=== PATIENT | female | born 1960 | race Caucasian/White ===

== ENCOUNTER → 2023-03-07 10:00 | Outpatient (CLI) | payer OTHER, MEDICAID, SELFPAY ==
[2023-03-07 11:19] LABS: Add Manual Diff / Slide Review NO; Basophils Absolute Auto 0 /uL (0-100); Basophils Percent Auto 0.7 % (0-2); Eosinophils Absolute Auto 100 /uL (0-450); Eosinophils Percent Auto 2.3 % (2-4); Hematocrit 35.1 % (36-46); Hemoglobin 11.6 g/dL (12.0-16.0); Lymphocytes Absolute Auto 1300 /uL (1100-4500); Lymphocytes Percent Auto 23.9 % (25-40); Mean Corpuscular Hemoglobin 26.8 PG (26-34); Mean Corpuscular Volume 81.4 fL (80-100); Monocytes Absolute Auto 600 /uL (0-900); Monocytes Percent Auto 10.9 % (3-14); Neutrophils Absolute Auto 3300 /uL (1500-7000); Neutrophils Percent Auto 62.2 % (50-75); Platelet Count 203 X10^3/uL (150-400); Red Blood Cell Count 4.31 X10^6/uL (4.0-5.2); Red Cell Distribution Width 16.4 % (11.6-14.8); White Blood Cell Count 5.3 X10^3/uL (4.5-11.0)
[2023-03-07 11:35] LABS: Hemoglobin A1C% w Est Avg Glu 5.9 % (4.0-6.0)
[2023-03-07 11:42] LABS: HEMOLYSIS < 15 (0-50); Iron 35 ug/dL (37-170)
[2023-03-07 11:45] LABS: Alanine Aminotransferase 14 IU/L (<35); Albumin 4.2 g/dL (3.5-5.0); Albumin Globulin Ratio 1.5 (1.0-2.8); Alkaline Phosphatase 86 U/L (38-126); Aspartate Aminotransferase 29 IU/L (14-36); BUN Creatinine Ratio 21.1 (6-22); Bilirubin Total 0.4 mg/dL (0.2-1.3); Bilirubin Unconjugated 0.3 mg/dL (0.0-1.1); Blood Urea Nitrogen 19 mg/dL (7-17); Calcium 9.3 mg/dL (8.4-10.2); Carbon Dioxide 31 mmol/L (22-32); Chloride 99 mmol/L (98-107); Cholesterol 177 mg/dL (140-199); Estimated Glomerular Filt Rate > 60 mL/min (>60); Globulin 2.8 g/dL (1.7-4.1); Glucose 94 mg/dL (80-110); HDL Cholesterol 83 mg/dL (40-60); HEMOLYSIS < 15 (0-50); LDL Cholesterol Calculated 78 mg/dL (<100); Potassium 3.6 mmol/L (3.4-5.1); Sodium 137 mmol/L (137-145); Triglycerides 78 mg/dL (35-150)
[2023-03-07 11:53] LABS: Percent Iron Saturation 9 % (15-50); Total Iron Binding Capacity 388 ug/dL (265-497); Transferrin 310 mg/dL (206-381)
[2023-03-07 11:59] LABS: Vitamin D 25 Hydroxy (D3) 37.5 ng/mL (30.0-100.0)
[2023-03-07 12:13] LABS: TSH w/ Reflex to FT4 0.09 uIU/mL (0.47-4.68)
[2023-03-07 12:18] LABS: Ferritin 9 ng/mL (11-264)
[2023-03-07 12:32] LABS: Vitamin B12 917 pg/mL (239-931)
[2023-03-07 12:46] LABS: Free T4, Direct Thyroxine 1.83 ng/dL (0.78-2.19)
[2023-03-08 16:46] LABS: Hep C Virus Ab w/Reflex Quant REACTIVE s/c (NEGATIVE)
== END ==
PROVIDERS: PCP Student in an Organized Health Care Education/Training Program; Referring Provider Student in an Organized Health Care Education/Training Program; Visit Provider Student in an Organized Health Care Education/Training Program
DX: E03.9 Hypothyroidism, unspecified (principal); D64.9 Anemia, unspecified; K74.60 Unspecified cirrhosis of liver; K76.9 Liver disease, unspecified; Z13.21 Encounter for screening for nutritional disorder; Z13.1 Encounter for screening for diabetes mellitus
CPT/HCPCS: 36415; 80053; 80061; 80076; 82306; 82607; 82728; 83036; 83540; 83550; 84439; 84443; 85025; 86803; 87522

== ENCOUNTER → 2023-03-13 15:34 | Outpatient (CLI) | payer OTHER, MEDICAID, SELFPAY | PROVIDERS: PCP Student in an Organized Health Care Education/Training Program; Referring Provider Student in an Organized Health Care Education/Training Program; Visit Provider Student in an Organized Health Care Education/Training Program | DX: J44.9 Chronic obstructive pulmonary disease, unspecified (principal); Z87.891 Personal history of nicotine dependence | CPT/HCPCS: 94060; 94726; 94729 ==

== ENCOUNTER → 2023-03-15 09:03 | Outpatient (CLI) | payer OTHER, MEDICAID, SELFPAY ==
--- NOTE | 2023-03-15 09:06 | DI.ECHO.S_ITS ---
[facility] +---------+ : : [address] : [place] : : : : [id number] : : : : Phone: [phone]---------+ Echocardiogram Report + + :Name: ANTONIO MARTINI) Johnathan Study Date: 03/15/2023 Height: 64 in : :[facility] ReadingLocation: Weight: 144 lb : : Gender: Female BSA: 1.7 m2 : :: 1960 Age: 62 yrs BP: 144/90 mmHg: :Reason For Study: Mitral Valve Prolapse : :Ordering Physician: Faith, : :Sangeeta Galicia Performed By: Karoline Duff : :Referring: Sangeeta Cuevas : + + Interpretation Summary 1) Normal left ventricular thickness, size, wall motion, and systolic function (EF 55-60%). 2) Normal right ventricular size and function. 3) Mitral valve leaflets are mildly thickened and there is mild regurgitation. 4) No prior Echo available for comparison. Procedure: A two-dimensional transthoracic echocardiogram with color flow and Doppler was performed. The study quality was technically adequate. There is no prior echocardiogram noted for this patient. The patient was in normal sinus rhythm during the exam. Left Ventricle: The left ventricle is normal in size and wall thickness. The ejection fraction is estimated to be 55-60%. Left ventricular systolic function appears normal without focal wall motion abnormalities. Diastolic parameters suggest a relaxation abnormality of the left ventricle, consistent with probable normal filling pressures. Right Ventricle: The right ventricle is normal in size and function. Atria: The left atrial size is normal. Right atrial size is normal. There is no Doppler evidence for an interatrial shunt. Mitral Valve: The mitral valve leaflets appear mildly thickened, but open well. There is no mitral valve stenosis. There is mild mitral regurgitation. Aortic Valve: The aortic valve is not well visualized. There is no aortic valve stenosis. No aortic regurgitation is present. Tricuspid Valve: The tricuspid valve is normal. There is no tricuspid stenosis. There is trace tricuspid regurgitation. The right ventricular systolic pressure is estimated to be at least 25 mmHg based on an estimated right atrial pressure of 8 mm Hg. Pulmonic Valve: The pulmonic valve is not well visualized. There is no pulmonic valvular stenosis. There is trace pulmonic regurgitation. Great Vessels: The aortic root is normal size. The ascending aorta is normal in size. The pulmonary artery is normal size. The IVC is dilated (diameter is greater than 2.1 cm) yet it collapses greater than 50% with a sniff. This suggests a right atrial pressure of 8 mm Hg. Pericardium/ Pleura There is no pericardial effusion. There is no pleural effusion. MMode/2D Measurements & Calculations LVIDd: 4.8 cm LVOT diam: 1.8 cm LVIDs: 3.0 cm Ao root diam: 2.9 cm FS: 37.5 % asc Aorta Diam: 2.9 cm IVSd: 0.60 cm LVPWd: 0.60 cm LV barone. diameter/BSA (cm/m^2): 2.8 LV sys. diameter/BSA (cm/m^2): 1.8 LA A2 area: 12.0 cm2 RA long axis: 4.2 cm LA A4 area: 13.0 cm2 RA area: 10.4 cm2 LA length (vol): 4.0 cm RA vol: 22.0 ml LA vol: 32.9 ml RA : 12.9 ml/m2 LA vol index: 19.3 ml/m2 IVC diam: 2.2 cm RVD1 (basal): 2.9 cm LVLs ap4: 5.2 cm LVLd ap2: 5.7 cm TAPSE_phl: 1.9 cm LVLs ap2: 5.1 cm Doppler Measurements & Calculations Ao V2 max: 111.5 cm/sec LVOT Max Travis: 85.9 cm/sec Ao V2 mean: 78.0 cm/sec LV V1 max P.0 mmHg Ao max P.0 mmHg LV V1 VTI: 20.4 cm Ao mean P.0 mmHg TAI(I,D): 1.8 cm2 Ao V2 VTI: 28.2 cm TAI(V,D): 2.0 cm2 sev ratio: 0.72 TAI indexed to BSA (cm^2/m^2): 1.1 MV E max travis: 87.0 cm/sec TR max travis: 200.7 cm/sec MV A max travis: 80.6 cm/sec TR max P.9 mmHg MV E/A: 1.1 PA V2 max: 79.9 cm/sec Med Peak E' Travis: 8.5 cm/sec PA V2 mean: 55.2 cm/sec E/E' med: 10.2 PA mean P.0 mmHg Lat Peak E' Travis: 8.3 cm/sec PA pr(Accel): 32.6 mmHg E/E' lat: 10.4 E/e' average: 10.3 MV dec time: 0.24 sec SV(LVOT): 51.8 ml AV VR_phl: 0.77 TAI(VTI)/BSA_phl: 1.1 Reading Physician:03:34 PM
== END ==
PROVIDERS: PCP Student in an Organized Health Care Education/Training Program; Referring Provider Student in an Organized Health Care Education/Training Program; Visit Provider Student in an Organized Health Care Education/Training Program
DX: I34.1 Nonrheumatic mitral (valve) prolapse (principal); I34.0 Nonrheumatic mitral (valve) insufficiency
CPT/HCPCS: 87522; C8929; Q9957

== ENCOUNTER → 2023-03-27 14:47 | Outpatient (CLI) | payer OTHER, MEDICAID, SELFPAY ==
--- NOTE | 2023-03-27 14:49 | DI.NM.S_ITS ---
PROCEDURE: NM WAQAR PERF SPECT SINGLE STUDY Rest only myocardial perfusion SPECT with gated imaging and ejection fraction. RADIOPHARMACEUTICAL: 25 mCi Tc-99m sestamibi IV at rest and 25.7 mCi Tc-99m sestamibi IV at peak exercise. A [id number]-[id number] was performed. INDICATIONS: RIVAS TECHNIQUE: Radiopharmaceutical was injected at peak stress test, and also at rest. SPECT images were obtained. SPECT myocardial perfusion images were displayed in short axis, horizontal long axis, and vertical long axis views. Gated images were reviewed using [facility] software. COMPARISON: None. CARDIAC STRESS: A standard Lavelle treadmill exercise tolerance test was performed by the patient under the supervision of an attending staff. The patient exercised for 15 seconds then developed shortness of breath, dizziness and chest tightness so the protocol was switched to pharmacologic. She then received regadenoson 0.4 mg IV. Hemodynamic data: There an increase in blood pressure after regadenoson infusion, maximum 160/110. Symptoms: Patient complained of 10 out of 10 chest pain after vasodilator infusion that did not resolve after administration of aminophylline 100 mg IV and decrease to an 8 out of 10 after sublingual nitroglycerin 0.4 mg x 1. EKG: No diagnostic EKG changes of ischemia; no ectopy. FINDINGS: Raw data: There is good myocardial labeling by radiotracer. No significant motion artifacts. Left ventricle function: Gated images demonstrate normal left ventricle wall thickening. No segmental wall motion abnormality. The left ventricle resting end-diastolic volume is 71 mL. Left ventricle rest ejection fraction is 68%; normal values are above 45%. Myocardial perfusion: There is a large size, moderate to severe intensity inferior and inferolateral wall defect. IMPRESSION: Abnormal, rest only myocardial perfusion imaging. There is a large size, moderate to severe intensity inferior and inferolateral wall defect occurring in the setting of normal wall motion on rest only imaging. The patient developed chest pain after vasodilator infusion that did not resolve with reversal agent and sublingual nitroglycerin so she was sent to the ED. No stress imaging obtained. Dictated by: Shelly Garcia D.O. on 03/28/2023 at 17:03 Approved by: Shelly Garcia D.O. on 03/28/2023 at 17:13
== END ==
PROVIDERS: Family Provider Student in an Organized Health Care Education/Training Program; PCP Student in an Organized Health Care Education/Training Program; Referring Provider Internal Medicine Cardiovascular Disease; Visit Provider Internal Medicine Cardiovascular Disease
DX: R06.09 Other forms of dyspnea (principal); R94.39 Abnormal result of other cardiovascular function study
CPT/HCPCS: 78451; 93017; A9502; J2785

== ENCOUNTER 2023-03-28 08:40 | Emergency (ER) | payer OTHER, MEDICAID, SELFPAY ==
[2023-03-28] VITALS (23 sets, daily range): BP systolic 126–154; BP diastolic 66–95; PULSE 53–76; RESP 10–38; TEMP 36.4; O2SAT 90–100; BMI 24.7
--- NOTE | 2023-03-28 08:42 | DI.RAD.S_ITS ---
PROCEDURE: XR CHEST 1V INDICATIONS: chest pain TECHNIQUE: One view of the chest was acquired. COMPARISON: None. FINDINGS: Surgical changes and devices: Partially visualized thoracic spinal cord stimulator. Lungs and pleura: Lungs are clear. No pleural effusions or pneumothorax. Mediastinum: Mediastinal contours appear normal. Heart size is normal. Bones and chest wall: No suspicious bony lesions. Overlying soft tissues appear unremarkable. IMPRESSION: No acute cardiopulmonary abnormality is seen. Dictated by: Jeison Quispe M.D. on 03/28/2023 at 9:01 Approved by: Jeison Quispe M.D. on 03/28/2023 at 9:03
--- NOTE | 2023-03-28 08:44 | ED.CHESTPAIN ---
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 Patient was participating in a stress test when she received the Lexiscan portion develop chest pressure substernal and epigastric radiating through to her back into her right neck. She states she feels very short of breath. She does not feel wheezy or tight. Denies any diaphoresis. No nausea no vomiting. No recent fevers or cold cough congestion symptoms. Patient states no recent diarrhea or constipation, no issues with urinary changes. Patient has noted some mild swelling in the last week or so in her lower extremities. She states this is very similar to the chest discomfort she gets that prompted her stress test but states that is usually for very short periods of time such as a couple seconds. She had 20 minutes plus of symptoms with her stress test received aminophylline with a few minutes of improvement and then recurrence and single dose of nitro without any resolution. EKG noted some nonspecific change with her stress test but no other acute changes. Patient notes she is quite deconditioned and does not perform much physical activity secondary to her COPD. Patient states she would a very similar event when she had stress testing with chemicals in [place] many years ago. She states developed similar symptoms ultimately was transferred to the ER, had lab work and then was transferred to a larger facility where she had heart catheterization. She was told her heart was stiff but they did not place any cardiac stents. She states they did adjust medications afterwards. She states no anticoagulants she, she does not use her inhalers regularly because they are too expensive, she is on metoprolol, levothyroxine, dupalimab for daily home medications. Denies any recent surgeries. Former smoker. No regular alcohol, no recreational or IV drugs. Dr. Cabrera is her PCP. Related Data Home Medications Medication Instructions Recorded Confirmed ascorbate calcium (vitamin C) 500 500 mg PO DAILY 03/06/23 03/23/23 mg capsule bisacodyl 5 mg tablet,delayed 5 mg PO .PRN 03/06/23 03/23/23 release (Dulcolax (bisacodyl)) diphenhydramine HCl 25 mg capsule 25 mg PO BEDTIME PRN 03/06/23 03/23/23 (Benadryl) levothyroxine 50 mcg capsule 50 mcg PO DAILY 03/06/23 03/23/23 Previous Rx's Medication Instructions Recorded Disabled Parking #1 ea 03/06/23 dupilumab 300 mg/2 mL subcutaneous 300 mg (2 mL) SUBCUT Q2W #4 mL 03/06/23 pen injector (Dupixent) esomeprazole magnesium 20 mg 20 mg PO DAILY #90 caps 03/06/23 capsule,delayed release (Nexium) metoprolol succinate 50 mg capsule 50 mg PO DAILY #90 ea 03/06/23 sprinkle, ext. release 24 hr nadolol 20 mg tablet 20 mg PO ONCE #90 tabs 03/06/23 estradiol cypionate 5 mg/mL 2 mg (0.4 mL) IM Q4W #10 mL 03/07/23 intramuscular oil (Depo-Estradiol) cyclobenzaprine 5 mg tablet 5 mg PO TID PRN muscle spasm #90 03/23/23 tabs fluticasone propionate 110 2 puff inhalation ONCE shortness 03/23/23 mcg/actuation HFA aerosol inhaler of breath #12 grams (Flovent HFA) ipratropium 0.5 mg-albuterol 3 mg 3 ml inhalation BID #180 mL 03/27/23 (2.5 mg base)/3 mL nebulization soln Allergies Allergy/AdvReac Type Severity Reaction Status Date / Time penicillin G Allergy Severe Anaphylaxis Verified 03/28/23 08:46 vaccine adjuvant system, Allergy Severe blisters Verified 03/28/23 08:46 AS01B liposomal [From Shingrix (PF)] varicella-zoster virus Allergy Severe blisters Verified 03/28/23 08:46 glycoprotein E, recombinant [From Shingrix (PF)] latex AdvReac Intermediate Redness of Verified 03/28/23 08:46 Skin codine Allergy Severe Anaphylaxis Uncoded 03/27/23 13:45 Review of Systems Review of Systems ROS Unobtainable: All systems reviewed & are unremarkable except as noted in HPI and below Patient History Medical History COPD (chronic obstructive pulmonary disease) (~2018) Allergies Scoliosis Chronic back pain Cervical spine disease Carpal tunnel syndrome Mumps Chicken pox Ruptured tympanic membrane Glaucoma Liver disease (~2018) Hepatitis C (~2018) Hemorrhoid GERD (gastroesophageal reflux disease) Cirrhosis (~2018) MVP (mitral valve prolapse) Surgical History Anesthesia S/P insertion of spinal cord stimulator (~2016) History of hernia repair (~2012) History of appendectomy History of elbow surgery History of carpal tunnel release History of cholecystectomy History of ear surgery History of total hysterectomy History of partial hysterectomy Social History Smoking Status: Former smoker (2017) Smoking Status: Former smoker (2017) Exam Narrative Exam Narrative: GENERAL: Alert and oriented x three, HEENT: Head normocephalic, atraumatic, EOMI, pupils reactive, face symmetric, moist mucous membranes NECK: Supple, full range of motion CARDIOVASCULAR: Regular rate and rhythm without murmurs, rubs or gallops. No JVD. No edema appreciated bilateral lower extremities. RESPIRATORY: Breath sounds slightly decreased bilaterally but equal bilaterally, no wheezes rales or rhonchi. No tachypnea. No accessory muscle use. ABDOMEN: Soft, nontender. Normoactive bowel sounds all 4 quadrants. No guarding or rebound, rigidity, no mass : No CVA tenderness EXTREMITIES: Normal range of motion, no clubbing or edema. Neurovascularly intact NEUROLOGICAL: Cranial nerves II through XII grossly intact. Moving all extremities SKIN: Warm, dry, no petechiae, no rashes or lesions. Initial Vital Signs Initial Vital Signs: Vital Signs Temperature 97.6 F 03/28/23 08:43 Pulse Rate 71 03/28/23 08:43 Respiratory Rate 20 03/28/23 08:43 Blood Pressure 154/85 H 03/28/23 08:43 Pulse Oximetry 98 03/28/23 08:43 Oxygen Delivery Method Room Air 03/28/23 08:43 Course Orders Ordered: ED Orders 03/28/23 09:00 EKG-12 Lead Stat 03/28/23 10:45 Trop I [Troponin I] Stat 03/28/23 11:20 CT angio chest PE protocol Stat 03/28/23 12:55 Trop I [Troponin I] Stat Discontinued Medications Albuterol/Ipratropium (Albuterol/Ipratropium 3 Ml Ampul) 3 ml INH NOW ONE Stop: 03/28/23 09:18 Last Admin: 03/28/23 09:19 Dose: 3 ml Documented By: CORIE Aspirin (Aspirin 81 Mg Chew Tab) 324 mg PO NOW ONE Stop: 03/28/23 08:43 Last Admin: 03/28/23 08:54 Dose: 324 mg Documented By: ROCHELLE Morphine Sulfate (Morphine 4 Mg/Ml Inj) 4 mg IV NOW ONE Stop: 03/28/23 09:03 Last Admin: 03/28/23 09:05 Dose: 4 mg Documented By: ROCHELLE Morphine Sulfate (Morphine 4 Mg/Ml Inj) 4 mg IV NOW ONE Stop: 03/28/23 09:52 Last Admin: 03/28/23 10:13 Dose: 4 mg Documented By: ROCHELLE Nitroglycerin (Nitroglycerin 0.4 Mg Sl Tab) 0.4 mg SL [id number] PRN PRN Reason: Chest Pain Last Admin: 03/28/23 08:54 Dose: 0.4 mg Documented By: ROCHELLE Ondansetron HCl (Ondansetron 4 Mg/2 Ml Inj) 4 mg IV NOW ONE Stop: 03/28/23 09:40 Last Admin: 03/28/23 09:44 Dose: 4 mg Documented By: ROCHELLE Vital Signs Vital signs: Vital Signs - 8 hr 03/28/23 10:00 03/28/23 10:00 03/28/23 10:15 Pulse Rate 61 Respiratory Rate 17 Blood Pressure 146/81 H 130/69 Pulse Oximetry 98 Oxygen Delivery Method 03/28/23 10:15 03/28/23 10:30 03/28/23 10:30 Pulse Rate 61 62 Respiratory Rate 24 19 Blood Pressure 143/66 H Pulse Oximetry 97 90 L Oxygen Delivery Method Room Air 03/28/23 11:00 03/28/23 11:00 03/28/23 11:38 Pulse Rate 59 L 64 Respiratory Rate 21 27 H Blood Pressure 127/66 Pulse Oximetry 91 Oxygen Delivery Method 03/28/23 11:39 03/28/23 11:39 03/28/23 12:00 Pulse Rate 63 Respiratory Rate 15 Blood Pressure 146/70 H 136/70 Pulse Oximetry 98 Oxygen Delivery Method 03/28/23 12:00 03/28/23 12:30 03/28/23 12:30 Pulse Rate 55 L 61 Respiratory Rate 21 17 Blood Pressure 138/72 Pulse Oximetry 96 96 Oxygen Delivery Method Room Air 03/28/23 13:00 03/28/23 13:00 03/28/23 13:30 Pulse Rate 61 53 L Respiratory Rate 20 15 Blood Pressure 130/68 Pulse Oximetry 95 96 Oxygen Delivery Method Room Air 03/28/23 13:30 Pulse Rate Respiratory Rate Blood Pressure 137/74 Pulse Oximetry Oxygen Delivery Method MDM - Chest Pain Lab Data 03/28/23 08:45 03/28/23 08:45 Labs: Lab Results 03/28/23 03/28/23 03/28/23 Range/Units 08:45 10:45 12:55 WBC 7.3 (4.5-11.0) X10^3/uL RBC 4.16 (4.0-5.2) X10^6/uL Hgb 11.1 L (12.0-16.0) g/dL Hct 33.7 L (36-46) % MCV 80.9 (80-100) fL MCH 26.8 (26-34) PG MCHC 33.1 (30-36) % RDW 15.2 H (11.6-14.8) % Plt Count 216 (150-400) X10^3/uL Neut % (Auto) 58.2 (50-75) % Lymph % (Auto) 28.1 (25-40) % O'Brien % (Auto) 10.1 (3-14) % Eos % (Auto) 2.8 (2-4) % Baso % (Auto) 0.8 (0-2) % Neut # (Auto) 4200 (9011-0963) /uL Lymph # (Auto) 2000 (5221-3859) /uL O'Brien # (Auto) 700 (0-900) /uL Eos # (Auto) 200 (0-450) /uL Baso # (Auto) 100 (0-100) /uL PT 12.2 (9.4-12.5) SECONDS INR 1.1 (0.9-1.3) APTT 29 (25.1-36.5) SECONDS D-Dimer 1644 H (<500) ng/ml Sodium 134 L (137-145) mmol/L Potassium 3.5 (3.4-5.1) mmol/L Chloride 100 (98-107) mmol/L Carbon Dioxide 28 (22-32) mmol/L BUN 12 (7-17) mg/dL Creatinine 0.71 (0.52-1.04) mg/dL Estimated GFR > 60 (>60) mL/min BUN/Creatinine Ratio 16.9 (6-22) Glucose 87 (80-110) mg/dL Calcium 9.4 (8.4-10.2) mg/dL Magnesium 1.3 L (1.6-2.3) mg/dL Total Bilirubin 0.8 (0.2-1.3) mg/dL AST 28 (14-36) IU/L ALT 11 (<35) IU/L Alkaline Phosphatase 74 (38-126) U/L Total Creatine Kinase 37 (30-135) U/L Troponin I < 0.012 < 0.012 < 0.012 (0.01-0.034) ng/mL NT-Pro-B Natriuret Pep 683 H (<125) pg/mL Total Protein 7.0 (6.3-8.2) g/dL Albumin 3.9 (3.5-5.0) g/dL Globulin 3.1 (1.7-4.1) g/dL Albumin/Globulin Ratio 1.3 (1.0-2.8) Lipase 57 (23-300) U/L Point of Care Testing Glucose POC 73 Imaging Data Chest x-ray: Radiologist's Impression: [address] [address] XRay Report Signed Patient: Xi Dejesus (Debbie) MR#: [id number] : 1960 Acct:[id number] Age/Sex: 62 / F Date of Service: 03/28/23 Loc: ED Accession Number: [id number] Procedure: XR chest 1V Ordering Provider: Marley Osorio D.O. PROCEDURE: XR CHEST 1V INDICATIONS: chest pain TECHNIQUE: One view of the chest was acquired. COMPARISON: None. FINDINGS: Surgical changes and devices: Partially visualized thoracic spinal cord stimulator. Lungs and pleura: Lungs are clear. No pleural effusions or pneumothorax. Mediastinum: Mediastinal contours appear normal. Heart size is normal. Bones and chest wall: No suspicious bony lesions. Overlying soft tissues appear unremarkable. IMPRESSION: No acute cardiopulmonary abnormality is seen. Dictated by: Jeison Quispe M.D. on 03/28/2023 at 9:01 Approved by: Jeison Quispe M.D. on 03/28/2023 at 9:03 CT scan - chest: Radiologist's Impression: combinant, latex, [codine] (More??) Close Chest CTA (Signed) Zachary Beltran - 03/28/23 Chest X-Ray (Signed) Jeison Quispe - 03/28/23 PFT Result 03/13/23 Launch?[place] [address] CT Scan Report Signed Patient: Xi Dejesus (Debbie) MR#: [id number] : 1960 Acct:[id number] Age/Sex: 62 / F Date of Service: 03/28/23 Loc: ED Accession Number: [id number] Procedure: CT angio chest PE protocol Ordering Provider: Marley Osorio D.O. PROCEDURE: CT ANGIO CHEST PE PROTOCOL INDICATIONS: chestpain/sob, s/p stress test. hypoxic intermittently TECHNIQUE: After the administration of intravenous contrast, 2 mm thick sections acquired from the pulmonary apices to the posterior costophrenic angles. 3-dimensional maximum intensity projection (MIP) coronal and sagittal reformats were then acquired through the thorax. For radiation dose reduction, the following was used: automated exposure control, adjustment of mA and/or kV according to patient size. COMPARISON: [facility], CR, XR CHEST 1V, 03/28/2023, 8:47. FINDINGS: Image quality: Diagnostic. Pulmonary arteries: Pulmonary arteries are normal in size, and demonstrate no intraluminal filling defects to suggest central pulmonary embolism. Lungs and pleura: [id number] centrilobular emphysema. The Lungs are clear. No pleural effusions or pneumothorax. Central and peripheral airways are patent. Mediastinum: Heart size is normal, without pericardial effusion. No mediastinal or hilar adenopathy. Thoracic aorta is normal in caliber and enhancement. Esophagus is normal in caliber, without hiatal hernia. Bones and chest wall: No suspicious bony lesions. Ribs and thoracic spine appear intact throughout. No axillary or supraclavicular adenopathy. No thyroid nodules which require sonographic follow up, per consensus guidelines. Dorsal column stimulator device. Abdomen: Extensive nodularity of the surface of the liver consistent with cirrhosis. No focal liver mass identified. IMPRESSION: 1. No pulmonary embolus. Unremarkable thoracic aorta. 2. No acute pulmonary process. 3 period [id number] centrilobular emphysema. 4. Cirrhosis. Dictated by: Zachary Beltran M.D. on 03/28/2023 at 11:54 Approved by: Zachary Beltran M.D. on 03/28/2023 at 11:57 ECG Data Attestation: I personally reviewed and interpreted this ECG as follows: Interpretation: Sinus rhythm, low voltage, rate of 69 FL 176 QRS of 66 QTC of 484. No acute ST elevation or depression appreciated but low voltage. EKG was repeated. Sinus rhythm rate of 76 FL 174 QRS is 76 QTC of 472. No acute ST elevation,h 1 aVL not depressed but very flattened with RSR. Repeat EKG 2 hour nirav shows sinus bradycardia, rate of 58 FL 190 QRS is 72 QTC 447. Patient has T-wave inversions in V1 through V5 with some mild depression in lead 3. MDM Narrative Medical decision making narrative: 62-year-old female COPD, possible history of coronary artery disease but no prior stents after catheterization and a years ago. Patient presents with chest pain that has been persistent for 20+ minutes after receiving the Lexiscan portion of her stress test. Patient states has a similar episode when she had stress testing in the past that required treatment transfer for heart catheterization which did not result in stents but she was told her heart was stiff. Patient does not show any acute or dynamic EKG changes on initial EKGs. Labs including CBC, CMP, troponin, BNP obtained Chest x-ray showed Patient received additional nitro with minimal to no improvement. Patient received morphine did not have some improvement. Patient was also DuoNeb she is not particularly wheezy but was COPD history was given and on recheck was also helpful. Patient given additional dose of morphine. She is appearing much more comfortable for this but still has some persistent chest pain. Case discussed with Cardiology, Dr. Maier: Discussed initial troponins negative repeat is pending, patient 1st EKG did not have any acute changes. Plan for 2 hour troponin at 10:45 a.m. along with repeat EKG. They are hopeful to still use the tracer and would like patient to return but noted that patient is now requiring oxygen she did have morphine but she is not fallen asleep she is awake alert talking to me. Discussed that I would like to do some additional workup as that somewhat atypical in concerning for other source. Repeat troponin does show inverted T-waves that are new in V1 [address] elevation. Patient continues to appear improved. Discussed with patient she is agreeable for CT angio will obtain she is had persistent long-term shortness of breath for COPD with chest pain intermittently. We discussed that her cardiac workup will likely be incomplete today for a stress testing perspective. Updated Dr. Maier, regarding hurting new ST segment changes. Repeat troponin is negative. Patient had dimer which was elevated outside age adjusted head CT angio which does not show pulmonary emboli, does show emphysematous changes and cirrhosis. Patient states symptoms have significantly improved. States patient will need a dobutamine stress test instead we will not be able to repeat here. We will have to be [facility] but can be done as an outpatient she states does not require repeat echo did have 1 on 03/15/2023 we reviewed these findings. She will contact Dr. Cuevas to have this set up. Out of abundance of caution patient had 3rd troponin which continues to be negative. She continues to be chest pain-free at this time has resolved. Patient feels comfortable with discharge home. Discussed return precautions all questions answered. Discharge Plan Departure Patient Disposition: Home Clinical Impression: Chest pain Activity Restrictions/Additional Instructions: Follow-up with Dr. Cuevas to schedule a dobutamine stress test at [facility]. Dr. Maier is message in Dr. Cuevas and the office should reach out to you this week to set up your procedure. I spoke with your cardiology team today your troponin or heart enzyme has been negative but you did have EKG change after your stress test. They will need to order a different kind of stress test that will be performed at [facility]. They state you do not need to be hospitalized today you can follow-up outpatient for this. Please return for new or worsening chest pain, shortness of breath, lightheadedness or passing out, persistent vomiting, new swelling of her extremities or other new or concerning changes. Prescriptions: No Action fluticasone propionate [Flovent HFA] 110 mcg/actuation HFA aerosol inhaler 2 puff inhalation ONCE Qty: 12 3RF cyclobenzaprine 5 mg tablet 5 mg PO TID PRN (Reason: muscle spasm) Qty: 90 3RF levothyroxine 50 mcg capsule 50 mcg PO DAILY diphenhydramine HCl [Benadryl] 25 mg capsule 25 mg PO BEDTIME PRN bisacodyl [Dulcolax (bisacodyl)] 5 mg tablet,delayed release (DR/EC) 5 mg PO .PRN ascorbate calcium (vitamin C) 500 mg capsule 500 mg PO DAILY (DME) Disabled Parking See Rx Instructions .ROUTE .MEDSUPPLY Qty: 1 0RF Rx Instructions: I find this patient to be medical disabled and qualified for Disabled Parking as indicated, and signed, on the and the Accompanying Disabled Parking Application for Individuals. nadolol 20 mg tablet 20 mg PO ONCE Qty: 90 3RF esomeprazole magnesium [Nexium] 20 mg capsule,delayed release(DR/EC) 20 mg PO DAILY Qty: 90 0RF Dupixent Pen 300 mg/2 mL pen injector 300 mg SUBCUT Q2W Qty: 4 0RF metoprolol succinate 50 mg capsule,sprinkle,ER 24hr 50 mg PO DAILY Qty: 90 3RF Depo-Estradiol 5 mg/mL oil 2 mg IM Q4W Qty: 10 3RF ipratropium-albuterol 0.5 mg-3 mg(2.5 mg base)/3 mL solution for nebulization 3 ml inhalation BID Qty: 180 5RF Referrals: Karoline Cabrera MD [Primary Care Provider] - Stand Alone Forms: Patient Portal/API
[2023-03-28] MEDS: NITROGLYCERIN 0.4 MG SL TAB SL (08:54)
[2023-03-28] MEDS: ASPIRIN 81 MG CHEW TAB 324 MG PO (08:54)
[2023-03-28 08:59] LABS: Add Manual Diff / Slide Review NO; Basophils Absolute Auto 100 /uL (0-100); Basophils Percent Auto 0.8 % (0-2); Eosinophils Absolute Auto 200 /uL (0-450); Eosinophils Percent Auto 2.8 % (2-4); Hematocrit 33.7 % (36-46); Hemoglobin 11.1 g/dL (12.0-16.0); Lymphocytes Absolute Auto 2000 /uL (1100-4500); Lymphocytes Percent Auto 28.1 % (25-40); Mean Corpuscular HGB Conc 33.1 % (30-36); Mean Corpuscular Hemoglobin 26.8 PG (26-34); Mean Corpuscular Volume 80.9 fL (80-100); Monocytes Absolute Auto 700 /uL (0-900); Monocytes Percent Auto 10.1 % (3-14); Neutrophils Absolute Auto 4200 /uL (1500-7000); Neutrophils Percent Auto 58.2 % (50-75); Platelet Count 216 X10^3/uL (150-400); Red Blood Cell Count 4.16 X10^6/uL (4.0-5.2); Red Cell Distribution Width 15.2 % (11.6-14.8); White Blood Cell Count 7.3 X10^3/uL (4.5-11.0)
[2023-03-28] MEDS: MORPHINE 4 MG/ML INJ IV ×2 (09:05→10:13)
[2023-03-28 09:07] LABS: INR 1.1 (0.9-1.3); Prothrombin Time 12.2 SECONDS (9.4-12.5)
[2023-03-28 09:10] LABS: PTT Partial Thromboplastin Tim 29 SECONDS (25.1-36.5)
[2023-03-28] MEDS: ALBUTEROL/IPRATROPIUM 3 ML AMPUL INH (09:19)
[2023-03-28 09:25] LABS: Alanine Aminotransferase 11 IU/L (<35); Albumin 3.9 g/dL (3.5-5.0); Albumin Globulin Ratio 1.3 (1.0-2.8); Alkaline Phosphatase 74 U/L (38-126); Aspartate Aminotransferase 28 IU/L (14-36); BUN Creatinine Ratio 16.9 (6-22); Bilirubin Total 0.8 mg/dL (0.2-1.3); Blood Urea Nitrogen 12 mg/dL (7-17); Calcium 9.4 mg/dL (8.4-10.2); Carbon Dioxide 28 mmol/L (22-32); Chloride 100 mmol/L (98-107); Creatine Kinase 37 U/L (30-135); Estimated Glomerular Filt Rate > 60 mL/min (>60); Globulin 3.1 g/dL (1.7-4.1); Glucose 87 mg/dL (80-110); HEMOLYSIS < 15 (0-50); Lipase 57 U/L (23-300); Magnesium 1.3 mg/dL (1.6-2.3); Potassium 3.5 mmol/L (3.4-5.1); Sodium 134 mmol/L (137-145)
--- NOTE | 2023-03-28 09:28 | PC.NURSE ---
Pt's chest pain decreased from a 9/10 to a 8/10 shortly after morphine administration. Pt then got up to commode to use restroom and pain increased back to a 9/10. Dr. Osorio aware that chest pain increasing with exertion.
[2023-03-28 09:33] LABS: NT-proBNP (BNP-Adult 18+) 683 pg/mL (<125)
[2023-03-28 09:36] LABS: Troponin I < 0.012 ng/mL (0.01-0.034)
[2023-03-28] MEDS: ONDANSETRON 4 MG/2 ML INJ IV (09:44)
[2023-03-28 11:17] LABS: Troponin I < 0.012 ng/mL (0.01-0.034)
--- NOTE | 2023-03-28 11:20 | DI.CT.S_ITS ---
PROCEDURE: CT ANGIO CHEST PE PROTOCOL INDICATIONS: chestpain/sob, s/p stress test. hypoxic intermittently TECHNIQUE: After the administration of intravenous contrast, 2 mm thick sections acquired from the pulmonary apices to the posterior costophrenic angles. 3-dimensional maximum intensity projection (MIP) coronal and sagittal reformats were then acquired through the thorax. For radiation dose reduction, the following was used: automated exposure control, adjustment of mA and/or kV according to patient size. COMPARISON: [facility], CR, XR CHEST 1V, 03/28/2023, 8:47. FINDINGS: Image quality: Diagnostic. Pulmonary arteries: Pulmonary arteries are normal in size, and demonstrate no intraluminal filling defects to suggest central pulmonary embolism. Lungs and pleura: Hznu-pa-fmssoizl centrilobular emphysema. The Lungs are clear. No pleural effusions or pneumothorax. Central and peripheral airways are patent. Mediastinum: Heart size is normal, without pericardial effusion. No mediastinal or hilar adenopathy. Thoracic aorta is normal in caliber and enhancement. Esophagus is normal in caliber, without hiatal hernia. Bones and chest wall: No suspicious bony lesions. Ribs and thoracic spine appear intact throughout. No axillary or supraclavicular adenopathy. No thyroid nodules which require sonographic follow up, per consensus guidelines. Dorsal column stimulator device. Abdomen: Extensive nodularity of the surface of the liver consistent with cirrhosis. No focal liver mass identified. IMPRESSION: 1. No pulmonary embolus. Unremarkable thoracic aorta. 2. No acute pulmonary process. 3 period duyn-rj-jjgfoegg centrilobular emphysema. 4. Cirrhosis. Dictated by: Zachary Beltran M.D. on 03/28/2023 at 11:54 Approved by: Zachary Beltran M.D. on 03/28/2023 at 11:57
[2023-03-28 11:58] LABS: D Dimer 1644 ng/ml (<500)
[2023-03-28 13:26] LABS: Troponin I < 0.012 ng/mL (0.01-0.034)
== END 2023-03-28 14:24 | disposition home or self-care (01) ==
PROVIDERS: Emergency Provider Emergency Medicine; Family Provider Student in an Organized Health Care Education/Training Program; PCP Student in an Organized Health Care Education/Training Program
DX: R07.9 Chest pain, unspecified (principal); R00.1 Bradycardia, unspecified; R94.31 Abnormal electrocardiogram [ECG] [EKG]
CPT/HCPCS: 36415; 71045; 71275; 80053; 82550; 82962; 83690; 83735; 83880; 84484; 85025; 85379; 85610; 85730; 93005; 93010; 94640; 96374; 96375; 96376; 99285; J2270; J2405

== ENCOUNTER → 2023-04-04 10:18 | Outpatient (CLI) | payer OTHER, MEDICAID, SELFPAY ==
[2023-04-04 11:44] LABS: Add Manual Diff / Slide Review NO; Basophils Absolute Auto 0 /uL (0-100); Basophils Percent Auto 0.6 % (0-2); Eosinophils Absolute Auto 200 /uL (0-450); Eosinophils Percent Auto 3.1 % (2-4); Hematocrit 35.3 % (36-46); Hemoglobin 11.7 g/dL (12.0-16.0); Lymphocytes Absolute Auto 1400 /uL (1100-4500); Mean Corpuscular HGB Conc 33.1 % (30-36); Mean Corpuscular Hemoglobin 27.3 PG (26-34); Mean Corpuscular Volume 82.5 fL (80-100); Monocytes Absolute Auto 600 /uL (0-900); Monocytes Percent Auto 11.7 % (3-14); Neutrophils Absolute Auto 2700 /uL (1500-7000); Neutrophils Percent Auto 55.6 % (50-75); Platelet Count 208 X10^3/uL (150-400); Red Blood Cell Count 4.28 X10^6/uL (4.0-5.2); White Blood Cell Count 4.9 X10^3/uL (4.5-11.0)
== END ==
PROVIDERS: Family Provider Student in an Organized Health Care Education/Training Program; PCP Student in an Organized Health Care Education/Training Program; Referring Provider Internal Medicine Critical Care Medicine; Visit Provider Internal Medicine Critical Care Medicine
DX: R06.02 Shortness of breath (principal)
CPT/HCPCS: 36415; 85025

== ENCOUNTER 2023-04-17 15:32 | Outpatient (RCR) | payer OTHER, MEDICAID, SELFPAY ==
--- NOTE | 2023-04-17 16:23 | PT-OP ANOTE ---
Pt arrived for her initial evaluation on 04/17/23, however after coming back and talking with this therapist, together came to the conclusion that it would be preferable if pt were to follow-up with spinal surgeon tomorrow (04/18/23), as she was very worried about any attempted movement or testing of her back due to problems with an implanted spinal cord stimulator. Pt plans to phone and discusses with therapist after her appointment to determine if she will return for a PT evaluation when next scheduled (04/20/23).
--- NOTE | 2023-04-20 14:52 | PT-OP ANOTE ---
Pt returns for a second attempt at an initial evaluation. Pt reports that she met with the surgeon on Sunday (04/18/23) and they were in agreement about removing the Spinal Stimulator, hopefully in early May. After discussion, pt still feels she is just not comfortable at this time moving forward with Physical Therapy, would rather wait until after surgery to determine if she feels she needs it. Believes it would be too painful to move for any increased activity with the stimulator still present. Understands she will new a new referral in order to return for skilled therapy post-op.
== END 2023-04-20 14:58 ==
LOC: PHYS 15:32
PROVIDERS: Family Provider Student in an Organized Health Care Education/Training Program; PCP Student in an Organized Health Care Education/Training Program; Referring Provider Student in an Organized Health Care Education/Training Program; Visit Provider Student in an Organized Health Care Education/Training Program
DX: M54.9 Dorsalgia, unspecified (principal); G89.29 Other chronic pain; M48.9 Spondylopathy, unspecified

== ENCOUNTER → 2023-04-19 13:47 | Outpatient (CLI) | payer OTHER, MEDICAID, SELFPAY ==
--- NOTE | 2023-04-19 | DI.US.S_ITS ---
PROCEDURE: US ABDOMEN LIMITED INDICATIONS: CIRRHOSIS TECHNIQUE: Real-time scanning was performed of the abdominal and retroperitoneal organs, with image documentation. COMPARISON: None. FINDINGS: Liver: Cirrhotic liver morphology with coarse hepatic echotexture. No solid mass on the provided images. Portal veins are patent with appropriate direction of flow. Hepatic veins are patent with hepatofugal flow. Hepatic artery is patent with brisk systolic upstroke. Splenic artery is patent with brisk systolic upstroke. Gallbladder: Cholecystectomy. Biliary ducts: Intrahepatic bile ducts are non-dilated. Extrahepatic bile duct caliber measures 6 mm. Normal is 6-7 mm or less in diameter, or 10 mm or less post-cholecystectomy. Pancreas: Visualized portions of the pancreas are sonographically normal. IVC: Intrahepatic inferior vena cava is patent. Miscellaneous: No free abdominal fluid. IMPRESSION: 1. Cirrhotic liver morphology. No solid mass on the provided images. 2. Normal Doppler exam of the upper abdomen, as described above. Dictated by: Yasmin Saldana M.D. on 04/19/2023 at 20:22 Approved by: Yasmin Saldana M.D. on 04/19/2023 at 20:24
--- NOTE | 2023-04-19 13:48 | DI.MG.S_ITS ---
BILATERAL DIGITAL SCREENING MAMMOGRAM 3D/2D WITH CAD: 04/19/2023 CLINICAL: Baseline exam. Routine screening. No prior exams were available for comparison. Both breasts are heterogeneously dense, which may obscure small masses (category c / 51-75% glandular tissue). Current study was also evaluated with a Computer Aided Detection (CAD) system. There are presumed benign post operative findings in the left breast. No significant masses, calcifications, or other findings are seen in either breast. IMPRESSION: BENIGN There is no mammographic evidence of malignancy. A 1 year screening mammogram is recommended. There are presumed benign post operative findings in the left breast. No priors are available. Based on the Tyrer Cuzick model (a risk assessment model) the patient's lifetime risk is 7.5% and her 10 year risk is 3.5%. According to the ACR, ACS, and NCCN guidelines, an annual breast MRI exam along with mammogram is recommended if the patient's lifetime risk is 20% or greater. This exam was interpreted at Station ID: [id number]. NOTE: For mammograms, a report in lay terms will be sent to the patient. Approximately 15% of breast malignancies will not be visualized mammographically. In the management of a palpable breast mass, a negative mammogram must not discourage biopsy of a clinically suspicious lesion. Electronically Signed By: Michel Ty M.D. lc/:04/19/2023 15:10:16 letter sent: Normal Exam ACR BI-RADS Category 2: Benign Finding(s) 3342F
--- NOTE | 2023-04-19 13:48 | DI.CT.S_ITS ---
PROCEDURE: CT LUNG LOW DOSE SCREENING INDICATIONS: Smoked 1 ppd 30 years. Quit 2017. TECHNIQUE: Noncontrast 2.0-2.5 mm thick sections acquired from the pulmonary apices to the posterior costophrenic angles. 7 mm thick axial MIP, and 5 mm coronal and sagittal reformats were then acquired. For radiation dose reduction, the following was used: automated exposure control, adjustment of mA and/or kV according to patient size. COMPARISON: [facility], CT, CT ANGIO CHEST PE PROTOCOL, 03/28/2023, 11:30. FINDINGS: Image quality: Diagnostic, given the low radiation dose technique. Lungs and pleura: Mild emphysema. No pulmonary nodules, infiltrate or pleural effusion. No pneumothorax. Mediastinum: Heart size is normal. No pericardial effusion. No mediastinal adenopathy by size criteria. Thoracic aorta and central pulmonary arteries are normal in size. Esophagus is normal in caliber. Small hiatal hernia. Bones and chest wall: No suspicious bony lesions. No vertebral body compression fractures. No axillary or supraclavicular adenopathy by size criteria. No thyroid nodules which require sonographic follow up, per consensus guidelines. Upper Abdomen: Nodular contour liver suggesting cirrhosis. Cholecystectomy.. IMPRESSION: 1. No suspicious pulmonary nodules. LUNG-RADS 1; continued annual screening, if eligible. 2. Mild emphysema. 3. Cirrhosis. Dictated by: Lisseth Harrington M.D. on 04/19/2023 at 15:25 Approved by: Lisseth Harrington M.D. on 04/19/2023 at 15:28
== END ==
PROVIDERS: Family Provider Student in an Organized Health Care Education/Training Program; PCP Student in an Organized Health Care Education/Training Program; Referring Provider Physician Assistant; Visit Provider Student in an Organized Health Care Education/Training Program
DX: Z12.31 Encounter for screening mammogram for malignant neoplasm of breast (principal); Z87.891 Personal history of nicotine dependence; K74.60 Unspecified cirrhosis of liver; Z12.2 Encounter for screening for malignant neoplasm of respiratory organs; J43.9 Emphysema, unspecified; Z90.49 Acquired absence of other specified parts of digestive tract
CPT/HCPCS: 71271; 76705; 77063; 77067; 93975

== ENCOUNTER 2023-06-04 12:30 | Outpatient (RCR) | payer OTHER, MEDICAID, SELFPAY | END 2023-06-04 14:30 | LOC: PUL 12:30 | PROVIDERS: Family Provider Student in an Organized Health Care Education/Training Program; PCP Student in an Organized Health Care Education/Training Program; Referring Provider Internal Medicine Critical Care Medicine; Visit Provider Internal Medicine Critical Care Medicine | DX: J44.9 Chronic obstructive pulmonary disease, unspecified (principal) | CPT/HCPCS: 94625 ==

== ENCOUNTER 2023-06-04 13:23 | Emergency (ER) | payer OTHER, MEDICAID, SELFPAY ==
[2023-06-04] VITALS (12 sets, daily range): BP systolic 110–137; BP diastolic 64–80; PULSE 55–76; RESP 13–39; TEMP 36.2; O2SAT 94–98; BMI 24.7
[2023-06-04] MEDS: ASPIRIN 81 MG CHEW TAB 324 MG PO (13:25)
--- NOTE | 2023-06-04 13:45 | DI.RAD.S_ITS ---
PROCEDURE: XR CHEST 1V INDICATIONS: chest pain TECHNIQUE: One view of the chest was acquired. COMPARISON: [facility], CT, CT LUNG LOW DOSE SCREENING, 04/19/2023, 14:02. [facility], CR, XR CHEST 1V, 03/28/2023, 8:47. FINDINGS: Surgical changes and devices: Thecal leads. Left breast clip. Lungs and pleura: Lungs appear clear. Emphysematous change. No pleural effusions or pneumothorax. Mediastinum: Mediastinal contours appear normal. Heart size is normal. Bones and chest wall: No suspicious bony lesions. Overlying soft tissues appear unremarkable. IMPRESSION: No acute cardiopulmonary abnormality is seen. Dictated by: Keegan John M.D. on 06/04/2023 at 14:55 Approved by: Keegan John M.D. on 06/04/2023 at 14:56
[2023-06-04 14:17] LABS: Add Manual Diff / Slide Review NO; Basophils Absolute Auto 100 /uL (0-100); Basophils Percent Auto 0.8 % (0-2); Eosinophils Absolute Auto 100 /uL (0-450); Eosinophils Percent Auto 1.3 % (2-4); Hematocrit 37.3 % (36-46); Hemoglobin 12.5 g/dL (12.0-16.0); Lymphocytes Absolute Auto 1700 /uL (1100-4500); Lymphocytes Percent Auto 21.5 % (25-40); Mean Corpuscular HGB Conc 33.6 % (30-36); Mean Corpuscular Hemoglobin 28.7 PG (26-34); Mean Corpuscular Volume 85.6 fL (80-100); Monocytes Absolute Auto 700 /uL (0-900); Neutrophils Absolute Auto 5300 /uL (1500-7000); Neutrophils Percent Auto 67.4 % (50-75); Platelet Count 279 X10^3/uL (150-400); Red Blood Cell Count 4.36 X10^6/uL (4.0-5.2); White Blood Cell Count 7.8 X10^3/uL (4.5-11.0)
[2023-06-04 14:25] LABS: Prothrombin Time 11.5 SECONDS (9.4-12.5)
[2023-06-04 14:28] LABS: PTT Partial Thromboplastin Tim 29 SECONDS (25.1-36.5)
[2023-06-04 14:32] LABS: Alanine Aminotransferase 14 IU/L (<35); Albumin 4.4 g/dL (3.5-5.0); Albumin Globulin Ratio 1.2 (1.0-2.8); Alkaline Phosphatase 77 U/L (38-126); Aspartate Aminotransferase 31 IU/L (14-36); BUN Creatinine Ratio 17.2 (6-22); Bilirubin Total 0.7 mg/dL (0.2-1.3); Blood Urea Nitrogen 17 mg/dL (7-17); Calcium 9.5 mg/dL (8.4-10.2); Carbon Dioxide 28 mmol/L (22-32); Chloride 99 mmol/L (98-107); Creatine Kinase 28 U/L (30-135); Estimated Glomerular Filt Rate > 60 mL/min (>60); Globulin 3.8 g/dL (1.7-4.1); Glucose 93 mg/dL (80-110); HEMOLYSIS < 15 (0-50); Lipase 83 U/L (23-300); Magnesium 1.4 mg/dL (1.6-2.3); Potassium 3.5 mmol/L (3.4-5.1); Sodium 135 mmol/L (137-145); Total Protein 8.2 g/dL (6.3-8.2)
[2023-06-04 14:43] LABS: Troponin I < 0.012 ng/mL (0.01-0.034)
--- NOTE | 2023-06-04 14:59 | ED_ITS ---
HPI - Chest Pain General Chief Complaint: Chest Pain Stated Complaint: chest pain Time Seen by Provider: 06/04/23 14:59 Source: patient, RN notes reviewed and other Mode of arrival: Wheelchair Limitations: no limitations History of Present Illness HPI narrative: 62-year-old female with history of COPD, hypothyroidism, prurigo nodularis, chronic back pain, prior mitral valve prolapse. Patient presents with complaint of chest patient states very similar to when she had her stress test in March. Patient was seen by myself on 03/28/2023. Had chest pain with her stress test. Was recommended to follow up with a dobutamine stress test this has been scheduled but isn't available to the end of June. Patient states she has not been having persistent symptoms. She states it occurred while she was in pulmonary rehab doing dumbbells. She states they are quite late. She states she does not have to exert herself anymore than when she walks from her car. She did note some dizziness. She feels a little short of breath. Denies fevers or chills, no cold cough or congestion. She states she has had 4 episodes today. Denies any shortness of breath currently. Denies any swelling in extremities. No nausea no vomiting, no syncope. The only major change she has had since her visit in March is that she got stuck on [employer] [facility] [employer] [facility] when there was no on ice and was out of her medications for about a week. She has since restarted them. 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 Related Data Home Medications Medication Instructions Recorded Confirmed bisacodyl 5 mg tablet,delayed 5 mg PO .PRN 03/06/23 05/03/23 release (Dulcolax (bisacodyl)) Previous Rx's Medication Instructions Recorded Disabled Parking #1 ea 03/06/23 esomeprazole magnesium 20 mg 20 mg PO DAILY #90 caps 03/06/23 capsule,delayed release (Nexium) metoprolol succinate 50 mg capsule 50 mg PO DAILY #90 ea 03/06/23 sprinkle, ext. release 24 hr nadolol 20 mg tablet 20 mg PO ONCE #90 tabs 03/06/23 estradiol cypionate 5 mg/mL 2 mg (0.4 mL) IM Q4W #10 mL 03/07/23 intramuscular oil (Depo-Estradiol) cyclobenzaprine 5 mg tablet 5 mg PO TID PRN muscle spasm #90 03/23/23 tabs hydrocodone 5 mg-acetaminophen 325 1 tab PO Q8H PRN pain #10 tabs 05/03/23 mg tablet trazodone 50 mg tablet 25 - 50 mg (0.5 - 1 x 50 mg) PO 05/03/23 DAILY #30 tabs Allergies Allergy/AdvReac Type Severity Reaction Status Date / Time penicillin G Allergy Severe Anaphylaxis Verified 05/03/23 11:19 vaccine adjuvant system, Allergy Severe blisters Verified 05/03/23 11:19 AS01B liposomal [From Shingrix (PF)] varicella-zoster virus Allergy Severe blisters Verified 05/03/23 11:19 glycoprotein E, recombinant [From Shingrix (PF)] latex AdvReac Intermediate Redness of Verified 05/03/23 11:19 Skin codine Allergy Severe Anaphylaxis Uncoded 05/03/23 11:19 Review of Systems Review of Systems ROS Unobtainable: All systems reviewed & are unremarkable except as noted in HPI and below Patient History Medical History COPD (chronic obstructive pulmonary disease) (~2018) Allergies Scoliosis Chronic back pain Cervical spine disease Carpal tunnel syndrome Mumps Chicken pox Ruptured tympanic membrane Glaucoma Liver disease (~2017) Hepatitis C (~2018) Hemorrhoid GERD (gastroesophageal reflux disease) Cirrhosis (~2018) MVP (mitral valve prolapse) Surgical History Anesthesia S/P insertion of spinal cord stimulator (~2016) History of hernia repair (~2012) History of appendectomy History of elbow surgery History of carpal tunnel release History of cholecystectomy History of ear surgery History of total hysterectomy History of partial hysterectomy Social History Smoking Status: Former smoker Smoking Status: Former smoker alcohol intake frequency: holidays/special occasions only Substance Use Type: does not use Exam Narrative Exam Narrative: GENERAL: Alert and oriented x three, female in mild distress HEENT: Head normocephalic, atraumatic, EOMI, pupils reactive, face symmetric, moist mucous membranes NECK: Supple, full range of motion CARDIOVASCULAR: Regular rate and rhythm without murmurs, rubs or gallops. No JVD. No swelling bilateral lower extremities. RESPIRATORY: Breath sounds equal bilaterally, no wheezes or rhonchi. Patient has crackles in the left base none on the right. ABDOMEN: Soft, nontender. Normoactive bowel sounds all 4 quadrants. No guarding or rebound, rigidity, no mass : No CVA tenderness EXTREMITIES: Normal range of motion, no clubbing or edema. Neurovascularly intact NEUROLOGICAL: Cranial nerves II through XII grossly intact. Moving all extremities SKIN: Warm, dry, no petechiae, no rashes or lesions. Initial Vital Signs Initial Vital Signs: Vital Signs Temperature 97.2 F L 06/04/23 13:37 Pulse Rate 66 06/04/23 13:37 Respiratory Rate 18 06/04/23 13:37 Blood Pressure 137/68 06/04/23 13:37 Pulse Oximetry 98 06/04/23 13:37 Oxygen Delivery Method Room Air 06/04/23 13:37 Course Orders Ordered: ED Orders 06/04/23 13:45 XR chest 1V Stat EKG-12 Lead Stat 06/04/23 14:05 Complete Blood Count AUTO DIFF Stat Comprehensive Metabolic Panel Stat Lipase Stat Magnesium Stat PTT Partial Thromboplastin [place] Stat Prothrombin Time INR Stat Troponin & CK Cardiac Panel Stat 06/04/23 16:10 Trop I [Troponin I] Stat Discontinued Medications Aspirin (Aspirin 81 Mg Chew Tab) 324 mg PO NOW ONE Stop: 06/04/23 13:46 Last Admin: 06/04/23 13:25 Dose: 324 mg Documented By: MPO Vital Signs Vital signs: Vital Signs - 8 hr 06/04/23 13:37 06/04/23 13:49 06/04/23 13:50 Temperature 97.2 F L Pulse Rate 66 76 70 Respiratory Rate 18 23 16 Blood Pressure 137/68 Pulse Oximetry 98 97 Oxygen Delivery Method Room Air 06/04/23 13:50 06/04/23 14:00 06/04/23 14:30 Temperature Pulse Rate 74 Respiratory Rate 24 Blood Pressure 137/80 122/78 Pulse Oximetry 98 Oxygen Delivery Method 06/04/23 14:30 06/04/23 14:59 06/04/23 14:59 Temperature Pulse Rate 64 58 L Respiratory Rate 24 Blood Pressure 125/74 Pulse Oximetry 95 96 Oxygen Delivery Method 06/04/23 15:00 06/04/23 15:00 06/04/23 15:30 Temperature Pulse Rate 61 59 L Respiratory Rate 27 H Blood Pressure 132/78 Pulse Oximetry 97 94 Oxygen Delivery Method 06/04/23 15:30 06/04/23 16:00 06/04/23 16:00 Temperature Pulse Rate 55 L Respiratory Rate 25 H Blood Pressure 118/68 111/67 Pulse Oximetry 94 Oxygen Delivery Method 06/04/23 16:30 06/04/23 16:30 06/04/23 17:08 Temperature Pulse Rate 58 L 67 Respiratory Rate 24 13 Blood Pressure 114/68 Pulse Oximetry 94 96 Oxygen Delivery Method 06/04/23 17:08 06/04/23 17:30 06/04/23 17:30 Temperature Pulse Rate 55 L Respiratory Rate 39 H Blood Pressure 130/70 110/64 Pulse Oximetry 96 Oxygen Delivery Method MDM - Chest Pain Lab Data 06/04/23 14:05 06/04/23 14:05 Labs: Lab Results 06/04/23 06/04/23 Range/Units 14:05 16:10 WBC 7.8 (4.5-11.0) X10^3/uL RBC 4.36 (4.0-5.2) X10^6/uL Hgb 12.5 (12.0-16.0) g/dL Hct 37.3 (36-46) % MCV 85.6 (80-100) fL MCH 28.7 (26-34) PG MCHC 33.6 (30-36) % RDW 16.0 H (11.6-14.8) % Plt Count 279 (150-400) X10^3/uL Neut % (Auto) 67.4 (50-75) % Lymph % (Auto) 21.5 L (25-40) % [place] % (Auto) 9.0 (3-14) % Eos % (Auto) 1.3 L (2-4) % Baso % (Auto) 0.8 (0-2) % Neut # (Auto) 5300 (1574-2927) /uL Lymph # (Auto) 1700 (4117-5848) /uL [place] # (Auto) 700 (0-900) /uL Eos # (Auto) 100 (0-450) /uL Baso # (Auto) 100 (0-100) /uL PT 11.5 (9.4-12.5) SECONDS INR 1.0 (0.9-1.3) APTT 29 (25.1-36.5) SECONDS Sodium 135 L (137-145) mmol/L Potassium 3.5 (3.4-5.1) mmol/L Chloride 99 (98-107) mmol/L Carbon Dioxide 28 (22-32) mmol/L BUN 17 (7-17) mg/dL Creatinine 0.99 (0.52-1.04) mg/dL Estimated GFR > 60 (>60) mL/min BUN/Creatinine Ratio 17.2 (6-22) Glucose 93 (80-110) mg/dL Calcium 9.5 (8.4-10.2) mg/dL Magnesium 1.4 L (1.6-2.3) mg/dL Total Bilirubin 0.7 (0.2-1.3) mg/dL AST 31 (14-36) IU/L ALT 14 (<35) IU/L Alkaline Phosphatase 77 (38-126) U/L Total Creatine Kinase 28 L (30-135) U/L Troponin I < 0.012 < 0.012 (0.01-0.034) ng/mL Total Protein 8.2 (6.3-8.2) g/dL Albumin 4.4 (3.5-5.0) g/dL Globulin 3.8 (1.7-4.1) g/dL Albumin/Globulin Ratio 1.2 (1.0-2.8) Lipase 83 (23-300) U/L Imaging Data Chest x-ray: Radiologist's Impression: [address] [address] XRay Report Signed Patient: Xi Dejesus MR#: [id number] : 1960 Acct:[id number] Age/Sex: 62 / F Date of Service: 06/04/23 Loc: ED Accession Number: [id number] Procedure: XR chest 1V Ordering Provider: Marley Osorio D.O. PROCEDURE: XR CHEST 1V INDICATIONS: chest pain TECHNIQUE: One view of the chest was acquired. COMPARISON: [facility], CT, CT LUNG LOW DOSE SCREENING, 04/19/2023, 14:02. [facility], CR, XR CHEST 1V, 03/28/2023, 8:47. FINDINGS: Surgical changes and devices: Thecal leads. Left breast clip. Lungs and pleura: Lungs appear clear. Emphysematous change. No pleural effusions or pneumothorax. Mediastinum: Mediastinal contours appear normal. Heart size is normal. Bones and chest wall: No suspicious bony lesions. Overlying soft tissues appear unremarkable. IMPRESSION: No acute cardiopulmonary abnormality is seen. Dictated by: Keegan John M.D. on 06/04/2023 at 14:55 Approved by: Keegan John M.D. on 06/04/2023 at 14:56 ECG Data Attestation: I personally reviewed and interpreted this ECG as follows: Prior ECG tracings: available for review Interpretation: Sinus rhythm rate of 66 ID 178 QRS of 74 QTC 434. Infarct age indeterminate, patient has from 03/28/2023 which appears fairly similar. [facility] Narrative Medical decision making narrative: 62-year-old female presents with complaint of chest pain similar to when she had her stress test in March. Patient is supposed to follow up for dobutamine stress test at [facility] and it is scheduled for the end of June. Patient states started while she was at pulmonary rehab using dumbbells. She states has been on and off today. Does have some mild EKG changes. CBC shows no major changes no anemia, low lymphocytes. Coags are negative, CMP is negative Mag slightly low at 1.4. Troponins are negative x2. Chest x-ray today is negative. EKG does show inverted T-wave at V3 but not new and other leads. Appears fairly similar to EKG from 03/28/2023. Patient had a CT of her lungs on 04/19/2023 which showed no suspicious pulmonary nodules, mild emphysema and cirrhosis. Spoke with cardiology, Dr. Morse: Reviewed patient's workup today, EKG had change in 1 bleed. Also reviewed her myocardial perfusion scan nuclear med test which noted was abnormal but rest only myocardial perfusion imaging. Reviewed this in its entirety with Dr. Morse. He recommends possibly adding amlodipine 5 mg to patient if she has known hypertension. Can also add a PPI for 2 weeks at this time and have patient keep her dobutamine stress test appointment but he feels this is likely low risk stress result at this time. Patient feels comfortable this plan. She states she is already on metoprolol, nadolol and 3rd blood pressure medication. Patient is on a PPI daily. Discharge Plan Departure Patient Disposition: Home Clinical Impression: Chest pain Activity Restrictions/Additional Instructions: Follow up with your cardiology team, please contact them to see if they can move up your stress testing. I did speak with Dr. Morse editor continuity and script for cardiology. Continue your home medications as prescribed. Please return for new or worsening symptoms, new shortness of breath, new or worsening chest pain, persistent vomiting, lightheadedness or passing out or other new or concerning changes. Prescriptions: No Action cyclobenzaprine 5 mg tablet 5 mg PO TID PRN (Reason: muscle spasm) Qty: 90 3RF bisacodyl [Dulcolax (bisacodyl)] 5 mg tablet,delayed release (DR/EC) 5 mg PO .PRN (DME) Disabled Parking See Rx Instructions .ROUTE .MEDSUPPLY Qty: 1 0RF Rx Instructions: I find this patient to be medical disabled and qualified for Disabled Parking as indicated, and signed, on the and the Accompanying Disabled Parking Application for Individuals. nadolol 20 mg tablet 20 mg PO ONCE Qty: 90 3RF esomeprazole magnesium [Nexium] 20 mg capsule,delayed release(DR/EC) 20 mg PO DAILY Qty: 90 0RF metoprolol succinate 50 mg capsule,sprinkle,ER 24hr 50 mg PO DAILY Qty: 90 3RF trazodone 50 mg tablet 25 - 50 mg PO DAILY Qty: 30 1RF hydrocodone-acetaminophen 5-325 mg tablet 1 tab PO Q8H PRN (Reason: pain) Qty: 10 0RF Depo-Estradiol 5 mg/mL oil 2 mg IM Q4W Qty: 10 3RF Referrals: Karoline Cabrera MD [Primary Care Provider] - Stand Alone Forms: Patient Portal/API
--- NOTE | 2023-06-04 15:00 | PC.NURSE ---
Addendum entered by Brittanie Qureshi CNA 06/04/23 15:01: Dr Osorio aware. Original Note: Pt c/o cp. Pt states pain feels like someone is squeezing her heart. Pt states 9/10 pain. Denies sob. States that she is feeling dizzy. EKG called.
[2023-06-04 16:47] LABS: Troponin I < 0.012 ng/mL (0.01-0.034)
== END 2023-06-04 17:55 | disposition home or self-care (01) ==
PROVIDERS: Emergency Provider Emergency Medicine; Family Provider Student in an Organized Health Care Education/Training Program; PCP Student in an Organized Health Care Education/Training Program
DX: R07.9 Chest pain, unspecified (principal)
CPT/HCPCS: 36415; 71045; 80053; 82550; 83690; 83735; 84484; 85025; 85610; 85730; 93005; 99284

== ENCOUNTER → 2023-07-06 16:04 | Outpatient (CLI) | payer OTHER, MEDICAID, SELFPAY ==
[2023-07-06 17:56] LABS: Add Manual Diff / Slide Review NO; Basophils Absolute Auto 0 /uL (0-100); Basophils Percent Auto 0.7 % (0-2); Eosinophils Absolute Auto 200 /uL (0-450); Eosinophils Percent Auto 2.5 % (2-4); Hematocrit 37.4 % (36-46); Hemoglobin 12.2 g/dL (12.0-16.0); Lymphocytes Absolute Auto 1600 /uL (1100-4500); Lymphocytes Percent Auto 22.7 % (25-40); Mean Corpuscular HGB Conc 32.7 % (30-36); Mean Corpuscular Hemoglobin 27.7 PG (26-34); Mean Corpuscular Volume 84.6 fL (80-100); Monocytes Absolute Auto 700 /uL (0-900); Monocytes Percent Auto 9.6 % (3-14); Neutrophils Absolute Auto 4700 /uL (1500-7000); Neutrophils Percent Auto 64.5 % (50-75); Platelet Count 216 X10^3/uL (150-400); Red Blood Cell Count 4.42 X10^6/uL (4.0-5.2); Red Cell Distribution Width 15.1 % (11.6-14.8); White Blood Cell Count 7.3 X10^3/uL (4.5-11.0)
[2023-07-06 18:41] LABS: BUN Creatinine Ratio 18.9 (6-22); Blood Urea Nitrogen 18 mg/dL (7-17); Calcium 9.3 mg/dL (8.4-10.2); Carbon Dioxide 28 mmol/L (22-32); Chloride 103 mmol/L (98-107); Estimated Glomerular Filt Rate > 60 mL/min (>60); Glucose 72 mg/dL (80-110); HEMOLYSIS < 15 (0-50); Sodium 137 mmol/L (137-145)
== END ==
PROVIDERS: Family Provider Student in an Organized Health Care Education/Training Program; PCP Student in an Organized Health Care Education/Training Program; Referring Provider Internal Medicine Cardiovascular Disease; Visit Provider Internal Medicine Cardiovascular Disease
DX: I20.9 Angina pectoris, unspecified (principal); R94.39 Abnormal result of other cardiovascular function study
CPT/HCPCS: 36415; 80048; 85025

== ENCOUNTER → 2023-07-24 11:06 | Outpatient (CLI) | payer OTHER, MEDICAID, SELFPAY ==
[2023-07-24 11:54] LABS: Blood Urea Nitrogen 19 mg/dL (7-17); Calcium 8.5 mg/dL (8.4-10.2); Carbon Dioxide 27 mmol/L (22-32); Chloride 102 mmol/L (98-107); Estimated Glomerular Filt Rate > 60 mL/min (>60); Glucose 138 mg/dL (80-110); HEMOLYSIS 15 (0-50); Potassium 3.4 mmol/L (3.4-5.1); Sodium 136 mmol/L (137-145)
== END ==
PROVIDERS: Family Provider Student in an Organized Health Care Education/Training Program; PCP Student in an Organized Health Care Education/Training Program; Referring Provider Internal Medicine Cardiovascular Disease; Visit Provider Internal Medicine Cardiovascular Disease
DX: I10 Essential (primary) hypertension (principal)
CPT/HCPCS: 36415; 80048

== ENCOUNTER → 2023-09-10 17:53 | Outpatient (CLI) | payer OTHER, MEDICAID, SELFPAY | PROVIDERS: Family Provider Student in an Organized Health Care Education/Training Program; PCP Student in an Organized Health Care Education/Training Program; Visit Provider Physician Assistant | DX: J02.9 Acute pharyngitis, unspecified (principal) | CPT/HCPCS: 87070 ==

== ENCOUNTER 2023-09-13 11:58 | Emergency (ER) | payer OTHER, MEDICAID, SELFPAY ==
[2023-09-13 12:02] VITALS: BP 135/84; PULSE 75; RESP 16; TEMP 36.8; O2SAT 98; BMI 24.0
--- NOTE | 2023-09-13 12:14 | ED.URI ---
HPI - URI/Sore Throat <Efren Quinones PA-C - Last Filed: 09/13/23 14:08> General Chief Complaint: Upper Respiratory Symptoms Stated Complaint: headache, cough, COPD Time Seen by Provider: 09/13/23 12:13 Source: patient Mode of arrival: Ambulatory History of Present Illness HPI Narrative: This is a 62-year-old female presents emergency department due to a continued productive cough. She states she was had productive cough for about 5 days. She went to the walk-in clinic 3 days ago and received a 3 day course of steroids which she says has not helped with the symptoms. She denies any fevers. Does report some shortness of breath but she does state that she was COPD as well. Denies any nausea, vomiting, chest pain, or any other concerning signs or symptoms. Related Data Home Medications Medication Instructions Recorded Confirmed levothyroxine 50 mcg capsule 50 mcg PO DAILY 09/10/23 09/10/23 loperamide 2 mg capsule 2 mg PO Q6H PRN 09/10/23 09/10/23 spironolactone 50 mg tablet 50 mg PO DAILY 09/10/23 09/10/23 Previous Rx's Medication Instructions Recorded Disabled Parking #1 ea 03/06/23 esomeprazole magnesium 20 mg 20 mg PO DAILY #90 caps 03/06/23 capsule,delayed release (Nexium) metoprolol succinate 50 mg capsule 50 mg PO DAILY #90 ea 03/06/23 sprinkle, ext. release 24 hr nadolol 20 mg tablet 20 mg PO ONCE #90 tabs 03/06/23 estradiol cypionate 5 mg/mL 2 mg (0.4 mL) IM Q4W #10 mL 03/07/23 intramuscular oil (Depo-Estradiol) cyclobenzaprine 5 mg tablet 5 mg PO TID PRN muscle spasm #90 03/23/23 tabs trazodone 50 mg tablet 25 - 50 mg (0.5 - 1 x 50 mg) PO 06/27/23 DAILY #30 tabs hydrocodone 5 mg-acetaminophen 325 1 tab PO Q8H PRN pain #10 tabs 07/03/23 mg tablet Allergies Allergy/AdvReac Type Severity Reaction Status Date / Time penicillin G Allergy Severe Anaphylaxis Verified 09/10/23 17:38 vaccine adjuvant system, Allergy Severe blisters Verified 09/10/23 17:38 [id number] liposomal [From Shingrix (PF)] varicella-zoster virus Allergy Severe blisters Verified 09/10/23 17:38 glycoprotein E, recombinant [From Shingrix (PF)] latex AdvReac Intermediate Redness of Verified 09/10/23 17:38 Skin codine Allergy Severe Anaphylaxis Uncoded 09/10/23 17:38 Review of Systems <Efren Quinones PA-C - Last Filed: 09/13/23 14:08> Review of Systems Narrative: GENERAL: Denies chills, fatigue, malaise, fever, sweats. HEENT: Denies sinus pain, ear pain, sore throat, difficulty swallowing, dizziness. RESPIRATORY: Reports shortness of breath and cough dyspnea, cough, denies wheezing, hemoptysis, sputum. CARDIOVASCULAR: Denies chest pain, palpitations, orthopnea, edema, GASTROINTESTINAL: Denies nausea, vomiting, abdominal pain, diarrhea, constipation, melena. : Denies dysuria, frequency, incontinence, hematuria, urinary retention. MUSCULOSKELETAL: denies weakness, joint pain, or bony pain SKIN: Denies rash, skin lesions, or other NEUROLOGIC: Denies weakness, headache, numbness, change in speech, confusion, seizures, incoordination. PSYCHIATRIC: No concerning psychosocial issues. 12 point review of systems is negative except for those stated above Patient History <Efren Quinones PA-C - Last Filed: 09/13/23 14:08> Medical History COPD (chronic obstructive pulmonary disease) (~2018) Allergies Scoliosis Chronic back pain Cervical spine disease Carpal tunnel syndrome Mumps Chicken pox Ruptured tympanic membrane Glaucoma Liver disease (~2018) Hepatitis C (~2018) Hemorrhoid GERD (gastroesophageal reflux disease) Cirrhosis (~2018) MVP (mitral valve prolapse) Surgical History Anesthesia S/P insertion of spinal cord stimulator (~2016) History of hernia repair (~2012) History of appendectomy History of elbow surgery History of carpal tunnel release History of cholecystectomy History of ear surgery History of total hysterectomy History of partial hysterectomy Social History Smoking Status: Former smoker Smoking Status: Former smoker alcohol intake frequency: holidays/special occasions only Substance Use Type: does not use Exam <LISETH Flor Last Filed: 09/13/23 14:08> Narrative Exam Narrative: GENERAL: Well-developed patient, in mild distress. HEAD: Atraumatic. Normocephalic. EYES: Pupils equal round and reactive. Extraocular motions intact. No scleral icterus. No injection or drainage. ENT: Nose without bleeding, purulent drainage. Throat without erythema, tonsillar hypertrophy or exudate. Airway patent. NECK: Trachea midline. Non tender EXTREMITIES: No edema or joint tenderness. NEURO: AOx3. SKIN: No rash or erythema of visible areas CARDIOVASCULAR: Regular rate and rhythm without murmurs, gallops, or rubs. RESPIRATORY: Clear to auscultation. Breath sounds equal bilaterally. No wheezes, rales, or rhonchi. GASTROINTESTINAL: Abdomen soft, non-tender, nondistended. BACK: Nontender without deformity or crepitance. No flank tenderness. Initial Vital Signs Initial Vital Signs: Vital Signs Temperature 98.3 F 09/13/23 12:02 Pulse Rate 75 09/13/23 12:02 Respiratory Rate 16 09/13/23 12:02 Blood Pressure 135/84 09/13/23 12:02 Pulse Oximetry 98 09/13/23 12:02 Oxygen Delivery Method Room Air 09/13/23 12:02 <Marley Osorio DO - Last Filed: 09/15/23 11:20> Initial Vital Signs Initial Vital Signs: Vital Signs Temperature 98.3 F 09/13/23 12:02 Pulse Rate 75 09/13/23 12:02 Respiratory Rate 16 09/13/23 12:02 Blood Pressure 135/84 09/13/23 12:02 Pulse Oximetry 98 09/13/23 12:02 Oxygen Delivery Method Room Air 09/13/23 12:02 Course <Efren Quinones PA-C - Last Filed: 09/13/23 14:08> Orders Ordered: ED Orders 09/13/23 12:18 Respiratory Panel (Film Array) Stat 09/13/23 12:25 CXR [XR chest 2V] Stat Vital Signs Vital signs: Vital Signs - 8 hr 09/13/23 12:02 Temperature 98.3 F Pulse Rate 75 Respiratory Rate 16 Blood Pressure 135/84 Pulse Oximetry 98 Oxygen Delivery Method Room Air <Marley Osorio DO - Last Filed: 09/15/23 11:20> Orders Ordered: ED Orders 09/13/23 12:18 Respiratory Panel (Film Array) Stat 09/13/23 12:25 CXR [XR chest 2V] Stat Vital Signs Vital signs: Vital Signs - 8 hr 09/13/23 12:02 Temperature 98.3 F Pulse Rate 75 Respiratory Rate 16 Blood Pressure 135/84 Pulse Oximetry 98 Oxygen Delivery Method Room Air MDM - URI/Sore Throat <Efren Quinones PA-C - Last Filed: 09/13/23 14:08> Lab Data Labs: Lab Results 09/13/23 Range/Units 12:18 Chlamy pneumoniae PCR Not detected (Not Detect) Adenovirus (PCR) Not detected (Not Detect) B.parapertussis DNA PCR Not detected (Not Detecte) Coronavirus OC43 (PCR) Not detected (Not Detect) Coronavirus HKU1 (PCR) Not detected (Not Detect) Coronavirus 229E (PCR) Not detected (Not Detect) SARS-CoV-2 (PCR) Not detected (Not Detecte) Coronavirus NL63 (PCR) Not detected (Not Detect) Human Metapneumovir PCR Not detected (Not Detect) Influenza Type A (PCR) Not detected (Not Detect) Influenza Type B (PCR) Not detected (Not Detect) M. pneumoniae (PCR) Not detected (Not Detect) Parainfluenza 1 (PCR) Not detected (Not Detect) Parainfluenza 2 (PCR) Not detected (Not Detect) Parainfluenza 3 (PCR) Not detected (Not Detect) Parainfluenza 4 (PCR) Not detected (Not Detect) RSV (PCR) Not detected (Not Detect) Entero/Rhino (PCR) Not detected (Not Detect) Imaging Data Chest x-ray: Radiologist's Impression: [address] [address] XRay Report Signed Patient: Xi Dejesus MR#: [id number] : 1960 Acct:[id number] Age/Sex: 62 / F Date of Service: 09/13/23 Loc: ED Accession Number: [id number] Procedure: XR chest 2V Ordering Provider: Efren Quinones P.A-C PROCEDURE: XR CHEST 2V INDICATIONS: Cough and SOB TECHNIQUE: 2 views of the chest were acquired. COMPARISON: [facility], CR, XR CHEST 1V, 06/04/2023, 14:08. FINDINGS: Surgical changes and devices: Thoracic spine neurostimulator leads. Cholecystectomy clips. Left breast clip. Lungs and pleura: Lungs are clear. No pleural effusions or pneumothorax. Mediastinum: Mediastinal contours are normal. Heart size is normal. Bones and chest wall: No suspicious bony abnormalities. Soft tissues appear unremarkable. IMPRESSION: No acute cardiopulmonary abnormality is seen. Dictated by: Shantel De Santiago MD, PhD on 09/13/2023 at 12:44 Approved by: Shantel De Santiago MD, PhD on 09/13/2023 at 12:45 MDM Narrative Medical decision making narrative: ED course: This is a 62-year-old female presents to the emergency department due to suspected viral bronchitis. Her respiratory panel here was negative. Her chest x-ray shows no evidence of pneumonia. Requested antibiotics but stated that she was She was well within the time frame for possible viral infection. Recommended supportive care. CC: Cough Complicating co-morbidities: COPD Data collected from: Previous notes Medical records reviewed: Patient was seen here about 3 months ago due to chest pain. History of COPD, hypothyroidism, prurigo nodularis, chronic back pain, prior mitral valve prolapse. Complaining of chest pain. Has had a stress test past. Follow up Dr. Campoverde for her cardiology. Cardiology was consulted and patient was eventually discharged. Patient was seen in the walk-in clinic 3 days ago. Quit smoking in 1982. Reports increased fatigue. Requesting antibiotics. Strep was negative in the office and throat culture sent. Patient was prescribed prednisone for 3 days. Throat culture showed moderate growth of mixed resident suraj. Differential considered, but not limited to: Acute bronchitis, pneumonia, COPD exacerbation Exam documented above, pertinent findings include: No concerning findings on exam Lab Test results independently reviewed as above. Pertinent findings: Respiratory panel negative Imaging studies independently reviewed: Chest x-ray unremarkable Scores Used: None MIPS Elements: None Consultations: None Treatments: None Re-evaluations: None Discussion: Discussed plan with the patient was comfortable with the plan Diagnosis: Viral bronchitis Disposition: see below, along with detailed discharge instructions that have been reviewed with patient as well as indications for ED re-evaluation and additional outpatient follow up <Marley Osorio, DO - Last Filed: 09/15/23 11:20> Lab Data Labs: Lab Results 09/13/23 Range/Units 12:18 Chlamy pneumoniae PCR Not detected (Not Detect) Adenovirus (PCR) Not detected (Not Detect) B.parapertussis DNA PCR Not detected (Not Detecte) Coronavirus OC43 (PCR) Not detected (Not Detect) Coronavirus HKU1 (PCR) Not detected (Not Detect) Coronavirus 229E (PCR) Not detected (Not Detect) SARS-CoV-2 (PCR) Not detected (Not Detecte) Coronavirus NL63 (PCR) Not detected (Not Detect) Human Metapneumovir PCR Not detected (Not Detect) Influenza Type A (PCR) Not detected (Not Detect) Influenza Type B (PCR) Not detected (Not Detect) M. pneumoniae (PCR) Not detected (Not Detect) Parainfluenza 1 (PCR) Not detected (Not Detect) Parainfluenza 2 (PCR) Not detected (Not Detect) Parainfluenza 3 (PCR) Not detected (Not Detect) Parainfluenza 4 (PCR) Not detected (Not Detect) RSV (PCR) Not detected (Not Detect) Entero/Rhino (PCR) Not detected (Not Detect) Discharge Plan Departure Patient Disposition: Home Clinical Impression: Acute viral bronchitis Activity Restrictions/Additional Instructions: Thank you for coming to the [facility] Emergency Department today. As we discussed your chest x-ray shows no evidence of pneumonia. Your respiratory panel was negative for COVID flu, RSV, and multiple other disease. I suspect this is viral bronchitis. I recommend DayQuil, NyQuil, and Mucinex to help with the symptoms. Should improve over the next week or so. Please return to the emergency department if you develop any significant chest pain, high fevers, or any other concerning signs or symptoms. I hope you feel better soon. Please follow up with your primary care provider within a week if your symptoms continue. If you do not have a primary care provider please contact the [facility] Resource line at [phone]. They will ask some questions about your medical history and help you get set up with a provider in the community. Prescriptions: No Action cyclobenzaprine 5 mg tablet 5 mg PO TID PRN (Reason: muscle spasm) Qty: 90 3RF spironolactone 50 mg tablet 50 mg PO DAILY levothyroxine 50 mcg capsule 50 mcg PO DAILY loperamide 2 mg capsule 2 mg PO Q6H PRN (DME) Disabled Parking See Rx Instructions .ROUTE .MEDSUPPLY Qty: 1 0RF Rx Instructions: I find this patient to be medical disabled and qualified for Disabled Parking as indicated, and signed, on the and the Accompanying Disabled Parking Application for Individuals. nadolol 20 mg tablet 20 mg PO ONCE Qty: 90 3RF esomeprazole magnesium [Nexium] 20 mg capsule,delayed release(DR/EC) 20 mg PO DAILY Qty: 90 0RF metoprolol succinate 50 mg capsule,sprinkle,ER 24hr 50 mg PO DAILY Qty: 90 3RF Depo-Estradiol 5 mg/mL oil 2 mg IM Q4W Qty: 10 3RF trazodone 50 mg tablet 25 - 50 mg PO DAILY Qty: 30 0RF hydrocodone-acetaminophen 5-325 mg tablet 1 tab PO Q8H PRN (Reason: pain) Qty: 10 0RF Referrals: Karoline Cabrera MD [Primary Care Provider] - Stand Alone Forms: Patient Portal/API ED Sign-out <Marley Osorio DO - Last Filed: 09/15/23 11:20> Cosign ED Attending Clintature Attestation: I was immediately available in the department for consultation.
--- NOTE | 2023-09-13 12:25 | DI.RAD.S_ITS ---
PROCEDURE: XR CHEST 2V INDICATIONS: Cough and SOB TECHNIQUE: 2 views of the chest were acquired. COMPARISON: [facility], CR, XR CHEST 1V, 06/04/2023, 14:08. FINDINGS: Surgical changes and devices: Thoracic spine neurostimulator leads. Cholecystectomy clips. Left breast clip. Lungs and pleura: Lungs are clear. No pleural effusions or pneumothorax. Mediastinum: Mediastinal contours are normal. Heart size is normal. Bones and chest wall: No suspicious bony abnormalities. Soft tissues appear unremarkable. IMPRESSION: No acute cardiopulmonary abnormality is seen. Dictated by: Shantel De Santiago MD, PhD on 09/13/2023 at 12:44 Approved by: Shantel De Santiago MD, PhD on 09/13/2023 at 12:45
--- NOTE | 2023-09-13 12:30 | PC.NURSE ---
Pt taking steroid prescribed by the walk in clinic since sunday, OTC vitamin C packets and delsym. States worsening cough and concern for pneumonia/virus'.
[2023-09-13 13:20] LABS: Adenovirus Not Detected (Not Detect); B. parapertussis Not Detected (Not Detecte); Bordetella pertussis Not Detected (Not Detect); Chlamydophila pneumoniae Not Detected (Not Detect); Coronavirus 229E Not Detected (Not Detect); Coronavirus HKU1 Not Detected (Not Detect); Coronavirus NL 63 Not Detected (Not Detect); Coronavirus OC43 Not Detected (Not Detect); Human Metapneumovirus Not Detected (Not Detect); Human Rhinovirus/Enterovirus Not Detected (Not Detect); Influenza A Not Detected (Not Detect); Influenza B Not Detected (Not Detect); Mycoplasma pneumoniae Not Detected (Not Detect); Parainfluenza Virus 1 Not Detected (Not Detect); Parainfluenza Virus 2 Not Detected (Not Detect); Parainfluenza Virus 3 Not Detected (Not Detect); Parainfluenza Virus 4 Not Detected (Not Detect); Respiratory Syncytial Virus Not Detected (Not Detect); SARS- CoV-2 Not Detected (Not Detecte)
[2023-09-13 14:16] VITALS: BP 132/80; PULSE 70; RESP 18; O2SAT 97
== END 2023-09-13 14:17 | disposition home or self-care (01) ==
PROVIDERS: Emergency Provider Physician Assistant Medical; Family Provider Student in an Organized Health Care Education/Training Program; PCP Student in an Organized Health Care Education/Training Program
DX: J20.8 Acute bronchitis due to other specified organisms (principal); Z20.822 Contact with and (suspected) exposure to COVID-19
CPT/HCPCS: 71046; 87633; 99283

== ENCOUNTER → 2023-10-30 14:52 | Outpatient (CLI) | payer OTHER, MEDICAID, SELFPAY ==
[2023-10-30 17:10] LABS: Folate 9.8 ng/mL (2.76-20.0); Vitamin B12 749 pg/mL (239-931)
[2023-11-03 10:12] LABS: Deamidated Gliadin Ab IgA 3 units (0-19); Deamidated Gliadin Ab IgG 3 units (0-19); Immunoglobulin A,Qn 181 mg/dL (87-352); t-Transglutaminase IgA <2 U/mL (0-3)
== END ==
PROVIDERS: Family Provider Student in an Organized Health Care Education/Training Program; PCP Student in an Organized Health Care Education/Training Program; Referring Provider Physician Assistant; Visit Provider Physician Assistant
DX: R19.7 Diarrhea, unspecified (principal); Z79.899 Other long term (current) drug therapy
CPT/HCPCS: 36415; 82607; 82746; 82784; 83516

== ENCOUNTER 2023-12-04 09:45 | Outpatient (RCR) | payer MEDICARE, MEDICAID, SELFPAY ==
--- NOTE | 2023-11-14 14:40 | PT.OIE ---
Current Diagnoses Other spondylosis with radiculopathy, lumbosacral region (11/14/23) Pain in thoracic spine (11/14/23) Strain of muscle, fascia and tendon at neck level, initial encounter (11/14/23) Past Medical History (Last Reviewed 06/04/23 @ 17:03 by Marley Osorio DO) Allergies Carpal tunnel syndrome Cervical spine disease Chicken pox Chronic back pain Cirrhosis (~2018) COPD (chronic obstructive pulmonary disease) (~2018) GERD (gastroesophageal reflux disease) Glaucoma Hemorrhoid Hepatitis C (~2018) Liver disease (~2018) Mumps MVP (mitral valve prolapse) Ruptured tympanic membrane Scoliosis Past Surgical History (Last Reviewed 06/04/23 @ 17:03 by Marley Osorio DO) Anesthesia History of appendectomy History of carpal tunnel release History of cholecystectomy History of ear surgery History of elbow surgery History of hernia repair (~2012) History of partial hysterectomy History of total hysterectomy S/P insertion of spinal cord stimulator (~2016) Visit Care Team Role Provider Type Karoline Cabrera MD Family Provider Physician Primary Care Provider Specialty: Family Practice Obstetrics Address: [address] [place] [address], [facility] Email: [email or web address] Luzmaria Qureshi PA-C Attending Provider Non-Staff Referring Provider Specialty: Orthopedic Surgery Address: [address] [place] [address], [id number] Email: [email or web address] Initial Evaluation PT-OP-A Visit Information Start: 11/12/23 08:51 Freq: Status: Active Protocol: Document 11/14/23 08:43 MB (Rec: 11/14/23 09:48 MB [id number]) Out-Patient Physical Therapy Visit Information Visit Information Visit Type Initial Evaluation Visit Note [employer] before KX Visit Start Time 08:51 Visit Stop Time 09:31 Visit Number 1 Number of FACTORY WORKER Visits 0 Evaluation Information Evaluation Date 11/14/23 Precautions Precautions COPD, mitral valve prolapse, spinal cord stimulator, cirrhosis that has resolved, light-headed with standing and con't to check orthostatics PT-OP-B Current Condition Start: 11/12/23 08:51 Freq: Status: Active Protocol: Document 11/14/23 08:43 MB (Rec: 11/14/23 09:48 MB [id number]) Current Condition History of Current Condition Onset Date Chronic back pain since 14 y/o d/t scoliosis Current Complaints Chronic LBP 27/11 History of Current Condition Pt states that she had a spinal cord stimulator put in in 2016 and it functioned well for three years and then is malfunctioned. It was taken out [address] Hsieh at [facility]. He thinks she is a good candidate to put another one in. She is here in PT as a prerequisite to get MRI. She has not PT for her back in the past and has typically seen a chiropractor. She had one day of cardiopulmary rehab but then she had CP and was sent to ED and then [facility] and underwent heart cath. She says she has pressure in her heart and she has history of mitral valve prolapse and a stiff heart. PMH includes Hep C, COPD, mitral valve prolapse, spinal cord stimulator Pt reports 27/11 back pain and insomnia at night. She is on disability. 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 Walking and climbing steps are difficult and her COPD contributes to this. Pt does not use O2. Her one year ago. Pt denies numbness and tingling. Pt sleeps on her stomach and then moves around during the night . Treatment Goals Patient/Caregiver Goals To get MRI and spinal stimulator PT-OP-C Subjective Start: 11/12/23 08:51 Freq: Status: Active Protocol: Document 11/14/23 08:43 MB (Rec: 11/14/23 09:48 MB [id number]) OP-PT Subjective Patient Comments Patient Comments See history of current condition Patient Questionnaires Oswestry Low Back Index Oswestry Score 30 Oswestry Impairment 60 to 79% Impaired (Score 60- 79) PT-OP-J Posture/Palpation/Skin Start: 11/12/23 08:51 Freq: Status: Active Protocol: Document 11/14/23 08:43 MB (Rec: 11/14/23 09:48 MB [id number]) Posture Evaluation Comments Posture Comments Standing posture with shoes off: Dowager's hump, decreased thoracic kyphosis, severe thoracic convexity to the left , right iliac crest is 1.5 inches higher than the left and hips/pelvis severely shifted to the right. Stands to functionally shorten right leg to help pain. Standing flexion with feet spread apart for balance and knees bent and pt can touch the floor, thoracic spine is stiff, extension to 15 deg with increased LBP. Pt prefers flexion. Sitting thoracic rotation: mildly less to the left compared to right. PT-OP-M Strength Start: 11/12/23 08:51 Freq: Status: Active Protocol: Document 11/14/23 08:43 MB (Rec: 11/14/23 09:48 MB [id number]) Hip Strength Hip Manual Muscle Testing Left Flexion (L2) 3 Fair Abduction 4 Good Right Flexion (L2) 4- Good- Abduction 4+ Good+ Knee Strength Knee Manual Muscle Testing Left Flexion (S2) 5 Normal Extension (L3) 5 Normal Right Flexion (S2) 5 Normal Extension (L3) 5 Normal Ankle/Foot Strength Ankle and Foot Manual Muscle Testing Bilateral Dorsiflexion (L4) 5 Normal Toe Strength Toe Manual Muscle Testing Left Great Toe Extension 5 Normal Right Great Toe Extension 5 Normal PT-OP-Q Treatments Start: 11/12/23 08:51 Freq: Status: Active Protocol: Document 11/14/23 08:43 MB (Rec: 11/14/23 14:30 MB [id number]) Self-Care/Home Management Treatment Education Other Education Ed pt on benefits of making her fluids count including decreasing caffeinated tea intake and increasing non- caffeinated fluid intake, ed pt on benfits of using ice and heat PT-OP-T Assessment and Plan Start: 11/12/23 08:51 Freq: Status: Active Protocol: Document 11/14/23 08:43 MB (Rec: 11/14/23 09:48 MB [id number]) Physical Therapy Assessment Rehab Potential Rehabilitation Potential Fair Evaluation Complexity Number of Personal Factors/Comorbidities 1-2 Number of Body Systems Impaired 3 Clinical Presentation at Evaluation Evolving Impairments Impairments Activity Tolerance,Balance, Functional Activities, Functional Mobility,Gait,Pain, Posture,ROM,Soft Tissue Mobility,Strength,Transfers Other Concerns Fall Risk Yes Goals 3 Impairment Lack of HEP Plumbing Warehouse Helper Goal (LTG) Pt will perform progressive HEP with I including pelvic realignment exercises, gentle core and postural progression, gentle LE strengtning and balance to improve strength and pain. LTG Duration 6 weeks 2 Impairment Evidence of imbalance Plumbing Warehouse Helper Goal (LTG) Pt will perform TUG without AD in no more than 10 sec to improve functional balance with transfers and gait. LTG Duration 6 weeks 1 Impairment Oswestry reflects 60% impairment Shelter Goal (LTG) Pt will present with Oswestry score to reflect no more than 40% impairment to improve pain and quality of life. LTG Duration 6 weeks Assessment Summary Assessment Pt is a lady presenting with lifetime history of back pain. She underwent stimulator placement years ago that did well for 3 years and she recently had it removed. She arrives to PT before ability to get an MRI with goal of getting another spinal stimulator. Pt does states that she would like to improve flexibility and strength with PT. Pt has increased c/o light-headedness during mobility. Orthostatic assessment with BP and HR in LUE: supine 108/76, 59; standing takes three times to read and pt is light-headed: 121/79, 94; standing 1': 115/ 73, 94. O2 sats 96%. Pt drinks a lot of [place] tea ( caffeinated) every day and ed pt on benefits of non- caffeinated fluid intake. Pt requires sitting rest breaks d /t light-headedness with standing. Pt presents with severe scoliotic changes, limited spinal movement, decreased LE strength and poor balance. She will benefit from PT trial to address these findings. Physical Therapy Plan Frequency and Duration Frequency of Treatment 2x/Week Duration of treatment (weeks) 6 Plan of Care Start Date 11/14/23 Plan of Care End Date 12/29/23 Therapeutic Interventions Therapeutic Interventions Balance Training,Canalithic Repositioning,Gait Training, Home Exercise Program,Manual Therapy,Neuromuscular Re- education,Patient/Caregiver Education,Self-Care/Home Management,Soft Tissue Mobilization,Taping, Therapeutic Activities, Therapeutic Exercises Modalities Cold Pack/Ice Massage,Electric Stimulation,Hot Packs, Ultrasound Next Visit Focus/Plan Next Note Type Treatment Note Next Visit Plan Pelvic realignment exercises, progressive gentle core strengthening in hook lying and standing, gentle flexibility and LE strengthening in hook lying such as clam. For supine core progression: pelvic tilt and abdominal drawing in, HS, knee fall out, gentle knee rocking , mini july.
--- NOTE | 2023-11-14 14:40 | PT.OPPOC ---
Physical, Occupational & Speech Therapy At [facility] Current Diagnoses Other spondylosis with radiculopathy, lumbosacral region (11/14/23) Pain in thoracic spine (11/14/23) Strain of muscle, fascia and tendon at neck level, initial encounter (11/14/23) Visit Care Team Role Provider Type Karoline Cabrera MD Family Provider Physician Primary Care Provider Specialty: Family Practice Obstetrics Address: [address] [place] [address], [id number] Email: [email or web address] Luzmaria Qureshi PA-C Attending Provider Non-Staff Referring Provider Specialty: Orthopedic Surgery Address: [address] [place] [address], [id number] Email: [email or web address] Plan Of Care PT-OP-T Assessment and Plan Start: 11/12/23 08:51 Freq: Status: Active Protocol: Document 11/14/23 08:43 MB (Rec: 11/14/23 09:48 MB [id number]) Physical Therapy Assessment Rehab Potential Rehabilitation Potential Fair Evaluation Complexity Number of Personal Factors/Comorbidities 1-2 Number of Body Systems Impaired 3 Clinical Presentation at Evaluation Evolving Impairments Impairments Activity Tolerance,Balance, Functional Activities, Functional Mobility,Gait,Pain, Posture,ROM,Soft Tissue Mobility,Strength,Transfers Other Concerns Fall Risk Yes Goals 3 Impairment Lack of HEP Nursing Home Goal (LTG) Pt will perform progressive HEP with I including pelvic realignment exercises, gentle core and postural progression, gentle LE strengtning and balance to improve strength and pain. LTG Duration 6 weeks 2 Impairment Evidence of imbalance Nursing Home Goal (LTG) Pt will perform TUG without AD in no more than 10 sec to improve functional balance with transfers and gait. LTG Duration 6 weeks 1 Impairment Oswestry reflects 60% impairment Nursing Home Goal (LTG) Pt will present with Oswestry score to reflect no more than 40% impairment to improve pain and quality of life. LTG Duration 6 weeks Assessment Summary Assessment Pt is a lady presenting with lifetime history of back pain. She underwent stimulator placement years ago that did well for 3 years and she recently had it removed. She arrives to PT before ability to get an MRI with goal of getting another spinal stimulator. Pt does states that she would like to improve flexibility and strength with PT. Pt has increased c/o light-headedness during mobility. Orthostatic assessment with BP and HR in LUE: supine 108/76, 59; standing takes three times to read and pt is light-headed: 121/79, 94; standing 1': 115/ 73, 94. O2 sats 96%. Pt drinks a lot of [place] tea ( caffeinated) every day and ed pt on benefits of non- caffeinated fluid intake. Pt requires sitting rest breaks d /t light-headedness with standing. Pt presents with severe scoliotic changes, limited spinal movement, decreased LE strength and poor balance. She will benefit from PT trial to address these findings. Physical Therapy Plan Frequency and Duration Frequency of Treatment 2x/Week Duration of treatment (weeks) 6 Plan of Care Start Date 11/14/23 Plan of Care End Date 12/29/23 Therapeutic Interventions Therapeutic Interventions Balance Training,Canalithic Repositioning,Gait Training, Home Exercise Program,Manual Therapy,Neuromuscular Re- education,Patient/Caregiver Education,Self-Care/Home Management,Soft Tissue Mobilization,Taping, Therapeutic Activities, Therapeutic Exercises Modalities Cold Pack/Ice Massage,Electric Stimulation,Hot Packs, Ultrasound Next Visit Focus/Plan Next Note Type Treatment Note Next Visit Plan Pelvic realignment exercises, progressive gentle core strengthening in hook lying and standing, gentle flexibility and LE strengthening in hook lying such as clam. For supine core progression: pelvic tilt and abdominal drawing in, HS, knee fall out, gentle knee rocking , mini march. Plan of Care Dates Plan of Care Start Date 11/14/23 Plan of Care End Date 12/29/23 Electronically Signed by: Caron Goncalves PT 11/14/23 2352 If you are in agreement with this Plan of Care, please return a signed and dated copy. I have reviewed this Plan of Care and certify that the skilled therapy services above are required to meet the patient?s needs. Physician Signature Date Printed Name and Credentials Clinical Instructor Signature Printed Name and Credentials
--- NOTE | 2023-11-21 11:11 | PT.OTN ---
Current Diagnoses Other spondylosis with radiculopathy, lumbosacral region (11/21/23) Pain in thoracic spine (11/21/23) Strain of muscle, fascia and tendon at neck level, initial encounter (11/21/23) Physical Therapy Treatment Note PT-OP-A Visit Information Start: 11/12/23 08:51 Freq: Status: Active Protocol: Document 11/21/23 10:35 MB (Rec: 11/21/23 11:11 MB [id number]) Out-Patient Physical Therapy Visit Information Visit Information Visit Type Initial Evaluation Visit Note [employer] before KX Visit Start Time 10:35 Visit Stop Time 11:15 Visit Number 2 Number of TELEVISION DIRECTOR Visits 0 Evaluation Information Evaluation Date 11/14/23 Precautions Precautions COPD, mitral valve prolapse, spinal cord stimulator, cirrhosis that has resolved, light-headed with standing and con't to check orthostatics, osteoporosis in spine PT-OP-B Current Condition Start: 11/12/23 08:51 Freq: Status: Active Protocol: Document 11/14/23 08:43 MB (Rec: 11/14/23 09:48 MB [id number]) Current Condition History of Current Condition Onset Date Chronic back pain since 14 y/o d/t scoliosis Current Complaints Chronic LBP 27/11 History of Current Condition Pt states that she had a spinal cord stimulator put in in 2016 and it functioned well for three years and then is malfunctioned. It was taken out [address] Hsieh at [facility]. He thinks she is a good candidate to put another one in. She is here in PT as a prerequisite to get MRI. She has not PT for her back in the past and has typically seen a chiropractor. She had one day of cardiopulmary rehab but then she had CP and was sent to ED and then [facility] and underwent heart cath. She says she has pressure in her heart and she has history of mitral valve prolapse and a stiff heart. PMH includes Hep C, COPD, mitral valve prolapse, spinal cord stimulator Pt reports 24/7 back pain and insomnia at night. She is on disability. 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 Walking and climbing steps are difficult and her COPD contributes to this. Pt does not use O2. Her one year ago. Pt denies numbness and tingling. Pt sleeps on her stomach and then moves around during the night . Treatment Goals Patient/Caregiver Goals To get MRI and spinal stimulator PT-OP-C Subjective Start: 11/12/23 08:51 Freq: Status: Active Protocol: Document 11/21/23 10:35 MB (Rec: 11/21/23 11:11 MB [id number]) OP-PT Subjective Patient Comments Patient Comments Pt is going for 4 hour kayaking trip in [place] tomorrow. She con't with back pain. PT-OP-J Posture/Palpation/Skin Start: 11/12/23 08:51 Freq: Status: Active Protocol: Document 11/14/23 08:43 MB (Rec: 11/14/23 09:48 MB [id number]) Posture Evaluation Comments Posture Comments Standing posture with shoes off: Dowager's hump, decreased thoracic kyphosis, severe thoracic convexity to the left , right iliac crest is 1.5 inches higher than the left and hips/pelvis severely shifted to the right. Stands to functionally shorten right leg to help pain. Standing flexion with feet spread apart for balance and knees bent and pt can touch the floor, thoracic spine is stiff, extension to 15 deg with increased LBP. Pt prefers flexion. Sitting thoracic rotation: mildly less to the left compared to right. PT-OP-M Strength Start: 11/12/23 08:51 Freq: Status: Active Protocol: Document 11/14/23 08:43 MB (Rec: 11/14/23 09:48 MB [id number]) Hip Strength Hip Manual Muscle Testing Left Flexion (L2) 3 Fair Abduction 4 Good Right Flexion (L2) 4- Good- Abduction 4+ Good+ Knee Strength Knee Manual Muscle Testing Left Flexion (S2) 5 Normal Extension (L3) 5 Normal Right Flexion (S2) 5 Normal Extension (L3) 5 Normal Ankle/Foot Strength Ankle and Foot Manual Muscle Testing Bilateral Dorsiflexion (L4) 5 Normal Toe Strength Toe Manual Muscle Testing Left Great Toe Extension 5 Normal Right Great Toe Extension 5 Normal PT-OP-Q Treatments Start: 11/12/23 08:51 Freq: Status: Active Protocol: Document 11/21/23 10:35 MB (Rec: 11/21/23 11:11 MB [id number]) Cardio Equipment Bicycle (Upright) Duration (Minutes) 10 Resistance 1-2 Other Sats 97%, HR 74 BPM, back pain 8/10 before and after Therapeutic Exercises Supine Exercises B knees to chest Comments Tried to relieve LBP and works well today B hip stretches Comments Rotators and glues with knees to chest with rotated Pelvic tilt with abdominal drawing in Comments Knees and practice today Pelvic realignment exercises Equipment Used Blue ball Reps/Minutes 5 reps, 3 sec hold all exercises in order Comments Feet together ball squeeze iso , knee opp ankle ball squeeze, thigh press do PT-OP-T Assessment and Plan Start: 11/12/23 08:51 Freq: Status: Active Protocol: Document 11/21/23 10:35 MB (Rec: 11/21/23 11:11 MB [id number]) Physical Therapy Assessment Rehab Potential Rehabilitation Potential Fair Evaluation Complexity Number of Personal Factors/Comorbidities 1-2 Number of Body Systems Impaired 3 Clinical Presentation at Evaluation Evolving Impairments Impairments Activity Tolerance,Balance, Functional Activities, Functional Mobility,Gait,Pain, Posture,ROM,Soft Tissue Mobility,Strength,Transfers Other Concerns Fall Risk Yes Goals 3 Impairment Lack of HEP Residential Goal (LTG) Pt will perform progressive HEP with I including pelvic realignment exercises, gentle core and postural progression, gentle LE strengtning and balance to improve strength and pain. LTG Duration 6 weeks 2 Impairment Evidence of imbalance Residential Goal (LTG) Pt will perform TUG without AD in no more than 10 sec to improve functional balance with transfers and gait. LTG Duration 6 weeks 1 Impairment Oswestry reflects 60% impairment Residential Goal (LTG) Pt will present with Oswestry score to reflect no more than 40% impairment to improve pain and quality of life. LTG Duration 6 weeks Assessment Summary Assessment Initiated upright bike and pelvic realignment exercises today and abdominal drawing in . Pt with pain similar to start of treatment date during treatment. Con't to monitor if PT is helpful or not. Consider diaphragm breathing next treatment date. Increased time with small amount of exercises today to monitor response. Physical Therapy Plan Frequency and Duration Frequency of Treatment 2x/Week Duration of treatment (weeks) 6 Plan of Care Start Date 11/14/23 Plan of Care End Date 12/29/23 Therapeutic Interventions Therapeutic Interventions Balance Training,Canalithic Repositioning,Gait Training, Home Exercise Program,Manual Therapy,Neuromuscular Re- education,Patient/Caregiver Education,Self-Care/Home Management,Soft Tissue Mobilization,Taping, Therapeutic Activities, Therapeutic Exercises Modalities Cold Pack/Ice Massage,Electric Stimulation,Hot Packs, Ultrasound Next Visit Focus/Plan Next Note Type Treatment Note Next Visit Plan Con't upright bike if okay, review pelvic realignment exercises, con't diaphragm breathing, add hip rotator stretch and B knees to chest stretch or press isometric to HEP once reviewed. Progressive gentle core strengthening in hook lying and standing, gentle flexibility and LE strengthening in hook lying such as clam. For supine core progression: pelvic tilt and abdominal drawing in, HS, knee fall out, gentle knee rocking , mini july.
--- NOTE | 2023-11-27 09:55 | PT.OTN ---
Current Diagnoses Other spondylosis with radiculopathy, lumbosacral region (11/27/23) Pain in thoracic spine (11/27/23) Strain of muscle, fascia and tendon at neck level, initial encounter (11/27/23) Physical Therapy Treatment Note PT-OP-A Visit Information Start: 11/12/23 08:51 Freq: Status: Active Protocol: Document 11/27/23 09:00 MB (Rec: 11/27/23 09:44 MB [id number]) Out-Patient Physical Therapy Visit Information Visit Information Visit Type Treatment Note Visit Note [employer] Medicare before KX Visit Start Time 09:00 Visit Stop Time 09:40 Visit Number 3 Number of SLOTTER OPERATOR HELPER Visits 0 Evaluation Information Evaluation Date 11/14/23 Precautions Precautions COPD, mitral valve prolapse, spinal cord stimulator, cirrhosis that has resolved, light-headed with standing and con't to check orthostatics, osteoporosis in spine PT-OP-B Current Condition Start: 11/12/23 08:51 Freq: Status: Active Protocol: Document 11/14/23 08:43 MB (Rec: 11/14/23 09:48 MB [id number]) Current Condition History of Current Condition Onset Date Chronic back pain since 14 y/o d/t scoliosis Current Complaints Chronic LBP 27/11 History of Current Condition Pt states that she had a spinal cord stimulator put in in 2016 and it functioned well for three years and then is malfunctioned. It was taken out [address] Hsieh at [facility]. He thinks she is a good candidate to put another one in. She is here in PT as a prerequisite to get MRI. She has not PT for her back in the past and has typically seen a chiropractor. She had one day of cardiopulmary rehab but then she had CP and was sent to ED and then [facility] and underwent heart cath. She says she has pressure in her heart and she has history of mitral valve prolapse and a stiff heart. PMH includes Hep C, COPD, mitral valve prolapse, spinal cord stimulator Pt reports 24/7 back pain and insomnia at night. She is on disability. 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 Walking and climbing steps are difficult and her COPD contributes to this. Pt does not use O2. Her one year ago. Pt denies numbness and tingling. Pt sleeps on her stomach and then moves around during the night . Treatment Goals Patient/Caregiver Goals To get MRI and spinal stimulator PT-OP-C Subjective Start: 11/12/23 08:51 Freq: Status: Active Protocol: Document 11/27/23 09:00 MB (Rec: 11/27/23 09:44 MB [id number]) OP-PT Subjective Patient Comments Patient Comments Pt did not get to go on [place] trip d/t her boyfriend is in the hospital. She has been SOB and she thinks it is due to stress. Pt feels her alignment is off and right LBP is 8-9/ 10. PT-OP-J Posture/Palpation/Skin Start: 11/12/23 08:51 Freq: Status: Active Protocol: Document 11/14/23 08:43 MB (Rec: 11/14/23 09:48 MB [id number]) Posture Evaluation Comments Posture Comments Standing posture with shoes off: Dowager's hump, decreased thoracic kyphosis, severe thoracic convexity to the left , right iliac crest is 1.5 inches higher than the left and hips/pelvis severely shifted to the right. Stands to functionally shorten right leg to help pain. Standing flexion with feet spread apart for balance and knees bent and pt can touch the floor, thoracic spine is stiff, extension to 15 deg with increased LBP. Pt prefers flexion. Sitting thoracic rotation: mildly less to the left compared to right. PT-OP-M Strength Start: 11/12/23 08:51 Freq: Status: Active Protocol: Document 11/14/23 08:43 MB (Rec: 11/14/23 09:48 MB [id number]) Hip Strength Hip Manual Muscle Testing Left Flexion (L2) 3 Fair Abduction 4 Good Right Flexion (L2) 4- Good- Abduction 4+ Good+ Knee Strength Knee Manual Muscle Testing Left Flexion (S2) 5 Normal Extension (L3) 5 Normal Right Flexion (S2) 5 Normal Extension (L3) 5 Normal Ankle/Foot Strength Ankle and Foot Manual Muscle Testing Bilateral Dorsiflexion (L4) 5 Normal Toe Strength Toe Manual Muscle Testing Left Great Toe Extension 5 Normal Right Great Toe Extension 5 Normal PT-OP-Q Treatments Start: 11/12/23 08:51 Freq: Status: Active Protocol: Document 11/27/23 09:00 MB (Rec: 11/27/23 09:44 MB [id number]) Therapeutic Exercises Supine Exercises B knee rocking side to side Comments Gently right and left with end -range stretch B knees to chest Comments Performed today to help relieve LBP Pelvic tilt with abdominal drawing in Supine Exercise Name Poor transverse abdominis contraction Comments Knees bent and performed today Pelvic realignment exercises Supine Exercise Name Pt has not been performing at home Equipment Used Blue ball Reps/Minutes 5 reps, 3 sec hold all exercises in order Comments Feet together ball squeeze iso , knee opp ankle ball squeeze, thigh press do Manual Therapy Treatment Consent Patient gave verbal consent for manual Yes treatment Other Other Manual Treatments Pt hook lying with head and legs supported: Pt is very ticklish. PT places pt's hand on PT's hand when able. STM and positional release B vastus lateralis and hip flexors, hip rotators, thoracolumbar paraspinals PT-OP-T Assessment and Plan Start: 11/12/23 08:51 Freq: Status: Active Protocol: Document 11/27/23 09:00 ONELIA (Rec: 11/27/23 09:44 MB [id number]) Physical Therapy Assessment Rehab Potential Rehabilitation Potential Fair Evaluation Complexity Number of Personal Factors/Comorbidities 1-2 Number of Body Systems Impaired 3 Clinical Presentation at Evaluation Evolving Impairments Impairments Activity Tolerance,Balance, Functional Activities, Functional Mobility,Gait,Pain, Posture,ROM,Soft Tissue Mobility,Strength,Transfers Other Concerns Fall Risk Yes Goals 3 Impairment Lack of HEP Courtesy Bus Driver Goal (LTG) Pt will perform progressive HEP with I including pelvic realignment exercises, gentle core and postural progression, gentle LE strengtning and balance to improve strength and pain. LTG Duration 6 weeks 2 Impairment Evidence of imbalance Nursing Home Goal (LTG) Pt will perform TUG without AD in no more than 10 sec to improve functional balance with transfers and gait. LTG Duration 6 weeks 1 Impairment Oswestry reflects 60% impairment Courtesy Bus Driver Goal (LTG) Pt will present with Oswestry score to reflect no more than 40% impairment to improve pain and quality of life. LTG Duration 6 weeks Assessment Summary Assessment Pt right iliac crest is 2 higher than the left. HR ia 61 -62 BPM and O2 sats are 96% on RA. Pt has not been performing exericses after friend was injured. She has not started exercises. Ongoing severe scoliotic changes are barriers to PT progression. Physical Therapy Plan Frequency and Duration Frequency of Treatment 2x/Week Duration of treatment (weeks) 6 Plan of Care Start Date 11/14/23 Plan of Care End Date 12/29/23 Therapeutic Interventions Therapeutic Interventions Balance Training,Canalithic Repositioning,Gait Training, Home Exercise Program,Manual Therapy,Neuromuscular Re- education,Patient/Caregiver Education,Self-Care/Home Management,Soft Tissue Mobilization,Taping, Therapeutic Activities, Therapeutic Exercises Modalities Cold Pack/Ice Massage,Electric Stimulation,Hot Packs, Ultrasound Next Visit Focus/Plan Next Note Type Treatment Note Next Visit Plan Similar: Con't upright bike if okay, review pelvic realignment exercises, con't diaphragm breathing, add hip rotator stretch and B knees to chest stretch or press isometric to HEP once reviewed . Progressive gentle core strengthening in hook lying and standing, gentle flexibility and LE strengthening in hook lying such as clam. For supine core progression: pelvic tilt and abdominal drawing in, HS, knee fall out, gentle knee rocking , mini july.
--- NOTE | 2023-12-04 10:21 | PT.OTN ---
Current Diagnoses Other spondylosis with radiculopathy, lumbosacral region (12/04/23) Pain in thoracic spine (12/04/23) Strain of muscle, fascia and tendon at neck level, initial encounter (12/04/23) Physical Therapy Treatment Note PT-OP-A Visit Information Start: 11/12/23 08:51 Freq: Status: Active Protocol: Document 12/04/23 09:52 MB (Rec: 12/04/23 10:21 MB [id number]) Out-Patient Physical Therapy Visit Information Visit Information Visit Type Treatment Note Visit Note [employer] before KX Pt is 7' late to appointment Visit Start Time 09:52 Visit Stop Time 10:20 Visit Number 3 Number of PSYCHIATRIC CLINICIAN Visits 0 Evaluation Information Evaluation Date 11/14/23 Precautions Precautions COPD, mitral valve prolapse, spinal cord stimulator, cirrhosis that has resolved, light-headed with standing and con't to check orthostatics, osteoporosis in spine PT-OP-B Current Condition Start: 11/12/23 08:51 Freq: Status: Active Protocol: Document 11/14/23 08:43 MB (Rec: 11/14/23 09:48 MB [id number]) Current Condition History of Current Condition Onset Date Chronic back pain since 14 y/o d/t scoliosis Current Complaints Chronic LBP 27/11 History of Current Condition Pt states that she had a spinal cord stimulator put in in 2015 and it functioned well for three years and then is malfunctioned. It was taken out [address] Hsieh at [facility]. He thinks she is a good candidate to put another one in. She is here in PT as a prerequisite to get MRI. She has not PT for her back in the past and has typically seen a chiropractor. She had one day of cardiopulmary rehab but then she had CP and was sent to ED and then [facility] and underwent heart cath. She says she has pressure in her heart and she has history of mitral valve prolapse and a stiff heart. PMH includes Hep C, COPD, mitral valve prolapse, spinal cord stimulator Pt reports 27/11 back pain and insomnia at night. She is on disability. 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 Walking and climbing steps are difficult and her COPD contributes to this. Pt does not use O2. Her one year ago. Pt denies numbness and tingling. Pt sleeps on her stomach and then moves around during the night . Treatment Goals Patient/Caregiver Goals To get MRI and spinal stimulator PT-OP-C Subjective Start: 11/12/23 08:51 Freq: Status: Active Protocol: Document 12/04/23 09:52 MB (Rec: 12/04/23 10:21 MB [id number]) OP-PT Subjective Patient Comments Patient Comments Pt arrives late to appointment and is very SOB after rushing into appointment. Pt states that her breathing was so bad yesterday, she thought she would have to go to the ED. PT-OP-J Posture/Palpation/Skin Start: 11/12/23 08:51 Freq: Status: Active Protocol: Document 11/14/23 08:43 MB (Rec: 11/14/23 09:48 MB [id number]) Posture Evaluation Comments Posture Comments Standing posture with shoes off: Dowager's hump, decreased thoracic kyphosis, severe thoracic convexity to the left , right iliac crest is 1.5 inches higher than the left and hips/pelvis severely shifted to the right. Stands to functionally shorten right leg to help pain. Standing flexion with feet spread apart for balance and knees bent and pt can touch the floor, thoracic spine is stiff, extension to 15 deg with increased LBP. Pt prefers flexion. Sitting thoracic rotation: mildly less to the left compared to right. PT-OP-M Strength Start: 11/12/23 08:51 Freq: Status: Active Protocol: Document 11/14/23 08:43 MB (Rec: 11/14/23 09:48 MB [id number]) Hip Strength Hip Manual Muscle Testing Left Flexion (L2) 3 Fair Abduction 4 Good Right Flexion (L2) 4- Good- Abduction 4+ Good+ Knee Strength Knee Manual Muscle Testing Left Flexion (S2) 5 Normal Extension (L3) 5 Normal Right Flexion (S2) 5 Normal Extension (L3) 5 Normal Ankle/Foot Strength Ankle and Foot Manual Muscle Testing Bilateral Dorsiflexion (L4) 5 Normal Toe Strength Toe Manual Muscle Testing Left Great Toe Extension 5 Normal Right Great Toe Extension 5 Normal PT-OP-Q Treatments Start: 11/12/23 08:51 Freq: Status: Active Protocol: Document 12/04/23 09:52 MB (Rec: 07/30/24 10:21 MB [id number]) Therapeutic Exercises Sitting Exercises Breathing to help decrease SOB Comments Many minutes of slowing breathing, see assesment for vitals Neuro Re-Education Treatment Other Activities Diaphragm breathing Comments In sitting today and challenging today as pt con't with SOB when talking through mouth. Pt is able to try some gentle nose breathing with diaphram engagement/tummy expand with inhale and and deflate with exhale. BP and HR LUE after many minutes of breathing: does not read x3; right UE: does not read x2. Last attempt with second machine right UE: does not read Self-Care/Home Management Treatment Education Other Education Ed pt in going to PCP about SOB observed twice by PT, benefits of self-care in setting of trying to help her friend who is injured PT-OP-T Assessment and Plan Start: 11/12/23 08:51 Freq: Status: Active Protocol: Document 12/04/23 09:52 MB (Rec: 12/04/23 10:21 MB [id number]) Physical Therapy Assessment Rehab Potential Rehabilitation Potential Fair Evaluation Complexity Number of Personal Factors/Comorbidities 1-2 Number of Body Systems Impaired 3 Clinical Presentation at Evaluation Evolving Impairments Impairments Activity Tolerance,Balance, Functional Activities, Functional Mobility,Gait,Pain, Posture,ROM,Soft Tissue Mobility,Strength,Transfers Other Concerns Fall Risk Yes Goals 3 Impairment Lack of HEP [employer] Goal (LTG) Pt will perform progressive HEP with I including pelvic realignment exercises, gentle core and postural progression, gentle LE strengtning and balance to improve strength and pain. LTG Duration 6 weeks 2 Impairment Evidence of imbalance K [employer] Goal (LTG) Pt will perform TUG without AD in no more than 10 sec to improve functional balance with transfers and gait. LTG Duration 6 weeks 1 Impairment Oswestry reflects 60% impairment Prison Goal (LTG) Pt will present with Oswestry score to reflect no more than 40% impairment to improve pain and quality of life. LTG Duration 6 weeks Assessment Summary Assessment Pt arrives late and is very SOB again this treatment date. O2 sats are 96% on RA and HR is 72 BPM upon arrival and breathing recovers after several minutes of working on slowing breathing. Encouraged pt to follow-up with PCP/make an appointment. BP machine does not read x6 tries. Manual BP and HR RUE: PT cannot get accurate reading. Did not perform any further PT treatment, pt c/o light- headedness when up. Physical Therapy Plan Frequency and Duration Frequency of Treatment 2x/Week Duration of treatment (weeks) 6 Plan of Care Start Date 11/14/23 Plan of Care End Date 12/29/23 Therapeutic Interventions Therapeutic Interventions Balance Training,Canalithic Repositioning,Gait Training, Home Exercise Program,Manual Therapy,Neuromuscular Re- education,Patient/Caregiver Education,Self-Care/Home Management,Soft Tissue Mobilization,Taping, Therapeutic Activities, Therapeutic Exercises Modalities Cold Pack/Ice Massage,Electric Stimulation,Hot Packs, Ultrasound Next Visit Focus/Plan Next Note Type Treatment Note Next Visit Plan Similar: Con't upright bike if okay, progressive gentle core strengthening in hook lying and standing, gentle flexibility and LE strengthening in hook lying such as clam. For supine core progression: pelvic tilt and abdominal drawing in, HS, knee fall out, gentle knee rocking , mini july.
--- NOTE | 2023-12-10 11:55 | PT-OP ANOTE ---
PT went to ED after speaking with PT last PT visit. She underwent several tests and was found to have PNA, per her report. Chest CTA on 12/04/23 revealed: 1. No pulmonary embolus. 2. Right upper lobe tree-in-bud opacity. Differential considerations include mycobacterial and fungal infection as well as granulomatous processes. Continued follow-up is recommended to exclude underlying malignancy. 3. Left lower lobe pulmonary nodule. Follow-up is recommended as below. 4. Cirrhosis. Pt states that she was instructed to follow-up with her chief school finance officer as soon as possible and she has an appointment this week. Pt is anxious to con't with PT because she states she cannot get MRI and spinal stimulator unless she completes PT. PT and pt agree to cancel appointments this week and to see what chief school finance officer says. Overall, if her back pain is worse from the findings above, PT may not be helpful and she may need further medical treatment and PT ed pt about this. Similarly, PT cannot progress if she con't to be so SOB during PT. PT also ed pt about this. Will follow along and consider d/c PT as appropriate.
--- NOTE | 2023-12-11 10:41 | PT.OPDS ---
Current Diagnoses Other spondylosis with radiculopathy, lumbosacral region (12/04/23) Pain in thoracic spine (12/04/23) Strain of muscle, fascia and tendon at neck level, initial encounter (12/04/23) Visit Care Team Role Provider Type Karoline Cabrera MD Family Provider Physician Primary Care Provider Specialty: Family Practice Obstetrics Address: [facility] [place], [address] Email: [email or web address] PA-C Attending Provider Non-Staff Referring Provider Specialty: Orthopedic Surgery Address: [address] [place] [address], [place], [address] Email: [email or web address] Visit Number Visit Number 3 Discharge Summary PT-OP-B Current Condition Start: 11/12/23 08:51 Freq: Status: Active Protocol: Document 11/14/23 08:43 MB (Rec: 11/14/23 09:48 MB [id number]) Current Condition History of Current Condition Onset Date Chronic back pain since 14 y/o d/t scoliosis Current Complaints Chronic LBP 27/11 History of Current Condition Pt states that she had a spinal cord stimulator put in in 2015 and it functioned well for three years and then is malfunctioned. It was taken out [address] Hsieh at [facility]. He thinks she is a good candidate to put another one in. She is here in PT as a prerequisite to get MRI. She has not PT for her back in the past and has typically seen a chiropractor. She had one day of cardiopulmary rehab but then she had CP and was sent to ED and then [facility] and underwent heart cath. She says she has pressure in her heart and she has history of mitral valve prolapse and a stiff heart. PMH includes Hep C, COPD, mitral valve prolapse, spinal cord stimulator Pt reports 24/7 back pain and insomnia at night. She is on disability. 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 Walking and climbing steps are difficult and her COPD contributes to this. Pt does not use O2. Her one year ago. Pt denies numbness and tingling. Pt sleeps on her stomach and then moves around during the night . Treatment Goals Patient/Caregiver Goals To get MRI and spinal stimulator PT-OP-C Subjective Start: 11/12/23 08:51 Freq: Status: Active Protocol: Document 12/04/23 09:52 MB (Rec: 12/04/23 10:21 MB [id number]) OP-PT Subjective Patient Comments Patient Comments Pt arrives late to appointment and is very SOB after rushing into appointment. Pt states that her breathing was so bad yesterday, she thought she would have to go to the ED. PT-OP-J Posture/Palpation/Skin Start: 11/12/23 08:51 Freq: Status: Active Protocol: Document 11/14/23 08:43 MB (Rec: 11/14/23 09:48 MB [id number]) Posture Evaluation Comments Posture Comments Standing posture with shoes off: Dowager's hump, decreased thoracic kyphosis, severe thoracic convexity to the left , right iliac crest is 1.5 inches higher than the left and hips/pelvis severely shifted to the right. Stands to functionally shorten right leg to help pain. Standing flexion with feet spread apart for balance and knees bent and pt can touch the floor, thoracic spine is stiff, extension to 15 deg with increased LBP. Pt prefers flexion. Sitting thoracic rotation: mildly less to the left compared to right. PT-OP-M Strength Start: 11/12/23 08:51 Freq: Status: Active Protocol: Document 11/14/23 08:43 MB (Rec: 11/14/23 09:48 MB [id number]) Hip Strength Hip Manual Muscle Testing Left Flexion (L2) 3 Fair Abduction 4 Good Right Flexion (L2) 4- Good- Abduction 4+ Good+ Knee Strength Knee Manual Muscle Testing Left Flexion (S2) 5 Normal Extension (L3) 5 Normal Right Flexion (S2) 5 Normal Extension (L3) 5 Normal Ankle/Foot Strength Ankle and Foot Manual Muscle Testing Bilateral Dorsiflexion (L4) 5 Normal Toe Strength Toe Manual Muscle Testing Left Great Toe Extension 5 Normal Right Great Toe Extension 5 Normal PT-OP-T Assessment and Plan Start: 11/12/23 08:51 Freq: Status: Active Protocol: Document 12/11/23 10:39 MB (Rec: 08/06/24 10:41 MB [id number]) Physical Therapy Assessment Assessment Summary Assessment PT and pt spoke yesterday and again today. Pt has been very SOB during the past two PT sessions, limiting PT intervention and PT sent pt to PCP or ED. Pt went to ED and had some positive lung findings and is following up with accountant bookkeeper tomorrow. Overall, pt with severe scoliotic changes and PT intervention has not been helpful. She reports good response to spinal stimulator in the past. Recommend ongoing medical care for lung findings and for spinal stimulator and will d/c PT.
== END 2023-12-14 09:14 ==
LOC: PHYS 09:45
PROVIDERS: Family Provider Student in an Organized Health Care Education/Training Program; PCP Student in an Organized Health Care Education/Training Program; Referring Provider Physician Assistant Surgical; Visit Provider Physician Assistant Surgical
DX: M54.6 Pain in thoracic spine (principal); S16.1XXA Strain of muscle, fascia and tendon at neck level, initial encounter; M47.27 Other spondylosis with radiculopathy, lumbosacral region
CPT/HCPCS: 97110; 97112; 97140; 97162; 97535

== ENCOUNTER 2023-12-04 10:46 | Emergency (ER) | payer MEDICARE, MEDICAID, SELFPAY ==
[2023-12-04] VITALS (26 sets, daily range): BP systolic 100–148; BP diastolic 51–81; PULSE 50–79; RESP 18–25; TEMP 36.3; O2SAT 85–100; BMI 23.6
--- NOTE | 2023-12-04 11:31 | DI.RAD.S_ITS ---
PROCEDURE: XR CHEST 1V INDICATIONS: chest pain TECHNIQUE: One view of the chest was acquired. COMPARISON: [facility], CR, XR CHEST 2V, 09/13/2023, 12:28. FINDINGS: Surgical changes and devices: Cholecystectomy. Surgical clip projects over the left breast. Lungs and pleura: Lungs are clear. No pleural effusions or pneumothorax. Mediastinum: Mediastinal contours appear normal. Heart size is normal. Bones and chest wall: No suspicious bony lesions. Overlying soft tissues appear unremarkable. IMPRESSION: No acute cardiopulmonary abnormality is seen. Dictated by: Christopher Azul M.D. on 12/04/2023 at 12:10 Approved by: Christopher Azul M.D. on 12/04/2023 at 12:10
--- NOTE | 2023-12-04 11:56 | EKG_ITS ---
[address] [address] Test Date: 2023-12-04 Pat Name: Xi Dejesus Department: Room: Gender: Female Matcher Operator: : [id number] Requested By: Order Number: [id number] Reading MD: Juan Terry Measurements Intervals Helix Rate: 61 P: 86 TN: 172 QRS: 28 QRSD: 68 T: 75 QT: 422 QTc: 424 Interpretive Statements Normal sinus rhythm Electronically Signed On 12-04-2023 12:37:21 PDT by Juan Terry
[2023-12-04 12:04] LABS: Add Manual Diff / Slide Review NO; Basophils Absolute Auto 100 /uL (0-100); Basophils Percent Auto 0.8 % (0-2); Eosinophils Absolute Auto 200 /uL (0-450); Eosinophils Percent Auto 1.8 % (2-4); Hematocrit 38.2 % (36-46); Hemoglobin 12.7 g/dL (12.0-16.0); Lymphocytes Absolute Auto 1800 /uL (1100-4500); Lymphocytes Percent Auto 18.4 % (25-40); Mean Corpuscular HGB Conc 33.3 % (30-36); Mean Corpuscular Hemoglobin 30.3 PG (26-34); Mean Corpuscular Volume 90.8 fL (80-100); Monocytes Absolute Auto 900 /uL (0-900); Monocytes Percent Auto 8.8 % (3-14); Neutrophils Absolute Auto 6900 /uL (1500-7000); Neutrophils Percent Auto 70.2 % (50-75); Platelet Count 262 X10^3/uL (150-400); Red Blood Cell Count 4.21 X10^6/uL (4.0-5.2); Red Cell Distribution Width 14.7 % (11.6-14.8); White Blood Cell Count 9.8 X10^3/uL (4.5-11.0)
[2023-12-04 12:12] LABS: Prothrombin Time 11.6 SECONDS (9.4-12.5)
[2023-12-04 12:15] LABS: PTT Partial Thromboplastin Tim 35 SECONDS (25.1-36.5)
[2023-12-04 12:17] LABS: Alanine Aminotransferase 14 IU/L (<35); Albumin 4.5 g/dL (3.5-5.0); Albumin Globulin Ratio 1.5 (1.0-2.8); Alkaline Phosphatase 72 U/L (38-126); Aspartate Aminotransferase 29 IU/L (14-36); BUN Creatinine Ratio 19.8 (6-22); Bilirubin Total 0.7 mg/dL (0.2-1.3); Blood Urea Nitrogen 24 mg/dL (7-17); Calcium 8.8 mg/dL (8.4-10.2); Carbon Dioxide 28 mmol/L (22-32); Chloride 99 mmol/L (98-107); Creatine Kinase 46 U/L (30-135); Estimated Glomerular Filt Rate 50 mL/min (>60); Globulin 3.1 g/dL (1.7-4.1); Glucose 92 mg/dL (80-110); HEMOLYSIS < 15 (0-50); Lipase 118 U/L (23-300); Magnesium 1.4 mg/dL (1.6-2.3); Potassium 4.3 mmol/L (3.4-5.1); Sodium 135 mmol/L (137-145); Total Protein 7.6 g/dL (6.3-8.2)
[2023-12-04] MEDS: ASPIRIN 81 MG CHEW TAB 324 MG PO (12:21)
[2023-12-04 12:28] LABS: NT-proBNP (BNP-Adult 18+) 326 pg/mL (<125); Troponin I < 0.012 ng/mL (0.01-0.034)
--- NOTE | 2023-12-04 13:24 | ED.SOB ---
HPI - SOB/Dyspnea General Chief Complaint: Shortness of Breath/Dyspnea Stated Complaint: SOB Time Seen by Provider: 12/04/23 13:22 Source: patient, RN notes reviewed and old records reviewed Mode of arrival: Wheelchair Limitations: no limitations History of Present Illness HPI Narrative: 63-year-old female with a history of COPD, hypothyroidism,. Go nodularis, chronic back pain, prior mitral valve prolapse who presents with complaint of shortness of breath starting yesterday worsened while she was had PT today lung with some dizziness and chest discomfort. Patient states she started feeling short of breath yesterday has baseline shortness of breath with her COPD but worse with exertion but also movements such as leaning forward or side to side. Patient states she went to physical therapy felt very short of breath had chest pressure felt dizzy. States she feels little bit dizzy at when she is seated. Noted her heart rate has been low today she states this has been atypical. She got a little bit sweaty, denies any syncope. No fevers chills no new cold cough or congestion. Has a chronic cough at baseline. States feels a pressure in her chest particularly with the exertion but sometimes even not she does feel short of breath. Denies any new swelling of extremities. No abdominal back or flank pain. She has had some nausea today but no vomiting. No new swelling in extremities. States no new medication changes. Did have a heart catheterization after having a positive stress test which she was told was negative but the there was fluid either in the pericardial pleural area. Unclear from patient report. She states she did have back surgery about 8 weeks ago to remove a stimulator and battery [facility]. States allergic to penicillin develops anaphylaxis gets hives with codeine. Quit smoking tobacco in 2017 no regular alcohol, no recreational drugs. No history of blood clots or pulmonary emboli. She does not take any anticoagulants daily. Dr. Mcdonough is her primary care physician. Related Data Home Medications Medication Instructions Recorded Confirmed levothyroxine 50 mcg capsule 50 mcg PO DAILY 09/10/23 10/12/23 loperamide 2 mg capsule 2 mg PO Q6H PRN 09/10/23 10/12/23 spironolactone 50 mg tablet 50 mg PO DAILY 09/10/23 10/12/23 Previous Rx's Medication Instructions Recorded Disabled Parking #1 ea 03/06/23 esomeprazole magnesium 20 mg 20 mg PO DAILY #90 caps 03/06/23 capsule,delayed release (Nexium) metoprolol succinate 50 mg capsule 50 mg PO DAILY #90 ea 03/06/23 sprinkle, ext. release 24 hr nadolol 20 mg tablet 20 mg PO ONCE #90 tabs 03/06/23 estradiol cypionate 5 mg/mL 2 mg (0.4 mL) IM Q4W #10 mL 03/07/23 intramuscular oil (Depo-Estradiol) cyclobenzaprine 5 mg tablet 5 mg PO TID PRN muscle spasm #90 03/23/23 tabs trazodone 50 mg tablet 25 - 50 mg (0.5 - 1 x 50 mg) PO 06/27/23 DAILY #30 tabs hydrocodone 5 mg-acetaminophen 325 1 tab PO Q8H PRN pain #10 tabs 07/03/23 mg tablet azithromycin 500 mg tablet See Rx Instructions PO .COMPLEX #3 10/12/23 tabs ondansetron 4 mg disintegrating 4 mg PO Q8H PRN nausea and 10/12/23 tablet vomiting #30 tabs prednisone 50 mg tablet 50 mg PO DAILY #5 tabs 10/12/23 levofloxacin 750 mg tablet 750 mg PO DAILY 7 days #7 tabs 12/04/23 Allergies Allergy/AdvReac Type Severity Reaction Status Date / Time codeine Allergy Severe Anaphylaxis Verified 12/04/23 11:33 penicillin G Allergy Severe Anaphylaxis Verified 10/12/23 09:00 vaccine adjuvant system, AdvReac Severe blisters Verified 12/04/23 11:33 AS01B liposomal [From Shingrix (PF)] varicella-zoster virus AdvReac Severe blisters Verified 12/04/23 11:33 glycoprotein E, recombinant [From Shingrix (PF)] latex AdvReac Intermediate Redness of Verified 10/12/23 09:00 Skin Review of Systems Review of Systems ROS Unobtainable: All systems reviewed & are unremarkable except as noted in HPI and below Patient History Medical History COPD (chronic obstructive pulmonary disease) (~2018) Allergies Scoliosis Chronic back pain Cervical spine disease Carpal tunnel syndrome Mumps Chicken pox Ruptured tympanic membrane Glaucoma Liver disease (~2018) Hepatitis C (~2018) Hemorrhoid GERD (gastroesophageal reflux disease) Cirrhosis (~2018) MVP (mitral valve prolapse) Surgical History Anesthesia S/P insertion of spinal cord stimulator (~2016) History of hernia repair (~2012) History of appendectomy History of elbow surgery History of carpal tunnel release History of cholecystectomy History of ear surgery History of total hysterectomy History of partial hysterectomy Social History Smoking Status: Former smoker Smoking Status: Former smoker alcohol intake frequency: holidays/special occasions only Substance Use Type: does not use Exam Narrative Exam Narrative: GENERAL: Alert and oriented x three, female in moderate distress. HEENT: Head normocephalic, atraumatic, EOMI, pupils reactive, face symmetric, moist mucous membranes NECK: Supple, full range of motion CARDIOVASCULAR: Bradycardic but regular rate and rhythm without murmurs, rubs or gallops. No JVD, no edema bilateral lower extremities. RESPIRATORY: Breath sounds slightly diminished but equal bilaterally, no wheezes rales or rhonchi. No tachypnea, no accessory muscle use. Patient's speaks in full sentences. ABDOMEN: Soft, nontender. Normoactive bowel sounds all 4 quadrants. No guarding or rebound, rigidity, no mass : No CVA tenderness EXTREMITIES: Normal range of motion, no clubbing or edema. Neurovascularly intact NEUROLOGICAL: Cranial nerves II through XII grossly intact. Moving all extremities SKIN: Warm, dry, no petechiae, no rashes or lesions. Initial Vital Signs Initial Vital Signs: Vital Signs Temperature 97.3 F L 12/04/23 11:25 Pulse Rate 61 12/04/23 11:25 Respiratory Rate 24 12/04/23 11:25 Blood Pressure 135/66 12/04/23 11:25 Pulse Oximetry 100 12/04/23 11:25 Oxygen Delivery Method Room Air 12/04/23 11:25 Course Orders Ordered: Discontinued Medications Hydrocodone Bitart/Acetaminophen (Hydrocodone/Acet 5/325 Tablet) 1 tab PO NOW ONE Stop: 12/04/23 18:26 Last Admin: 12/04/23 18:32 Dose: 1 tab Documented By: Albuterol/Ipratropium (Albuterol/Ipratropium 3 Ml Ampul) 3 ml INH NOW ONE Stop: 12/04/23 13:43 Last Admin: 12/04/23 13:50 Dose: 3 ml Documented By: BEN Aspirin (Aspirin 81 Mg Chew Tab) 324 mg PO NOW ONE Stop: 12/04/23 11:31 Last Admin: 12/04/23 12:21 Dose: 324 mg Documented By: Sodium Chloride (Normal Saline 0.9%) 1,000 mls @ 1,000 mls/hr IV BOLUS ONE Stop: 12/04/23 16:33 Last Infusion: 12/04/23 16:38 Dose: Infused Documented By: Admin: 12/04/23 15:45 Dose: 1,000 mls/hr Documented By: SB Levofloxacin (Levaquin) 750 mg in 150 mls @ 100 mls/hr IV NOW ONE Stop: 12/04/23 18:24 Last Infusion: 12/04/23 19:06 Dose: Infused Documented By: Admin: 12/04/23 17:22 Dose: 100 mls/hr Documented By: SB Sodium Chloride (Normal Saline 0.9%) 1,000 mls @ 1,000 mls/hr IV BOLUS ONE Stop: 12/04/23 19:02 Last Infusion: 12/04/23 19:06 Dose: Infused Documented By: Admin: 12/04/23 18:27 Dose: 1,000 mls/hr Documented By: Sodium Chloride (Normal Saline 0.9%) 1,000 mls @ 1,000 mls/hr IV BOLUS ONE Stop: 12/04/23 19:05 Last Admin: 12/04/23 18:31 Dose: Not Given Documented By: Methylprednisolone (Methylprednisolone 125 Mg/2 Ml Vial) 125 mg IV NOW ONE Stop: 12/04/23 16:58 Last Admin: 12/04/23 17:22 Dose: 125 mg Documented By: SB Morphine Sulfate (Morphine 2 Mg/Ml Inj) 2 mg IV NOW ONE Stop: 12/04/23 13:43 Last Admin: 12/04/23 13:49 Dose: 2 mg Documented By: SB Ondansetron HCl (Ondansetron 4 Mg/2 Ml Inj) 4 mg IV NOW ONE Stop: 12/04/23 13:43 Last Admin: 12/04/23 13:49 Dose: 4 mg Documented By: SB Ondansetron HCl (Ondansetron 4 Mg Odt) 4 mg SL NOW ONE Stop: 12/04/23 15:35 Last Admin: 12/04/23 15:36 Dose: 4 mg Documented By: HENRIK Vital Signs Vital signs: Vital Signs - 8 hr 12/04/23 11:25 12/04/23 12:10 12/04/23 12:14 Temperature 97.3 F L Pulse Rate 61 60 Pulse Rate [Orthostatic Lying] Pulse Rate [Orthostatic Sitting] Pulse Rate [Orthostatic Standing] Respiratory Rate 24 Blood Pressure 135/66 127/57 L Blood Pressure [Orthostatic Lying] Blood Pressure [Orthostatic Sitting] Blood Pressure [Orthostatic Standing] Pulse Oximetry 100 Oxygen Delivery Method Room Air 12/04/23 12:14 12/04/23 12:30 12/04/23 12:31 Temperature Pulse Rate 62 55 L 52 L Pulse Rate [Orthostatic Lying] Pulse Rate [Orthostatic Sitting] Pulse Rate [Orthostatic Standing] Respiratory Rate 21 18 Blood Pressure Blood Pressure [Orthostatic Lying] Blood Pressure [Orthostatic Sitting] Blood Pressure [Orthostatic Standing] Pulse Oximetry 96 97 97 Oxygen Delivery Method 12/04/23 12:31 12/04/23 13:00 12/04/23 13:00 Temperature Pulse Rate 52 L Pulse Rate [Orthostatic Lying] Pulse Rate [Orthostatic Sitting] Pulse Rate [Orthostatic Standing] Respiratory Rate Blood Pressure 121/73 117/65 Blood Pressure [Orthostatic Lying] Blood Pressure [Orthostatic Sitting] Blood Pressure [Orthostatic Standing] Pulse Oximetry 98 Oxygen Delivery Method 12/04/23 13:30 12/04/23 13:31 12/04/23 13:31 Temperature Pulse Rate 51 L Pulse Rate [Orthostatic Lying] Pulse Rate [Orthostatic Sitting] Pulse Rate [Orthostatic Standing] Respiratory Rate 24 Blood Pressure 148/73 H Blood Pressure [Orthostatic Lying] Blood Pressure [Orthostatic Sitting] Blood Pressure [Orthostatic Standing] Pulse Oximetry 99 99 Oxygen Delivery Method 12/04/23 14:00 12/04/23 14:30 12/04/23 14:50 Temperature Pulse Rate 56 L 55 L 60 Pulse Rate [Orthostatic Lying] Pulse Rate [Orthostatic Sitting] Pulse Rate [Orthostatic Standing] Respiratory Rate 24 25 H Blood Pressure Blood Pressure [Orthostatic Lying] Blood Pressure [Orthostatic Sitting] Blood Pressure [Orthostatic Standing] Pulse Oximetry 100 97 96 Oxygen Delivery Method Room Air Room Air 12/04/23 14:50 12/04/23 15:07 12/04/23 15:30 Temperature Pulse Rate 53 L 54 L Pulse Rate [Orthostatic Lying] Pulse Rate [Orthostatic Sitting] Pulse Rate [Orthostatic Standing] Respiratory Rate Blood Pressure 105/61 Blood Pressure [Orthostatic Lying] Blood Pressure [Orthostatic Sitting] Blood Pressure [Orthostatic Standing] Pulse Oximetry 91 95 Oxygen Delivery Method 12/04/23 15:48 12/04/23 15:48 12/04/23 16:00 Temperature Pulse Rate 57 L 53 L Pulse Rate [Orthostatic Lying] Pulse Rate [Orthostatic Sitting] Pulse Rate [Orthostatic Standing] Respiratory Rate 19 21 Blood Pressure 112/65 Blood Pressure [Orthostatic Lying] Blood Pressure [Orthostatic Sitting] Blood Pressure [Orthostatic Standing] Pulse Oximetry 95 93 Oxygen Delivery Method Room Air 12/04/23 16:00 12/04/23 16:30 12/04/23 17:27 Temperature Pulse Rate 79 Pulse Rate [Orthostatic Lying] 51 L Pulse Rate [Orthostatic Sitting] 53 L Pulse Rate [Orthostatic Standing] 61 Respiratory Rate 24 Blood Pressure 102/61 Blood Pressure [Orthostatic Lying] 121/66 Blood Pressure [Orthostatic Sitting] 138/60 Blood Pressure [Orthostatic Standing] 140/58 L Pulse Oximetry Oxygen Delivery Method MDM - SOB/Dyspnea Lab Data 12/04/23 11:54 12/04/23 11:54 Labs: Lab Results 12/04/23 12/04/23 Range/Units 11:54 14:30 WBC 9.8 (4.5-11.0) X10^3/uL RBC 4.21 (4.0-5.2) X10^6/uL Hgb 12.7 (12.0-16.0) g/dL Hct 38.2 (36-46) % MCV 90.8 (80-100) fL MCH 30.3 (26-34) PG MCHC 33.3 (30-36) % RDW 14.7 (11.6-14.8) % Plt Count 262 (150-400) X10^3/uL Neut % (Auto) 70.2 (50-75) % Lymph % (Auto) 18.4 L (25-40) % [place] % (Auto) 8.8 (3-14) % Eos % (Auto) 1.8 L (2-4) % Baso % (Auto) 0.8 (0-2) % Neut # (Auto) 6900 (6857-9155) /uL Lymph # (Auto) 1800 (4872-1245) /uL [place] # (Auto) 900 (0-900) /uL Eos # (Auto) 200 (0-450) /uL Baso # (Auto) 100 (0-100) /uL PT 11.6 (9.4-12.5) SECONDS INR 1.0 (0.9-1.3) APTT 35 (25.1-36.5) SECONDS Sodium 135 L (137-145) mmol/L Potassium 4.3 (3.4-5.1) mmol/L Chloride 99 (98-107) mmol/L Carbon Dioxide 28 (22-32) mmol/L BUN 24 H (7-17) mg/dL Creatinine 1.21 H (0.52-1.04) mg/dL Estimated GFR 50 L (>60) mL/min BUN/Creatinine Ratio 19.8 (6-22) Glucose 92 (80-110) mg/dL Calcium 8.8 (8.4-10.2) mg/dL Magnesium 1.4 L (1.6-2.3) mg/dL Total Bilirubin 0.7 (0.2-1.3) mg/dL AST 29 (14-36) IU/L ALT 14 (<35) IU/L Alkaline Phosphatase 72 (38-126) U/L Total Creatine Kinase 46 (30-135) U/L Troponin I < 0.012 < 0.012 (0.01-0.034) ng/mL NT-Pro-B Natriuret Pep 326 H (<125) pg/mL Total Protein 7.6 (6.3-8.2) g/dL Albumin 4.5 (3.5-5.0) g/dL Globulin 3.1 (1.7-4.1) g/dL Albumin/Globulin Ratio 1.5 (1.0-2.8) Lipase 118 (23-300) U/L Imaging Data Chest x-ray: Radiologist's Impression: [address] [address] XRay Report Signed Patient: Xi Dejesus MR#: [id number] : 1960 Acct:[id number] Age/Sex: 63 / F Date of Service: 12/04/23 Loc: ED Accession Number: [id number] Procedure: XR chest 1V Ordering Provider: Marley Osorio D.O. PROCEDURE: XR CHEST 1V INDICATIONS: chest pain TECHNIQUE: One view of the chest was acquired. COMPARISON: [facility], , XR CHEST 2V, 09/13/2023, 12:28. FINDINGS: Surgical changes and devices: Cholecystectomy. Surgical clip projects over the left breast. Lungs and pleura: Lungs are clear. No pleural effusions or pneumothorax. Mediastinum: Mediastinal contours appear normal. Heart size is normal. Bones and chest wall: No suspicious bony lesions. Overlying soft tissues appear unremarkable. IMPRESSION: No acute cardiopulmonary abnormality is seen. Dictated by: Christopher Azul M.D. on 12/04/2023 at 12:10 Approved by: Christopher Azul M.D. on 12/04/2023 at 12:10 CT scan - chest: Radiologist's Impression: iX Dejesus?(Etelvina)??63??F??1960 ? Allergy/Adv: codeine, penicillin G, vaccine adjuvant system, AS01B liposomal, varicella-zoster virus glycoprotein E, recombinant, latex (More??) Close Chest CTA (Signed) Scottie Ramirez - 12/04/23 Chest X-Ray (Signed) Christopher Azul - 12/04/23 Chest X-Ray (Signed) Shantel De Santiago - 09/13/23 Outside Echo 07/04/23 Chest X-Ray (Signed) Keegan John - 06/04/23 Mammogram Screening (Signed) Michel Ty - 04/19/23 CT Lung (Signed) Lisseth Harrington - 04/19/23 Abdomen Ultrasound (Signed) Yasmin Saldana - 04/19/23 Chest CTA (Signed) Zachary Beltran - 03/28/23 Chest X-Ray (Signed) Jeison Quispe - 03/28/23 Myocardial Perfusion Scan Nuc Med (Signed) Shelly Garcia - 03/27/23 PFT Result 03/13/23 Launch?Image [address] [address] [address] Scan Report Signed Patient: Xi Dejesus MR#: [id number] : 1960 Acct:[id number] Age/Sex: 63 / F Date of Service: 12/04/23 Loc: ED Accession Number: [id number] Procedure: CT angio chest PE protocol Ordering Provider: Marley Osorio D.O. PROCEDURE: CT ANGIO CHEST PE PROTOCOL INDICATIONS: r/o PE< chest pain/sob, back sx 8wks ago TECHNIQUE: After the administration of intravenous contrast, 2 mm thick sections acquired from the pulmonary apices to the posterior costophrenic angles. 3-dimensional maximum intensity projection (MIP) coronal and sagittal reformats were then acquired through the thorax. For radiation dose reduction, the following was used: automated exposure control, adjustment of mA and/or kV according to patient size. COMPARISON: [facility], CT, CT ANGIO CHEST PE PROTOCOL, 03/28/2023, 11:30. FINDINGS: Image quality: Diagnostic. Pulmonary arteries: Pulmonary arteries are normal in size, and demonstrate no intraluminal filling defects to suggest central pulmonary embolism. Lower Neck: No enlarged lymph nodes. Thyroid: No thyroid nodules which require sonographic follow up, per consensus guidelines. Axillae: No enlarged lymph nodes. Chest Wall: Unremarkable. Bones: Unremarkable. Lungs and Pleura: No pneumothorax or pleural effusions. There is mild multinodular tree-in-bud opacity within the right upper lobe anteriorly. There is a partially solid partially ground-glass multi nodular density within the left lower lobe posteriorly measuring 17 mm. Heart: Heart size is normal. No pericardial effusion. Thoracic Vessels: No aortic aneurysm. Mediastinum and Nai: No enlarged lymph nodes. Esophagus: No wall thickening. No hiatal hernia. Upper Abdomen: Visualized portions of the upper abdomen demonstrate a markedly nodular hepatic contour, as well as cholecystectomy clips. IMPRESSION: 1. No pulmonary embolus. 2. Right upper lobe tree-in-bud opacity. Differential considerations include mycobacterial and fungal infection as well as granulomatous processes. Continued follow-up is recommended to exclude underlying malignancy. 3. Left lower lobe pulmonary nodule. Follow-up is recommended as below. 4. Cirrhosis. Fleischner Society criteria for SOLID lung nodule followup. Nodule size (mm)Low-risk patientHigh-risk patient<6 (single or multiple)No routine followup.Optional CT at 12 months. 6-8 (single or multiple)CT at 6-12 months, then optional CT at 18-24 mo.CT at 6-12 months, then CT at 18-24 months. >8 (single)CT, PET-CT, or biopsy at 3 months. Same as for low-risk pts. >8 (multiple)CT at 3-6 months, then optional CT at 18-24 mo.CT at 3-6 months, then CT at 18-24 months. Fleischner Society criteria for SUB-SOLID lung nodule followup. Solitary pure ground-glass nodules<6 mm (ground glass or part solid)No followup needed. 6 mm or larger (ground glass)CT at 6-12 months to confirm persistence, then CT every 2 years until 5 years.6 mm or larger (part solid)CT at 3-6 months to confirm persistence, then annual CT until 5 years if unchanged and solid component remains <6 mm. Multiple sub-solid nodules<6 mmCT at 3-6 months, then CT consider at 2 & 4 years for high risk patients. [address] at 3-6 months. Subsequent management based on most suspicious lesions. Recommendations do not apply to lung cancer screening, patients with immunosuppression, or patients with known primary cancer. Dictated by: Scottie Ramirez M.D. on 12/04/2023 at 16:34 Approved by: Scottie Ramirez M.D. on 12/04/2023 at 16:38 ECG Data Attestation: I personally reviewed and interpreted this ECG as follows: Prior ECG tracings: available for review Interpretation: Sinus rhythm rate of 61 NM 172 QRS is 68 QTC 424, no acute ST elevation or depression noted. Patient has prior from 06/04/2023 which has not nonspecific change EKG 2. Sinus Benjamin, rate of 53 NM 154 QRS is 68 QTC 431, no acute changes appreciated, patient is EKG appears similar to prior from earlier today. MDM Narrative Medical decision making narrative: Labs show white count of 9.8 hemoglobin 12.7 platelets 262, coags are negative sodium is 135, creatinine is 1.21 increased from July when it was 1, potassium and chloride are normal CO2 is 28 with a BUN 24, Mag is 1.4 with a glucose of 92 and calcium 8.8, troponins less than 0.012 with a BNP of 326, LFTs are negative. Patient's troponin and EKG were repeated. Repeat troponins less than 0.012, patient's EKG shows no acute changes. Chest x-ray shows no acute change. EKG shows sinus rhythm nonspecific change. Patient did have a delay she had 2 IVs that ?blew when attempting to go to CT. Patient has chest discomfort along with shortness of breath no hypoxia she is slightly bradycardic but not hypotensive here in the department. Patient did have surgery about [address] angio to evaluate for pulmonary emboli was obtained and shows no PE, right upper lobe tree-in-bud opacity differential includes mycobacterial and fungal infection as well as granulomatous process recommend follow up to exclude underlying malignancy. Patient had CT chest 04/19/2023 which was not read as this does have a left lower lobe pulmonary nodule that is 17mm as well as cirrhotic changes. Patient also had albuterol neb, she received aspirin, Zofran as well as morphine. Patient had improvement in symptoms. Minimal change to patient's symptoms with nebulizer. Patient improved on recheck. She has not been hypoxic, vitals has been appropriate, orthostatics are negative and blood pressure actually increases with standing from 05/26 systolic to 140 heart rate does not changes from 50s to 60s. Patient feels very dizzy like she might pass out. She did not ambulate her O2 sat. Discussed with Dr. Terry, hospitalist, reviewed findings from today chest pain likely secondary to either pneumonia versus source of her tree-in-bud changes on CT. She has had a heart catheterization in the past 1-2 years which was negative and was had fluid around her heart, there is no pericardial effusion noted on her CT angio today. No PE. Recommends additional L fluids in the patient's improved defers observation. Discussed with patient need for follow-up, we will start with the oral antibiotic but discussed this is an atypical pattern and needs further workup for infection, versus malignancy or other cause. Discharge Plan Departure Patient Disposition: Home Clinical Impression: Chest pain, Pneumonia Instructions: Atypical Pneumonia Activity Restrictions/Additional Instructions: Follow up with your physician, your chest pain is likely related to the changes on your chest CT. You have a tree-in-bud nodularity changes on the right and a pulmonary nodule on left. You need to have follow-up imaging for these. You have been prescribed an antibiotic but there are multiple causes that can cause this pattern and you need to have a recheck with your physician or preferably your visual designer for further evaluation. Take oral antibiotics until completed. Your prescription was sent to [facility] in [place]. Return for fevers, passing out, increasing shortness of breath, worsening chest pain, passing out, persistent vomiting, new swelling of extremities or other new or concerning changes. Prescriptions: New levofloxacin 750 mg tablet 750 mg PO DAILY 7 Days Qty: 7 0RF No Action cyclobenzaprine 5 mg tablet 5 mg PO TID PRN (Reason: muscle spasm) Qty: 90 3RF spironolactone 50 mg tablet 50 mg PO DAILY levothyroxine 50 mcg capsule 50 mcg PO DAILY loperamide 2 mg capsule 2 mg PO Q6H PRN (DME) Disabled Parking See Rx Instructions .ROUTE .MEDSUPPLY Qty: 1 0RF Rx Instructions: I find this patient to be medical disabled and qualified for Disabled Parking as indicated, and signed, on the and the Accompanying Disabled Parking Application for Individuals. nadolol 20 mg tablet 20 mg PO ONCE Qty: 90 3RF esomeprazole magnesium [Nexium] 20 mg capsule,delayed release(DR/EC) 20 mg PO DAILY Qty: 90 0RF metoprolol succinate 50 mg capsule,sprinkle,ER 24hr 50 mg PO DAILY Qty: 90 3RF azithromycin 500 mg tablet See Rx Instructions PO .COMPLEX Qty: 3 0RF Rx Instructions: For 500 mg dose pack: take 500 mg once daily for 3 days PO prednisone 50 mg tablet 50 mg PO DAILY Qty: 5 0RF ondansetron 4 mg tablet,disintegrating 4 mg PO Q8H PRN (Reason: nausea and vomiting) Qty: 30 0RF Depo-Estradiol 5 mg/mL oil 2 mg IM Q4W Qty: 10 3RF trazodone 50 mg tablet 25 - 50 mg PO DAILY Qty: 30 0RF hydrocodone-acetaminophen 5-325 mg tablet 1 tab PO Q8H PRN (Reason: pain) Qty: 10 0RF Referrals: Karoline Cabrera MD [Primary Care Provider] - Stand Alone Forms: Patient Portal/API
--- NOTE | 2023-12-04 13:42 | DI.CT.S_ITS ---
PROCEDURE: CT ANGIO CHEST PE PROTOCOL INDICATIONS: r/o PE< chest pain/sob, back sx 8wks ago TECHNIQUE: After the administration of intravenous contrast, 2 mm thick sections acquired from the pulmonary apices to the posterior costophrenic angles. 3-dimensional maximum intensity projection (MIP) coronal and sagittal reformats were then acquired through the thorax. For radiation dose reduction, the following was used: automated exposure control, adjustment of mA and/or kV according to patient size. COMPARISON: [facility], CT, CT ANGIO CHEST PE PROTOCOL, 03/28/2023, 11:30. FINDINGS: Image quality: Diagnostic. Pulmonary arteries: Pulmonary arteries are normal in size, and demonstrate no intraluminal filling defects to suggest central pulmonary embolism. Lower Neck: No enlarged lymph nodes. Thyroid: No thyroid nodules which require sonographic follow up, per consensus guidelines. Axillae: No enlarged lymph nodes. Chest Wall: Unremarkable. Bones: Unremarkable. Lungs and Pleura: No pneumothorax or pleural effusions. There is mild multinodular tree-in-bud opacity within the right upper lobe anteriorly. There is a partially solid partially ground-glass multi nodular density within the left lower lobe posteriorly measuring 17 mm. Heart: Heart size is normal. No pericardial effusion. Thoracic Vessels: No aortic aneurysm. Mediastinum and Nai: No enlarged lymph nodes. Esophagus: No wall thickening. No hiatal hernia. Upper Abdomen: Visualized portions of the upper abdomen demonstrate a markedly nodular hepatic contour, as well as cholecystectomy clips. IMPRESSION: 1. No pulmonary embolus. 2. Right upper lobe tree-in-bud opacity. Differential considerations include mycobacterial and fungal infection as well as granulomatous processes. Continued follow-up is recommended to exclude underlying malignancy. 3. Left lower lobe pulmonary nodule. Follow-up is recommended as below. 4. Cirrhosis. Fleischner Society criteria for SOLID lung nodule followup. Nodule size (mm)Low-risk patientHigh-risk patient<6 (single or multiple)No routine followup.Optional CT at 12 months. 6-8 (single or multiple)CT at 6-12 months, then optional CT at 18-24 mo.CT at 6-12 months, then CT at 18-24 months. >8 (single)CT, PET-CT, or biopsy at 3 months. Same as for low-risk pts. >8 (multiple)CT at 3-6 months, then optional CT at 18-24 mo.CT at 3-6 months, then CT at 18-24 months. Fleischner Society criteria for SUB-SOLID lung nodule followup. Solitary pure ground-glass nodules<6 mm (ground glass or part solid)No followup needed. 6 mm or larger (ground glass)CT at 6-12 months to confirm persistence, then CT every 2 years until 5 years.6 mm or larger (part solid)CT at 3-6 months to confirm persistence, then annual CT until 5 years if unchanged and solid component remains <6 mm. Multiple sub-solid nodules<6 mmCT at 3-6 months, then CT consider at 2 & 4 years for high risk patients. [address] at 3-6 months. Subsequent management based on most suspicious lesions. Recommendations do not apply to lung cancer screening, patients with immunosuppression, or patients with known primary cancer. Dictated by: Scottie Ramirez M.D. on 12/04/2023 at 16:34 Approved by: Scottie Ramirez M.D. on 12/04/2023 at 16:38
[2023-12-04] MEDS: MORPHINE 2 MG/ML INJ IV (13:49)
[2023-12-04] MEDS: ONDANSETRON 4 MG/2 ML INJ IV (13:49)
[2023-12-04] MEDS: ALBUTEROL/IPRATROPIUM 3 ML AMPUL INH (13:50)
--- NOTE | 2023-12-04 13:54 | EKG_ITS ---
[address] [address] Test Date: 2023-12-04 Pat Name: Xi Dejesus Department: [facility] Room: Gender: Female Triage Registered Nurse: BEN : 1960 Requested By: Order Number: [id number] Reading MD: Juan Terry Measurements Intervals [place] Rate: 53 P: 67 OK: 154 QRS: 0 QRSD: 68 T: 59 QT: 460 QTc: 431 Interpretive Statements Sinus bradycardia Electronically Signed On 12-05-2023 8:50:13 PDT by Juan Terry
[2023-12-04 15:01] LABS: Troponin I < 0.012 ng/mL (0.01-0.034)
--- NOTE | 2023-12-04 15:11 | PC.NURSE ---
Per DI patient second US guided IV is no longer usable. NO contrast used. Provider Devon made aware of second US guided IV removal by DI and potential infiltration of morphine and zofran. Arm is wrapped with coban and elevated. NO new orders from provider. Hetal, with DI called for IV placement. At bedside at this time.
[2023-12-04] MEDS: ONDANSETRON 4 MG ODT SL (15:36)
[2023-12-04] MEDS: SODIUM CHLORIDE 0.9% 1,000 ML 1000 ML IV ×2 (15:45→18:27)
[2023-12-04] MEDS: levoFLOXacin 750 MG/150 ML PIGGYBACK 100 MG IV (17:22)
[2023-12-04] MEDS: methylPREDNISolone 125 MG/2 ML VIAL IV (17:22)
--- NOTE | 2023-12-04 17:29 | PC.NURSE ---
TELEPHONER Note: This TELEPHONER was taking the pt's orthosatic BP and HR. Pt stated all throughout procedure that they were dizzy and lightheaded. When taking the standing BP and HR, pt had unstable gait, said she felt like she was going to pass out and started to lean and fall backwards. This TELEPHONER held the pt and helped them to sit back down on the bed.
[2023-12-04] MEDS: HYDROCODONE/ACET 5/325 TABLET 1 TAB PO (18:32)
--- NOTE | 2023-12-04 19:22 | PC.NURSE ---
Pt up and ambulatory with steady gait. Pt reports feeling much better after 2L infusion.
== END 2023-12-04 19:25 | disposition home or self-care (01) ==
PROVIDERS: Emergency Provider Emergency Medicine; Family Provider Student in an Organized Health Care Education/Training Program; PCP Student in an Organized Health Care Education/Training Program
DX: J18.9 Pneumonia, unspecified organism (principal); R07.9 Chest pain, unspecified; R00.1 Bradycardia, unspecified
CPT/HCPCS: 36415; 71045; 71275; 80053; 82550; 83690; 83735; 83880; 84484; 85025; 85610; 85730; 93005; 96361; 96365; 96366; 96375; 99284; J1956; J2270; J2405; J2919; Q9967

== ENCOUNTER → 2023-12-16 13:43 | Outpatient (CLI) | payer MEDICARE, MEDICAID, SELFPAY ==
--- NOTE | 2023-12-16 13:44 | DI.CT.S_ITS ---
PROCEDURE: CT CHEST WO CON INDICATIONS: lung nodule TECHNIQUE: Noncontrast 2.0-2.5 mm thick sections acquired from the pulmonary apices to the posterior costophrenic angles. 7 mm thick axial MIP and 5 mm coronal and sagittal reformats were then acquired. For radiation dose reduction, the following was used: automated exposure control, adjustment of mA and/or kV according to patient size. COMPARISON: [facility], CT, CT ANGIO CHEST PE PROTOCOL, 12/04/2023, 15:39. FINDINGS: Image quality: Diagnostic. Lower Neck: No enlarged lymph nodes. Thyroid: No thyroid nodules which require sonographic follow up, per consensus guidelines. Axillae: No enlarged lymph nodes. Chest Wall: Unremarkable. Bones: Levocurvature. Mild degenerative changes.. Lungs and Pleura: No pneumothorax or pleural effusions. Improvement in right upper lobe tree-in-bud nodularity with mild residual disease. Multi nodular opacity with mild ground-glass within the left lower lobe is improved compared to prior and likely infectious in etiology. Heart: Heart size is normal. No pericardial effusion. Thoracic Vessels: The aorta and pulmonary arteries demonstrate normal size. Mild atherosclerotic calcifications. Mediastinum and Nai: No enlarged lymph nodes. Esophagus: No wall thickening. No hiatal hernia. Upper Abdomen: Cirrhotic liver morphology. Status post cholecystectomy. IMPRESSION: 1. Improvement in right upper lobe tree-in-bud nodularity, consistent with improving infection. 2. Decreased size and conspicuity of nodular opacity within the left lower lobe posteriorly, most consistent with infection. Recommend three-month follow-up chest CT to ensure resolution. 3. Hepatic cirrhosis. Fleischner Society criteria for SOLID lung nodule followup. Nodule size (mm)Low-risk patientHigh-risk patient<6 (single or multiple)No routine followup.Optional CT at 12 months. 6-8 (single or multiple)CT at 6-12 months, then optional CT at 18-24 mo.CT at 6-12 months, then CT at 18-24 months. >8 (single)CT at 3 months, PET-CT, or biopsy. Same as for low-risk pts. >8 (multiple)CT at 3-6 months, then optional CT at 18-24 mo.CT at 3-6 months, then CT at 18-24 months. Fleischner Society criteria for SUB-SOLID lung nodule followup. Solitary pure ground-glass nodules<6 mm (ground glass or part solid)No followup needed. 6 mm or larger (ground glass)CT at 6-12 months to confirm persistence, then CT every 2 years until 5 years.6 mm or larger (part solid)CT at 3-6 months to confirm persistence, then annual CT until 5 years if unchanged and solid component remains <6 mm. Multiple sub-solid nodules<6 mmCT at 3-6 months, then CT consider at 2 & 4 years for high risk patients. [address] at 3-6 months. Subsequent management based on most suspicious lesions. Recommendations do not apply to lung cancer screening, patients with immunosuppression, or patients with known primary cancer. Dictated by: Jeison Quispe M.D. on 12/16/2023 at 19:19 Approved by: Jeison Quispe M.D. on 12/16/2023 at 19:25
== END ==
LOC: CT 13:43
PROVIDERS: Family Provider Student in an Organized Health Care Education/Training Program; PCP Student in an Organized Health Care Education/Training Program; Referring Provider Internal Medicine Critical Care Medicine; Visit Provider Internal Medicine Critical Care Medicine
DX: K74.60 Unspecified cirrhosis of liver (principal); R91.8 Other nonspecific abnormal finding of lung field; I25.10 Atherosclerotic heart disease of native coronary artery without angina pectoris; Z90.49 Acquired absence of other specified parts of digestive tract
CPT/HCPCS: 71250

== ENCOUNTER → 2024-01-14 12:43 | Outpatient (CLI) | payer MEDICARE, MEDICAID, SELFPAY ==
[2024-01-14 13:32] LABS: Appearance Urine UA CLEAR; Bilirubin Urine UA NEGATIVE (NEGATIVE); Color Urine UA YELLOW; Glucose Urine UA NEGATIVE (Negative); Ketones Urine UA NEGATIVE (NEGATIVE); Leukocyte Esterase Urine UA NEGATIVE (NEGATIVE); Nitrite Urine UA NEGATIVE (Negative); Occult Blood Urine UA NEGATIVE (Negative); Protein Urine UA NEGATIVE (Negative)
[2024-01-14 13:41] LABS: RBC Urine 1-5/HPF (0-5/HPF); Urine Volume 10mL (spun); WBC Urine 1-5/HPF (0-5/HPF); pH Urine UA 7.5 (4.5-8.0)
[2024-01-14 13:42] LABS: Bacteria Urine Occasional (0-1); Culture Indicated Urine Cult Not Indicated; Squamous Epithelial Cell Urine 5-10 /HPF (0-5/HPF)
[2024-01-14 13:55] LABS: Alanine Aminotransferase 11 IU/L (<35); Albumin Globulin Ratio 1.5 (1.0-2.8); Alkaline Phosphatase 70 U/L (38-126); Aspartate Aminotransferase 27 IU/L (14-36); BUN Creatinine Ratio 13.1 (6-22); Bilirubin Total 0.7 mg/dL (0.2-1.3); Blood Urea Nitrogen 14 mg/dL (7-17); Calcium 9.1 mg/dL (8.4-10.2); Carbon Dioxide 28 mmol/L (22-32); Chloride 98 mmol/L (98-107); Estimated Glomerular Filt Rate 58 mL/min (>60); Globulin 2.6 g/dL (1.7-4.1); Glucose 93 mg/dL (80-110); HEMOLYSIS < 15 (0-50); Potassium 4.1 mmol/L (3.4-5.1); Sodium 134 mmol/L (137-145); Total Protein 6.6 g/dL (6.3-8.2)
== END ==
LOC: LAB 12:45
PROVIDERS: Family Provider Student in an Organized Health Care Education/Training Program; PCP Student in an Organized Health Care Education/Training Program; Referring Provider Student in an Organized Health Care Education/Training Program; Visit Provider Student in an Organized Health Care Education/Training Program
DX: R10.9 Unspecified abdominal pain (principal); N17.9 Acute kidney failure, unspecified
CPT/HCPCS: 36415; 80053; 81001

== ENCOUNTER → 2024-01-18 15:12 | Outpatient (CLI) | payer MEDICARE, MEDICAID, SELFPAY ==
--- NOTE | 2024-01-18 15:12 | DI.US.S_ITS ---
PROCEDURE: US RENAL COMPLETE INDICATIONS: L flank pain with urine discoloration TECHNIQUE: Real-time scanning was performed of the kidneys and bladder, with image documentation. COMPARISON: None. FINDINGS: Kidneys: Kidneys are normal in size. Right kidney measures 9.4 cm long; left kidney measures 8.8 cm long. Right renal cortical thickness is 1.0 cm; left renal cortical thickness is 1.1 cm. Renal cortical echotexture is normal. No hydronephrosis or nephrolithiasis. No suspicious solid mass lesions. Bladder: Pre-void bladder volume is 29 mL. Post-void residual is 1 mL. Pre-void images demonstrate no intraluminal masses or stones. On pre-void images, bilateral ureteral jets are noted with color Doppler interrogation. (Of note, ureteral jets may not be detectable in up to 25% of cases due to insufficient differences in specific gravity between ureteral and bladder urine). Miscellaneous: No free pelvic fluid. IMPRESSION: Unremarkable sonographic appearance of the kidneys bilaterally. Dictated by: Yonis Kim [facility] Interpreted: Ginger Avila MD on 01/18/2024 at 16:13 Transcribed by: INES on 01/18/2024 at 16:14 Approved by: Ginger Avila M.D. on 01/24/2024 at 18:45
== END ==
LOC: US 15:12
PROVIDERS: Family Provider Student in an Organized Health Care Education/Training Program; PCP Student in an Organized Health Care Education/Training Program; Referring Provider Student in an Organized Health Care Education/Training Program; Visit Provider Student in an Organized Health Care Education/Training Program
DX: R10.9 Unspecified abdominal pain (principal)
CPT/HCPCS: 76770

== ENCOUNTER → 2024-02-05 10:44 | Outpatient (CLI) | payer MEDICARE, MEDICAID, SELFPAY ==
--- NOTE | 2024-02-05 10:45 | DI.RAD.S_ITS ---
PROCEDURE: XR DEXA AXIAL SKELETON INDICATIONS: bone density screening COMPARISON: [facility], CR, XR LUMBAR SPINE WITH FLEXION EXTENSION 5 VIEWS, 04/02/2023, 9:38. FINDINGS: Lumbar Spine: Bone mineral density 1.098 g/cm2, T score 0.4 Left Hip: Bone mineral density 0.868 g/cm2, T score -0.6 Right Hip: Bone mineral density 0.917 g/cm2, T score -0.2 Fracture Risk Calculation (when applicable): 10-year fracture risk of a major osteoporotic fracture 7.7 percent and of a hip fracture 0.5 percent. (T score greater or equal to -1.0 to: NORMAL) (T score from -1.1 to -2.4: OSTEOPENIA) (T score less than or equal to -2.5: OSTEOPOROSIS) IMPRESSION: Normal bone density of the lumbar spine and hips. Follow-up guidelines as follows: Osteoporosis: Consider a repeat DEXA and Vertebral Fracture Assessment (VFA) exam in 2 years or sooner if medically necessary, to reassess this patient's status. Osteopenia: Consider a repeat DEXA in 2-3 years to reassess this patient's status, or if there is a new clinical indication. Normal: Consider a repeat DEXA in 5 years or sooner, or if there is a new clinical indication. All treatment decisions require clinical judgment and consideration of individual patient factors, including patient preferences, comorbidities, previous drug use, risk factors not captured in the FRAX model (e.g., frailty, falls, vitamin D deficiency, increased bone turnover, interval significant decline in bone density ) and possible under- or over-estimation of fracture risk by FRAX. In addition, the NOF Guide recommends that FDA-approved medical therapies be considered in postmenopausal women and men age >= 50 years with a: * Hip or vertebral (clinical or morphometric) fracture * T-score of <=-2.5 at the spine or hip * Ten-year fracture probability by FRAX of >= 3% for hip fracture or >=20% for major osteoporotic fracture. People with diagnosed cases of osteoporosis or at high risk for fracture should have regular bone mineral density tests. For patients eligible for Medicare, routine testing is allowed once every 2 years. The testing frequency can be increased to one year for patients who have rapidly progressing disease, those who are receiving or discontinuing medical therapy to restore bone mass, or have additional risk factors. Dictated by: Chava Gill M.D. on 02/05/2024 at 15:38 Approved by: Chava Gill M.D. on 02/05/2024 at 15:41
== END ==
PROVIDERS: Family Provider Student in an Organized Health Care Education/Training Program; PCP Student in an Organized Health Care Education/Training Program; Referring Provider Student in an Organized Health Care Education/Training Program; Visit Provider Student in an Organized Health Care Education/Training Program
DX: Z01.89 Encounter for other specified special examinations; Z79.899 Other long term (current) drug therapy
CPT/HCPCS: 77080

== ENCOUNTER → 2024-04-11 13:28 | Outpatient (CLI) | payer MEDICARE, MEDICAID, SELFPAY ==
--- NOTE | 2024-04-11 13:29 | DI.CT.S_ITS ---
PROCEDURE: CT CHEST WO CON INDICATIONS: Pulmonary nodule, evaluate for three-month interval change TECHNIQUE: Noncontrast 5 mm thick sections acquired from the pulmonary apices to the posterior costophrenic angles. 1 mm lung window, 5 mm thick coronal and sagittal and 7 mm axial MIP reformats were then acquired. For radiation dose reduction, the following was used: automated exposure control, adjustment of mA and/or kV according to patient size. COMPARISON: [facility], CT, CT ANGIO CHEST PE PROTOCOL, 12/04/2023, 15:39. [facility], CT, CT CHEST WO CON, 12/16/2023, 14:00. FINDINGS: Image quality: Diagnostic. Lower Neck: No enlarged lymph nodes. Thyroid: No thyroid nodules which require sonographic follow up, per consensus guidelines. Axillae: No enlarged lymph nodes. Chest Wall: Unremarkable. Bones: Unremarkable. Lungs and Pleura: No pneumothorax or pleural effusions. Complete resolution previous partial ground-glass multi nodular opacity in posterior left lower lobe. No suspicious pulmonary nodules. Mild emphysematous change. Heart: Heart size is normal. No pericardial effusion. Thoracic Vessels: The aorta and pulmonary arteries demonstrate normal size. Mediastinum and Nai: No enlarged lymph nodes. Esophagus: No wall thickening. No hiatal hernia. Upper Abdomen: Visualized upper abdomen solid organs and bowel loops appear normal. IMPRESSION: Resolution of previous nodular opacity in the left lower lobe. No further follow-up is recommended. Mild emphysematous change. If this patient satisfies criteria, consider yearly lung screen CT. Dictated by: Zachary Beltran M.D. on 04/11/2024 at 19:57 Approved by: Zachary Beltran M.D. on 04/11/2024 at 20:02
== END ==
PROVIDERS: Family Provider Student in an Organized Health Care Education/Training Program; PCP Student in an Organized Health Care Education/Training Program; Referring Provider Internal Medicine Critical Care Medicine; Visit Provider Internal Medicine Critical Care Medicine
DX: R91.1 Solitary pulmonary nodule (principal)
CPT/HCPCS: 71250

== ENCOUNTER 2024-05-21 13:24 | Emergency (ER) | payer MEDICARE, MEDICAID, SELFPAY ==
[2024-05-21 13:29] VITALS: BP 135/65; PULSE 77; RESP 18; TEMP 36.5; O2SAT 97; BMI 24.0
--- NOTE | 2024-05-21 13:30 | ED_ITS ---
HPI - General Adult General Chief complaint: Dizziness Stated complaint: Low blood sugar. Feeling dizzy. Time Seen by Provider: 05/21/24 13:29 History of Present Illness HPI narrative: 63-year-old woman with a history of COPD, hypothyroidism, history of hepatitis-C with a history of cirrhosis was at pulmonary rehab when she experienced the acute onset of severe vertigo. Not associated with headache or vision changes. She was brought to the emergency department with reports of hypoglycemia. She is not diabetic had not eaten that day however blood sugar was 105. Symptoms are fairly classic for benign positional vertigo. She has not tachycardic she has not orthostatic. She notes that she has not had anything to eat or drink by 2:00 p.m. in the afternoon today which is not unusual for her. Related Data Home Medications Medication Instructions Recorded Confirmed loperamide 2 mg capsule 2 mg PO Q6H PRN 09/10/23 04/18/24 spironolactone 50 mg tablet 50 mg PO DAILY 09/10/23 04/18/24 duloxetine 20 mg capsule,delayed 40 mg PO DAILY 04/18/24 04/18/24 release hydrochlorothiazide 25 mg tablet 25 mg PO DAILY 04/18/24 04/18/24 levothyroxine 50 mcg tablet 50 mcg PO DAILY 04/18/24 04/18/24 metoprolol succinate 50 mg 50 mg PO DAILY 04/18/24 04/18/24 tablet,extended release 24 hr Previous Rx's Medication Instructions Recorded Disabled Parking #1 ea 03/06/23 esomeprazole magnesium 20 mg 20 mg PO DAILY #90 caps 03/06/23 capsule,delayed release (Nexium) estradiol cypionate 5 mg/mL 2 mg (0.4 mL) IM Q4W #10 mL 03/07/23 intramuscular oil (Depo-Estradiol) ondansetron 4 mg disintegrating 4 mg PO Q8H PRN nausea and 10/12/23 tablet vomiting #30 tabs fluticasone propionate 110 2 puff inhalation BID #12 grams 12/12/23 mcg/actuation HFA aerosol inhaler ipratropium 0.5 mg-albuterol 3 mg 3 ml inhalation Q6H PRN shortness 12/12/23 (2.5 mg base)/3 mL nebulization of breath or wheezing #90 mL soln meclizine 25 mg tablet 25 mg PO TID PRN dizziness #20 tabs 05/21/24 ondansetron 4 mg disintegrating 4 mg PO Q8H PRN nausea and 05/21/24 tablet vomiting #14 tabs Allergies Allergy/AdvReac Type Severity Reaction Status Date / Time codeine Allergy Severe Anaphylaxis Verified 04/18/24 09:22 penicillin G Allergy Severe Anaphylaxis Verified 04/18/24 09:22 levofloxacin [From Levaquin] AdvReac Severe tinnitus Verified 04/18/24 09:22 vaccine adjuvant system, AdvReac Severe blisters Verified 04/18/24 09:22 AS01B liposomal [From Shingrix (PF)] varicella-zoster virus AdvReac Severe blisters Verified 04/18/24 09:22 glycoprotein E, recombinant [From Shingrix (PF)] latex AdvReac Intermediate Redness of Verified 04/18/24 09:22 Skin Review of Systems Review of Systems Narrative: Pertinent positive and negative findings as per HPI Patient History Medical History COPD (chronic obstructive pulmonary disease) (~2017) Allergies Scoliosis Chronic back pain Cervical spine disease Carpal tunnel syndrome Mumps Chicken pox Ruptured tympanic membrane Glaucoma Liver disease (~2017) Hepatitis C (~2017) Hemorrhoid GERD (gastroesophageal reflux disease) Cirrhosis MVP (mitral valve prolapse) Surgical History Anesthesia S/P insertion of spinal cord stimulator (~2016) History of hernia repair (~2012) History of appendectomy History of elbow surgery History of carpal tunnel release History of cholecystectomy History of ear surgery History of total hysterectomy History of partial hysterectomy Social History Smoking Status: Former smoker (Quit:2017;smoked for 45 years;2 packs daily.) Smoking Status: Former smoker (Quit:2017;smoked for 45 years;2 packs daily.) alcohol intake frequency: holidays/special occasions only Exam Initial Vital Signs Initial Vital Signs: Vital Signs Temperature 97.7 F 05/21/24 13:29 Pulse Rate 77 05/21/24 13:29 Respiratory Rate 18 05/21/24 13:29 Blood Pressure 135/65 05/21/24 13:29 Pulse Oximetry 97 01/15/25 13:29 Oxygen Delivery Method Room Air 05/21/24 13:29 General: Healthy appearing, no difficulties when sitting still and upright. No evidence of acute orthostatic hypotension. HEENT: Moist mucous membranes, normal sclera with reactive pupils, Respiratory: Lungs are clear to auscultation, no wheezing no rales no rhonchi. Full and symmetrical air movement Cardiac: Regular rate and rhythm no murmurs no bruits Abdomen: Soft, nontender, no flank pain Skin: Warm and dry, no rashes Neurologic: Grossly neurologically intact with no obvious asymmetries or abnormalities. She does have dizziness with positional movement worse with turning her head to the left side. Minimal nystagmus. Extremities: No trauma, well perfused Psych: Cooperative, appropriate insight and affect Course Orders Ordered: Discontinued Medications Meclizine HCl (Meclizine Hcl 12.5 Mg Tablet) 25 mg PO NOW ONE Stop: 05/21/24 13:41 Last Admin: 05/21/24 13:50 Dose: 25 mg Documented By: PAYTON Ondansetron HCl (Ondansetron 4 Mg Odt) 4 mg SL NOW ONE Stop: 05/21/24 14:38 Last Admin: 05/21/24 14:42 Dose: 4 mg Documented By: PAYTON Vital Signs Vital signs: Vital Signs - 8 hr 05/21/24 13:29 05/21/24 13:55 05/21/24 14:00 Temperature 97.7 F Pulse Rate 77 70 73 Respiratory Rate 18 Blood Pressure 135/65 Pulse Oximetry 97 97 98 Oxygen Delivery Method Room Air 05/21/24 14:00 05/21/24 14:30 05/21/24 14:30 Temperature Pulse Rate 66 Respiratory Rate Blood Pressure 129/76 128/73 Pulse Oximetry 97 Oxygen Delivery Method 05/21/24 15:00 05/21/24 15:00 Temperature Pulse Rate 66 Respiratory Rate Blood Pressure 122/64 Pulse Oximetry 97 Oxygen Delivery Method Medical Decision Making MDM Narrative Medical decision making narrative: 63-year-old woman was in her usual state of health today was at pulmonary rehab when she experienced acute onset of dizziness. Initial workup in the ER does not suggest orthostatic hypotension, cardiac irregularities, acute stroke, significant hypoglycemia. Symptoms are entirely positional with mild nystagmus when her head turns to the left. She had moderate response to meclizine and Zofran. We did do a demonstrated Leah-Hallpike maneuver to the left to see if this could reduce her symptoms overall. She is given instructions on how to get to you tube on her phone and watch maneuvers that can be done at home. At this time there was no evidence of life-threatening abnormality that would require hospitalization or further imaging. She will be given prescriptions for both meclizine and Zofran and instructions to follow up with her primary care physician. Discharge Plan Departure Patient Disposition: Home Clinical Impression: BPV (benign positional vertigo) Qualifiers: Laterality: left Qualified Code(s): H81.12 - Benign paroxysmal vertigo, left ear Instructions: DI for Vertigo Activity Restrictions/Additional Instructions: Thank you for coming in today When you got to the emergency department, your heart rate was normal, you were not showing signs of significant dehydration with changes to heart rate or blood pressure. Your blood sugar was appropriate. With testing in the ER and this significant change to your dizziness with position changes a diagnosis of benign positional vertigo is made. The main component of your vertigo seemed to be the left side. I showed you some [employer] channels on Leah Hallpike maneuvers that you can do at home that help reposition some of the crystals in your inner ear and help decrease the spinning and the nausea feeling I am going to give you a prescription for meclizine. This helps with the spinning feeling I am also going to give you a prescription for Zofran. This helps with the nausea. They can be taken together If you have further episodes of this, you can do the Mcdaniel-Hallpike maneuvers at home and use the meclizine and Zofran at home. If you find that you are getting worse or develop any new symptoms, please feel free to return to the emergency department for further evaluation. Prescriptions: New ondansetron 4 mg tablet,disintegrating 4 mg PO Q8H PRN (Reason: nausea and vomiting) Qty: 14 0RF meclizine 25 mg tablet 25 mg PO TID PRN (Reason: dizziness) Qty: 20 0RF No Action spironolactone 50 mg tablet 50 mg PO DAILY loperamide 2 mg capsule 2 mg PO Q6H PRN (DME) Disabled Parking See Rx Instructions .ROUTE .MEDSUPPLY Qty: 1 0RF Rx Instructions: I find this patient to be medical disabled and qualified for Disabled Parking as indicated, and signed, on the and the Accompanying Disabled Parking Applic ation for Individuals. esomeprazole magnesium [Nexium] 20 mg capsule,delayed release(DR/EC) 20 mg PO DAILY Qty: 90 0RF ondansetron 4 mg tablet,disintegrating 4 mg PO Q8H PRN (Reason: nausea and vomiting) Qty: 30 0RF Depo-Estradiol 5 mg/mL oil 2 mg IM Q4W Qty: 10 3RF ipratropium-albuterol 0.5 mg-3 mg(2.5 mg base)/3 mL solution for nebulization 3 ml inhalation Q6H PRN (Reason: shortness of breath or wheezing) Qty: 90 11RF fluticasone propionate 110 mcg/actuation HFA aerosol inhaler 2 puff inhalation BID Qty: 12 11RF metoprolol succinate 50 mg tablet extended release 24 hr 50 mg PO DAILY hydrochlorothiazide 25 mg tablet 25 mg PO DAILY levothyroxine 50 mcg tablet 50 mcg PO DAILY duloxetine 20 mg capsule,delayed release(DR/EC) 40 mg PO DAILY Referrals: Karoline Cabrera MD [Primary Care Provider] - Stand Alone Forms: Patient Portal/API/Survey
--- NOTE | 2024-05-21 13:41 | PC.NURSE ---
Patient was at PT today and began having dizziness with nausea. They checked her BG and it was in the 70s. They gave her some juice and she stated that it did not help her feel much better. movement of her head changes her dizzy symptoms. The patient stated that physical therapy took her BP and couldnt even hear her pulse pressure. patient BP and HR checked in two separate positions: sittin/65 HR 73 layin/67 HR 75 sitting up again: 122\68 HR 69
[2024-05-21] MEDS: MECLIZINE HCL 12.5 MG TABLET 25 MG PO (13:50)
[2024-05-21 13:55] VITALS: PULSE 70; O2SAT 97
[2024-05-21 14:00] VITALS: BP 129/76; PULSE 73; O2SAT 98
[2024-05-21 14:30] VITALS: BP 128/73; PULSE 66; O2SAT 97
[2024-05-21] MEDS: ONDANSETRON 4 MG ODT SL (14:42)
[2024-05-21 15:00] VITALS: BP 122/64; PULSE 66; O2SAT 97
[2024-05-21 15:43] VITALS: BP 124/73; PULSE 71; RESP 16; O2SAT 97
== END 2024-05-21 15:47 | disposition home or self-care (01) ==
PROVIDERS: Emergency Provider Emergency Medicine; Family Provider Student in an Organized Health Care Education/Training Program; PCP Student in an Organized Health Care Education/Training Program
DX: H81.12 Benign paroxysmal vertigo, left ear (principal)
CPT/HCPCS: 99283

== ENCOUNTER 2024-05-22 13:17 | Observation (INO) | payer MEDICARE, MEDICAID, SELFPAY ==
[2024-05-22] VITALS (20 sets, daily range): BP systolic 107–146; BP diastolic 57–75; PULSE 68–96; RESP 13–40; TEMP 36.3; O2SAT 93–98; BMI 24.0; BMI 22.8
--- NOTE | 2024-05-22 13:24 | EKG_ITS ---
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
--- NOTE | 2024-05-22 13:35 | DI.RAD.S_ITS ---
PROCEDURE: XR CHEST 1V INDICATIONS: chest pain TECHNIQUE: One view of the chest was acquired. COMPARISON: [facility], CR, XR CHEST 1V, 12/04/2023, 11:41. [facility], CR, XR CHEST 1V, 06/04/2023, 14:08. FINDINGS: Surgical changes and devices: Surgical clips project over the left breast. Lungs and pleura: Lungs are clear. No pleural effusions or pneumothorax. Mediastinum: Mediastinal contours appear normal. Heart size is normal. Bones and chest wall: Scoliotic spinal curvature. No suspicious bony lesions. Overlying soft tissues appear unremarkable. IMPRESSION: No acute cardiopulmonary abnormality is seen. Approved by: Paul Burch M.D. on 05/22/2024 at 13:59
[2024-05-22 13:51] LABS: Add Manual Diff / Slide Review NO; Basophils Absolute Auto 100 /uL (0-100); Basophils Percent Auto 0.8 % (0-2); Eosinophils Absolute Auto 100 /uL (0-450); Eosinophils Percent Auto 1.6 % (2-4); Hematocrit 37.9 % (36-46); Hemoglobin 12.5 g/dL (12.0-16.0); Lymphocytes Absolute Auto 1100 /uL (1100-4500); Lymphocytes Percent Auto 12.8 % (25-40); Mean Corpuscular HGB Conc 33.1 % (30-36); Mean Corpuscular Hemoglobin 29.4 PG (26-34); Mean Corpuscular Volume 88.9 fL (80-100); Monocytes Absolute Auto 800 /uL (0-900); Monocytes Percent Auto 9.2 % (3-14); Neutrophils Absolute Auto 6300 /uL (1500-7000); Neutrophils Percent Auto 75.6 % (50-75); Platelet Count 303 X10^3/uL (150-400); Red Blood Cell Count 4.27 X10^6/uL (4.0-5.2); Red Cell Distribution Width 14.5 % (11.6-14.8); White Blood Cell Count 8.3 X10^3/uL (4.5-11.0)
[2024-05-22 13:58] LABS: Prothrombin Time 11.6 SECONDS (9.4-12.5)
[2024-05-22 14:01] LABS: PTT Partial Thromboplastin Tim 35 SECONDS (25.1-36.5)
[2024-05-22 14:02] LABS: Alanine Aminotransferase 21 IU/L (<35); Alkaline Phosphatase 80 U/L (38-126); Aspartate Aminotransferase 36 IU/L (14-36); BUN Creatinine Ratio 15.1 (6-22); Bilirubin Total 0.5 mg/dL (0.2-1.3); Blood Urea Nitrogen 26 mg/dL (7-17); Carbon Dioxide 28 mmol/L (22-32); Creatine Kinase 56 U/L (30-135); Estimated Glomerular Filt Rate 33 mL/min (>60); HEMOLYSIS < 15 (0-50)
[2024-05-22 14:13] LABS: Albumin 4.7 g/dL (3.5-5.0); Albumin Globulin Ratio 1.4 (1.0-2.8); Calcium 9.2 mg/dL (8.4-10.2); Chloride 96 mmol/L (98-107); Globulin 3.4 g/dL (1.7-4.1); Glucose 98 mg/dL (80-110); Lipase 101 U/L (23-300); Magnesium 1.3 mg/dL (1.6-2.3); Potassium 3.8 mmol/L (3.4-5.1); Sodium 132 mmol/L (137-145); Total Protein 8.1 g/dL (6.3-8.2)
[2024-05-22 14:14] LABS: NT-proBNP (BNP-Adult 18+) 251 pg/mL (<125); Troponin I < 0.012 ng/mL (0.01-0.034)
--- NOTE | 2024-05-22 17:08 | ED.NEUROSD ---
HPI - Neuro Symptoms/Deficit <Keya Eva, DO - Last Filed: 05/25/24 07:32> General Chief Complaint: Neuro Symptoms/Deficit Stated Complaint: vertigo, unable to drive Time Seen by Provider: 05/22/24 13:34 Source: patient Mode of arrival: Ambulatory History of Present Illness HPI Narrative: Patient is a 63-year-old female history of COPD thyroid history of hepatitis-C with history of cirrhosis presenting today with vertigo. She was seen evaluated yesterday with vertigo. She was diagnosed with vertigo she had a [place]-Hall[place] maneuver which helped reduce her symptoms. She is presenting today with severe vertigo. 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 She reports she has a severe headache on the right side no numbness or weakness. The vertigo is pretty persistent. She says yesterday it only lasted a couple of seconds. No chest pain or shortness of breath. Although sometimes she is feeling some chest tightness. No fever or chills. On Anticoagulants: No Related Data Home Medications Medication Instructions Recorded Confirmed loperamide 2 mg capsule 2 mg PO Q6H PRN STOOL 09/10/23 05/22/24 spironolactone 50 mg tablet 50 mg PO DAILY 09/10/23 05/22/24 duloxetine 20 mg capsule,delayed 40 mg PO DAILY 04/18/24 05/22/24 release hydrochlorothiazide 25 mg tablet 25 mg PO DAILY 04/18/24 05/22/24 levothyroxine 50 mcg tablet 50 mcg PO DAILY 04/18/24 05/22/24 metoprolol succinate 50 mg 50 mg PO DAILY 04/18/24 05/22/24 tablet,extended release 24 hr Previous Rx's Medication Instructions Recorded Disabled Parking #1 ea 03/06/23 esomeprazole magnesium 20 mg 20 mg PO DAILY #90 caps 03/06/23 capsule,delayed release (Nexium) estradiol cypionate 5 mg/mL 2 mg (0.4 mL) IM Q4W #10 mL 03/07/23 intramuscular oil (Depo-Estradiol) fluticasone propionate 110 2 puff inhalation BID #12 grams 12/12/23 mcg/actuation HFA aerosol inhaler ipratropium 0.5 mg-albuterol 3 mg 3 ml inhalation Q6H PRN shortness 12/12/23 (2.5 mg base)/3 mL nebulization of breath or wheezing #90 mL soln meclizine 25 mg tablet 25 mg PO TID PRN dizziness #20 tabs 05/21/24 ondansetron 4 mg disintegrating 4 mg PO Q8H PRN nausea and 05/21/24 tablet vomiting #14 tabs Allergies Allergy/AdvReac Type Severity Reaction Status Date / Time codeine Allergy Severe Anaphylaxis Verified 04/18/24 09:22 penicillin G Allergy Severe Anaphylaxis Verified 04/18/24 09:22 levofloxacin [From Levaquin] AdvReac Severe tinnitus Verified 04/18/24 09:22 vaccine adjuvant system, AdvReac Severe blisters Verified 04/18/24 09:22 [id number] liposomal [From Shingrix (PF)] varicella-zoster virus AdvReac Severe blisters Verified 04/18/24 09:22 glycoprotein E, recombinant [From Shingrix (PF)] latex AdvReac Intermediate Redness of Verified 04/18/24 09:22 Skin Review of Systems <Keya Velasquez DO - Last Filed: 05/25/24 07:32> Hematologic/Lymphatic On Anticoagulants: No Patient History <Keya Velasquez DO - Last Filed: 05/25/24 07:32> Medical History COPD (chronic obstructive pulmonary disease) (~2017) Allergies Scoliosis Chronic back pain Cervical spine disease Carpal tunnel syndrome Mumps Chicken pox Ruptured tympanic membrane Glaucoma Liver disease (~2018) Hepatitis C (~2018) Hemorrhoid GERD (gastroesophageal reflux disease) Cirrhosis MVP (mitral valve prolapse) Surgical History Anesthesia S/P insertion of spinal cord stimulator (~2016) History of hernia repair (~2012) History of appendectomy History of elbow surgery History of carpal tunnel release History of cholecystectomy History of ear surgery History of total hysterectomy History of partial hysterectomy Social History household members: none Smoking Status: Former smoker alcohol intake: former Smoking Status: Former smoker alcohol intake frequency: holidays/special occasions only Exam <Keya Velasquez DO - Last Filed: 05/25/24 07:32> Initial Vital Signs Initial Vital Signs: Vital Signs Temperature 97.4 F L 05/22/24 13:24 Pulse Rate 96 H 05/22/24 13:24 Respiratory Rate 14 05/22/24 13:24 Blood Pressure 115/75 05/22/24 13:24 Pulse Oximetry 96 05/22/24 13:24 Oxygen Delivery Method Room Air 05/22/24 13:24 GENERAL: Alert chronically ill 63-year-old female HEENT: Head atraumatic,EOMI, pupils reactive, face symmetric, dry mucous membranes mucous membranes CARDIOVASCULAR: Regular rate and rhythm without murmurs, rubs or gallops. RESPIRATORY: Breath sounds equal bilaterally, no wheezes rales or rhonchi. ABDOMEN: Soft, nontender. Normoactive bowel sounds all 4 quadrants. No guarding or rebound. EXTREMITIES: Normal range of motion, no clubbing or edema. Neurovascularly intact NEUROLOGICAL: Alert and oriented x4.Normal gait and speech. Cranial nerves II through XII grossly intact. Good [id number], good [id number], strength equal bilaterally, no dysarthria or aphasia, sensation in tact to soft touch bilaterally, no visual changes, no facial droop SKIN: Warm, dry, no laceration, no petechiae, no rashes or lesions. <Marley Osorio, DO - Last Filed: 05/22/24 22:01> Initial Vital Signs Initial Vital Signs: Vital Signs Temperature 97.4 F L 05/22/24 13:24 Pulse Rate 96 H 05/22/24 13:24 Respiratory Rate 14 05/22/24 13:24 Blood Pressure 115/75 05/22/24 13:24 Pulse Oximetry 96 05/22/24 13:24 Oxygen Delivery Method Room Air 05/22/24 13:24 Scores <Keya Velasquez, DO - Last Filed: 05/25/24 07:32> NIH Stroke Scale Level of Conciousness: Alert, keenly responsive Ask month/age: Answers both questions correctly. Open/close eyes, close hand: Performs both tasks correctly Best gaze horizontal: Normal Visual [place]: No visual loss Facial palsy: Normal symetrical movement Left arm drift: No drift for full 10 sec Right arm drift: No drift for full 10 sec Left leg drift: No drift for full 5 sec Right leg drift: No drift for full 5 sec Limb ataxia: Absent Sensory on face/arms/legs: Normal, no sensory loss Best language: No aphasia, normal Dysarthria: Normal Extinction or inattention: No abnormality Total NIH Stroke scale score: 0 <Marley Osorio, DO - Last Filed: 05/22/24 22:01> NIH Stroke Scale Total NIH Stroke scale score: 0 Course <Keya Velasquez, DO - Last Filed: 05/25/24 07:32> Orders Ordered: Acetaminophen (Acetaminophen 325 Mg Tablet) 650 mg PO Q6H PRN PRN Reason: Fever/Mild Pain (1-3) Last Admin: 05/23/24 01:58 Dose: 650 mg Documented By: KELIN Albuterol (Albuterol 2.5 Mg/3 Ml Neb (Adult)) 2.5 mg INH [id number] PRN PRN Reason: Dyspnea Last Admin: 05/24/24 01:26 Dose: 2.5 mg Documented By: Budesonide (Budesonide 0.5 Mg/2 Ml Neb) 0.5 mg INH RTBID [facility] Last Admin: 05/25/24 05:58 Dose: Not Given Documented By: Admin: 05/24/24 08:21 Dose: 0.5 mg Documented By: Admin: 05/23/24 19:31 Dose: 0.5 mg Documented By: Admin: 05/23/24 08:35 Dose: 0.5 mg Documented By: MARCIO Diphenhydramine HCl (Diphenhydramine 25 Mg Tablet) 50 mg PO Q6HR PRN PRN Reason: Itching Last Admin: 05/25/24 04:20 Dose: 50 mg Documented By: Admin: 05/24/24 19:58 Dose: 50 mg Documented By: Admin: 05/24/24 04:13 Dose: 50 mg Documented By: Admin: 05/23/24 21:38 Dose: 50 mg Documented By: Admin: 05/23/24 11:02 Dose: 50 mg Documented By: TEJV Duloxetine HCl (Duloxetine 20 Mg Capsule) 40 mg PO DAILY [facility] Last Admin: 05/24/24 08:34 Dose: 40 mg Documented By: Admin: 05/23/24 09:14 Dose: 40 mg Documented By: ESV Hydralazine HCl (Hydralazine 20 Mg/Ml Vial) 10 mg IV Q6HR PRN PRN Reason: SBP>= 160 or DBP >=110 Sodium Chloride (Normal Saline 0.9%) 1,000 mls @ 100 mls/hr IV CONT [facility] Last Admin: 05/24/24 22:00 Dose: 100 mls/hr Documented By: Infusion: 05/24/24 16:11 Dose: Infused Documented By: Admin: 05/24/24 06:11 Dose: 100 mls/hr Documented By: Infusion: 05/24/24 04:20 Dose: Infused Documented By: Admin: 05/23/24 18:20 Dose: 100 mls/hr Documented By: Infusion: 05/23/24 18:20 Dose: Infused Documented By: Admin: 05/23/24 11:03 Dose: 100 mls/hr Documented By: Infusion: 05/23/24 08:25 Dose: Infused Documented By: Admin: 05/22/24 22:25 Dose: 100 mls/hr Documented By: SUSIE Levothyroxine Sodium (Levothyroxine 50 Mcg Tablet) 50 mcg PO DAILY@0600 [facility] Last Admin: 05/25/24 06:00 Dose: 50 mcg Documented By: Admin: 05/24/24 06:10 Dose: 50 mcg Documented By: DOLORES Lidocaine (Lidocaine 5% Oint 35 Gm) 1 applic TOP QID PRN PRN Reason: Pain, Mild (1-3) Loperamide HCl (Loperamide 2 Mg Capsule) 2 mg PO Q6H PRN PRN Reason: Diarrhea Lorazepam (Lorazepam 1 Mg Tablet) 1 mg PO DAILY PRN PRN Reason: Anxiety Last Admin: 05/24/24 08:45 Dose: 1 mg Documented By: PAM Meclizine HCl (Meclizine Hcl 12.5 Mg Tablet) 25 mg PO TID PRN PRN Reason: dizziness Last Admin: 05/24/24 19:59 Dose: 25 mg Documented By: Admin: 05/24/24 12:08 Dose: 25 mg Documented By: Admin: 05/24/24 01:02 Dose: 25 mg Documented By: Admin: 05/23/24 11:02 Dose: 25 mg Documented By: Admin: 05/22/24 22:30 Dose: 25 mg Documented By: SUSIE Melatonin (Melatonin 3 Mg Tablet) 9 mg PO BEDTIME PRN PRN Reason: insomnia Last Admin: 05/24/24 19:59 Dose: 9 mg Documented By: Metoprolol Succinate (Metoprolol Er 50 Mg Tablet) 50 mg PO DAILY [facility] Last Admin: 05/24/24 08:33 Dose: 50 mg Documented By: Admin: 05/23/24 09:13 Dose: 50 mg Documented By: ANUJA Morphine Sulfate (Morphine 2 Mg/Ml Inj) 2 mg IV Q2HR PRN PRN Reason: Pain, Moderate (4-6) Last Admin: 05/24/24 20:54 Dose: 2 mg Documented By: Admin: 05/24/24 01:09 Dose: 2 mg Documented By: DOLORES Naloxone HCl (Naloxone 0.4 Mg/Ml Vial) 0.2 mg IV Q2MIN PRN PRN Reason: Opiate Reversal Ondansetron HCl (Ondansetron 4 Mg Odt) 4 mg PO Q8H PRN PRN Reason: nausea and vomiting Last Admin: 05/25/24 04:25 Dose: 4 mg Documented By: SUNNY Ondansetron HCl (Ondansetron 4 Mg/2 Ml Inj) 4 mg IV Q8HR PRN PRN Reason: Nausea And Vomiting Last Admin: 05/23/24 19:38 Dose: 4 mg Documented By: Admin: 05/23/24 12:41 Dose: 4 mg Documented By: Admin: 05/23/24 04:23 Dose: 4 mg Documented By: AM Oxycodone HCl (Oxycodone Ir 5 Mg Tablet) 5 mg PO Q4HR PRN PRN Reason: Pain, Moderate (4-6) Last Admin: 05/25/24 04:25 Dose: 5 mg Documented By: Admin: 05/24/24 08:34 Dose: 5 mg Documented By: Admin: 05/23/24 23:56 Dose: 5 mg Documented By: Admin: 05/23/24 19:37 Dose: 5 mg Documented By: Admin: 05/23/24 09:12 Dose: 5 mg Documented By: Admin: 05/23/24 04:22 Dose: 5 mg Documented By: AM Pantoprazole Sodium (Pantoprazole Dr 40 Mg Tablet) 40 mg PO 0600 [facility] Last Admin: 05/25/24 06:00 Dose: 40 mg Documented By: Admin: 05/24/24 06:10 Dose: 40 mg Documented By: Admin: 05/23/24 06:34 Dose: 40 mg Documented By: KELIN Discontinued Medications Al Hydrox/Mg Hydrox/Simethicone (Mag Hydrox/Alum/Simeth 30 Ml Udc) 30 ml PO NOW ONE Stop: 05/23/24 13:00 Last Admin: 05/23/24 13:13 Dose: 30 ml Documented By: ANUJA Albuterol/Ipratropium (Albuterol/Ipratropium 3 Ml Ampul) 3 ml INH NOW ONE Stop: 05/22/24 17:19 Last Admin: 05/22/24 17:42 Dose: 3 ml Documented By: CORIE Aspirin (Aspirin 81 Mg Chew Tab) 324 mg PO NOW ONE Stop: 05/22/24 13:36 Last Admin: 05/22/24 17:46 Dose: Not Given Documented By: NEHA Sodium Chloride (Normal Saline 0.9%) 1,000 mls @ 1,000 mls/hr IV BOLUS ONE Stop: 05/22/24 18:17 Last Infusion: 05/22/24 18:24 Dose: Infused Documented By: Admin: 05/22/24 17:24 Dose: 1,000 mls/hr Documented By: NEHA Acetaminophen (Ofirmev) 1,000 mg in 100 mls @ 400 mls/hr IV NOW ONE Stop: 05/22/24 18:50 Last Infusion: 05/22/24 20:00 Dose: Infused Documented By: Admin: 05/22/24 19:05 Dose: 400 mls/hr Documented By: VENU Magnesium Sulfate (Magnesium Sulfate) 2 gm in 50 mls @ 25 mls/hr IV NOW ONE Stop: 05/22/24 23:29 Last Admin: 05/22/24 22:25 Dose: 25 mls/hr Documented By: SUSIE Co-signed By: KELIN Ketorolac Tromethamine (Ketorolac 30 Mg/Ml Vial) 15 mg IV NOW ONE Stop: 05/22/24 17:19 Last Admin: 05/22/24 17:24 Dose: 15 mg Documented By: NEHA Levothyroxine Sodium (Levothyroxine 50 Mcg Tablet) 50 mcg PO DAILY [facility] Last Admin: 05/23/24 09:13 Dose: 50 mcg Documented By: ANUJA Meclizine HCl (Meclizine Hcl 12.5 Mg Tablet) 25 mg PO NOW ONE Stop: 05/22/24 17:25 Last Admin: 05/22/24 17:45 Dose: 25 mg Documented By: SPF Nitroglycerin (Nitroglycerin 0.4 Mg Sl Tab) 0.4 mg SL NOW ONE Stop: 05/23/24 12:26 Last Admin: 05/23/24 12:37 Dose: 0.4 mg Documented By: ESV Ondansetron HCl (Ondansetron 4 Mg/2 Ml Inj) 4 mg IV NOW ONE Stop: 05/22/24 17:19 Last Admin: 05/22/24 17:24 Dose: 4 mg Documented By: NEHA Vital Signs Vital signs: Vital Signs - 8 hr 05/22/24 15:16 05/22/24 15:30 05/22/24 16:00 Pulse Rate 74 70 69 Respiratory Rate 13 15 Blood Pressure Pulse Oximetry 98 95 94 Oxygen Delivery Method Room Air 05/22/24 16:30 05/22/24 17:00 05/22/24 17:14 Pulse Rate 73 69 Respiratory Rate 40 H 18 Blood Pressure 118/58 L Pulse Oximetry 96 97 Oxygen Delivery Method 05/22/24 17:14 05/22/24 17:30 05/22/24 17:31 Pulse Rate 74 71 Respiratory Rate 16 Blood Pressure 125/64 Pulse Oximetry 97 98 Oxygen Delivery Method Room Air 05/22/24 17:31 05/22/24 17:43 05/22/24 18:00 Pulse Rate 69 76 78 Respiratory Rate 16 34 H Blood Pressure Pulse Oximetry 98 98 96 Oxygen Delivery Method Room Air Room Air 05/22/24 18:01 05/22/24 18:30 05/22/24 19:00 Pulse Rate 74 73 Respiratory Rate 15 22 Blood Pressure 123/62 Pulse Oximetry 94 93 Oxygen Delivery Method Room Air 05/22/24 20:01 05/22/24 20:30 05/22/24 20:56 Pulse Rate 93 H 68 Respiratory Rate 20 20 Blood Pressure 120/75 Pulse Oximetry 98 Oxygen Delivery Method Room Air 05/22/24 20:56 05/22/24 21:00 05/22/24 21:00 Pulse Rate 87 70 Respiratory Rate 21 24 Blood Pressure 146/68 H Pulse Oximetry 96 98 Oxygen Delivery Method Room Air Room Air <Marley Osorio DO - Last Filed: 05/22/24 22:01> Orders Ordered: Acetaminophen (Acetaminophen 325 Mg Tablet) 650 mg PO Q6H PRN PRN Reason: Fever/Mild Pain (1-3) Last Admin: 05/23/24 01:58 Dose: 650 mg Documented By: AM Albuterol (Albuterol 2.5 Mg/3 Ml Neb (Adult)) 2.5 mg INH [id number] PRN PRN Reason: Dyspnea Last Admin: 05/24/24 01:26 Dose: 2.5 mg Documented By: MR Budesonide (Budesonide 0.5 Mg/2 Ml Neb) 0.5 mg INH RTBID [facility] Last Admin: 05/25/24 05:58 Dose: Not Given Documented By: Admin: 05/24/24 08:21 Dose: 0.5 mg Documented By: Admin: 05/23/24 19:31 Dose: 0.5 mg Documented By: Admin: 05/23/24 08:35 Dose: 0.5 mg Documented By: DS Diphenhydramine HCl (Diphenhydramine 25 Mg Tablet) 50 mg PO Q6HR PRN PRN Reason: Itching Last Admin: 05/25/24 04:20 Dose: 50 mg Documented By: Admin: 05/24/24 19:58 Dose: 50 mg Documented By: Admin: 05/24/24 04:13 Dose: 50 mg Documented By: Admin: 05/23/24 21:38 Dose: 50 mg Documented By: Admin: 05/23/24 11:02 Dose: 50 mg Documented By: ESV Duloxetine HCl (Duloxetine 20 Mg Capsule) 40 mg PO DAILY [facility] Last Admin: 05/24/24 08:34 Dose: 40 mg Documented By: Admin: 05/23/24 09:14 Dose: 40 mg Documented By: ESV Hydralazine HCl (Hydralazine 20 Mg/Ml Vial) 10 mg IV Q6HR PRN PRN Reason: SBP>= 160 or DBP >=110 Sodium Chloride (Normal Saline 0.9%) 1,000 mls @ 100 mls/hr IV CONT [facility] Last Admin: 05/24/24 22:00 Dose: 100 mls/hr Documented By: Infusion: 05/24/24 16:11 Dose: Infused Documented By: Admin: 05/24/24 06:11 Dose: 100 mls/hr Documented By: Infusion: 05/24/24 04:20 Dose: Infused Documented By: Admin: 05/23/24 18:20 Dose: 100 mls/hr Documented By: Infusion: 05/23/24 18:20 Dose: Infused Documented By: Admin: 05/23/24 11:03 Dose: 100 mls/hr Documented By: Infusion: 05/23/24 08:25 Dose: Infused Documented By: Admin: 05/22/24 22:25 Dose: 100 mls/hr Documented By: SUSIE Levothyroxine Sodium (Levothyroxine 50 Mcg Tablet) 50 mcg PO DAILY@0600 [facility] Last Admin: 05/25/24 06:00 Dose: 50 mcg Documented By: Admin: 05/24/24 06:10 Dose: 50 mcg Documented By: DOLORES Lidocaine (Lidocaine 5% Oint 35 Gm) 1 applic TOP QID PRN PRN Reason: Pain, Mild (1-3) Loperamide HCl (Loperamide 2 Mg Capsule) 2 mg PO Q6H PRN PRN Reason: Diarrhea Lorazepam (Lorazepam 1 Mg Tablet) 1 mg PO DAILY PRN PRN Reason: Anxiety Last Admin: 05/24/24 08:45 Dose: 1 mg Documented By: PAM Meclizine HCl (Meclizine Hcl 12.5 Mg Tablet) 25 mg PO TID PRN PRN Reason: dizziness Last Admin: 05/24/24 19:59 Dose: 25 mg Documented By: Admin: 05/24/24 12:08 Dose: 25 mg Documented By: Admin: 05/24/24 01:02 Dose: 25 mg Documented By: Admin: 05/23/24 11:02 Dose: 25 mg Documented By: Admin: 05/22/24 22:30 Dose: 25 mg Documented By: SUSIE Melatonin (Melatonin 3 Mg Tablet) 9 mg PO BEDTIME PRN PRN Reason: insomnia Last Admin: 05/24/24 19:59 Dose: 9 mg Documented By: Metoprolol Succinate (Metoprolol Er 50 Mg Tablet) 50 mg PO DAILY [facility] Last Admin: 05/24/24 08:33 Dose: 50 mg Documented By: Admin: 05/23/24 09:13 Dose: 50 mg Documented By: ANUJA Morphine Sulfate (Morphine 2 Mg/Ml Inj) 2 mg IV Q2HR PRN PRN Reason: Pain, Moderate (4-6) Last Admin: 05/24/24 20:54 Dose: 2 mg Documented By: Admin: 05/24/24 01:09 Dose: 2 mg Documented By: DOLORES Naloxone HCl (Naloxone 0.4 Mg/Ml Vial) 0.2 mg IV Q2MIN PRN PRN Reason: Opiate Reversal Ondansetron HCl (Ondansetron 4 Mg Odt) 4 mg PO Q8H PRN PRN Reason: nausea and vomiting Last Admin: 05/25/24 04:25 Dose: 4 mg Documented By: SUNNY Ondansetron HCl (Ondansetron 4 Mg/2 Ml Inj) 4 mg IV Q8HR PRN PRN Reason: Nausea And Vomiting Last Admin: 05/23/24 19:38 Dose: 4 mg Documented By: Admin: 05/23/24 12:41 Dose: 4 mg Documented By: Admin: 05/23/24 04:23 Dose: 4 mg Documented By: KELIN Oxycodone HCl (Oxycodone Ir 5 Mg Tablet) 5 mg PO Q4HR PRN PRN Reason: Pain, Moderate (4-6) Last Admin: 05/25/24 04:25 Dose: 5 mg Documented By: Admin: 05/24/24 08:34 Dose: 5 mg Documented By: Admin: 05/23/24 23:56 Dose: 5 mg Documented By: Admin: 05/23/24 19:37 Dose: 5 mg Documented By: Admin: 05/23/24 09:12 Dose: 5 mg Documented By: Admin: 05/23/24 04:22 Dose: 5 mg Documented By: AM Pantoprazole Sodium (Pantoprazole Dr 40 Mg Tablet) 40 mg PO 0600 [facility] Last Admin: 05/25/24 06:00 Dose: 40 mg Documented By: Admin: 05/24/24 06:10 Dose: 40 mg Documented By: Admin: 05/23/24 06:34 Dose: 40 mg Documented By: AM Discontinued Medications Al Hydrox/Mg Hydrox/Simethicone (Mag Hydrox/Alum/Simeth 30 Ml Udc) 30 ml PO NOW ONE Stop: 05/23/24 13:00 Last Admin: 05/23/24 13:13 Dose: 30 ml Documented By: ANUJA Albuterol/Ipratropium (Albuterol/Ipratropium 3 Ml Ampul) 3 ml INH NOW ONE Stop: 05/22/24 17:19 Last Admin: 05/22/24 17:42 Dose: 3 ml Documented By: CORIE Aspirin (Aspirin 81 Mg Chew Tab) 324 mg PO NOW ONE Stop: 05/22/24 13:36 Last Admin: 05/22/24 17:46 Dose: Not Given Documented By: NEHA Sodium Chloride (Normal Saline 0.9%) 1,000 mls @ 1,000 mls/hr IV BOLUS ONE Stop: 05/22/24 18:17 Last Infusion: 05/22/24 18:24 Dose: Infused Documented By: Admin: 05/22/24 17:24 Dose: 1,000 mls/hr Documented By: NEHA Acetaminophen (Ofirmev) 1,000 mg in 100 mls @ 400 mls/hr IV NOW ONE Stop: 05/22/24 18:50 Last Infusion: 05/22/24 20:00 Dose: Infused Documented By: Admin: 05/22/24 19:05 Dose: 400 mls/hr Documented By: VENU Magnesium Sulfate (Magnesium Sulfate) 2 gm in 50 mls @ 25 mls/hr IV NOW ONE Stop: 05/22/24 23:29 Last Admin: 05/22/24 22:25 Dose: 25 mls/hr Documented By: SUSIE Co-signed By: KELIN Ketorolac Tromethamine (Ketorolac 30 Mg/Ml Vial) 15 mg IV NOW ONE Stop: 05/22/24 17:19 Last Admin: 05/22/24 17:24 Dose: 15 mg Documented By: NEHA Levothyroxine Sodium (Levothyroxine 50 Mcg Tablet) 50 mcg PO DAILY [facility] Last Admin: 05/23/24 09:13 Dose: 50 mcg Documented By: ANUJA Meclizine HCl (Meclizine Hcl 12.5 Mg Tablet) 25 mg PO NOW ONE Stop: 05/22/24 17:25 Last Admin: 05/22/24 17:45 Dose: 25 mg Documented By: SPF Nitroglycerin (Nitroglycerin 0.4 Mg Sl Tab) 0.4 mg SL NOW ONE Stop: 05/23/24 12:26 Last Admin: 05/23/24 12:37 Dose: 0.4 mg Documented By: ANUJA Ondansetron HCl (Ondansetron 4 Mg/2 Ml Inj) 4 mg IV NOW ONE Stop: 05/22/24 17:19 Last Admin: 05/22/24 17:24 Dose: 4 mg Documented By: NEHA Vital Signs Vital signs: Vital Signs - 8 hr 05/22/24 15:16 05/22/24 15:30 05/22/24 16:00 Pulse Rate 74 70 69 Respiratory Rate 13 15 Blood Pressure Pulse Oximetry 98 95 94 Oxygen Delivery Method Room Air 05/22/24 16:30 05/22/24 17:00 05/22/24 17:14 Pulse Rate 73 69 Respiratory Rate 40 H 18 Blood Pressure 118/58 L Pulse Oximetry 96 97 Oxygen Delivery Method 05/22/24 17:14 05/22/24 17:30 05/22/24 17:31 Pulse Rate 74 71 Respiratory Rate 16 Blood Pressure 125/64 Pulse Oximetry 97 98 Oxygen Delivery Method Room Air 05/22/24 17:31 05/22/24 17:43 05/22/24 18:00 Pulse Rate 69 76 78 Respiratory Rate 16 34 H Blood Pressure Pulse Oximetry 98 98 96 Oxygen Delivery Method Room Air Room Air 05/22/24 18:01 05/22/24 18:30 05/22/24 19:00 Pulse Rate 74 73 Respiratory Rate 15 22 Blood Pressure 123/62 Pulse Oximetry 94 93 Oxygen Delivery Method Room Air 05/22/24 20:01 05/22/24 20:30 05/22/24 20:56 Pulse Rate 93 H 68 Respiratory Rate 20 20 Blood Pressure 120/75 Pulse Oximetry 98 Oxygen Delivery Method Room Air 05/22/24 20:56 05/22/24 21:00 05/22/24 21:00 Pulse Rate 87 70 Respiratory Rate 21 24 Blood Pressure 146/68 H Pulse Oximetry 96 98 Oxygen Delivery Method Room Air Room Air MDM - Neuro Symptoms/Deficit <Keya Velasquez DO - Last Filed: 05/25/24 07:32> Lab Data 05/22/24 13:43 05/24/24 08:14 Labs: Lab Results 05/22/24 05/22/24 Range/Units 13:43 17:48 WBC 8.3 (4.5-11.0) X10^3/uL RBC 4.27 (4.0-5.2) X10^6/uL Hgb 12.5 (12.0-16.0) g/dL Hct 37.9 (36-46) % MCV 88.9 (80-100) fL MCH 29.4 (26-34) PG MCHC 33.1 (30-36) % RDW 14.5 (11.6-14.8) % Plt Count 303 (150-400) X10^3/uL Neut % (Auto) 75.6 H (50-75) % Lymph % (Auto) 12.8 L (25-40) % Crook % (Auto) 9.2 (3-14) % Eos % (Auto) 1.6 L (2-4) % Baso % (Auto) 0.8 (0-2) % Neut # (Auto) 6300 (8101-2638) /uL Lymph # (Auto) 1100 (2214-4583) /uL Crook # (Auto) 800 (0-900) /uL Eos # (Auto) 100 (0-450) /uL Baso # (Auto) 100 (0-100) /uL PT 11.6 (9.4-12.5) SECONDS INR 1.0 (0.9-1.3) APTT 35 (25.1-36.5) SECONDS Sodium 132 L (137-145) mmol/L Potassium 3.8 (3.4-5.1) mmol/L Chloride 96 L (98-107) mmol/L Carbon Dioxide 28 (22-32) mmol/L BUN 26 H (7-17) mg/dL Creatinine 1.72 H (0.52-1.04) mg/dL Estimated GFR 33 L (>60) mL/min BUN/Creatinine Ratio 15.1 (6-22) Glucose 98 (80-110) mg/dL Calcium 9.2 (8.4-10.2) mg/dL Magnesium 1.3 L (1.6-2.3) mg/dL Total Bilirubin 0.5 (0.2-1.3) mg/dL AST 36 (14-36) IU/L ALT 21 (<35) IU/L Alkaline Phosphatase 80 (38-126) U/L Total Creatine Kinase 56 (30-135) U/L Troponin I < 0.012 < 0.012 (0.01-0.034) ng/mL NT-Pro-B Natriuret Pep 251 H (<125) pg/mL Total Protein 8.1 (6.3-8.2) g/dL Albumin 4.7 (3.5-5.0) g/dL Globulin 3.4 (1.7-4.1) g/dL Albumin/Globulin Ratio 1.4 (1.0-2.8) Lipase 101 (23-300) U/L Point of Care Testing Glucose POC 127 Imaging Data Chest x-ray: Radiologist's Impression: PROCEDURE: XR CHEST 1V INDICATIONS: chest pain TECHNIQUE: One view of the chest was acquired. COMPARISON: [facility], , XR CHEST 1V, 12/04/2023, 11:41. [facility], , XR CHEST 1V, 06/04/2023, 14:08. FINDINGS: Surgical changes and devices: Surgical clips project over the left breast. Lungs and pleura: Lungs are clear. No pleural effusions or pneumothorax. Mediastinum: Mediastinal contours appear normal. Heart size is normal. Bones and chest wall: Scoliotic spinal curvature. No suspicious bony lesions. Overlying soft tissues appear unremarkable. IMPRESSION: No acute cardiopulmonary abnormality is seen. Approved by: Paul Burch M.D. on 05/22/2024 at 13:59 CTA - brain/neck: Radiologist's Impression: PROCEDURE: CT ANGIO HEAD AND NECK INDICATIONS: headache on going dizzy x 2 days TECHNIQUE: After the administration of intravenous contrast, 1 mm thick sections acquired from the aortic arch through the [place]. 3-dimensional kwswhsy-lxpwzbwon-kqpmqkjzwi (MIP) and/or volume rendering reformats were acquired of the central intracranial vasculature and neck separately. For radiation dose reduction, the following was used: automated exposure control, adjustment of mA and/or kV according to patient size. COMPARISON: None. FINDINGS: Image quality: Limited by bolus timing, with venous contamination. Evaluation of the neck is limited by venous collaterals, particularly posteriorly. BRAIN: CSF spaces: Ventricles are normal in size and shape. Basal cisterns are patent. No extra-axial fluid collections. Brain: No significant abnormality of the brain can be seen. Skull and face: Calvarium and facial bones appear intact, without suspicious lesions. Orbits appear normal. Sinuses: Sinuses and mastoids are clear. HEAD CT ANGIOGRAPHY: Anterior circulation: Intracranial internal carotid arteries are normal in size and flow. The flow within the paired anterior cerebral arteries is normal and symmetric. The flow within the middle cerebral arteries is normal and symmetric. The anterior communicating artery is seen. No aneurysms are seen. Posterior circulation: Visualized portions of the vertebral arteries demonstrate normal caliber, and join to form a normal appearing basilar artery. Flow within the posterior cerebral arteries is normal and symmetric. No aneurysms are seen. NECK CT ANGIOGRAPHY: Carotid system: The great vessels demonstrate a conventional anatomy as they arise from the aortic arch. The origins of the common carotid arteries appear patent. The common carotid arteries demonstrate normal caliber and courses. The bifurcation regions are both widely patent. The internal carotid arteries demonstrate normal calibers and courses. Posterior circulation: The vertebral arteries are not well seen, secondary to the extensive venous collaterals posteriorly. Soft tissues: Visualized neck soft tissues demonstrate no suspicious abnormalities. Bones: No suspicious bony lesions. Visualized cervical spine appears normally aligned. IMPRESSION: No significant intracranial arterial abnormality is seen. No significant abnormality is seen within the carotid arteries. Extensive venous collaterals can be seen throughout the neck, particularly posteriorly, which limits evaluation of the vertebral arteries. Any quantitative measurements of stenosis were performed using NASCET criteria. Dictated by: Joshua Duvall M.D. on 05/22/2024 at 17:20 Approved by: Joshua Duvall M.D. on 05/22/2024 at 17:23 ECG Data Attestation: I personally reviewed and interpreted this ECG as follows: Prior ECG tracings: available for review Interpretation: Low voltage sinus rhythm rate 92 CO interval 174 QRS [address] changes EKG 2. Sinus rhythm rate 67 no ischemia MDM Narrative Medical decision making narrative: MDM CC: Vertigo chest pain Complicating co-morbidities: COPD hepatitis-C Medical records reviewed: ED visit from yesterday Differential considered: Intracranial abnormality posterior CVA vertigo dehydration Exam documented above, pertinent findings include: Patient has no nystagmus on again exam NIH stroke scale is 0 she does not appear fluid overloaded no wheezing or conversational dyspnea but she has had decreased breath sounds bilaterally Lab Test results independently reviewed as above. Pertinent findings: WBC 8.3 hemoglobin 12.5 hematocrit 37.9 platelets 303 Sodium 132 potassium 3.8 chloride 96 carbon dioxide 28 BUN 26 creatinine 1.7 yesterday was 1.0, bilirubin 0.5 AST 36 AST 21 alk-phos 80 CPK 56 Troponin negative x2, BNP 251 Independently reviewed EKG as above No ischemia noted on EKGs sinus rhythm Imaging studies independently reviewed: Chest x-ray no acute cardiopulmonary process CT angio no large vessel occlusion or ischemia Consultations: [ ] Treatments: IV fluids Toradol aspirin albuterol meclizine Re-evaluations: Patient having increasing chest pain repeat EKGs does not show any ischemia repeat troponin is drawn Discussion: Patient 63-year-old female presenting today with vertigo. She would vertigo yesterday symptoms improved after Leah-Hallpike. However today she is having headache. She continues to have no focal deficits. CT angio does not show any abnormality. She is noted to be mildly dehydrated with an increased creatinine today 1.7 it was previously 1.0 yesterday. She had no imaging or IV contrast yesterday so I do think this might be dehydration. Electrolytes are within normal limits. Today she is also having some chest pain as well. She is 2- troponins no changes on EKGs. She did receive albuterol treatment for some shortness of breath 1830 patient still having a headache chest pain improved appears comfortable we will give her some IV Tylenol. Patient signed out to Dr. Osorio <Marley Osorio, - Last Filed: 05/22/24 22:01> Lab Data Labs: Lab Results 05/22/24 05/22/24 Range/Units 13:43 17:48 WBC 8.3 (4.5-11.0) X10^3/uL RBC 4.27 (4.0-5.2) X10^6/uL Hgb 12.5 (12.0-16.0) g/dL Hct 37.9 (36-46) % MCV 88.9 (80-100) fL MCH 29.4 (26-34) PG MCHC 33.1 (30-36) % RDW 14.5 (11.6-14.8) % Plt Count 303 (150-400) X10^3/uL Neut % (Auto) 75.6 H (50-75) % Lymph % (Auto) 12.8 L (25-40) % [place] % (Auto) 9.2 (3-14) % Eos % (Auto) 1.6 L (2-4) % Baso % (Auto) 0.8 (0-2) % Neut # (Auto) 6300 (4873-6766) /uL Lymph # (Auto) 1100 (6929-0340) /uL [place] # (Auto) 800 (0-900) /uL Eos # (Auto) 100 (0-450) /uL Baso # (Auto) 100 (0-100) /uL PT 11.6 (9.4-12.5) SECONDS INR 1.0 (0.9-1.3) APTT 35 (25.1-36.5) SECONDS Sodium 132 L (137-145) mmol/L Potassium 3.8 (3.4-5.1) mmol/L Chloride 96 L (98-107) mmol/L Carbon Dioxide 28 (22-32) mmol/L BUN 26 H (7-17) mg/dL Creatinine 1.72 H (0.52-1.04) mg/dL Estimated GFR 33 L (>60) mL/min BUN/Creatinine Ratio 15.1 (6-22) Glucose 98 (80-110) mg/dL Calcium 9.2 (8.4-10.2) mg/dL Magnesium 1.3 L (1.6-2.3) mg/dL Total Bilirubin 0.5 (0.2-1.3) mg/dL AST 36 (14-36) IU/L ALT 21 (<35) IU/L Alkaline Phosphatase 80 (38-126) U/L Total Creatine Kinase 56 (30-135) U/L Troponin I < 0.012 < 0.012 (0.01-0.034) ng/mL NT-Pro-B Natriuret Pep 251 H (<125) pg/mL Total Protein 8.1 (6.3-8.2) g/dL Albumin 4.7 (3.5-5.0) g/dL Globulin 3.4 (1.7-4.1) g/dL Albumin/Globulin Ratio 1.4 (1.0-2.8) Lipase 101 (23-300) U/L Point of Care Testing Glucose POC 127 MDM Narrative Medical decision making narrative: MDM CC: Vertigo chest pain Complicating co-morbidities: COPD hepatitis-C Medical records reviewed: ED visit from yesterday Differential considered: Intracranial abnormality posterior CVA vertigo dehydration Exam documented above, pertinent findings include: Patient has no nystagmus on again exam NIH stroke scale is 0 she does not appear fluid overloaded no wheezing or conversational dyspnea but she has had decreased breath sounds bilaterally Lab Test results independently reviewed as above. Pertinent findings: WBC 8.3 hemoglobin 12.5 hematocrit 37.9 platelets 303 Sodium 132 potassium 3.8 chloride 96 carbon dioxide 28 BUN 26 creatinine 1.7 yesterday was 1.0, bilirubin 0.5 AST 36 AST 21 alk-phos 80 CPK 56 Troponin negative x2, BNP 251 Independently reviewed EKG as above No ischemia noted on EKGs sinus rhythm Imaging studies independently reviewed: Chest x-ray no acute cardiopulmonary process CT angio no large vessel occlusion or ischemia Consultations: [ ] Treatments: IV fluids Toradol aspirin albuterol meclizine Re-evaluations: Patient having increasing chest pain repeat EKGs does not show any ischemia repeat troponin is drawn Discussion: Patient 63-year-old female presenting today with vertigo. She would vertigo yesterday symptoms improved after Leah-Hallpike. However today she is having headache. She continues to have no focal deficits. CT angio does not show any abnormality. She is noted to be mildly dehydrated with an increased creatinine today 1.7 it was previously 1.0 yesterday. She had no imaging or IV contrast yesterday so I do think this might be dehydration. Electrolytes are within normal limits. Today she is also having some chest pain as well. She is 2- troponins no changes on EKGs. She did receive albuterol treatment for some shortness of breath 1830 patient still having a headache chest pain improved appears comfortable we will give her some IV Tylenol. Patient signed out to Dr. Osorio Patient signed out to myself by Dr. Velasquez, presents for vertigo also noted some chest pain today was seen yesterday had additional workup today had improvement with medications had ambulation trial but got dizzy again particularly she was turned quickly but repeat glucose is also 65. Patient was given food and it was rechecked. Re-attempt an ambulation trial after patient ate and had rechecked her glucose which is not normal. Patient is still quite unsteady on her feet isn't felt safe for discharge home. No lateralizing symptoms. Does not have any other acute realizing symptoms. Is do not have little bit of an NED compared to January of 2024. CTA shows no significant acute vascular changes there are extensive venous collaterals in the neck particularly posteriorly. Patient notes symptoms started while she was pulmonary rehab and looked up. Was improved yesterday after her ER visit but had recurrent today. Spoke with Dr. Ness tele hospitalist for observation for vertigo she has been persistent patient has difficulty with safety with ambulation and NED. Dr. Ness accepts for observation. Discharge Plan Departure Patient Disposition: Admitted as Observation Clinical Impression: Vertigo, NED (acute kidney injury) Admit Date/Time: 05/22/24 21:27 Admit Provider: Aric Ness
--- NOTE | 2024-05-22 17:18 | DI.CT.S_ITS ---
PROCEDURE: CT ANGIO HEAD AND NECK INDICATIONS: headache on going dizzy x 2 days TECHNIQUE: After the administration of intravenous contrast, 1 mm thick sections acquired from the aortic arch through the [place]. 3-dimensional rdpgcrr-stoisjddl-jwgrgggpnu (MIP) and/or volume rendering reformats were acquired of the central intracranial vasculature and neck separately. For radiation dose reduction, the following was used: automated exposure control, adjustment of mA and/or kV according to patient size. COMPARISON: None. FINDINGS: Image quality: Limited by bolus timing, with venous contamination. Evaluation of the neck is limited by venous collaterals, particularly posteriorly. BRAIN: CSF spaces: Ventricles are normal in size and shape. Basal cisterns are patent. No extra-axial fluid collections. Brain: No significant abnormality of the brain can be seen. Skull and face: Calvarium and facial bones appear intact, without suspicious lesions. Orbits appear normal. Sinuses: Sinuses and mastoids are clear. HEAD CT ANGIOGRAPHY: Anterior circulation: Intracranial internal carotid arteries are normal in size and flow. The flow within the paired anterior cerebral arteries is normal and symmetric. The flow within the middle cerebral arteries is normal and symmetric. The anterior communicating artery is seen. No aneurysms are seen. Posterior circulation: Visualized portions of the vertebral arteries demonstrate normal caliber, and join to form a normal appearing basilar artery. Flow within the posterior cerebral arteries is normal and symmetric. No aneurysms are seen. NECK CT ANGIOGRAPHY: Carotid system: The great vessels demonstrate a conventional anatomy as they arise from the aortic arch. The origins of the common carotid arteries appear patent. The common carotid arteries demonstrate normal caliber and courses. The bifurcation regions are both widely patent. The internal carotid arteries demonstrate normal calibers and courses. Posterior circulation: The vertebral arteries are not well seen, secondary to the extensive venous collaterals posteriorly. Soft tissues: Visualized neck soft tissues demonstrate no suspicious abnormalities. Bones: No suspicious bony lesions. Visualized cervical spine appears normally aligned. IMPRESSION: No significant intracranial arterial abnormality is seen. No significant abnormality is seen within the carotid arteries. Extensive venous collaterals can be seen throughout the neck, particularly posteriorly, which limits evaluation of the vertebral arteries. Any quantitative measurements of stenosis were performed using NASCET criteria. Dictated by: Joshua Duvall M.D. on 05/22/2024 at 17:20 Approved by: Joshua Duvall M.D. on 05/22/2024 at 17:23
[2024-05-22] MEDS: SODIUM CHLORIDE 0.9% 1,000 ML 1000 ML IV (17:24)
[2024-05-22] MEDS: KETOROLAC 30 MG/ML VIAL 15 MG IV (17:24)
[2024-05-22] MEDS: ONDANSETRON 4 MG/2 ML INJ IV (17:24)
--- NOTE | 2024-05-22 17:35 | PC.NURSE ---
@1730 pt C/O new onset chest pressure center chest. Rpt ekg ordered. Notified Dr. Velasquez. Repeat troponin ordered. RT at bedside.
--- NOTE | 2024-05-22 17:36 | EKG_ITS ---
[facility] [address] [address] Test Date: 2024-05-22 Pat Name: Xi Dejesus Department: [facility] Room: Gender: Female [employer] Supervisor: CANDY : 1960 Requested By: Order Number: [id number] Reading MD: Frank Khan MD Measurements Intervals [place] Rate: 67 P: 68 PA: 182 QRS: -10 QRSD: 64 T: 47 QT: 418 QTc: 441 Interpretive Statements Normal sinus rhythm Low voltage QRS Electronically Signed On 05-23-2024 8:18:01 PST by Frank Khan MD
[2024-05-22] MEDS: ALBUTEROL/IPRATROPIUM 3 ML AMPUL INH (17:42)
[2024-05-22] MEDS: MECLIZINE HCL 12.5 MG TABLET 25 MG PO ×2 (17:45→22:30)
[2024-05-22 18:32] LABS: Troponin I < 0.012 ng/mL (0.01-0.034)
[2024-05-22] MEDS: ACETAMINOPHEN IV 1,000 MG/100 ML VIAL 400 MG IV (19:05)
--- NOTE | 2024-05-22 20:04 | PC.NURSE ---
Patient was able to ambulate well for 30ft with minimal s/sx of vertigo. She then turned around quickly and became very dizzy. She took another 15 steps and had to stop to brace herself. She was hugged and a request to grab a wheel chair was made to the aide. The patient was helped to the wheel chair and taken back to her room. provider updated.
--- NOTE | 2024-05-22 20:58 | PC.NURSE ---
Pt to restroom via wheel chair and 1 person assist. Pt states increased dizziness, nausea, and headache with movement. Pt placed back in stretcher and attatched to cardiac, resp, blood pressure, and pulse ox monitors with alarms on and audible. VS stable at this time. Call light within reach.
[2024-05-22] MEDS: MAGNESIUM SULFATE 2 GM/50 ML PIGGYBACK IV (22:25)
[2024-05-22] MEDS: SODIUM CHLORIDE 0.9% 1,000 ML 100 ML IV (22:25)
--- NOTE | 2024-05-22 23:21 | PM.HP.1 ---
History of Present Illness History of Present Illness Chief complaint: vertigo, unable to drive Narrative: 63 years old female with history of COPD, GERD, hep C, cirrhosis, chronic back pain, hypothyroidism, GERD presented to the ER with vertigo. She was in the ER yesterday and after evaluation was sent home on meclizine and Zofran which helped her. Today the vertigo came back more severe and she came back to the ER. She also reports some severe headache on the right side without any neurodeficit. She also denies any fever, cough, shortness of breath, chest pain, palpitation, nausea, abdominal pain, diarrhea or dysuria. Compliant with her home medications. Denies any smoking, alcohol abuse or drug abuse. In the ER laboratory shows WBC 8.3, hemoglobin 12.5, sodium 132, troponin x 2 negative, BNP 251, mild increase of creatinine of 1.72 from 1.2 and magnesium of 1.3. Chest x-ray unremarkable. CTA head and neck was unremarkable. EKG unremarkable. In the ER she was given Tylenol, albuterol, aspirin 324 mg p.o., Toradol 15 mg IV, meclizine 25 mg p.o., Zofran, and fluid bolus. [facility] Medical History COPD (chronic obstructive pulmonary disease) (~2018) Allergies Scoliosis Chronic back pain Cervical spine disease Carpal tunnel syndrome Mumps Chicken pox Ruptured tympanic membrane Glaucoma Liver disease (~2018) Hepatitis C (~2018) Hemorrhoid GERD (gastroesophageal reflux disease) Cirrhosis MVP (mitral valve prolapse) Surgical History Anesthesia S/P insertion of spinal cord stimulator (~2016) History of hernia repair (~2012) History of appendectomy History of elbow surgery History of carpal tunnel release History of cholecystectomy History of ear surgery History of total hysterectomy History of partial hysterectomy Social History household members: none Smoking Status: Former smoker alcohol intake: former Meds Home Medications and Allergies Home Medications Medication Instructions Recorded Confirmed Type Disabled Parking #1 ea 03/06/23 05/22/24 Rx esomeprazole magnesium 20 mg 20 mg PO DAILY #90 caps 03/06/23 05/22/24 Rx capsule,delayed release (Nexium) estradiol cypionate 5 mg/mL 2 mg (0.4 mL) IM Q4W #10 mL 03/07/23 05/22/24 Rx intramuscular oil (Depo-Estradiol) loperamide 2 mg capsule 2 mg PO Q6H PRN STOOL 09/10/23 05/22/24 History spironolactone 50 mg tablet 50 mg PO DAILY 09/10/23 05/22/24 History fluticasone propionate 110 2 puff inhalation BID #12 grams 12/12/23 05/22/24 Rx mcg/actuation HFA aerosol inhaler ipratropium 0.5 mg-albuterol 3 mg 3 ml inhalation Q6H PRN shortness 12/12/23 05/22/24 Rx (2.5 mg base)/3 mL nebulization of breath or wheezing #90 mL soln duloxetine 20 mg capsule,delayed 40 mg PO DAILY 04/18/24 05/22/24 History release hydrochlorothiazide 25 mg tablet 25 mg PO DAILY 04/18/24 05/22/24 History levothyroxine 50 mcg tablet 50 mcg PO DAILY 04/18/24 05/22/24 History metoprolol succinate 50 mg 50 mg PO DAILY 04/18/24 05/22/24 History tablet,extended release 24 hr meclizine 25 mg tablet 25 mg PO TID PRN dizziness #20 tabs 05/21/24 05/22/24 Rx ondansetron 4 mg disintegrating 4 mg PO Q8H PRN nausea and 05/21/24 05/22/24 Rx tablet vomiting #14 tabs Allergies Allergy/AdvReac Type Severity Reaction Status Date / Time codeine Allergy Severe Anaphylaxis Verified 04/18/24 09:22 penicillin G Allergy Severe Anaphylaxis Verified 04/18/24 09:22 levofloxacin [From Levaquin] AdvReac Severe tinnitus Verified 04/18/24 09:22 vaccine adjuvant system, AdvReac Severe blisters Verified 04/18/24 09:22 AS01B liposomal [From Shingrix (PF)] varicella-zoster virus AdvReac Severe blisters Verified 04/18/24 09:22 glycoprotein E, recombinant [From Shingrix (PF)] latex AdvReac Intermediate Redness of Verified 04/18/24 09:22 Skin Review of Systems Review of Systems ROS: Yes All systems reviewed with the patient and are negative except as otherwise documented Constitutional Constitutional: Reports as per HPI and Reports system reviewed and no additional complaints, except as documented Eyes Eyes: Reports as per HPI and Reports system reviewed and no additional complaints, except as documented ENT Ears, Nose, Mouth, and Throat: Yes as per HPI and Yes system reviewed and no additional complaints, except as documented Cardiovascular Cardiovascular: Reports system reviewed and no additional complaints, except as documented Respiratory Respiratory: Reports system reviewed and no additional complaints, except as documented Gastrointestinal Gastrointestinal: Reports system reviewed and no additional complaints, except as documented Genitourinary Genitourinary: Reports system reviewed and no additional complaints, except as documented Musculoskeletal Musculoskeletal: Reports system reviewed and no additional complaints, except as documented, Reports abnormal gait and Reports numbness Neurologic Neurologic: Reports system reviewed and no additional complaints, except as documented, Reports abnormal gait, Reports confusion and Reports numbness Psychiatric Psychiatric: Reports system reviewed and no additional complaints, except as documented and Reports confusion Exam Vital Signs (past 8 hours): - 05/22/24 15:30 05/22/24 16:00 05/22/24 16:30 Pulse Rate 70 69 73 Respiratory Rate 13 15 40 H Blood Pressure Pulse Oximetry 95 94 96 Oxygen Delivery Method Room Air 05/22/24 17:00 05/22/24 17:14 05/22/24 17:14 Pulse Rate 69 74 Respiratory Rate 18 16 Blood Pressure 118/58 L Pulse Oximetry 97 97 Oxygen Delivery Method Room Air 05/22/24 17:30 05/22/24 17:31 05/22/24 17:31 Pulse Rate 71 69 Respiratory Rate Blood Pressure 125/64 Pulse Oximetry 98 98 Oxygen Delivery Method Room Air 05/22/24 17:43 05/22/24 18:00 05/22/24 18:01 Pulse Rate 76 78 Respiratory Rate 16 34 H Blood Pressure 123/62 Pulse Oximetry 98 96 Oxygen Delivery Method Room Air 05/22/24 18:30 05/22/24 19:00 05/22/24 20:01 Pulse Rate 74 73 93 H Respiratory Rate 15 22 20 Blood Pressure Pulse Oximetry 94 93 Oxygen Delivery Method Room Air 05/22/24 20:30 05/22/24 20:56 05/22/24 20:56 Pulse Rate 68 87 Respiratory Rate 20 21 Blood Pressure 120/75 Pulse Oximetry 98 96 Oxygen Delivery Method Room Air Room Air 05/22/24 21:00 05/22/24 21:00 05/22/24 21:30 Pulse Rate 70 Respiratory Rate 24 Blood Pressure 146/68 H 113/62 Pulse Oximetry 98 Oxygen Delivery Method Room Air 05/22/24 21:30 Pulse Rate 69 Respiratory Rate 24 Blood Pressure Pulse Oximetry 95 Oxygen Delivery Method Room Air Oxygen Delivery Method Room Air Const General: cooperative, comfortable and well developed Orientation: alert and oriented x3 HENMT Head: normal to inspection, normocephalic and atraumatic Face and sinus: normal facial exam Mouth: oral mucosae normal and moist mucous membranes Throat: posterior oropharynx normal Eyes General: appearance normal, both eyes and all related structures Pupils: PERRL EOM: EOM intact bilaterally Neck Neck: normal visual inspection and full ROM Chest Chest: normal inspection of the chest Resp Effort & Inspection: normal respiratory effort and able to speak in complete sentences Auscultation: clear to auscultation bilaterally Cardio Palpation: normal PMI Rate: regular rate Rhythm: regular rhythm Heart Sounds: S1 normal and S2 normal GI Inspection: normal to inspection Palpation: soft and no hepatosplenomegaly Auscultation: normal bowel sounds Skin General: no rashes or lesions noted Lesions: no lesions Rashes: no rashes Trauma: no lacerations or abrasions Neuro General: patient alert, patient awake, patient oriented x3 and no focal motor deficits Cranial Nerves: CN's II-XI intact bilaterally Cognition: normal cognition Speech: speech normal Gait: normal gait Motor: muscle tone normal throughout Sensory Exam: no sensory deficits noted Extrem General: full ROM and no calf tenderness Psych Appearance: grossly normal Mental Status: mental status grossly normal Speech and Movement: speech and movement normal Objective Labs 05/22/24 13:43 05/22/24 13:43 Labs: Laboratory Results - last 24 hr 05/22/24 05/22/24 13:43 17:48 WBC 8.3 RBC 4.27 Hgb 12.5 Hct 37.9 MCV 88.9 MCH 29.4 MCHC 33.1 RDW 14.5 Plt Count 303 Neut % (Auto) 75.6 H Lymph % (Auto) 12.8 L [place] % (Auto) 9.2 Eos % (Auto) 1.6 L Baso % (Auto) 0.8 Neut # (Auto) 6300 Lymph # (Auto) 1100 [place] # (Auto) 800 Eos # (Auto) 100 Baso # (Auto) 100 PT 11.6 INR 1.0 APTT 35 Sodium 132 L Potassium 3.8 Chloride 96 L Carbon Dioxide 28 BUN 26 H Creatinine 1.72 H Estimated GFR 33 L BUN/Creatinine Ratio 15.1 Glucose 98 Calcium 9.2 Magnesium 1.3 L Total Bilirubin 0.5 AST 36 ALT 21 Alkaline Phosphatase 80 Total Creatine Kinase 56 Troponin I < 0.012 < 0.012 NT-Pro-B Natriuret Pep 251 H Total Protein 8.1 Albumin 4.7 Globulin 3.4 Albumin/Globulin Ratio 1.4 Lipase 101 Assessment & Plan Assessment & Plan narrative: Vertigo/dizziness. Most likely due to dehydration vs vertigo. Continue with meclizine as needed. If persistent consider MRI of the brain. Fall precaution. Acute kidney injury on CKD stage III. Presented with creatinine 1.72, baseline between 1?1.2. Most likely pre-renal. -continue with IV fluid hydration. -hold spironolactone and hydrochlorothiazide for now. -monitor UOP. -daily BMP -Avoid any nephrotoxic agents, including NSAIDs -Dose all medications according pt's current eGFR Hypomagnesemia. Restart the monitor. Hypertension. Restart metoprolol and hold diuretics. Hydralazine as needed. GERD. Restart esomeprazole. COPD. Stable. DuoNeb and albuterol as needed. Monitor oxygenation. Hypothyroidism. Restart levothyroxine. Check TSH. Chronic diarrhea. Loperamide as needed. Time-Based Coding :: [TOTAL MINUTES] spent with patient and on the chart (including review of chart, obtaining history, exam, reviewing outside data, placing orders, documenting exam and treatment plan, and counseling patient) on [DATE]. Quality VTE Deep Vein Thrombosis/Pulmonary Embolism Present on Admission: No MIPS - Admit I confirm the patient?s Advance Care Plan is present, Code status is documented, Surrogate decision maker is in patient?s record [If Yes, STOP here]: Yes MIPS - Meds 'Current medications' to include all prescriptions, [id number] products, herbals, cannabis/cannabidiol products, and vitamin/mineral/dietary (nutritional) supplements. I have utilized all available resources to obtain, update, or review the patient?s current medications. [If Yes, STOP here]: Yes
[2024-05-23] VITALS (11 sets, daily range): BP systolic 100–136; BP diastolic 57–82; PULSE 69–77; RESP 12–16; TEMP 36–36.2; O2SAT 96–98
[2024-05-23] MEDS: ACETAMINOPHEN 325 MG TABLET 650 MG PO (01:58)
[2024-05-23] MEDS: OXYCODONE IR 5 MG TABLET PO ×4 (04:22→23:56)
[2024-05-23] MEDS: ONDANSETRON 4 MG/2 ML INJ IV ×3 (04:23→19:38)
[2024-05-23] MEDS: PANTOPRAZOLE DR 40 MG TABLET PO (06:34)
--- NOTE | 2024-05-23 07:38 | P.PN_ITS ---
Subjective Subjective Date Patient Seen: 05/23/24 Interval history: She is seen today to follow-up her acute vertigo, hypomagnesemia and eczema. She describes a history of vertigo only when working on an exercise machine at pulmonary rehab, starting 2 days ago. She is feeling better this morning. She has received magnesium supplementation for an initial level of 1.3. The creatinine is 1.72. She tells me that [place] lives in [place]. She goes to Dr. Christy. Her CBC is normal. She is asking to resume her Benadryl which she takes 50-75 mg as needed for itching and eczema. Her arms are covered with scars and scratches. Exam Vital Signs (past 8 hours): - 05/23/24 06:00 Temperature 96.9 F L Pulse Rate 73 Respiratory Rate 16 Blood Pressure 117/69 Pulse Oximetry 96 Oxygen Delivery Method Room Air Oxygen Flow Rate 0 Narrative Exam Narrative: She is alert and oriented x3. No apparent distress. No current vertigo. Heart is regular rate and rhythm without murmur Lungs are clear to auscultation bilaterally Extremities have no ankle edema Objective Labs 05/22/24 13:43 05/23/24 08:26 Labs: Laboratory Results - last 24 hr 05/22/24 05/22/24 13:43 17:48 WBC 8.3 RBC 4.27 Hgb 12.5 Hct 37.9 MCV 88.9 MCH 29.4 MCHC 33.1 RDW 14.5 Plt Count 303 Neut % (Auto) 75.6 H Lymph % (Auto) 12.8 L [place] % (Auto) 9.2 Eos % (Auto) 1.6 L Baso % (Auto) 0.8 Neut # (Auto) 6300 Lymph # (Auto) 1100 [place] # (Auto) 800 Eos # (Auto) 100 Baso # (Auto) 100 PT 11.6 INR 1.0 APTT 35 Sodium 132 L Potassium 3.8 Chloride 96 L Carbon Dioxide 28 BUN 26 H Creatinine 1.72 H Estimated GFR 33 L BUN/Creatinine Ratio 15.1 Glucose 98 Calcium 9.2 Magnesium 1.3 L Total Bilirubin 0.5 AST 36 ALT 21 Alkaline Phosphatase 80 Total Creatine Kinase 56 Troponin I < 0.012 < 0.012 NT-Pro-B Natriuret Pep 251 H Total Protein 8.1 Albumin 4.7 Globulin 3.4 Albumin/Globulin Ratio 1.4 Lipase 101 PFSH Medical History COPD (chronic obstructive pulmonary disease) (~2018) Allergies Scoliosis Chronic back pain Cervical spine disease Carpal tunnel syndrome Mumps Chicken pox Ruptured tympanic membrane Glaucoma Liver disease (~2018) Hepatitis C (~2018) Hemorrhoid GERD (gastroesophageal reflux disease) Cirrhosis MVP (mitral valve prolapse) Surgical History Anesthesia S/P insertion of spinal cord stimulator (~2016) History of hernia repair (~2012) History of appendectomy History of elbow surgery History of carpal tunnel release History of cholecystectomy History of ear surgery History of total hysterectomy History of partial hysterectomy Social History household members: none Smoking Status: Former smoker alcohol intake: former Assessment & Plan Assessment & Plan narrative: Vertigo/dizziness. Most likely due to dehydration vs vertigo. Continue with meclizine as needed. If persistent consider MRI of the brain. Fall precaution. Recheck EKG due to chest pain complaint and possible relationship? Acute kidney injury on CKD stage III. Presented with creatinine 1.72, baseline between 1?1.2. Most likely pre-renal. -continue with IV fluid hydration. -hold spironolactone and hydrochlorothiazide for now. -monitor UOP. -daily BMP -Avoid any nephrotoxic agents, including NSAIDs -Dose all medications according pt's current eGFR Hypomagnesemia. Supplement and follow. Hypertension. Restart metoprolol and hold diuretics. Hydralazine as needed. GERD. Restart esomeprazole. COPD. Stable. DuoNeb and albuterol as needed. Monitor oxygenation. Hypothyroidism. Restart levothyroxine. Check TSH. Chronic diarrhea. Loperamide as needed. Time-Based Coding :: [TOTAL MINUTES] spent with patient and on the chart (including review of chart, obtaining history, exam, reviewing outside data, placing orders, documenting exam and treatment plan, and counseling patient) on [DATE]. Quality VTE Deep Vein Thrombosis/Pulmonary Embolism Present on Admission: No
[2024-05-23] MEDS: BUDESONIDE 0.5 MG/2 ML NEB INH ×2 (08:35→19:31)
[2024-05-23 08:54] LABS: Alanine Aminotransferase 16 IU/L (<35); Albumin 3.7 g/dL (3.5-5.0); Albumin Globulin Ratio 1.4 (1.0-2.8); Alkaline Phosphatase 86 U/L (38-126); Aspartate Aminotransferase 28 IU/L (14-36); BUN Creatinine Ratio 17.6 (6-22); Bilirubin Total 0.2 mg/dL (0.2-1.3); Blood Urea Nitrogen 26 mg/dL (7-17); Calcium 8.3 mg/dL (8.4-10.2); Carbon Dioxide 25 mmol/L (22-32); Chloride 102 mmol/L (98-107); Estimated Glomerular Filt Rate 39 mL/min (>60); Globulin 2.7 g/dL (1.7-4.1); Glucose 94 mg/dL (80-110); HEMOLYSIS < 15 (0-50); Potassium 4.1 mmol/L (3.4-5.1); Sodium 132 mmol/L (137-145); Total Protein 6.4 g/dL (6.3-8.2)
[2024-05-23] MEDS: METOPROLOL ER 50 MG TABLET PO (09:13)
[2024-05-23] MEDS: LEVOTHYROXINE 50 MCG TABLET PO (09:13)
[2024-05-23] MEDS: DULOXETINE 20 MG CAPSULE 40 MG PO (09:14)
[2024-05-23] MEDS: MECLIZINE HCL 12.5 MG TABLET 25 MG PO (11:02)
[2024-05-23] MEDS: diphenhydrAMINE 25 MG TABLET 50 MG PO ×2 (11:02→21:38)
[2024-05-23] MEDS: SODIUM CHLORIDE 0.9% 1,000 ML 100 ML IV ×2 (11:03→18:20)
--- NOTE | 2024-05-23 11:35 | PT.IIE ---
Surgical History (Last Reviewed 05/22/24 @ 17:22 by Keya Velasquez DO) Anesthesia History of appendectomy History of carpal tunnel release History of cholecystectomy History of ear surgery History of elbow surgery History of hernia repair (~2012) History of partial hysterectomy History of total hysterectomy S/P insertion of spinal cord stimulator (~2016) Medical History (Last Reviewed 05/22/24 @ 17:22 by Keya Velasquez DO) Allergies Carpal tunnel syndrome Cervical spine disease Chicken pox Chronic back pain Cirrhosis COPD (chronic obstructive pulmonary disease) (~2018) GERD (gastroesophageal reflux disease) Glaucoma Hemorrhoid Hepatitis C (~2018) Liver disease (~2018) Mumps MVP (mitral valve prolapse) Ruptured tympanic membrane Scoliosis Physical Therapy Inpatient Evaluation/Re-Eval M1 PT/OT-IP Prior Functional Status Start: 05/23/24 13:04 Freq: NEEDED Status: Active Protocol: Document 05/23/24 11:35 AB (Rec: 05/23/24 13:27 AB [id number]) Medical Review Prior Functional Status Medical History Reviewed Yes Communication able to make needs known Mobility and Gait pt stated that she was modified independent with all mobilities and ambulation without AD but occasionally uses a SPC due to back issues Social History Household Members none Living Arrangements House Number of Stairs To Enter/Railing? pt lives at a basement: no steps to enter Home Environment High Toilet,Walk in Shower Home Equipment Straight Cane,Hand Held Shower M2 PT-IP Current Condition Start: 05/23/24 13:04 Freq: NEEDED Status: Active Protocol: Document 05/23/24 11:35 AB (Rec: 05/23/24 13:27 AB [id number]) Physical Therapy Current Condition Current Condition Evaluation Date 05/23/24 Treatment Diagnosis dizziness; difficulty in walking Onset Date 05/22/24 M3 PT-IP Subjective Start: 05/23/24 13:04 Freq: NEEDED Status: Active Protocol: Document 05/23/24 11:35 AB (Rec: 05/23/24 13:27 AB [id number]) Subjective Physical Therapy Visit Type Type Initial Evaluation Visit Start Time 11:35 Visit Stop Time 12:25 Number of BRUSH SANDER Visits 0 Physical Therapy Visit Comments Patient Comments agreeable to do PT M4 PT-IP Mobility and Gait Start: 05/23/24 13:04 Freq: NEEDED Status: Active Protocol: Document 05/23/24 11:35 AB (Rec: 05/23/24 13:27 AB [id number]) PT-Transfer Assessment Sit to and From Stand Sit to and from Stand Contact Guard Assistance,1 Person Assistance,Use of Upper Extremities Equipment Transfer Assistive Device Gait Belt,Front Wheeled Walker Orthotic/Prosthetic Devices or Brace: No Transfers Transfer Destination Toilet Transfer Technique ambulated Transfer Ability Level of Assist Standby Assistance,Contact Guard Assistance,1 Person Assistance,Use of Upper Extremities Comments Mobility Comments pt long sitting in bed. agreed to do PT. obtained PLOF and home setup. pt sat on EOB SBA. completed sit to stand CGA and cues. requiring CGA with initial standing and pt stated that she needs to stand for a few minutes due ot dizziness. pt ambulated in room using FWW and requested to use the toilet. able to complete toileting needs SBA and ambulated to the sink using FWW SBA to CGA. pt was able to maintain standing balance SBA while completing handwashing. pt sat on EOB. pt stated that she feels more stable with use of FWW. informed pt to obtained FWW and will inform her friend to get one from the [facility]. informed pt regarding BPPV diagnosis by ER doctor on L ear. pt stated that after they did a maneuver, she felt better but when she went home, it gotten worse and she was also having chest pain. informed pt if she is willing for PT to do eduard manuever and pt initially refused but then after ambulation, agreed to do it. informed pt on how eduard maneuver is going to be conducted. pt understood. Assessed pt cervical ROM. pt with h/o low back problems and will be cautious. conducted tacho halpike/ eduard manuever on L ear. unable to accurately assess nystagmus due to pt unable to keep eyes open. completed eduard and pt stated that dizziness is still present but better/stable. pt required further vestibular assessment in outpt PT. positioned pt in bed for lunch as requested. call light within reach. pt began eating but c/o chest tightness/pain. informed nurse. Gait Assessment Gait Gait Assistance Required: Standby Assistance,Contact Guard Assist Distance (Feet) 30 Able to Maintain Weight Bearing Status Yes During Gait Assistive Devices Assistive Device Gait Belt,Front Wheeled Walker Orthotic/Prosthetic Devices or Brace: No Gait Deviations General Gait Pattern Decreased Stride Length, Decreased Feet Clearance Factors Limiting Gait Function Factors Limiting Gait Function Decreased Activity Tolerance, Pain,Poor Balance,Poor Safety Awareness PT-Balance Assessment Sitting Balance and Reactions Static Sitting Balance Ability Good Dynamic Sitting Balance Ability Good Standing Balance and Reactions Static Standing Balance Ability Good Dynamic Standing Balance Ability Fair Device Used FWW M5 PT-IP Objective Assessments Start: 05/23/24 13:04 Freq: NEEDED Status: Active Protocol: Document 05/23/24 11:35 AB (Rec: 05/23/24 13:27 AB [id number]) Orientation Orientation/Cognition Level of Alertness Alert Orientation Name,Age,Birthday,Month,Date, Year,Day of Week,Place, Situation Language Function Ability No Deficits Noted Safety Awareness Understands Safety Issues Memory Description No Deficits Noted Gross Range of Motion Lower Extremity ROM Assessment Within Functional Limits Strength Lower Extremity Strength Assessment Within Functional Limits Coordination Assessment Gross Coordination Gross Coordination WNL Muscle Tone Muscle Tone WNL Yes M6 PT-IP Treatment Start: 05/23/24 13:04 Freq: NEEDED Status: Active Protocol: Document 05/23/24 11:35 AB (Rec: 05/23/24 13:27 AB [id number]) Physical Therapy Treatment Education Education Provided Safety M7 PT-IP Assessment and Plan Start: 05/23/24 13:04 Freq: NEEDED Status: Active Protocol: Document 05/23/24 11:35 AB (Rec: 05/23/24 13:27 AB [id number]) PT Summary Assessment and Plan Potential Rehabilitation Potential Fair Status of Condition at Evaluation Evolving Summary Impairments Pain,ROM,Strength,Balance, Coordination,Sensation,Tone, Cognition,Bed Mobility, Transfers,Gait,Activity Tolerance Assessment Summary pt is a 63 y/o F who presented to the ED for dizziness. From EMR, ED doctor dx BPPV on L ear and pt stated that maneuver was conducted to decrease dizziness and felt better but gotten worse when she went home and now back to the hospital. pt requiring SBA to CGA with mobility using FWW. pt plans to borrow a FWW from the soroptomist. pt will need outpt vestibular therapy to further assess. Goals Bed Mobility Goal Independent Transfer Goal Independent,Front Wheeled Walker Gait Goal Independent,Front Wheel Walker Gait Distance 200 Other Goals improve transfers, ambulation without AD/SPC mod I 300 ft Days to Meet Goals 5 Frequency of Treatment Frequency Of Treatment Once a Day Treatment Plan Physical Therapy Treatment Plan Bed Mobility Training,Transfer Training,Gait Training, Therapeutic Exercise,Balance Retraining,Discharge Planning, Hot or Cold Pack,Neuromuscular Re-ed,Coordination Retraining ,Manual Therapy Recommendations To Nursing Amount of Assist Needed 1 Person Assist Discharge Recommendations PT Discharge Recommendations Home with Assistance, Outpatient PT Equipment Needed for Home Before FWW Discharge Transportation Needs at Discharge Private Vehicle
--- NOTE | 2024-05-23 11:35 | PT.IIE ---
Surgical History (Last Reviewed 05/22/24 @ 17:22 by Keya Velasquez DO) Anesthesia History of appendectomy History of carpal tunnel release History of cholecystectomy History of ear surgery History of elbow surgery History of hernia repair (~2012) History of partial hysterectomy History of total hysterectomy S/P insertion of spinal cord stimulator (~2016) Medical History (Last Reviewed 05/22/24 @ 17:22 by Keya Velasquez DO) Allergies Carpal tunnel syndrome Cervical spine disease Chicken pox Chronic back pain Cirrhosis COPD (chronic obstructive pulmonary disease) (~2018) GERD (gastroesophageal reflux disease) Glaucoma Hemorrhoid Hepatitis C (~2018) Liver disease (~2018) Mumps MVP (mitral valve prolapse) Ruptured tympanic membrane Scoliosis Physical Therapy Inpatient Evaluation/Re-Eval M1 PT/OT-IP Prior Functional Status Start: 05/23/24 13:04 Freq: NEEDED Status: Active Protocol: Document 05/23/24 11:35 AB (Rec: 05/23/24 13:27 AB [id number]) Medical Review Prior Functional Status Medical History Reviewed Yes Communication able to make needs known Mobility and Gait pt stated that she was modified independent with all mobilities and ambulation without AD but occasionally uses a SPC due to back issues Social History Household Members none Living Arrangements House Number of Stairs To Enter/Railing? pt lives at a basement: no steps to enter Home Environment High Toilet,Walk in Shower Home Equipment Straight Cane,Hand Held Shower M2 PT-IP Current Condition Start: 05/23/24 13:04 Freq: NEEDED Status: Active Protocol: Document 05/23/24 11:35 AB (Rec: 05/23/24 13:27 AB [id number]) Physical Therapy Current Condition Current Condition Evaluation Date 05/23/24 Treatment Diagnosis dizziness; difficulty in walking Onset Date 05/22/24 M3 PT-IP Subjective Start: 05/23/24 13:04 Freq: NEEDED Status: Active Protocol: Document 05/23/24 11:35 AB (Rec: 05/23/24 13:27 AB [id number]) Subjective Physical Therapy Visit Type Type Initial Evaluation Visit Start Time 11:35 Visit Stop Time 12:25 Number of CARE ANALYST Visits 0 Physical Therapy Visit Comments Patient Comments agreeable to do PT M4 PT-IP Mobility and Gait Start: 05/23/24 13:04 Freq: NEEDED Status: Active Protocol: Document 05/23/24 11:35 AB (Rec: 05/23/24 13:27 AB [id number]) PT-Transfer Assessment Sit to and From Stand Sit to and from Stand Contact Guard Assistance,1 Person Assistance,Use of Upper Extremities Equipment Transfer Assistive Device Gait Belt,Front Wheeled Walker Orthotic/Prosthetic Devices or Brace: No Transfers Transfer Destination Toilet Transfer Technique ambulated Transfer Ability Level of Assist Standby Assistance,Contact Guard Assistance,1 Person Assistance,Use of Upper Extremities Comments Mobility Comments pt long sitting in bed. agreed to do PT. obtained PLOF and home setup. pt sat on EOB SBA. completed sit to stand CGA and cues. requiring CGA with initial standing and pt stated that she needs to stand for a few minutes due ot dizziness. pt ambulated in room using FWW and requrested to use the toilet. able to complete toileting needs SBA and ambulated to the sink using FWW SBA to CGA. pt was able to maintain standing balance SBA while completing handwashing. pt sat on EOB. pt stated that she feels more stable with use of FWW. informed pt to obtained FWW and will inform her friend to get one from the [facility]. informed pt regarding BPPV diagnosis by ER doctor on L ear. pt stated that after they did a maneuver, she felt better but when she went home, it gotten worse and she was also having chest pain. informed pt if she is willing for PT to do eduard manuever and pt initially refused but then after ambulation, agreed to do it. informed pt on how eduard maneuver is going to be conducted. pt understood. Assessed pt cervical ROM. pt with h/o low back problems and will be cautious. conducted tacho halpike/ eduard manuever on R ear. unable to accurately assess nystagmus due to pt unable to keep eyes open. completed eduard and pt stated that dizziness is still present but better/stable. pt required further vestibular assessment in outpt PT. positioned pt in bed for lunch as requested. call light within reach. pt began eating but c/o chest tightness/pain. informed nurse. Gait Assessment Gait Gait Assistance Required: Standby Assistance,Contact Guard Assist Distance (Feet) 30 Able to Maintain Weight Bearing Status Yes During Gait Assistive Devices Assistive Device Gait Belt,Front Wheeled Walker Orthotic/Prosthetic Devices or Brace: No Gait Deviations General Gait Pattern Decreased Stride Length, Decreased Feet Clearance Factors Limiting Gait Function Factors Limiting Gait Function Decreased Activity Tolerance, Pain,Poor Balance,Poor Safety Awareness PT-Balance Assessment Sitting Balance and Reactions Static Sitting Balance Ability Good Dynamic Sitting Balance Ability Good Standing Balance and Reactions Static Standing Balance Ability Good Dynamic Standing Balance Ability Fair Device Used FWW M5 PT-IP Objective Assessments Start: 05/23/24 13:04 Freq: NEEDED Status: Active Protocol: Document 05/23/24 11:35 AB (Rec: 05/23/24 13:27 AB [id number]) Orientation Orientation/Cognition Level of Alertness Alert Orientation Name,Age,Birthday,Month,Date, Year,Day of Week,Place, Situation Language Function Ability No Deficits Noted Safety Awareness Understands Safety Issues Memory Description No Deficits Noted Gross Range of Motion Lower Extremity ROM Assessment Within Functional Limits Strength Lower Extremity Strength Assessment Within Functional Limits Coordination Assessment Gross Coordination Gross Coordination WNL Muscle Tone Muscle Tone WNL Yes M6 PT-IP Treatment Start: 05/23/24 13:04 Freq: NEEDED Status: Active Protocol: Document 05/23/24 11:35 AB (Rec: 05/23/24 13:27 AB [id number]) Physical Therapy Treatment Education Education Provided Safety M7 PT-IP Assessment and Plan Start: 05/23/24 13:04 Freq: NEEDED Status: Active Protocol: Document 05/23/24 11:35 AB (Rec: 05/23/24 13:27 AB [id number]) PT Summary Assessment and Plan Potential Rehabilitation Potential Fair Status of Condition at Evaluation Evolving Summary Impairments Pain,ROM,Strength,Balance, Coordination,Sensation,Tone, Cognition,Bed Mobility, Transfers,Gait,Activity Tolerance Assessment Summary pt is a 63 y/o F who presented to the ED for dizziness. From EMR, ED doctor dx BPPV on L ear and pt stated that maneuver was conducted to decrease dizziness and felt better but gotten worse when she went home and now back to the hospital. pt requiring SBA to CGA with mobility using FWW. pt plans to borrow a FWW from the soroptom[employer]. pt will need outpt vestibular therapy to further assess. Goals Bed Mobility Goal Independent Transfer Goal Independent,Front Wheeled Walker Gait Goal Independent,Front Wheel Walker Gait Distance 200 Other Goals improve transfers, ambulation without AD/SPC mod I 300 ft Days to Meet Goals 5 Frequency of Treatment Frequency Of Treatment Once a Day Treatment Plan Physical Therapy Treatment Plan Bed Mobility Training,Transfer Training,Gait Training, Therapeutic Exercise,Balance Retraining,Discharge Planning, Hot or Cold Pack,Neuromuscular Re-ed,Coordination Retraining ,Manual Therapy Recommendations To Nursing Amount of Assist Needed 1 Person Assist Discharge Recommendations PT Discharge Recommendations Home with Assistance, Outpatient PT Equipment Needed for Home Before FWW Discharge Transportation Needs at Discharge Private Vehicle
--- NOTE | 2024-05-23 12:33 | EKG_ITS ---
[facility] [address], [place] [address] Test Date: 2024-05-23 Pat Name: Xi Dejesus Department: [facility] Room: 213 Gender: Female Consulting Solution Director: MARCIO : 1960 Requested By: Order Number: [id number] Reading MD: Frank Khan MD Measurements Intervals [place] Rate: 69 P: 60 MN: 174 QRS: 13 QRSD: 72 T: 56 QT: 416 QTc: 445 Interpretive Statements Normal sinus rhythm Low voltage QRS Electronically Signed On 05-23-2024 13:47:22 PST by Frank Khan MD
[2024-05-23] MEDS: NITROGLYCERIN 0.4 MG SL TAB SL (12:37)
--- NOTE | 2024-05-23 13:06 | PC.NURSE ---
Addendum entered by Jamila Peraza R.N. 05/23/24 13:28: Post Maalox PO admin, patient states pain to mid chest 09/13. Original Note: 1232 Patient C/O chest pain described as tight squuezing sharp ache 11/13 to middle of chest radiating to mid back in between scapula. + Nausea. Notified Dr. Hernandez. VSS, 97% on RA. Stat ECG obtained. Nitro x 1 SL admin and Zofran IV. Remain at bedrest. On F/U quality and description of chest pain remain unchanged, intensity increased 12/14. NOtified Dr. Hernandez. New orders obtained, including cardiac lab work.
[2024-05-23] MEDS: MAG HYDROX/ALUM/SIMETH 30 ML UDC PO (13:13)
--- NOTE | 2024-05-23 13:13 | CM.DANOTE ---
DCP Assessment Note: Pt is a 63yo female, resident [facility], is admitted for vertigo and NED. Pt lives in a house alone. Pt's Primary Care Provider is Dr. Karoline Art and insurance is [facility] Medicare and Medicaid. Reviewed chart and discussed with multidisciplinary team pt's medical status and initial discharge needs. DCP met w/patient at bedside; introduced self and role. Patient was found in bed, alert and oriented, cooperative with assessment. Pt confirmed living situation and good support in . Pt expressed preference in discharge home when cleared. Pt has no prior hx of home health or SNF, declines any referrals to be made in community at this time. Pt agreeable to working with therapies and following their recommendations. Per Patient, she has been notified by PT that she will need a FWW at discharge, pt hoping this can be prescribed by provider. Plan: Anticipating discharge home with friend to transport when medically stable. CM team will follow closely for coordination of discharge plans. Jossie Gaspar [facility] Discharge Planning/Care Management CM Discharge Assessment Start: 05/23/24 13:10 Freq: Status: Active Protocol: Document 05/23/24 13:10 MW (Rec: 05/23/24 13:13 MW [id number]) Discharge Planning Assessment Assigned Pulp Machine Operator TIMOTHY Sethi DPOA/Assigned Designee Name Radha Whitlock, Daughter Contact Information [phone] Advance Directives? No History Provided By Patient,Medical Record Has Patient been admitted in last 30 No days? Prior Living Arrangements House Household Members none Type of transporation used prior to Drives own vehicle admit Independent with ADL's Yes Is patient alert and oriented? Yes Caregiver for Another No DME Already Rented / Owned Cane Comment Does not use often but owns cane. Understands therapies are recomending a FWW at ut. Barriers to Discharge No Discharge Plan Home Review Status In Process Please Provide Date Initial DC 05/23/24 Assessment Was Performed Next Review Type Continued Stay Review
[2024-05-23 13:52] LABS: Creatine Kinase 49 U/L (30-135)
[2024-05-23 14:05] LABS: Troponin I < 0.012 ng/mL (0.01-0.034)
[2024-05-24] VITALS (8 sets, daily range): BP systolic 101–134; BP diastolic 61–84; PULSE 69–84; RESP 14–20; TEMP 36.1–36.6; O2SAT 95–98
--- NOTE | 2024-05-24 00:07 | EKG_ITS ---
[address] [address] Test Date: 2024-05-24 Pat Name: Xi Dejesus Department: Room: 213 Gender: Female Sales Project Administrator: SCOTT : 1960 Requested By: Order Number: [id number] Reading MD: Frank Khan MD Measurements Intervals [place] Rate: 70 P: 67 SC: 182 QRS: 14 QRSD: 64 T: 59 QT: 398 QTc: 429 Interpretive Statements Normal sinus rhythm Low voltage QRS Septal infarct , age undetermined Electronically Signed On 05-24-2024 9:53:07 PST by Frank Khan MD
--- NOTE | 2024-05-24 00:40 | PC.NURSE ---
Addendum entered by Nacho Alas R.N. 05/24/24 02:45: troponin 0.012, updated. pt comfortably sitting up in bed, nebs given by RT. no other complaints other complaints at this time. Original Note: received pt at 1930 sitting up in bed, alert,oriented x4 c/o headache, still dizzy mostly while changing positions. PRN oxycodone given per pt request, mild effect, rest encouraged, lights dimmed. IVF infusing, adequate PO fluid intake. encouraged to call for assistance, and change positions slowly. all due meds given, ambulated to bathroom 1Person assist, FWW, gaitbelt, tolerated well. 2351 pt assisted by PTCA to bedside commode, pt c/o chest pain 8/10, per pt, similar to pain felt earlier twisting or squeezing sensation,denies any other symptoms, BP 129/79, HR 73, SP02 94 room air, spoke to provider, placing orders. EKG NSR, labs drawn.
[2024-05-24] MEDS: MECLIZINE HCL 12.5 MG TABLET 25 MG PO ×3 (01:02→19:59)
[2024-05-24] MEDS: MORPHINE 2 MG/ML INJ IV ×2 (01:09→20:54)
[2024-05-24 01:19] LABS: Troponin I < 0.012 ng/mL (0.01-0.034)
[2024-05-24] MEDS: ALBUTEROL 2.5 MG/3 ML NEB (ADULT) INH (01:26)
[2024-05-24] MEDS: diphenhydrAMINE 25 MG TABLET 50 MG PO ×2 (04:13→19:58)
[2024-05-24] MEDS: PANTOPRAZOLE DR 40 MG TABLET PO (06:10)
[2024-05-24] MEDS: LEVOTHYROXINE 50 MCG TABLET PO (06:10)
[2024-05-24] MEDS: SODIUM CHLORIDE 0.9% 1,000 ML 100 ML IV ×2 (06:11→22:00)
--- NOTE | 2024-05-24 07:27 | PM.PN.1 ---
Subjective Subjective Date Patient Seen: 05/24/24 Interval history: She is seen today to follow-up her acute kidney injury, vertigo and weakness. She says the meclizine is helping the vertigo but even though she is lying in bed all she has to do is move her head and it comes back. Her whole head is also aching. She worries that the Tylenol she is taking may bring back her cirrhosis which apparently was a problem several years ago. The sodium is 134 with a potassium of 4.5 and creatinine of 1.12. The Benadryl is helping her itching. She will receive a brain MRI today. Exam Vital Signs (past 8 hours): - 05/23/24 23:33 05/24/24 04:00 Temperature 97 F L Pulse Rate 73 74 Respiratory Rate 16 20 Blood Pressure 128/79 108/66 Pulse Oximetry 97 97 Oxygen Flow Rate 0 Oxygen Delivery Method Room Air Oxygen Flow Rate 0 Narrative Exam Narrative: Alert and oriented x3, no apparent distress. Heart is regular rate and rhythm without murmur Lungs are clear to auscultation bilaterally Extremities have no ankle edema Neurologic exam: Cranial nerves are functioning well There is no tremor There is no lateralizing deficit. No visible discoordination. Objective Labs 05/22/24 13:43 05/24/24 08:14 Labs: Laboratory Results - last 24 hr 05/23/24 05/23/24 05/24/24 08:26 13:32 00:40 Sodium 132 L Potassium 4.1 Chloride 102 Carbon Dioxide 25 BUN 26 H Creatinine 1.48 H Estimated GFR 39 L BUN/Creatinine Ratio 17.6 Glucose 94 Calcium 8.3 L Magnesium 2.0 Total Bilirubin 0.2 AST 28 ALT 16 Alkaline Phosphatase 86 Total Creatine Kinase 49 Troponin I < 0.012 < 0.012 Total Protein 6.4 Albumin 3.7 Globulin 2.7 Albumin/Globulin Ratio 1.4 [facility] Medical History COPD (chronic obstructive pulmonary disease) (~2018) Allergies Scoliosis Chronic back pain Cervical spine disease Carpal tunnel syndrome Mumps Chicken pox Ruptured tympanic membrane Glaucoma Liver disease (~2018) Hepatitis C (~2018) Hemorrhoid GERD (gastroesophageal reflux disease) Cirrhosis MVP (mitral valve prolapse) Surgical History Anesthesia S/P insertion of spinal cord stimulator (~2016) History of hernia repair (~2012) History of appendectomy History of elbow surgery History of carpal tunnel release History of cholecystectomy History of ear surgery History of total hysterectomy History of partial hysterectomy Social History household members: none Smoking Status: Former smoker alcohol intake: former Assessment & Plan Assessment & Plan narrative: Vertigo/dizziness. Most likely due to dehydration vs benign positional vertigo. Continue with meclizine as needed. Brain MRI done on 05/24 without any CVA seen. Fall precaution. Chest pain on 05/23 did not respond to nitroglycerin but did resolve with Maalox. EKG and troponin normal. MRI abnormality -follow-up with PCP and potentially neurology -In the right frontal deep white matter adjacent to the right frontal horn, there is a asymmetric focus of FLAIR signal measuring 2.1 cm. This could represent sequelae of nonspecific parenchymal injury versus an underlying lesion Acute kidney injury on CKD stage III. Presented with creatinine 1.72, baseline between 1?1.2. Most likely pre-renal. -continue with IV fluid hydration. -hold spironolactone and hydrochlorothiazide for now. -monitor UOP. -daily BMP -Avoid any nephrotoxic agents, including NSAIDs -Dose all medications according pt's current eGFR Hypomagnesemia. Supplement and follow. Hypertension. Restart metoprolol and hold diuretics. Hydralazine as needed. GERD. Restart esomeprazole. COPD. Stable. DuoNeb and albuterol as needed. Monitor oxygenation. Hypothyroidism. Restart levothyroxine. Check TSH. Chronic diarrhea. Loperamide as needed. Disposition home on 05/24. Time-Based Coding :: [TOTAL MINUTES] spent with patient and on the chart (including review of chart, obtaining history, exam, reviewing outside data, placing orders, documenting exam and treatment plan, and counseling patient) on [DATE]. Quality VTE Deep Vein Thrombosis/Pulmonary Embolism Present on Admission: No
[2024-05-24] MEDS: BUDESONIDE 0.5 MG/2 ML NEB INH (08:21)
[2024-05-24] MEDS: METOPROLOL ER 50 MG TABLET PO (08:33)
[2024-05-24] MEDS: DULOXETINE 20 MG CAPSULE 40 MG PO (08:34)
[2024-05-24] MEDS: OXYCODONE IR 5 MG TABLET PO (08:34)
--- NOTE | 2024-05-24 08:36 | DI.MRI.S_ITS ---
PROCEDURE: MR HEAD/BRAIN WO CON INDICATIONS: Vertigo TECHNIQUE: Noncontrast axial T1 spin echo, axial T2 fast spin echo, sagittal and axial FLAIR, coronal T2 fast spin echo, axial gradient echo, axial diffusion and ADC through the brain. COMPARISON: [facility], CT, CT ANGIO HEAD AND NECK, 05/22/2024, 17:28. FINDINGS: Image quality: Motion degraded CSF spaces: Basal cisterns are patent. Lateral ventricles are symmetric. Volume: Volume loss. Periventricular white matter signal abnormality most commonly seen with small vessel disease. These findings are moderate Brain: In the right frontal deep white matter, there is an asymmetric area of FLAIR signal intensity measuring 2.1 cm. There is no restriction on ADC maps. No acute hemorrhage. Craniofacial structures: No significant paranasal sinus opacity. IMPRESSION: There is no definite acute infarct or hematoma. In the right frontal deep white matter adjacent to the right frontal horn, there is a asymmetric focus of FLAIR signal measuring 2.1 cm. This could represent sequelae of nonspecific parenchymal injury versus an underlying lesion Dictated by: Michel Ty M.D. on 05/24/2024 at 10:40 Approved by: Michel Ty M.D. on 05/24/2024 at 10:44
[2024-05-24 08:39] LABS: BUN Creatinine Ratio 14.3 (6-22); Blood Urea Nitrogen 16 mg/dL (7-17); Calcium 8.1 mg/dL (8.4-10.2); Carbon Dioxide 25 mmol/L (22-32); Chloride 107 mmol/L (98-107); Estimated Glomerular Filt Rate 55 mL/min (>60); Glucose 80 mg/dL (80-110); HEMOLYSIS < 15 (0-50); Potassium 4.5 mmol/L (3.4-5.1); Sodium 134 mmol/L (137-145)
[2024-05-24] MEDS: LORazepam 1 MG TABLET PO (08:45)
--- NOTE | 2024-05-24 08:55 | DI.RAD.S_ITS ---
PROCEDURE: XR KUB INDICATIONS: Spinal Cord Stimulator lead assessment TECHNIQUE: One view of the abdomen acquired. COMPARISON: None. FINDINGS: Surgical changes and devices: None. Bowel: Bowel gas pattern is nonspecific and nonobstructive stool burden is moderate.. Soft tissues: No suspicious abdominal calcifications. Visualized solid organ contours appear normal in size. Bones: No suspicious bony lesions. IMPRESSION: No acute abnormality. Dictated by: Rachael Farnsworth M.D. on 05/24/2024 at 8:51 Approved by: Rachael Farnsworth M.D. on 05/24/2024 at 8:53
--- NOTE | 2024-05-24 11:30 | PT.IPTN ---
Physical Therapy Treatment Note M2 PT-IP Current Condition Start: 05/23/24 13:04 Freq: NEEDED Status: Active Protocol: Document 05/23/24 11:35 AB (Rec: 05/23/24 13:27 AB [id number]) Physical Therapy Current Condition Current Condition Evaluation Date 05/23/24 Treatment Diagnosis dizziness; difficulty in walking Onset Date 05/22/24 M3 PT-IP Subjective Start: 05/23/24 13:04 Freq: NEEDED Status: Active Protocol: Document 05/24/24 11:30 AB (Rec: 05/24/24 13:13 AB [id number]) Subjective Physical Therapy Visit Type Type Treatment Note Visit Start Time 11:30 Visit Stop Time 11:45 Number of FORM CARPENTER Visits 0 Physical Therapy Visit Comments Patient Comments agreeable to do PT M4 PT-IP Mobility and Gait Start: 05/23/24 13:04 Freq: NEEDED Status: Active Protocol: Document 05/24/24 11:30 AB (Rec: 05/24/24 13:13 AB [id number]) PT-Bed Mobility Assessment Supine to Sit Supine to Sit Standby Assistance PT-Transfer Assessment Sit to and From Stand Sit to and from Stand Minimal Assistance,1 Person Assistance,Use of Upper Extremities Equipment Transfer Assistive Device Gait Belt,Front Wheeled Walker Orthotic/Prosthetic Devices or Brace: No Transfers Transfer Destination Toilet Transfer Technique ambulated Transfer Ability Level of Assist Minimal Assistance,1 Person Assistance,Use of Upper Extremities Comments Mobility Comments pt supine in bed and agreeable to do PT. pt stated that she still has dizziness. pt seems somnolent today and with slower ability to follow directions. pt completed supine to sit SBA. pt completed sit to stand min A and cues with (+) posterior LOB needing min A for stability. pt requested to use the toilet. pt ambulate towards the toilet using FWW min A and cues. needs assist to maneuver FWW. pt sat on the toilet min A for controlled descent and brief management. informed nurse regarding pt's drowsiness and current level of assistance. pt wanting to use the toilet for a while. nurse came in to check on pt and left pt with nurse. Gait Assessment Gait Gait Assistance Required: Minimum Assistance Distance (Feet) 25 Able to Maintain Weight Bearing Status Yes During Gait Assistive Devices Assistive Device Gait Belt,Front Wheeled Walker Orthotic/Prosthetic Devices or Brace: No Gait Deviations General Gait Pattern Antalgic,Decreased Stride Length,Decreased Feet Clearance,Step-to Gait Factors Limiting Gait Function Factors Limiting Gait Function Decreased Activity Tolerance, Decreased Strength,Difficulty Following Directions,Poor Balance,Poor Safety Awareness M5 PT-IP Objective Assessments Start: 05/23/24 13:04 Freq: NEEDED Status: Active Protocol: Document 05/23/24 11:35 AB (Rec: 05/23/24 13:27 AB [id number]) Orientation Orientation/Cognition Level of Alertness Alert Orientation Name,Age,Birthday,Month,Date, Year,Day of Week,Place, Situation Language Function Ability No Deficits Noted Safety Awareness Understands Safety Issues Memory Description No Deficits Noted Gross Range of Motion Lower Extremity ROM Assessment Within Functional Limits Strength Lower Extremity Strength Assessment Within Functional Limits Coordination Assessment Gross Coordination Gross Coordination WNL Muscle Tone Muscle Tone WNL Yes M6 PT-IP Treatment Start: 05/23/24 13:04 Freq: NEEDED Status: Active Protocol: Document 05/24/24 11:30 AB (Rec: 05/24/24 13:14 AB [id number]) Physical Therapy Treatment Education Education Provided Safety M7 PT-IP Assessment and Plan Start: 05/23/24 13:04 Freq: NEEDED Status: Active Protocol: Document 05/24/24 11:30 AB (Rec: 05/24/24 13:13 AB [id number]) PT Summary Assessment and Plan Potential Rehabilitation Potential Fair Summary Impairments Pain,ROM,Strength,Balance, Coordination,Sensation,Tone, Cognition,Bed Mobility, Transfers,Gait,Activity Tolerance Progress Towards Goals Slow Progress due to Medical Issues,Slow Progress due to Activity Tolerance Assessment Summary pt is seemingly somnolent today and needing more assistance with mobility using FWW. pt will require 24/7 assist and may require SNF rehab. will continue to assess progress. Goals Bed Mobility Goal Independent Transfer Goal Independent,Front Wheeled Walker Gait Goal Independent,Front Wheel Walker Gait Distance 200 Other Goals improve transfers, ambulation without AD/SPC mod I 300 ft Days to Meet Goals 5 Frequency of Treatment Frequency Of Treatment Once a Day Treatment Plan Physical Therapy Treatment Plan Bed Mobility Training,Transfer Training,Gait Training, Therapeutic Exercise,Balance Retraining,Discharge Planning, Hot or Cold Pack,Neuromuscular Re-ed,Coordination Retraining ,Manual Therapy Recommendations To Nursing Amount of Assist Needed 1 Person Assist Discharge Recommendations PT Discharge Recommendations Home with Assistance, Outpatient PT Equipment Needed for Home Before FWW Discharge Transportation Needs at Discharge Private Vehicle
--- NOTE | 2024-05-24 18:38 | PC.NURSE ---
Day shift: pt was lethargic and unsteady this afternoon and c/o dizziness, even after taking meclizine. Pt wants to stay another night because she does not feel well enough to go home today. Notified Dr. Hernandez.
[2024-05-24] MEDS: MELATONIN 3 MG TABLET 9 MG PO (19:59)
[2024-05-25] VITALS: BP 103/69; PULSE 74; RESP 18; TEMP 36.1; O2SAT 95
[2024-05-25 04:00] VITALS: BP 118/70; PULSE 77; RESP 22; TEMP 36.6; O2SAT 96
[2024-05-25] MEDS: diphenhydrAMINE 25 MG TABLET 50 MG PO (04:20)
[2024-05-25] MEDS: ONDANSETRON 4 MG ODT PO (04:25)
[2024-05-25] MEDS: OXYCODONE IR 5 MG TABLET PO (04:25)
[2024-05-25] MEDS: LEVOTHYROXINE 50 MCG TABLET PO (06:00)
[2024-05-25] MEDS: PANTOPRAZOLE DR 40 MG TABLET PO (06:00)
--- NOTE | 2024-05-25 07:50 | PM.DS.1 ---
History of Present Illness History of Present Illness Date Patient Seen: 05/25/24 Chief complaint: vertigo, unable to drive Narrative: 63 years old female with history of COPD, GERD, hep C, cirrhosis, chronic back pain, hypothyroidism, GERD presented to the ER with vertigo. She was in the ER yesterday and after evaluation was sent home on meclizine and Zofran which helped her. Today the vertigo came back more severe and she came back to the ER. She also reports some severe headache on the right side without any neurodeficit. She also denies any fever, cough, shortness of breath, chest pain, palpitation, nausea, abdominal pain, diarrhea or dysuria. Compliant with her home medications. Denies any smoking, alcohol abuse or drug abuse. In the ER laboratory shows WBC 8.3, hemoglobin 12.5, sodium 132, troponin x 2 negative, BNP 251, mild increase of creatinine of 1.72 from 1.2 and magnesium of 1.3. Chest x-ray unremarkable. CTA head and neck was unremarkable. EKG unremarkable. In the ER she was given Tylenol, albuterol, aspirin 324 mg p.o., Toradol 15 mg IV, meclizine 25 mg p.o., Zofran, and fluid bolus. Discharge Providers Provider Date of admission: 05/22/24 21:27 Discharge Date: 05/25/24 Primary care physician: Karoline Cabrera MD Consults: 05/22/24 21:32 Consult to Physical Therapy Evaluate & Treat Comment: Physician Instructions: Evaluate and Treat Discharge provider: Rashawn Hernandez MD Summary Hospital Course Discharge Diagnosis: Vertigo/dizziness. Due to dehydration and benign positional vertigo. Continue with meclizine as needed. Brain MRI done on 05/24 without any CVA seen. Chest pain on 05/23 did not respond to nitroglycerin but did resolve with Maalox. EKG and troponin normal. Right Frontal Brain MRI abnormality -follow-up with PCP and potentially neurology -In the right frontal deep white matter adjacent to the right frontal horn, there is a asymmetric focus of FLAIR signal measuring 2.1 cm. This could represent sequelae of nonspecific parenchymal injury versus an underlying lesion Acute kidney injury on CKD stage III. Presented with creatinine 1.72, baseline between 1?1.2. Most likely pre-renal. -IV fluid hydration. -held spironolactone and hydrochlorothiazide until discharge Hypomagnesemia. Supplement Hypertension. Gave metoprolol and held diuretics. Hydralazine as needed. GERD. Esomeprazole. COPD. Stable. DuoNeb and albuterol as needed. Hypothyroidism. Restart levothyroxine. Check TSH. Chronic diarrhea. Loperamide as needed. Hospital Course: She came in with acute vertigo that was attributed to dehydration related to diuretic therapy and to a history of BPV. Brain MRI showed no evidence of a brainstem stroke. With IV hydration her renal failure markers improved. The brain MRI did show a right sided deep white matter brain lesion measuring 2.1 cm that will need close follow-up with PCP and potentially Neurology. This was discussed with her and her daughter. She was discharged home on meclizine, which has been helpful, with plans for outpatient PT vestibular therapy. Status at Discharge Cognitive/behavioral status at discharge: at baseline, oriented Functional status at discharge: independent ambulation Overall status at discharge: patient is progressing back to baseline Exam Vital Signs (past 8 hours): - 05/25/24 00:00 05/25/24 04:00 Temperature 97 F L 97.8 F Pulse Rate 74 77 Respiratory Rate 18 22 Blood Pressure 103/69 118/70 Pulse Oximetry 95 96 Oxygen Flow Rate 0 0 Oxygen Delivery Method Room Air Oxygen Flow Rate 0 Narrative Exam Narrative: She is alert and oriented x3. No apparent distress. She says that when she moves fast she still has some spinning and when she moves slow she feels shaky. Heart is regular rate and rhythm without murmur Lungs are clear to auscultation bilaterally Extremities have no ankle edema Objective Labs 05/22/24 13:43 05/24/24 08:14 Labs: Laboratory Results - last 24 hr 05/24/24 08:14 Sodium 134 L Potassium 4.5 Chloride 107 Carbon Dioxide 25 BUN 16 Creatinine 1.12 H Estimated GFR 55 L BUN/Creatinine Ratio 14.3 Glucose 80 Calcium 8.1 L [facility] Medical History COPD (chronic obstructive pulmonary disease) (~2017) Allergies Scoliosis Chronic back pain Cervical spine disease Carpal tunnel syndrome Mumps Chicken pox Ruptured tympanic membrane Glaucoma Liver disease (~2018) Hepatitis C (~2018) Hemorrhoid GERD (gastroesophageal reflux disease) Cirrhosis MVP (mitral valve prolapse) Surgical History Anesthesia S/P insertion of spinal cord stimulator (~2016) History of hernia repair (~2012) History of appendectomy History of elbow surgery History of carpal tunnel release History of cholecystectomy History of ear surgery History of total hysterectomy History of partial hysterectomy Social History household members: none Smoking Status: Former smoker alcohol intake: former Discharge Plan Discharge Plan Patient Disposition: Home Discharge Location: Outpatient Therapy Provider Discharge Comment: Follow up with Dr. Deborah gimenez. Referred to [facility] outpatient PT for vestibular therapy. Discharge orders & Medications Prescriptions: New meclizine 12.5 mg Tablet 25 mg PO TID PRN (Reason: dizziness) Qty: 30 0RF Continued spironolactone 50 mg tablet 50 mg PO DAILY loperamide 2 mg capsule 2 mg PO Q6H PRN (Reason: STOOL) (DME) Disabled Parking See Rx Instructions .ROUTE .MEDSUPPLY Qty: 1 0RF Rx Instructions: I find this patient to be medical disabled and qualified for Disabled Parking as indicated, and signed, on the and the Accompanying Disabled Parking Application for Individuals. esomeprazole magnesium [Nexium] 20 mg capsule,delayed release(DR/EC) 20 mg PO DAILY Qty: 90 0RF Depo-Estradiol 5 mg/mL oil 2 mg IM Q4W Qty: 10 3RF ondansetron 4 mg tablet,disintegrating 4 mg PO Q8H PRN (Reason: nausea and vomiting) Qty: 14 0RF meclizine 25 mg tablet 25 mg PO TID PRN (Reason: dizziness) Qty: 20 0RF ipratropium-albuterol 0.5 mg-3 mg(2.5 mg base)/3 mL solution for nebulization 3 ml inhalation Q6H PRN (Reason: shortness of breath or wheezing) Qty: 90 11RF fluticasone propionate 110 mcg/actuation HFA aerosol inhaler 2 puff inhalation BID Qty: 12 11RF metoprolol succinate 50 mg tablet extended release 24 hr 50 mg PO DAILY hydrochlorothiazide 25 mg tablet 25 mg PO DAILY levothyroxine 50 mcg tablet 50 mcg PO DAILY duloxetine 20 mg capsule,delayed release(DR/EC) 40 mg PO DAILY Follow up/Referrals: Karoline Cabrera MD [Primary Care Provider] - Diet/Activity/Treatments Diet: Regular Visit Report/Discharge Packet Stand Alone Forms: Patient Portal/API, Stroke Signs & Symptoms Discharge Data Primary Care Provider: Karoline Cabrera Attending Provider: Aric Ness Admit Date/Time: 05/22/24 21:27 Quality VTE Deep Vein Thrombosis/Pulmonary Embolism Present on Admission: No
[2024-05-25 07:55] VITALS: BP 114/67; PULSE 76; RESP 19; TEMP 36; O2SAT 96
[2024-05-25] MEDS: BUDESONIDE 0.5 MG/2 ML NEB INH (08:17)
[2024-05-25 09:09] VITALS: BP 114/67; PULSE 76
[2024-05-25] MEDS: METOPROLOL ER 50 MG TABLET PO (09:09)
[2024-05-25] MEDS: DULOXETINE 20 MG CAPSULE 40 MG PO (09:09)
--- NOTE | 2024-05-25 10:34 | PT-IP ANOTE ---
This PT is a vestibular specialist PT and checks on pt this a.m. to see if she is agreeable to further dizziness assessment and treatment including Britt-Hallpike and Modified Jany. Pt declines, stating she is going to drive today. Pt is familiar to this PT and pt has had vertigo in the past. Pt states she has pulmonary rehab 3x/week and PT ed pt that she cannot likely get on treadmill with vertiginous symptoms. Ed pt in the benefits of OPPT for dizziness assessment and treatment and PT also spoke with attending.
--- NOTE | 2024-05-25 10:39 | PT-IP ANOTE ---
This PT is a vestibular specialist PT and checks on pt this a.m. to see if she is agreeable to further dizziness assessment and treatment including [place]-Hallpike and Modified Jany. Pt declines, stating she is going to drive today. Pt is familiar to this PT from outpatient PT in the past. Pt states she has pulmonary rehab 3x/week and PT ed pt that she cannot likely get on treadmill with vertiginous symptoms. Ed pt in the benefits of OPPT for dizziness assessment and treatment and PT also spoke with attending.
[2024-05-25] MEDS: MECLIZINE HCL 12.5 MG TABLET 25 MG PO (12:05)
--- NOTE | 2024-05-25 12:27 | PC.NURSE ---
D/c instructions reviewed with pt. Discussed f/u instructions, and the importance of no driving while experiencing dizziness. Pt's neighbor is picking her up. IV removed, and pt dressed independently without difficulty. Pt exited via w/c with assistance of ECONOMIC RESEARCH ASSISTANT to private vehicle.
== END 2024-05-25 12:28 | disposition home or self-care (01) ==
LOC: ED 21:27 → AC 21:27
PROVIDERS: Emergency Medicine; Family Medicine; Internal Medicine; Admitting Provider Internal Medicine; Emergency Provider Emergency Medicine; Family Provider Student in an Organized Health Care Education/Training Program; PCP Student in an Organized Health Care Education/Training Program; Referring Provider Emergency Medicine; Visit Provider Internal Medicine
DX: H81.10 Benign paroxysmal vertigo, unspecified ear (principal); R51.9 Headache, unspecified; N17.9 Acute kidney failure, unspecified; I12.9 Hypertensive chronic kidney disease with stage 1 through stage 4 chronic kidney disease, or unspecified chronic kidney disease; N18.30 Chronic kidney disease, stage 3 unspecified; E83.42 Hypomagnesemia; K21.9 Gastro-esophageal reflux disease without esophagitis; J44.9 Chronic obstructive pulmonary disease, unspecified; E03.9 Hypothyroidism, unspecified; K52.9 Noninfective gastroenteritis and colitis, unspecified; L30.9 Dermatitis, unspecified; R07.9 Chest pain, unspecified; R53.1 Weakness; R90.89 Other abnormal findings on diagnostic imaging of central nervous system; E86.0 Dehydration; Z87.891 Personal history of nicotine dependence
CPT/HCPCS: 36415; 70496; 70498; 70551; 71045; 74018; 80048; 80053; 82550; 82962; 83690; 83735; 83880; 84484; 85025; 85610; 85730; 93005; 93010; 94640; 96361; 96365; 96367; 96375; 96376; 97162; 97530; 99285; G0378; J0131; J1885; J2270; J2405; J3475; J7613; Q9967

== ENCOUNTER 2024-06-02 14:06 | Emergency (ER) | payer MEDICARE, MEDICAID, SELFPAY ==
[2024-05-22 22:11] VITALS: BMI 22.8
[2024-06-02] VITALS (23 sets, daily range): BP systolic 104–143; BP diastolic 60–98; PULSE 55–154; RESP 8–24; TEMP 36.6; O2SAT 91–98; BMI 25.7
--- NOTE | 2024-06-02 14:27 | DI.CT.S_ITS ---
PROCEDURE: CT STROKE INDICATIONS: Positive BE-FAST, Stroke symptoms TECHNIQUE: Noncontrast 4.5 mm thick angled axial sections acquired from the foramen magnum to the vertex, with coronal reformats. For radiation dose reduction, the following was used: automated exposure control, adjustment of mA and/or kV according to patient size. COMPARISON: None. FINDINGS: Image quality: Diagnostic. CSF spaces: Basal cisterns are patent. No extra-axial fluid collections. The ventricles are symmetric in size and shape. Brain: No intracranial bleeds or masses. There is cerebral volume loss for age, with resultant ventricular and sulcal prominence. There are periventricular and deep white matter chronic small vessel ischemic changes. There is intracranial internal carotid artery atherosclerosis. Skull and face: Calvarium and visualized facial bones appear intact, without suspicious lesions. Sinuses: Visualized sinuses and mastoids are clear. IMPRESSION: No acute intracranial pathology. Comment: Findings were discussed with Dr. Velasquez on 06/02/2024 at 1446 hours This study fulfills neurological imaging criteria for inclusion or exclusion of acute stroke therapies based on available published neurological guidelines. Dictated by: Zachary Beltran M.D. on 06/02/2024 at 14:45 Approved by: Zachary Beltran M.D. on 06/02/2024 at 14:48
--- NOTE | 2024-06-02 14:27 | DI.RAD.S_ITS ---
PROCEDURE: XR CHEST 1V INDICATIONS: Possible stroke TECHNIQUE: One view of the chest was acquired. COMPARISON: [facility], CR, XR CHEST 1V, 05/22/2024, 13:44. [facility], CR, XR CHEST 1V, 12/04/2023, 11:41. FINDINGS: Surgical changes and devices: None. Lungs and pleura: No dense airspace disease or pleural effusion. Mediastinum: Normal heart size, unchanged Bones and chest wall: Unremarkable IMPRESSION: No acute radiographic abnormality on this single view study. Dictated by: Michel Ty M.D. on 06/02/2024 at 16:35 Approved by: Michel Ty M.D. on 06/02/2024 at 16:36
--- NOTE | 2024-06-02 14:30 | DI.CT.S_ITS ---
PROCEDURE: CT ANGIO HEAD AND NECK INDICATIONS: code stroke TECHNIQUE: After the administration of intravenous contrast, 1 mm thick sections acquired from the aortic arch through the [place] of [place]. 3-dimensional trgwthw-zjbmyzqjm-nvuwnjcxje (MIP) and/or volume rendering reformats were acquired of the central intracranial vasculature and neck separately. For radiation dose reduction, the following was used: automated exposure control, adjustment of mA and/or kV according to patient size. COMPARISON: [facility], CT, THORAX^C4_CHEST_CT_WITHOUT_NODULE_LUNG_CA_SCREENING (ADULT), 04/11/2024, 13:58. [facility], CT, CT ANGIO HEAD AND NECK, 05/22/2024, 17:28. FINDINGS: Image quality: Diagnostic. BRAIN: CSF spaces: Ventricles are normal in size and shape. Basal cisterns are patent. No extra-axial fluid collections. Brain: No significant abnormality of the brain can be seen. Skull and face: Calvarium and facial bones appear intact, without suspicious lesions. Orbits appear normal. Sinuses: Sinuses and mastoids are clear. HEAD CT ANGIOGRAPHY: Anterior circulation: Intracranial internal carotid arteries are normal in size and flow. The flow within the paired anterior cerebral arteries is normal and symmetric. The flow within the middle cerebral arteries is normal and symmetric. The anterior communicating artery is seen. No aneurysms are seen. Posterior circulation: Visualized portions of the vertebral arteries demonstrate normal caliber, and join to form a normal appearing basilar artery. Flow within the posterior cerebral arteries is normal and symmetric. No aneurysms are seen. NECK CT ANGIOGRAPHY: Carotid system: The great vessels demonstrate a conventional anatomy as they arise from the aortic arch. The origins of the common carotid arteries appear patent. The common carotid arteries demonstrate normal caliber and courses. The bifurcation regions are both widely patent. The internal carotid arteries demonstrate normal calibers and courses. Posterior circulation: The origins of the vertebral arteries both appear widely patent. The more superior extracranial portions of both vertebral arteries also demonstrate normal courses and calibers. They join to form a normal appearing basilar artery. Soft tissues: Visualized neck soft tissues demonstrate no suspicious abnormalities. There is mlwd-sp-jbwcpeln centrilobular emphysema. There is a 7 mm spiculated nodule in the right upper lobe on image 328 of series 4. If this was not previously present 7 weeks ago, and is most likely a area of minimal nodular consolidation. Bones: No suspicious bony lesions. Visualized cervical spine appears normally aligned. IMPRESSION: 1. No significant intracranial arterial abnormality is seen. 2. No significant abnormality is seen within the arteries of the neck. 3. Qril-hl-hppulxhh centrilobular emphysema. 4. Development of a 7 mm spiculated density in the right upper lobe. This was not present 7 weeks ago. It is most likely inflammatory or infectious in nature and not malignant in nature. Comment: Recommend 3 month follow-up CT chest to document resolution of this new spiculated density in the right upper lobe. Any quantitative measurements of stenosis were performed using NASCET criteria. Dictated by: Zachary Beltran M.D. on 06/02/2024 at 15:54 Approved by: Zachary Beltran M.D. on 06/02/2024 at 16:02
[2024-06-02 15:22] LABS: Add Manual Diff / Slide Review NO; Basophils Absolute Auto 100 /uL (0-100); Eosinophils Absolute Auto 100 /uL (0-450); Eosinophils Percent Auto 1.8 % (2-4); Hematocrit 36.1 % (36-46); Lymphocytes Absolute Auto 1300 /uL (1100-4500); Lymphocytes Percent Auto 15.8 % (25-40); Mean Corpuscular HGB Conc 33.3 % (30-36); Mean Corpuscular Hemoglobin 29.4 PG (26-34); Mean Corpuscular Volume 88.5 fL (80-100); Monocytes Absolute Auto 900 /uL (0-900); Monocytes Percent Auto 11.5 % (3-14); Neutrophils Absolute Auto 5700 /uL (1500-7000); Neutrophils Percent Auto 69.9 % (50-75); Platelet Count 327 X10^3/uL (150-400); Red Blood Cell Count 4.08 X10^6/uL (4.0-5.2); Red Cell Distribution Width 13.9 % (11.6-14.8); White Blood Cell Count 8.1 X10^3/uL (4.5-11.0)
[2024-06-02 15:29] LABS: INR 1.1 (0.9-1.3); Prothrombin Time 11.9 SECONDS (9.4-12.5)
[2024-06-02 15:32] LABS: Alanine Aminotransferase 18 IU/L (<35); Albumin 4.7 g/dL (3.5-5.0); Albumin Globulin Ratio 1.4 (1.0-2.8); Alkaline Phosphatase 93 U/L (38-126); Aspartate Aminotransferase 35 IU/L (14-36); BUN Creatinine Ratio 19.5 (6-22); Bilirubin Total 0.4 mg/dL (0.2-1.3); Blood Urea Nitrogen 29 mg/dL (7-17); Calcium 9.4 mg/dL (8.4-10.2); Carbon Dioxide 28 mmol/L (22-32); Chloride 99 mmol/L (98-107); Creatine Kinase 42 U/L (30-135); Estimated Glomerular Filt Rate 39 mL/min (>60); Globulin 3.4 g/dL (1.7-4.1); Glucose 106 mg/dL (80-110); HEMOLYSIS < 15 (0-50); Magnesium 1.4 mg/dL (1.6-2.3); PTT Partial Thromboplastin Tim 35 SECONDS (25.1-36.5); Potassium 4.3 mmol/L (3.4-5.1); Sodium 134 mmol/L (137-145); Total Protein 8.1 g/dL (6.3-8.2)
[2024-06-02 15:44] LABS: Troponin I < 0.012 ng/mL (0.01-0.034)
--- NOTE | 2024-06-02 16:17 | EKG_ITS ---
[address] [address] Test Date: 2024-06-02 Pat Name: Xi Dejesus Department: [facility] Room: Gender: Female Trick Rodeo Rider: GONZALO : 1960 Requested By: Order Number: [id number] Reading MD: Juan Terry Measurements Intervals [place] Rate: 70 P: 73 FL: 176 QRS: -9 QRSD: 70 T: 58 QT: 410 QTc: 442 Interpretive Statements Normal sinus rhythm Electronically Signed On 06-02-2024 18:22:11 PST by Juan Terry
[2024-06-02] MEDS: ONDANSETRON 4 MG/2 ML INJ IV ×2 (16:54→19:16)
[2024-06-02 17:04] LABS: Ur Creatinine Normal (Normal); Ur Specific Gravity Normal (Normal); Urine Amphetamines Negative (Negative); Urine Barbiturates Negative (Negative); Urine Benzodiazepines Negative (Negative); Urine Cocaine Negative (Negative); Urine MDMA Negative (Negative); Urine Methadone Negative (Negative); Urine Methamphetamines Negative (Negative); Urine Opiates Negative (Negative); Urine Oxycodone Negative (Negative); Urine Phencyclidine Negative (Negative); Urine THC Positive (Negative); Urine Tricyclic Antidepressant Negative (Negative); Urine pH Normal (Normal)
[2024-06-02] MEDS: KETOROLAC 30 MG/ML VIAL 15 MG IV (18:14)
--- NOTE | 2024-06-02 18:35 | ED_ITS ---
HPI - Neuro Symptoms/Deficit General Chief Complaint: Neuro Symptoms/Deficit Stated Complaint: poss stroke, provider advised to check in ER Time Seen by Provider: 06/02/24 18:01 Source: patient Mode of arrival: Ambulatory History of Present Illness HPI Narrative: 63-year-old female with history of recent diagnosis right-sided brain mass found on MRI, complains of ongoing dizziness and right-sided headache. Seen here 05/21/2024 for dizziness symptoms, seemed responsive to meclizine and Leah- Hallpike maneuvers. Presented again in the next day 05/22/2024 with headache and dizziness, CT angiogram head and neck vessels unremarkable, creatinine was found to be elevated, dehydration and NED suspected, admitted for hydration, during admission had brain MRI showing right-sided brain mass, awaiting neurology follow up. She has right-sided headache that is ongoing, still has dizziness that is unchanged. She is able to ambulate. Denies visual complaints. She denies falls, injuries. She denies weakness to face arm or leg. On Anticoagulants: No Related Data Home Medications Medication Instructions Recorded Confirmed loperamide 2 mg capsule 2 mg PO Q6H PRN STOOL 09/10/23 05/26/24 spironolactone 50 mg tablet 50 mg PO DAILY 09/10/23 05/26/24 duloxetine 20 mg capsule,delayed 40 mg PO DAILY 04/18/24 05/26/24 release hydrochlorothiazide 25 mg tablet 25 mg PO DAILY 04/18/24 05/26/24 levothyroxine 50 mcg tablet 50 mcg PO DAILY 04/18/24 05/26/24 metoprolol succinate 50 mg 50 mg PO DAILY 04/18/24 05/26/24 tablet,extended release 24 hr Previous Rx's Medication Instructions Recorded Disabled Parking #1 ea 03/06/23 esomeprazole magnesium 20 mg 20 mg PO DAILY #90 caps 03/06/23 capsule,delayed release (Nexium) estradiol cypionate 5 mg/mL 2 mg (0.4 mL) IM Q4W #10 mL 03/07/23 intramuscular oil (Depo-Estradiol) fluticasone propionate 110 2 puff inhalation BID #12 grams 12/12/23 mcg/actuation HFA aerosol inhaler ipratropium 0.5 mg-albuterol 3 mg 3 ml inhalation Q6H PRN shortness 12/12/23 (2.5 mg base)/3 mL nebulization of breath or wheezing #90 mL soln meclizine 25 mg tablet 25 mg PO TID PRN dizziness #20 tabs 05/21/24 ondansetron 4 mg disintegrating 4 mg PO Q8H PRN nausea and 05/21/24 tablet vomiting #14 tabs meclizine 12.5 mg tablet 25 mg (2 x 12.5 mg) PO TID PRN 05/25/24 dizziness #30 tabs hydrocodone 5 mg-acetaminophen 325 1 tab PO Q6H PRN pain #14 tabs 06/02/24 mg tablet Allergies Allergy/AdvReac Type Severity Reaction Status Date / Time codeine Allergy Severe Anaphylaxis Verified 05/26/24 08:54 penicillin G Allergy Severe Anaphylaxis Verified 05/26/24 08:54 levofloxacin [From Levaquin] AdvReac Severe tinnitus Verified 05/26/24 08:54 vaccine adjuvant system, AdvReac Severe blisters Verified 05/26/24 08:54 AS01B liposomal [From Shingrix (PF)] varicella-zoster virus AdvReac Severe blisters Verified 05/26/24 08:54 glycoprotein E, recombinant [From Shingrix (PF)] latex AdvReac Intermediate Redness of Verified 05/26/24 08:54 Skin Review of Systems Hematologic/Lymphatic On Anticoagulants: No Patient History Medical History COPD (chronic obstructive pulmonary disease) (~2018) Allergies Scoliosis Chronic back pain Cervical spine disease Carpal tunnel syndrome Mumps Chicken pox Ruptured tympanic membrane Glaucoma Liver disease (~2018) Hepatitis C (~2018) Hemorrhoid GERD (gastroesophageal reflux disease) Cirrhosis MVP (mitral valve prolapse) Surgical History Anesthesia S/P insertion of spinal cord stimulator (~2016) History of hernia repair (~2012) History of appendectomy History of elbow surgery History of carpal tunnel release History of cholecystectomy History of ear surgery History of total hysterectomy History of partial hysterectomy Social History household members: none Smoking Status: Former smoker alcohol intake: former Smoking Status: Former smoker alcohol intake frequency: holidays/special occasions only Exam Narrative Exam Narrative: GENERAL: Well-developed patient, in mild distress. HEAD: Atraumatic. Normocephalic. EYES: Pupils equal round and reactive. Extraocular motions intact. No scleral icterus. No injection or drainage. ENT: Nose without bleeding, purulent drainage. Throat without erythema, tonsillar hypertrophy or exudate. Airway patent. NECK: Trachea midline. Non tender CARDIOVASCULAR: Regular rate and rhythm without murmurs, gallops, or rubs. RESPIRATORY: Clear to auscultation. Breath sounds equal bilaterally. No wheezes, rales, or rhonchi. GASTROINTESTINAL: Abdomen soft, non-tender, nondistended. EXTREMITIES: No edema or joint tenderness. BACK: Nontender without deformity or crepitance. No flank tenderness. NEURO: AOx3. Motor functions 5/5 bilateral upper extremities and lower extremities. Cranial nerves intact. Intact sensation to light touch face arms legs. Jaxapi-ln-eqel testing unremarkable. Vertigo symptoms with lateral right and left head movements, I could not appreciate any nystagmus. SKIN: No rash or erythema of visible areas Initial Vital Signs Initial Vital Signs: Vital Signs Temperature 98 F 06/02/24 14:20 Pulse Rate 80 06/02/24 14:20 Respiratory Rate 18 06/02/24 14:20 Blood Pressure 130/75 06/02/24 14:20 Pulse Oximetry 98 06/02/24 14:20 Oxygen Delivery Method Room Air 06/02/24 14:20 Course Orders Ordered: Discontinued Medications Hydrocodone Bitart/Acetaminophen (Hydrocodone/Acet 5/325 Prepack) 1 bottle MISC DIRECTED ONE Stop: 06/02/24 22:25 Last Admin: 06/02/24 22:29 Dose: 1 bottle Documented By: AWILDA Hydromorphone HCl (Hydromorphone 0.5 Mg Inj) 0.5 mg IV NOW ONE Stop: 06/02/24 19:02 Last Admin: 06/02/24 19:16 Dose: 0.5 mg Documented By: CHAGO Magnesium Sulfate (Magnesium Sulfate) 2 gm in 50 mls @ 150 mls/hr IV NOW ONE Stop: 06/02/24 19:27 Last Infusion: 06/02/24 19:47 Dose: Infused Documented By: CHAGO Co-signed By: JAMES Admin: 06/02/24 19:17 Dose: 150 mls/hr Documented By: CHAGO Co-signed By: JOSE Ketorolac Tromethamine (Ketorolac 30 Mg/Ml Vial) 15 mg IV NOW ONE Stop: 06/02/24 18:02 Last Admin: 06/02/24 18:14 Dose: 15 mg Documented By: CHAGO Meclizine HCl (Meclizine Hcl 12.5 Mg Tablet) 50 mg PO NOW ONE Stop: 06/02/24 19:09 Last Admin: 06/02/24 19:16 Dose: 50 mg Documented By: CHAGO Ondansetron HCl (Ondansetron 4 Mg/2 Ml Inj) 4 mg IV NOW PRN PRN Reason: Nausea And Vomiting Last Admin: 06/02/24 16:54 Dose: 4 mg Documented By: CHAGO Ondansetron HCl (Ondansetron 4 Mg Odt) 4 mg SL NOW PRN PRN Reason: Nausea And Vomiting Ondansetron HCl (Ondansetron 4 Mg/2 Ml Inj) 4 mg IV NOW ONE Stop: 06/02/24 19:02 Last Admin: 06/02/24 19:16 Dose: 4 mg Documented By: CHAGO Vital Signs Vital signs: Vital Signs - 8 hr 06/02/24 22:00 06/02/24 22:00 Pulse Rate 62 Respiratory Rate 18 Blood Pressure 136/60 MDM - Neuro Symptoms/Deficit Lab Data Attestation: I reviewed the patient's lab results. Lab results narrative: White blood cell count 8100, hemoglobin 12, platelets adequate. BUN 29 with creatinine 1.49 slightly improved from previous admission 1.7. Potassium 4.3 normal. Magnesium 1.4 noted to be low. Liver functions unremarkable. Urine dip negative. Urine drug screen positive for THC otherwise negative. 06/02/24 15:12 06/02/24 15:12 Labs: Lab Results 06/02/24 06/02/24 Range/Units 15:12 16:48 WBC 8.1 (4.5-11.0) X10^3/uL RBC 4.08 (4.0-5.2) X10^6/uL Hgb 12.0 (12.0-16.0) g/dL Hct 36.1 (36-46) % MCV 88.5 (80-100) fL MCH 29.4 (26-34) PG MCHC 33.3 (30-36) % RDW 13.9 (11.6-14.8) % Plt Count 327 (150-400) X10^3/uL Neut % (Auto) 69.9 (50-75) % Lymph % (Auto) 15.8 L (25-40) % [place] % (Auto) 11.5 (3-14) % Eos % (Auto) 1.8 L (2-4) % Baso % (Auto) 1.0 (0-2) % Neut # (Auto) 5700 (9337-4979) /uL Lymph # (Auto) 1300 (0103-1535) /uL [place] # (Auto) 900 (0-900) /uL Eos # (Auto) 100 (0-450) /uL Baso # (Auto) 100 (0-100) /uL PT 11.9 (9.4-12.5) SECONDS INR 1.1 (0.9-1.3) APTT 35 (25.1-36.5) SECONDS Sodium 134 L (137-145) mmol/L Potassium 4.3 (3.4-5.1) mmol/L Chloride 99 (98-107) mmol/L Carbon Dioxide 28 (22-32) mmol/L BUN 29 H (7-17) mg/dL Creatinine 1.49 H (0.52-1.04) mg/dL Estimated GFR 39 L (>60) mL/min BUN/Creatinine Ratio 19.5 (6-22) Glucose 106 (80-110) mg/dL Calcium 9.4 (8.4-10.2) mg/dL Magnesium 1.4 L (1.6-2.3) mg/dL Total Bilirubin 0.4 (0.2-1.3) mg/dL AST 35 (14-36) IU/L ALT 18 (<35) IU/L Alkaline Phosphatase 93 (38-126) U/L Total Creatine Kinase 42 (30-135) U/L Troponin I < 0.012 (0.01-0.034) ng/mL Total Protein 8.1 (6.3-8.2) g/dL Albumin 4.7 (3.5-5.0) g/dL Globulin 3.4 (1.7-4.1) g/dL Albumin/Globulin Ratio 1.4 (1.0-2.8) U Opiates 300ng/mL cut Negative (Negative) Ur Oxycodone Screen Negative (Negative) Urine Methadone Screen Negative (Negative) Ur Barbiturates Screen Negative (Negative) U Tricyclic Antidepress Negative (Negative) Ur Phencyclidine Scrn Negative (Negative) Ur Amphetamines Screen Negative (Negative) U Methamphetamines Scrn Negative (Negative) Ur MDMA Scrn (Ecstasy) Negative (Negative) U Benzodiazepines Scrn Negative (Negative) Urine Cocaine Screen Negative (Negative) U Marijuana (THC) Screen Positive H (Negative) Urine pH Normal (Normal) Urine Specific [place] Normal (Normal) Ur Creatinine Normal (Normal) Point of Care Testing Glucose POC 100 Urine Dip Bedside Urine Glucose Negative Bedside Urine Bilirubin - Negative Bedside Urine Ketone - Negative Urine Specific [place] 1.005 Bedside Urine Occult Blood - Negative Bedside Urine pH 6.5 Bedside Urine Protein - Negative Bedside Urine Urobilinogen - Negative Bedside Urine Nitrite - Negative Bedside Urine Leukocytes - Negative Esterase Imaging Data CT scan - head: Radiologist's Impression: [address] [address] [address] Scan Report Signed Patient: Xi Dejesus MR#: [id number] : 1960 Acct:[id number] Age/Sex: 63 / F Date of Service: 06/02/24 Loc: ED Accession Number: [id number] Procedure: CT Stroke Ordering Provider: Keya Velasquez D.O. PROCEDURE: CT STROKE INDICATIONS: Positive BE-FAST, Stroke symptoms TECHNIQUE: Noncontrast 4.5 mm thick angled axial sections acquired from the foramen magnum to the vertex, with coronal reformats. For radiation dose reduction, the following was used: automated exposure control, adjustment of mA and/or kV according to patient size. COMPARISON: None. FINDINGS: Image quality: Diagnostic. CSF spaces: Basal cisterns are patent. No extra-axial fluid collections. The ventricles are symmetric in size and shape. Brain: No intracranial bleeds or masses. There is cerebral volume loss for age, with resultant ventricular and sulcal prominence. There are periventricular and deep white matter chronic small vessel ischemic changes. There is intracranial internal carotid artery atherosclerosis. Skull and face: Calvarium and visualized facial bones appear intact, without suspicious lesions. Sinuses: Visualized sinuses and mastoids are clear. IMPRESSION: No acute intracranial pathology. Comment: Findings were discussed with Dr. Velasquez on 06/02/2024 at 1446 hours This study fulfills neurological imaging criteria for inclusion or exclusion of acute stroke therapies based on available published neurological guidelines. Dictated by: Zachary Beltran M.D. on 06/02/2024 at 14:45 Approved by: Zachary Beltran M.D. on 06/02/2024 at 14:48 CTA - brain/neck: Radiologist's Impression: Close Head/Neck CTA (Signed) Zachary Beltran - 06/02/[address] (Signed) Zachary Beltran - 06/02/24 Chest X-Ray (Signed) Michel Ty - 06/02/24 Launch?Image [address] [address] [address] Scan Report Signed Patient: Xi Dejesus MR#: [id number] : 1960 Acct:[id number] Age/Sex: 63 / F Date of Service: 06/02/24 Loc: ED Accession Number: [id number] Procedure: CT angio head and neck Ordering Provider: Keya Velasquez D.O. PROCEDURE: CT ANGIO HEAD AND NECK INDICATIONS: code stroke TECHNIQUE: After the administration of intravenous contrast, 1 mm thick sections acquired from the aortic arch through the [place] of [place]. 3-dimensional bphazfs-fizqdyrux-qrtinoyybs (MIP) and/or volume rendering reformats were acquired of the central intracranial vasculature and neck separately. For radiation dose reduction, the following was used: automated exposure control, adjustment of mA and/or kV according to patient size. COMPARISON: [facility], CT, THORAX^C4_CHEST_CT_WITHOUT_NODULE_LUNG_CA_SCREENING (ADULT), 04/11/2024, 13:58. [facility], CT, CT ANGIO HEAD AND NECK, 05/22/2024, 17:28. FINDINGS: Image quality: Diagnostic. BRAIN: CSF spaces: Ventricles are normal in size and shape. Basal cisterns are patent. No extra-axial fluid collections. Brain: No significant abnormality of the brain can be seen. Skull and face: Calvarium and facial bones appear intact, without suspicious lesions. Orbits appear normal. Sinuses: Sinuses and mastoids are clear. HEAD CT ANGIOGRAPHY: Anterior circulation: Intracranial internal carotid arteries are normal in size and flow. The flow within the paired anterior cerebral arteries is normal and symmetric. The flow within the middle cerebral arteries is normal and symmetric. The anterior communicating artery is seen. No aneurysms are seen. Posterior circulation: Visualized portions of the vertebral arteries demonstrate normal caliber, and join to form a normal appearing basilar artery. Flow within the posterior cerebral arteries is normal and symmetric. No aneurysms are seen. NECK CT ANGIOGRAPHY: Carotid system: The great vessels demonstrate a conventional anatomy as they arise from the aortic arch. The origins of the common carotid arteries appear patent. The common carotid arteries demonstrate normal caliber and courses. The bifurcation regions are both widely patent. The internal carotid arteries demonstrate normal calibers and courses. Posterior circulation: The origins of the vertebral arteries both appear widely patent. The more superior extracranial portions of both vertebral arteries also demonstrate normal courses and calibers. They join to form a normal appearing basilar artery. Soft tissues: Visualized neck soft tissues demonstrate no suspicious abnormalities. There is odvw-qc-ibfshqhx centrilobular emphysema. There is a 7 mm spiculated nodule in the right upper lobe on image 328 of series 4. If this was not previously present 7 weeks ago, and is most likely a area of minimal nodular consolidation. Bones: No suspicious bony lesions. Visualized cervical spine appears normally aligned. IMPRESSION: 1. No significant intracranial arterial abnormality is seen. 2. No significant abnormality is seen within the arteries of the neck. 3. Ldgj-ne-tygzrsoy centrilobular emphysema. 4. Development of a 7 mm spiculated density in the right upper lobe. This was not present 7 weeks ago. It is most likely inflammatory or infectious in nature and not malignant in nature. Comment: Recommend 3 month follow-up CT chest to document resolution of this new spiculated density in the right upper lobe. Any quantitative measurements of stenosis were performed using NASCET criteria. Dictated by: Zachary Beltran M.D. on 06/02/2024 at 15:54 Approved by: Zachary Beltran M.D. on 06/02/2024 at 16:02 Chest x-ray: Radiologist's Impression: [address] [address] XRay Report Signed Patient: Xi Dejesus MR#: [id number] : 1960 Acct:[id number] Age/Sex: 63 / F Date of Service: 06/02/24 Loc: ED Accession Number: [id number] Procedure: XR chest 1V Ordering Provider: Keya Velasquez D.O. PROCEDURE: XR CHEST 1V INDICATIONS: Possible stroke TECHNIQUE: One view of the chest was acquired. COMPARISON: [facility], CR, XR CHEST 1V, 05/22/2024, 13:44. [facility], CR, XR CHEST 1V, 12/04/2023, 11:41. FINDINGS: Surgical changes and devices: None. Lungs and pleura: No dense airspace disease or pleural effusion. Mediastinum: Normal heart size, unchanged Bones and chest wall: Unremarkable IMPRESSION: No acute radiographic abnormality on this single view study. Dictated by: Michel Ty M.D. on 06/02/2024 at 16:35 Approved by: Michel Ty M.D. on 06/02/2024 at 16:36 MDM Narrative Medical decision making narrative: 63-year-old female with ongoing ago and right-sided headache, recent admission for possible dehydration and NED, brain MRI done during hospital stay showed right-sided brain lesion, awaiting neurology follow up. Complains of right- sided headache, no trauma, no neuro deficits. Ongoing vertigo worse with horizontal brain movements. Worsening right-sided headaches. CT head and CT head and neck vessels studies ordered. IV Toradol, IV Dilaudid/Zofran. Pain symptoms improved. Patient would like pain control medication for going home. She has right-sided brain lesion that was visible on MRI, not evident on CT/CTA head studies today. No hemorrhagic or edematous lesion obvious. Unclear if the MRI lesion is related to her right-sided headache although it is ipsilateral in location to her headache pain symptoms. Home pack hydrocodone/APAP. Prescription for hydrocodone/APAP. Follow up with her PCP advised for further headache control measures. Return precautions discussed. Discharge Plan Departure Patient Disposition: Home Clinical Impression: Brain lesion, Vertigo, Headache Activity Restrictions/Additional Instructions: Ongoing problems with vertigo symptoms, right-sided headache, recent evaluation CT angiogram head and neck vessels negative earlier this month, admission to the hospital for creatinine elevation for hydration during which she had MRI of the brain showing a right-sided brain lesion of unclear cause, awaiting neurology follow up. You have been taking meclizine medication for your ongoing vertigo symptoms. You have ongoing pain symptoms on the right side as well, by location perhaps this might be related to the lesion of the brain MRI, or might be incidental to that finding. You requested pain control measures today. CT head today showed no acute changes, so the lesion on the right side seems to be visible on MRI but not on CT scanning thus far. CT scanning angiogram of the head and neck vessels done again today, no acute changes noted. IV pain medications given. Prescription in home pack for hydrocodone/Tylenol given to help with pain control symptoms. Contact your doctor during regular hours for further pain control measures follow up. Continue taking your meclizine medication for vertigo. Follow up with Neurology as planned. Return to this/nearest emergency department for any change worsening symptoms or any concerns prior Prescriptions: New hydrocodone-acetaminophen 5-325 mg tablet 1 tab PO Q6H PRN (Reason: pain) Qty: 14 0RF No Action spironolactone 50 mg tablet 50 mg PO DAILY loperamide 2 mg capsule 2 mg PO Q6H PRN (Reason: STOOL) (DME) Disabled Parking See Rx Instructions .ROUTE .MEDSUPPLY Qty: 1 0RF Rx Instructions: I find this patient to be medical disabled and qualified for Disabled Parking as indicated, and signed, on the and the Accompanying Disabled Parking Application for Individuals. esomeprazole magnesium [Nexium] 20 mg capsule,delayed release(DR/EC) 20 mg PO DAILY Qty: 90 0RF Depo-Estradiol 5 mg/mL oil 2 mg IM Q4W Qty: 10 3RF ondansetron 4 mg tablet,disintegrating 4 mg PO Q8H PRN (Reason: nausea and vomiting) Qty: 14 0RF meclizine 25 mg tablet 25 mg PO TID PRN (Reason: dizziness) Qty: 20 0RF meclizine 12.5 mg Tablet 25 mg PO TID PRN (Reason: dizziness) Qty: 30 0RF ipratropium-albuterol 0.5 mg-3 mg(2.5 mg base)/3 mL solution for nebulization 3 ml inhalation Q6H PRN (Reason: shortness of breath or wheezing) Qty: 90 11RF fluticasone propionate 110 mcg/actuation HFA aerosol inhaler 2 puff inhalation BID Qty: 12 11RF metoprolol succinate 50 mg tablet extended release 24 hr 50 mg PO DAILY hydrochlorothiazide 25 mg tablet 25 mg PO DAILY levothyroxine 50 mcg tablet 50 mcg PO DAILY duloxetine 20 mg capsule,delayed release(DR/EC) 40 mg PO DAILY Referrals: Karoline Cabrera MD [Primary Care Provider] - Stand Alone Forms: Patient Portal/API/Survey
[2024-06-02] MEDS: HYDROMORPHONE 0.5 MG INJ IV (19:16)
[2024-06-02] MEDS: MECLIZINE HCL 12.5 MG TABLET 50 MG PO (19:16)
[2024-06-02] MEDS: MAGNESIUM SULFATE 2 GM/50 ML PIGGYBACK IV (19:17)
[2024-06-02] MEDS: HYDROCODONE/ACET 5/325 PREPACK 1 BOTTLE MISC (22:29)
== END 2024-06-02 22:35 | disposition home or self-care (01) ==
PROVIDERS: Emergency Medicine; Emergency Provider Emergency Medicine; Family Provider Student in an Organized Health Care Education/Training Program; PCP Student in an Organized Health Care Education/Training Program
DX: G93.9 Disorder of brain, unspecified (principal); R51.9 Headache, unspecified; R42 Dizziness and giddiness; K74.60 Unspecified cirrhosis of liver; Z87.891 Personal history of nicotine dependence; R20.0 Anesthesia of skin; J44.9 Chronic obstructive pulmonary disease, unspecified
CPT/HCPCS: 36415; 70450; 70496; 70498; 71045; 80053; 80305; 81003; 82550; 82962; 83735; 84484; 85025; 85610; 85730; 93005; 96365; 96375; 96376; 99285; A9579; J1171; J1885; J2405; J3475

== ENCOUNTER 2024-06-17 12:31 | Observation (INO) | payer MEDICARE, MEDICAID, SELFPAY ==
[2024-05-22 22:11] VITALS: BMI 22.8
[2024-06-17] VITALS (21 sets, daily range): BP systolic 116–163; BP diastolic 71–84; PULSE 66–124; RESP 14–34; TEMP 36.4; O2SAT 91–99; BMI 24.9
--- NOTE | 2024-06-17 | DI.CT.S_ITS ---
PROCEDURE: CT ANGIO HEAD AND NECK INDICATIONS: POSSIBLE STROKE TECHNIQUE: After the administration of intravenous contrast, 1 mm thick sections acquired from the aortic arch through the [place] of [place]. 3-dimensional rpnscje-sbrgqcllt-ksgmetpzpt (MIP) and/or volume rendering reformats were acquired of the central intracranial vasculature and neck separately. For radiation dose reduction, the following was used: automated exposure control, adjustment of mA and/or kV according to patient size. COMPARISON: [facility], CT, CT ANGIO HEAD AND NECK, 06/02/2024, 15:28. FINDINGS: Image quality: Diagnostic. BRAIN: Please refer to same day CT of the head. HEAD CT ANGIOGRAPHY: Anterior circulation: Intracranial internal carotid arteries are normal in size and flow. The flow within the paired anterior cerebral arteries is normal and symmetric. The flow within the middle cerebral arteries is normal and symmetric. The anterior communicating artery is seen. No aneurysms are seen. Posterior circulation: Visualized portions of the vertebral arteries demonstrate normal caliber, and join to form a normal appearing basilar artery. Flow within the posterior cerebral arteries is normal and symmetric. No aneurysms are seen. NECK CT ANGIOGRAPHY: Carotid system: The great vessels demonstrate a conventional anatomy as they arise from the aortic arch. The origins of the common carotid arteries appear patent. The common carotid arteries demonstrate normal caliber and courses. The bifurcation regions are both widely patent. The internal carotid arteries demonstrate normal calibers and courses. Posterior circulation: The origins of the vertebral arteries both appear widely patent. The more superior extracranial portions of both vertebral arteries appear grossly unremarkable, however evaluation is limited secondary significant venous contrast. They join to form a normal appearing basilar artery. Soft tissues: Visualized neck soft tissues demonstrate no suspicious abnormalities. Emphysematous changes in the lung apices. Right upper lobe 7 mm spiculated nodule is redemonstrated and appears less conspicuous compared to prior. Bones: No suspicious bony lesions. Visualized cervical spine appears normally aligned. IMPRESSION: No significant intracranial arterial abnormality is seen. No significant abnormality is seen within the arteries of the neck. Redemonstration of spiculated density in the right upper lobe measuring 7 mm, decreased in spiculated compared to prior. Follow-up CT chest in 3 months is recommended to ensure resolution and exclude underlying neoplasm. Any quantitative measurements of stenosis were performed using NASCET criteria. Dictated by: Jeison Quispe M.D. on 06/17/2024 at 13:17 Approved by: Jeison Quispe M.D. on 06/17/2024 at 13:23
--- NOTE | 2024-06-17 12:47 | DI.CT.S_ITS ---
PROCEDURE: CT STROKE INDICATIONS: Positive BE-FAST, Stroke symptoms TECHNIQUE: Noncontrast 4.5 mm thick angled axial sections acquired from the foramen magnum to the vertex, with coronal reformats. For radiation dose reduction, the following was used: automated exposure control, adjustment of mA and/or kV according to patient size. COMPARISON: [facility], CT, CT STROKE, 06/02/2024, 14:39. FINDINGS: Image quality: Diagnostic. CSF spaces: Basal cisterns are patent. No extra-axial fluid collections. The ventricles are symmetric in size and shape. Brain: No acute intracranial hemorrhage or mass effect. There is cerebral volume loss for age, with resultant ventricular and sulcal prominence. There are periventricular and deep white matter chronic small vessel ischemic changes. There is intracranial internal carotid artery atherosclerosis. Skull and face: Calvarium and visualized facial bones appear intact, without suspicious lesions. Sinuses: Visualized sinuses and mastoids are clear. IMPRESSION: No acute intracranial pathology. Findings were discussed with the referring provider, Dr. Knapp, by telephone on 06/17/2024 at 1:05 PM. This study fulfills neurological imaging criteria for inclusion or exclusion of acute stroke therapies based on available published neurological guidelines. Dictated by: Paul Burch M.D. on 06/17/2024 at 13:03 Approved by: Paul Burch M.D. on 06/17/2024 at 13:06
--- NOTE | 2024-06-17 12:47 | DI.RAD.S_ITS ---
PROCEDURE: XR CHEST 1V INDICATIONS: Possible stroke TECHNIQUE: One view of the chest was acquired. COMPARISON: [facility], CR, XR CHEST 1V, 06/02/2024, 15:26. [facility], CR, XR CHEST 1V, 05/22/2024, 13:44. FINDINGS: Surgical changes and devices: None. Lungs and pleura: Lungs are clear. No pleural effusions or pneumothorax. Mediastinum: Mediastinal contours appear normal. Heart size is normal. Bones and chest wall: No suspicious bony lesions. Overlying soft tissues appear unremarkable. IMPRESSION: No acute cardiopulmonary abnormality is seen. Dictated by: Jeison Quispe M.D. on 06/17/2024 at 13:13 Approved by: Jeison Quispe M.D. on 06/17/2024 at 13:16
[2024-06-17 13:06] LABS: Add Manual Diff / Slide Review NO; Basophils Absolute Auto 100 /uL (0-100); Basophils Percent Auto 1.1 % (0-2); Eosinophils Absolute Auto 200 /uL (0-450); Eosinophils Percent Auto 1.4 % (2-4); Hemoglobin 12.7 g/dL (12.0-16.0); Lymphocytes Absolute Auto 1300 /uL (1100-4500); Lymphocytes Percent Auto 12.6 % (25-40); Mean Corpuscular HGB Conc 33.3 % (30-36); Mean Corpuscular Hemoglobin 29.8 PG (26-34); Mean Corpuscular Volume 89.4 fL (80-100); Monocytes Absolute Auto 1000 /uL (0-900); Monocytes Percent Auto 9.7 % (3-14); Neutrophils Absolute Auto 7900 /uL (1500-7000); Neutrophils Percent Auto 75.2 % (50-75); Platelet Count 326 X10^3/uL (150-400); Red Blood Cell Count 4.26 X10^6/uL (4.0-5.2); Red Cell Distribution Width 13.4 % (11.6-14.8); White Blood Cell Count 10.5 X10^3/uL (4.5-11.0)
[2024-06-17 13:12] LABS: Prothrombin Time 11.6 SECONDS (9.4-12.5)
[2024-06-17 13:14] LABS: PTT Partial Thromboplastin Tim 35 SECONDS (25.1-36.5)
[2024-06-17 13:16] LABS: Alanine Aminotransferase 27 IU/L (<35); Albumin 4.7 g/dL (3.5-5.0); Albumin Globulin Ratio 1.4 (1.0-2.8); Alkaline Phosphatase 99 U/L (38-126); Aspartate Aminotransferase 50 IU/L (14-36); BUN Creatinine Ratio 17.4 (6-22); Bilirubin Total 0.5 mg/dL (0.2-1.3); Blood Urea Nitrogen 28 mg/dL (7-17); Calcium 9.3 mg/dL (8.4-10.2); Carbon Dioxide 27 mmol/L (22-32); Chloride 98 mmol/L (98-107); Creatine Kinase 51 U/L (30-135); Estimated Glomerular Filt Rate 35 mL/min (>60); Globulin 3.4 g/dL (1.7-4.1); Glucose 136 mg/dL (80-110); HEMOLYSIS 16 (0-50); Magnesium 1.2 mg/dL (1.6-2.3); Potassium 3.8 mmol/L (3.4-5.1); Sodium 134 mmol/L (137-145); Total Protein 8.1 g/dL (6.3-8.2)
[2024-06-17 13:28] LABS: Troponin I < 0.012 ng/mL (0.01-0.034)
--- NOTE | 2024-06-17 14:13 | PC.NURSE ---
PT presnts to ED for headache. Pt states headache affects her right side. Pt reports feeling dizzy and nauseous. Pt denies vomiting. Pt reports MAY first started 3 days ago but then resolved and came back today at [id number]. Pt reports something similar happened at on 05/24. Pt noted to have abnormal gate by triage nurse. Pt rates 10/. Pt denies vision changes; states double vision is at her baseline. Pt reports that she was told her magnesium was low and was told to start taking magnesium; however pt states she has not begun this yet. Pt reports she was drove to ER by malcolm. Left sided arm drift noted.
[2024-06-17 15:07] LABS: Appearance Urine UA CLEAR; Bilirubin Urine UA NEGATIVE (NEGATIVE); Color Urine UA YELLOW; Glucose Urine UA NEGATIVE (Negative); Ketones Urine UA NEGATIVE (NEGATIVE); Leukocyte Esterase Urine UA NEGATIVE (NEGATIVE); Nitrite Urine UA NEGATIVE (Negative); Occult Blood Urine UA TRACE-INTACT (Negative); Protein Urine UA NEGATIVE (Negative); Specific Gravity Urine UA <=1.005 (1.000-1.035); Urobilinogen Urine UA 0.2 E.U./dL (0.2)
--- NOTE | 2024-06-17 15:08 | ED_ITS ---
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 Seen here 03/21/2025 for dizziness symptoms, responsive to meclizine and Leah-Hallpike maneuvers. Presented again next day 05/22/2024 with headache and dizziness, CT angiogram head and neck vessels unremarkable, creatinine elevated, admitted for dehydration and NED, during that admission had brain MRI showing right-sided brain mass, awaiting neurology follow up appointment that is apparently months from now. She presented 06/02/2024 with worsening right-sided headaches and dizziness, CT head and CT angiogram neck vessels again were done and negative, patient was discharged on hydrocodone. Patient still awaiting follow up Neurology appointment that she says is months from now. Today she had worsening of her dizziness symptoms, worsening right-sided headache, and since 1:00 p.m. this afternoon feels like she has some weakness in her arm and in her leg. On Anticoagulants: No Related Data Home Medications Medication Instructions Recorded Confirmed loperamide 2 mg capsule 2 mg PO Q6H PRN STOOL 09/10/23 06/18/24 spironolactone 50 mg tablet 50 mg PO DAILY 09/10/23 06/18/24 duloxetine 20 mg capsule,delayed 60 mg PO DAILY 04/18/24 06/18/24 release hydrochlorothiazide 25 mg tablet 25 mg PO DAILY 04/18/24 06/18/24 levothyroxine 50 mcg tablet 50 mcg PO DAILY 04/18/24 06/18/24 metoprolol succinate 50 mg 50 mg PO DAILY 04/18/24 06/18/24 tablet,extended release 24 hr Previous Rx's Medication Instructions Recorded Disabled Parking #1 ea 03/06/23 esomeprazole magnesium 20 mg 20 mg PO DAILY #90 caps 03/06/23 capsule,delayed release (Nexium) estradiol cypionate 5 mg/mL 2 mg (0.4 mL) IM Q4W #10 mL 11/01/23 intramuscular oil (Depo-Estradiol) fluticasone propionate 110 2 puff inhalation BID #12 grams 12/12/23 mcg/actuation HFA aerosol inhaler ipratropium 0.5 mg-albuterol 3 mg 3 ml inhalation Q6H PRN shortness 12/12/23 (2.5 mg base)/3 mL nebulization of breath or wheezing #90 mL soln meclizine 25 mg tablet 25 mg PO TID PRN dizziness #20 tabs 05/21/24 ondansetron 4 mg disintegrating 4 mg PO Q8H PRN nausea and 05/21/24 tablet vomiting #14 tabs meclizine 12.5 mg tablet 25 mg (2 x 12.5 mg) PO TID PRN 05/25/24 dizziness #30 tabs hydrocodone 5 mg-acetaminophen 325 1 tab PO Q6H PRN pain #14 tabs 06/02/24 mg tablet Allergies Allergy/AdvReac Type Severity Reaction Status Date / Time codeine Allergy Severe Anaphylaxis Verified 05/26/24 08:54 penicillin G Allergy Severe Anaphylaxis Verified 06/19/24 11:51 levofloxacin [From Levaquin] AdvReac Severe tinnitus Verified 05/26/24 08:54 vaccine adjuvant system, AdvReac Severe blisters Verified 05/26/24 08:54 AS01B liposomal [From Shingrix (PF)] varicella-zoster virus AdvReac Severe blisters Verified 05/26/24 08:54 glycoprotein E, recombinant [From Shingrix (PF)] latex AdvReac Intermediate Redness of Verified 05/26/24 08:54 Skin Review of Systems <Dru Knapp MD - Last Filed: 06/19/24 05:49> Hematologic/Lymphatic On Anticoagulants: No Patient History <Dru Knapp MD - Last Filed: 06/19/24 05:49> Medical History COPD (chronic obstructive pulmonary disease) (~2018) Allergies Scoliosis Chronic back pain Cervical spine disease Carpal tunnel syndrome Mumps Chicken pox Ruptured tympanic membrane Glaucoma Liver disease (~2018) Hepatitis C (~2018) Hemorrhoid GERD (gastroesophageal reflux disease) Cirrhosis MVP (mitral valve prolapse) Surgical History Anesthesia S/P insertion of spinal cord stimulator (~2016) History of hernia repair (~2012) History of appendectomy History of elbow surgery History of carpal tunnel release History of cholecystectomy History of ear surgery History of total hysterectomy History of partial hysterectomy Social History household members: none Smoking Status: Former smoker alcohol intake: former Smoking Status: Former smoker alcohol intake frequency: holidays/special occasions only Exam <Dru Knapp MD - Last Filed: 06/19/24 05:49> Narrative Exam Narrative: GENERAL: Well-developed patient, in mild distress. HEAD: Atraumatic. Normocephalic. EYES: Pupils equal round and reactive. Extraocular motions intact. No scleral icterus. No injection or drainage. ENT: Nose without bleeding, purulent drainage. Throat without erythema, tonsillar hypertrophy or exudate. Airway patent. NECK: Trachea midline. Non tender CARDIOVASCULAR: Regular rate and rhythm without murmurs, gallops, or rubs. RESPIRATORY: Clear to auscultation. Breath sounds equal bilaterally. No wheezes, rales, or rhonchi. GASTROINTESTINAL: Abdomen soft, non-tender, nondistended. EXTREMITIES: No edema or joint tenderness. BACK: Nontender without deformity or crepitance. No flank tenderness. NEURO: AOx3. Has dizziness with head movements that has been chronic and ongoing, with lateral or vertical movements of her head. Pupils equal round reactive to light. She does seem to have diplopia on near field decision that apparently is old, she has diplopia horizontal and vertical [place] apparently that is old. Clear speech, no facial droop. Motor functions 5/5 upper and lower extremity, though she feels like she has some weakness in her left arm and her left leg. SKIN: No rash or erythema of visible areas Initial Vital Signs Initial Vital Signs: Vital Signs Temperature 97.5 F L 06/17/24 12:39 Pulse Rate 88 06/17/24 12:39 Respiratory Rate 16 06/17/24 12:39 Blood Pressure 124/71 06/17/24 12:39 Pulse Oximetry 98 06/17/24 12:39 Oxygen Delivery Method Room Air 06/17/24 12:39 <Keya Velasquez DO - Last Filed: 06/20/24 10:12> Initial Vital Signs Initial Vital Signs: Vital Signs Temperature 97.5 F L 06/17/24 12:39 Pulse Rate 88 06/17/24 12:39 Respiratory Rate 16 06/17/24 12:39 Blood Pressure 124/71 06/17/24 12:39 Pulse Oximetry 98 06/17/24 12:39 Oxygen Delivery Method Room Air 06/17/24 12:39 <Marley Osorio DO - Last Filed: 06/18/24 18:20> Initial Vital Signs Initial Vital Signs: Vital Signs Temperature 97.5 F L 06/17/24 12:39 Pulse Rate 88 06/17/24 12:39 Respiratory Rate 16 06/17/24 12:39 Blood Pressure 124/71 06/17/24 12:39 Pulse Oximetry 98 06/17/24 12:39 Oxygen Delivery Method Room Air 06/17/24 12:39 Course <Dru Knapp MD - Last Filed: 06/19/24 05:49> Orders Ordered: Acetaminophen (Acetaminophen 325 Mg Tablet) 650 mg PO Q6H PRN PRN Reason: Fever/Mild Pain (1-3) Acetaminophen/Butalbital/Caffeine (Butalb/Apap/Caffeine 50/325/40 Tablet) 1 each PO Q4HR PRN PRN Reason: Headache Al Hydrox/Mg Hydrox/Simethicone (Mag Hydrox/Alum/Simeth 30 Ml Udc) 30 ml PO Q4HR PRN PRN Reason: Dyspepsia Last Admin: 06/19/24 06:12 Dose: 30 ml Documented By: Admin: 06/19/24 01:33 Dose: 30 ml Documented By: PATRICE Calcium Carbonate (Calcium Carbonate 500 Mg Tab) 1,000 mg PO Q4HR PRN PRN Reason: Dyspepsia Duloxetine HCl (Duloxetine 20 Mg Capsule) 60 mg PO DAILY [facility] Last Admin: 06/20/24 10:04 Dose: 60 mg Documented By: Admin: 06/19/24 11:42 Dose: 60 mg Documented By: SUSIE Heparin Sodium (Porcine) (Heparin 5,000 Unit/Ml Vial) 5,000 unit SUBCUT BID [facility] Last Admin: 06/20/24 10:05 Dose: 5,000 unit Documented By: Admin: 06/19/24 21:53 Dose: 5,000 unit Documented By: Admin: 06/19/24 10:43 Dose: 5,000 unit Documented By: Admin: 06/18/24 20:18 Dose: 5,000 unit Documented By: Admin: 06/18/24 12:00 Dose: 5,000 unit Documented By: VICTORIANO Hydrochlorothiazide (Hydrochlorothiazide 25 Mg Tablet) 25 mg PO DAILY [facility] Last Admin: 06/20/24 10:04 Dose: 25 mg Documented By: Admin: 06/19/24 11:42 Dose: 25 mg Documented By: SUSIE Hydromorphone HCl (Hydromorphone 0.5 Mg Inj) 0.5 mg IV Q3H PRN PRN Reason: Pain, Severe (7-10) Last Admin: 06/20/24 10:05 Dose: 0.5 mg Documented By: Admin: 06/20/24 05:08 Dose: 0.5 mg Documented By: Admin: 06/19/24 19:48 Dose: 0.5 mg Documented By: Admin: 06/19/24 15:25 Dose: 0.5 mg Documented By: Admin: 06/19/24 11:40 Dose: 0.5 mg Documented By: Admin: 06/19/24 07:45 Dose: 0.5 mg Documented By: Admin: 06/19/24 01:34 Dose: 0.5 mg Documented By: Admin: 06/18/24 20:37 Dose: 0.5 mg Documented By: Admin: 06/18/24 16:33 Dose: 0.5 mg Documented By: VICTORIANO Levothyroxine Sodium (Levothyroxine 50 Mcg Tablet) 50 mcg PO 0600 [facility] Lorazepam (Lorazepam 2 Mg/Ml Inj) 0.5 mg IV Q4HR PRN PRN Reason: Anxiety Last Admin: 06/20/24 05:08 Dose: 0.5 mg Documented By: Admin: 06/19/24 19:48 Dose: 0.5 mg Documented By: Meclizine HCl (Meclizine Hcl 12.5 Mg Tablet) 25 mg PO TID [facility] Last Admin: 06/20/24 10:03 Dose: 25 mg Documented By: Admin: 06/19/24 21:53 Dose: 25 mg Documented By: Admin: 06/19/24 15:25 Dose: 25 mg Documented By: Admin: 06/19/24 10:43 Dose: 25 mg Documented By: Admin: 06/18/24 20:19 Dose: 25 mg Documented By: Admin: 06/18/24 14:59 Dose: 25 mg Documented By: Admin: 06/18/24 11:54 Dose: Not Given Documented By: VICTORIANO Metoprolol Succinate (Metoprolol Er 50 Mg Tablet) 50 mg PO DAILY [facility] Last Admin: 06/20/24 10:03 Dose: 50 mg Documented By: Admin: 06/19/24 11:42 Dose: 50 mg Documented By: SUSIE Naloxone HCl (Naloxone 0.4 Mg/Ml Vial) 0.2 mg IV Q2MIN PRN PRN Reason: Opiate Reversal Ondansetron HCl (Ondansetron 4 Mg/2 Ml Inj) 4 mg IV Q8HR PRN PRN Reason: Nausea And Vomiting Last Admin: 06/20/24 05:08 Dose: 4 mg Documented By: Admin: 06/19/24 01:46 Dose: 4 mg Documented By: PATRICE Oxycodone HCl (Oxycodone Ir 5 Mg Tablet) 5 mg PO Q4HR PRN PRN Reason: Pain, Moderate (4-6) Last Admin: 06/19/24 21:53 Dose: 5 mg Documented By: Admin: 06/19/24 10:43 Dose: 5 mg Documented By: Admin: 06/19/24 06:16 Dose: 5 mg Documented By: Admin: 06/18/24 15:19 Dose: 5 mg Documented By: VICTORIANO Pantoprazole Sodium (Pantoprazole Dr 40 Mg Tablet) 40 mg PO 0700,2100 [facility] Last Admin: 06/19/24 21:53 Dose: 40 mg Documented By: Admin: 06/19/24 11:50 Dose: 40 mg Documented By: SUSIE Polyethylene Glycol (Polyethylene Glycol 3350 17 Gm Powd.Pack) 17 gm PO DAILY [facility] Last Admin: 06/20/24 10:07 Dose: 17 gm Documented By: Admin: 06/19/24 11:57 Dose: 17 gm Documented By: Admin: 06/19/24 10:44 Dose: Not Given Documented By: KATELYN Promethazine HCl (Promethazine 25 Mg Tablet) 12.5 mg PO Q6HR PRN PRN Reason: Nausea Last Admin: 06/19/24 03:01 Dose: 12.5 mg Documented By: Admin: 06/18/24 16:31 Dose: 12.5 mg Documented By: VICTORIANO Spironolactone (Spironolactone 25 Mg Tablet) 50 mg PO DAILY [facility] Last Admin: 06/20/24 10:03 Dose: 50 mg Documented By: MO Discontinued Medications Acetaminophen (Acetaminophen 325 Mg Tablet) 975 mg PO NOW ONE Stop: 06/18/24 10:06 Last Admin: 06/18/24 10:23 Dose: 975 mg Documented By: LISSET Calcium Carbonate (Calcium Carbonate 500 Mg Tab) 500 mg PO Q8H PRN PRN Reason: Dyspepsia Last Admin: 06/19/24 06:12 Dose: 500 mg Documented By: Admin: 06/18/24 20:16 Dose: 500 mg Documented By: PATRICE Hydromorphone HCl (Hydromorphone 0.5 Mg Inj) 0.5 mg IV NOW ONE Stop: 06/17/24 16:59 Last Admin: 06/17/24 17:14 Dose: 0.5 mg Documented By: Hydromorphone HCl (Hydromorphone 0.5 Mg Inj) 0.5 mg IV NOW ONE Stop: 06/17/24 22:32 Last Admin: 06/17/24 22:38 Dose: 0.5 mg Documented By: MASSIEL Magnesium Sulfate (Magnesium Sulfate) 2 gm in 50 mls @ 150 mls/hr IV NOW ONE Stop: 06/17/24 16:01 Last Infusion: 06/17/24 18:54 Dose: Infused Documented By: Co-signed By: LISSET Admin: 06/17/24 15:58 Dose: 25 mls/hr Documented By: GEN Co-signed By: MERCY Sodium Chloride (Normal Saline 0.9%) 1,000 mls @ 1,000 mls/hr IV BOLUS ONE Stop: 06/18/24 01:06 Last Infusion: 06/18/24 03:15 Dose: Infused Documented By: Admin: 06/18/24 00:43 Dose: 1,000 mls/hr Documented By: Acetaminophen (Ofirmev) 1,000 mg in 100 mls @ 400 mls/hr IV NOW ONE Stop: 06/18/24 00:21 Last Admin: 06/18/24 00:46 Dose: Not Given Documented By: AB Sodium Chloride (Normal Saline 0.9%) 1,000 mls @ 1,000 mls/hr IV BOLUS ONE Stop: 06/18/24 11:04 Last Admin: 06/18/24 10:36 Dose: 1,000 mls/hr Documented By: LISSET Sodium Chloride (Normal Saline 0.45%) 1,000 mls @ 100 mls/hr IV CONT IOANA Last Infusion: 06/19/24 16:00 Dose: 0 mls/hr Documented By: Admin: 06/19/24 07:44 Dose: 100 mls/hr Documented By: Infusion: 06/19/24 07:44 Dose: Infused Documented By: Admin: 06/18/24 21:58 Dose: 100 mls/hr Documented By: Infusion: 06/18/24 21:58 Dose: Infused Documented By: Admin: 06/18/24 12:01 Dose: 100 mls/hr Documented By: VICTORIANO Ketorolac Tromethamine (Ketorolac 30 Mg/Ml Vial) 15 mg IV NOW ONE Stop: 06/18/24 04:54 Last Admin: 06/18/24 05:03 Dose: 15 mg Documented By: JOSE Lorazepam (Lorazepam 2 Mg/Ml Inj) 1 mg IV NOW ONE Stop: 06/17/24 15:23 Last Admin: 06/17/24 17:37 Dose: 1 mg Documented By: Lorazepam (Lorazepam 2 Mg/Ml Inj) 0.5 mg IV NOW ONE Stop: 06/18/24 10:06 Last Admin: 06/18/24 10:23 Dose: 0.5 mg Documented By: LISSET Magnesium Chloride (Magnesium Chloride 64 Mg Tablet) 128 mg PO NOW ONE Stop: 06/19/24 11:01 Last Admin: 06/19/24 11:44 Dose: 128 mg Documented By: SUSIE Meclizine HCl (Meclizine Hcl 12.5 Mg Tablet) 50 mg PO NOW ONE Stop: 06/18/24 07:48 Last Admin: 06/18/24 08:02 Dose: 50 mg Documented By: MERCY Ondansetron HCl (Ondansetron 4 Mg/2 Ml Inj) 4 mg IV NOW PRN PRN Reason: Nausea And Vomiting Last Admin: 06/17/24 22:40 Dose: 4 mg Documented By: Admin: 06/17/24 15:46 Dose: 4 mg Documented By: GEN Ondansetron HCl (Ondansetron 4 Mg Odt) 4 mg SL NOW PRN PRN Reason: Nausea And Vomiting Ondansetron HCl (Ondansetron 4 Mg/2 Ml Inj) 4 mg IV NOW ONE Stop: 06/17/24 16:59 Last Admin: 06/17/24 18:52 Dose: Not Given Documented By: Pantoprazole Sodium (Pantoprazole Dr 20 Mg Tablet) 20 mg PO NOW ONE Stop: 06/18/24 08:20 Last Admin: 06/18/24 09:25 Dose: 20 mg Documented By: LISSET Pantoprazole Sodium (Pantoprazole Dr 20 Mg Tablet) 20 mg PO 0700 [facility] Last Admin: 06/19/24 06:12 Dose: 20 mg Documented By: Admin: 06/19/24 01:33 Dose: 20 mg Documented By: PATRICE Vital Signs Vital signs: Vital Signs - 8 hr 06/18/24 02:30 06/18/24 02:30 06/18/24 03:00 Pulse Rate 72 Pulse Rate [Orthostatic Lying] Pulse Rate [Orthostatic Sitting] Pulse Rate [Orthostatic Standing] Blood Pressure 139/89 134/87 Blood Pressure [Orthostatic Lying] Blood Pressure [Orthostatic Sitting] Blood Pressure [Orthostatic Standing] Pulse Oximetry 97 Oxygen Delivery Method Room Air 06/18/24 03:00 06/18/24 03:30 06/18/24 03:30 Pulse Rate 68 69 Pulse Rate [Orthostatic Lying] Pulse Rate [Orthostatic Sitting] Pulse Rate [Orthostatic Standing] Blood Pressure 148/87 H Blood Pressure [Orthostatic Lying] Blood Pressure [Orthostatic Sitting] Blood Pressure [Orthostatic Standing] Pulse Oximetry 96 94 Oxygen Delivery Method 06/18/24 04:00 06/18/24 04:00 06/18/24 04:30 Pulse Rate 66 65 Pulse Rate [Orthostatic Lying] Pulse Rate [Orthostatic Sitting] Pulse Rate [Orthostatic Standing] Blood Pressure 124/81 Blood Pressure [Orthostatic Lying] Blood Pressure [Orthostatic Sitting] Blood Pressure [Orthostatic Standing] Pulse Oximetry 96 96 Oxygen Delivery Method 06/18/24 04:30 06/18/24 05:00 06/18/24 05:00 Pulse Rate 68 Pulse Rate [Orthostatic Lying] Pulse Rate [Orthostatic Sitting] Pulse Rate [Orthostatic Standing] Blood Pressure 126/79 136/81 Blood Pressure [Orthostatic Lying] Blood Pressure [Orthostatic Sitting] Blood Pressure [Orthostatic Standing] Pulse Oximetry 96 Oxygen Delivery Method 06/18/24 05:30 06/18/24 05:30 06/18/24 06:00 Pulse Rate 68 Pulse Rate [Orthostatic Lying] Pulse Rate [Orthostatic Sitting] Pulse Rate [Orthostatic Standing] Blood Pressure 104/61 115/63 Blood Pressure [Orthostatic Lying] Blood Pressure [Orthostatic Sitting] Blood Pressure [Orthostatic Standing] Pulse Oximetry 96 Oxygen Delivery Method 06/18/24 06:00 06/18/24 06:30 06/18/24 06:30 Pulse Rate 65 62 Pulse Rate [Orthostatic Lying] Pulse Rate [Orthostatic Sitting] Pulse Rate [Orthostatic Standing] Blood Pressure 119/68 Blood Pressure [Orthostatic Lying] Blood Pressure [Orthostatic Sitting] Blood Pressure [Orthostatic Standing] Pulse Oximetry 97 96 Oxygen Delivery Method 06/18/24 07:00 06/18/24 07:01 06/18/24 07:01 Pulse Rate 66 65 Pulse Rate [Orthostatic Lying] Pulse Rate [Orthostatic Sitting] Pulse Rate [Orthostatic Standing] Blood Pressure 116/60 Blood Pressure [Orthostatic Lying] Blood Pressure [Orthostatic Sitting] Blood Pressure [Orthostatic Standing] Pulse Oximetry 96 97 Oxygen Delivery Method Room Air 06/18/24 07:30 06/18/24 07:30 06/18/24 08:00 Pulse Rate 61 65 Pulse Rate [Orthostatic Lying] Pulse Rate [Orthostatic Sitting] Pulse Rate [Orthostatic Standing] Blood Pressure 122/72 Blood Pressure [Orthostatic Lying] Blood Pressure [Orthostatic Sitting] Blood Pressure [Orthostatic Standing] Pulse Oximetry 97 99 Oxygen Delivery Method 06/18/24 08:00 06/18/24 08:30 06/18/24 08:30 Pulse Rate 65 Pulse Rate [Orthostatic Lying] Pulse Rate [Orthostatic Sitting] Pulse Rate [Orthostatic Standing] Blood Pressure 117/62 154/89 H Blood Pressure [Orthostatic Lying] Blood Pressure [Orthostatic Sitting] Blood Pressure [Orthostatic Standing] Pulse Oximetry 97 Oxygen Delivery Method 06/18/24 09:45 Pulse Rate Pulse Rate [Orthostatic Lying] 74 Pulse Rate [Orthostatic Sitting] 67 Pulse Rate [Orthostatic Standing] 91 H Blood Pressure Blood Pressure [Orthostatic Lying] 131/76 Blood Pressure [Orthostatic Sitting] 128/81 Blood Pressure [Orthostatic Standing] 158/84 H Pulse Oximetry Oxygen Delivery Method <Keya Velasquez DO - Last Filed: 06/20/24 10:12> Orders Ordered: Acetaminophen (Acetaminophen 325 Mg Tablet) 650 mg PO Q6H PRN PRN Reason: Fever/Mild Pain (1-3) Acetaminophen/Butalbital/Caffeine (Butalb/Apap/Caffeine 50/325/40 Tablet) 1 each PO Q4HR PRN PRN Reason: Headache Al Hydrox/Mg Hydrox/Simethicone (Mag Hydrox/Alum/Simeth 30 Ml Udc) 30 ml PO Q4HR PRN PRN Reason: Dyspepsia Last Admin: 06/19/24 06:12 Dose: 30 ml Documented By: Admin: 06/19/24 01:33 Dose: 30 ml Documented By: PATRICE Calcium Carbonate (Calcium Carbonate 500 Mg Tab) 1,000 mg PO Q4HR PRN PRN Reason: Dyspepsia Duloxetine HCl (Duloxetine 20 Mg Capsule) 60 mg PO DAILY [facility] Last Admin: 06/20/24 10:04 Dose: 60 mg Documented By: Admin: 06/19/24 11:42 Dose: 60 mg Documented By: SUSIE Heparin Sodium (Porcine) (Heparin 5,000 Unit/Ml Vial) 5,000 unit SUBCUT BID [facility] Last Admin: 06/20/24 10:05 Dose: 5,000 unit Documented By: Admin: 06/19/24 21:53 Dose: 5,000 unit Documented By: Admin: 06/19/24 10:43 Dose: 5,000 unit Documented By: Admin: 06/18/24 20:18 Dose: 5,000 unit Documented By: Admin: 06/18/24 12:00 Dose: 5,000 unit Documented By: VICTORIANO Hydrochlorothiazide (Hydrochlorothiazide 25 Mg Tablet) 25 mg PO DAILY [facility] Last Admin: 06/20/24 10:04 Dose: 25 mg Documented By: Admin: 06/19/24 11:42 Dose: 25 mg Documented By: SUSIE Hydromorphone HCl (Hydromorphone 0.5 Mg Inj) 0.5 mg IV Q3H PRN PRN Reason: Pain, Severe (7-10) Last Admin: 06/20/24 10:05 Dose: 0.5 mg Documented By: Admin: 06/20/24 05:08 Dose: 0.5 mg Documented By: Admin: 06/19/24 19:48 Dose: 0.5 mg Documented By: Admin: 06/19/24 15:25 Dose: 0.5 mg Documented By: Admin: 06/19/24 11:40 Dose: 0.5 mg Documented By: Admin: 06/19/24 07:45 Dose: 0.5 mg Documented By: Admin: 06/19/24 01:34 Dose: 0.5 mg Documented By: Admin: 06/18/24 20:37 Dose: 0.5 mg Documented By: Admin: 06/18/24 16:33 Dose: 0.5 mg Documented By: VICTORIANO Levothyroxine Sodium (Levothyroxine 50 Mcg Tablet) 50 mcg PO 0600 [facility] Lorazepam (Lorazepam 2 Mg/Ml Inj) 0.5 mg IV Q4HR PRN PRN Reason: Anxiety Last Admin: 06/20/24 05:08 Dose: 0.5 mg Documented By: Admin: 06/19/24 19:48 Dose: 0.5 mg Documented By: Meclizine HCl (Meclizine Hcl 12.5 Mg Tablet) 25 mg PO TID [facility] Last Admin: 06/20/24 10:03 Dose: 25 mg Documented By: Admin: 06/19/24 21:53 Dose: 25 mg Documented By: Admin: 06/19/24 15:25 Dose: 25 mg Documented By: Admin: 06/19/24 10:43 Dose: 25 mg Documented By: Admin: 06/18/24 20:19 Dose: 25 mg Documented By: Admin: 06/18/24 14:59 Dose: 25 mg Documented By: Admin: 06/18/24 11:54 Dose: Not Given Documented By: VICTORIANO Metoprolol Succinate (Metoprolol Er 50 Mg Tablet) 50 mg PO DAILY [facility] Last Admin: 06/20/24 10:03 Dose: 50 mg Documented By: Admin: 06/19/24 11:42 Dose: 50 mg Documented By: SUSIE Naloxone HCl (Naloxone 0.4 Mg/Ml Vial) 0.2 mg IV Q2MIN PRN PRN Reason: Opiate Reversal Ondansetron HCl (Ondansetron 4 Mg/2 Ml Inj) 4 mg IV Q8HR PRN PRN Reason: Nausea And Vomiting Last Admin: 06/20/24 05:08 Dose: 4 mg Documented By: Admin: 06/19/24 01:46 Dose: 4 mg Documented By: PATRICE Oxycodone HCl (Oxycodone Ir 5 Mg Tablet) 5 mg PO Q4HR PRN PRN Reason: Pain, Moderate (4-6) Last Admin: 06/19/24 21:53 Dose: 5 mg Documented By: Admin: 06/19/24 10:43 Dose: 5 mg Documented By: Admin: 06/19/24 06:16 Dose: 5 mg Documented By: Admin: 06/18/24 15:19 Dose: 5 mg Documented By: VICTORIANO Pantoprazole Sodium (Pantoprazole Dr 40 Mg Tablet) 40 mg PO 0700,2100 [facility] Last Admin: 06/19/24 21:53 Dose: 40 mg Documented By: Admin: 06/19/24 11:50 Dose: 40 mg Documented By: SUSIE Polyethylene Glycol (Polyethylene Glycol 3350 17 Gm Powd.Pack) 17 gm PO DAILY [facility] Last Admin: 06/20/24 10:07 Dose: 17 gm Documented By: Admin: 06/19/24 11:57 Dose: 17 gm Documented By: Admin: 06/19/24 10:44 Dose: Not Given Documented By: KATELYN Promethazine HCl (Promethazine 25 Mg Tablet) 12.5 mg PO Q6HR PRN PRN Reason: Nausea Last Admin: 06/19/24 03:01 Dose: 12.5 mg Documented By: Admin: 06/18/24 16:31 Dose: 12.5 mg Documented By: VICTORIANO Spironolactone (Spironolactone 25 Mg Tablet) 50 mg PO DAILY [facility] Last Admin: 06/20/24 10:03 Dose: 50 mg Documented By: MO Discontinued Medications Acetaminophen (Acetaminophen 325 Mg Tablet) 975 mg PO NOW ONE Stop: 06/18/24 10:06 Last Admin: 06/18/24 10:23 Dose: 975 mg Documented By: LISSET Calcium Carbonate (Calcium Carbonate 500 Mg Tab) 500 mg PO Q8H PRN PRN Reason: Dyspepsia Last Admin: 06/19/24 06:12 Dose: 500 mg Documented By: Admin: 06/18/24 20:16 Dose: 500 mg Documented By: PATRICE Hydromorphone HCl (Hydromorphone 0.5 Mg Inj) 0.5 mg IV NOW ONE Stop: 06/17/24 16:59 Last Admin: 06/17/24 17:14 Dose: 0.5 mg Documented By: Hydromorphone HCl (Hydromorphone 0.5 Mg Inj) 0.5 mg IV NOW ONE Stop: 06/17/24 22:32 Last Admin: 06/17/24 22:38 Dose: 0.5 mg Documented By: MASSIEL Magnesium Sulfate (Magnesium Sulfate) 2 gm in 50 mls @ 150 mls/hr IV NOW ONE Stop: 06/17/24 16:01 Last Infusion: 06/17/24 18:54 Dose: Infused Documented By: Co-signed By: LISSET Admin: 06/17/24 15:58 Dose: 25 mls/hr Documented By: GEN Co-signed By: MERCY Sodium Chloride (Normal Saline 0.9%) 1,000 mls @ 1,000 mls/hr IV BOLUS ONE Stop: 06/18/24 01:06 Last Infusion: 06/18/24 03:15 Dose: Infused Documented By: Admin: 06/18/24 00:43 Dose: 1,000 mls/hr Documented By: Acetaminophen (Ofirmev) 1,000 mg in 100 mls @ 400 mls/hr IV NOW ONE Stop: 06/18/24 00:21 Last Admin: 06/18/24 00:46 Dose: Not Given Documented By: Sodium Chloride (Normal Saline 0.9%) 1,000 mls @ 1,000 mls/hr IV BOLUS ONE Stop: 06/18/24 11:04 Last Admin: 06/18/24 10:36 Dose: 1,000 mls/hr Documented By: LISSET Sodium Chloride (Normal Saline 0.45%) 1,000 mls @ 100 mls/hr IV CONT IOANA Last Infusion: 06/19/24 16:00 Dose: 0 mls/hr Documented By: Admin: 06/19/24 07:44 Dose: 100 mls/hr Documented By: Infusion: 06/19/24 07:44 Dose: Infused Documented By: Admin: 06/18/24 21:58 Dose: 100 mls/hr Documented By: Infusion: 06/18/24 21:58 Dose: Infused Documented By: Admin: 06/18/24 12:01 Dose: 100 mls/hr Documented By: VICTORIANO Ketorolac Tromethamine (Ketorolac 30 Mg/Ml Vial) 15 mg IV NOW ONE Stop: 06/18/24 04:54 Last Admin: 06/18/24 05:03 Dose: 15 mg Documented By: JOSE Lorazepam (Lorazepam 2 Mg/Ml Inj) 1 mg IV NOW ONE Stop: 06/17/24 15:23 Last Admin: 06/17/24 17:37 Dose: 1 mg Documented By: Lorazepam (Lorazepam 2 Mg/Ml Inj) 0.5 mg IV NOW ONE Stop: 06/18/24 10:06 Last Admin: 06/18/24 10:23 Dose: 0.5 mg Documented By: LISSET Magnesium Chloride (Magnesium Chloride 64 Mg Tablet) 128 mg PO NOW ONE Stop: 06/19/24 11:01 Last Admin: 06/19/24 11:44 Dose: 128 mg Documented By: SUSIE Meclizine HCl (Meclizine Hcl 12.5 Mg Tablet) 50 mg PO NOW ONE Stop: 06/18/24 07:48 Last Admin: 06/18/24 08:02 Dose: 50 mg Documented By: MERCY Ondansetron HCl (Ondansetron 4 Mg/2 Ml Inj) 4 mg IV NOW PRN PRN Reason: Nausea And Vomiting Last Admin: 06/17/24 22:40 Dose: 4 mg Documented By: Admin: 06/17/24 15:46 Dose: 4 mg Documented By: GEN Ondansetron HCl (Ondansetron 4 Mg Odt) 4 mg SL NOW PRN PRN Reason: Nausea And Vomiting Ondansetron HCl (Ondansetron 4 Mg/2 Ml Inj) 4 mg IV NOW ONE Stop: 06/17/24 16:59 Last Admin: 06/17/24 18:52 Dose: Not Given Documented By: Pantoprazole Sodium (Pantoprazole Dr 20 Mg Tablet) 20 mg PO NOW ONE Stop: 06/18/24 08:20 Last Admin: 06/18/24 09:25 Dose: 20 mg Documented By: LISSET Pantoprazole Sodium (Pantoprazole Dr 20 Mg Tablet) 20 mg PO 0700 IOANA Last Admin: 06/19/24 06:12 Dose: 20 mg Documented By: Admin: 06/19/24 01:33 Dose: 20 mg Documented By: PATRICE Vital Signs Vital signs: Vital Signs - 8 hr 06/18/24 02:30 06/18/24 02:30 06/18/24 03:00 Pulse Rate 72 Pulse Rate [Orthostatic Lying] Pulse Rate [Orthostatic Sitting] Pulse Rate [Orthostatic Standing] Blood Pressure 139/89 134/87 Blood Pressure [Orthostatic Lying] Blood Pressure [Orthostatic Sitting] Blood Pressure [Orthostatic Standing] Pulse Oximetry 97 Oxygen Delivery Method Room Air 06/18/24 03:00 06/18/24 03:30 06/18/24 03:30 Pulse Rate 68 69 Pulse Rate [Orthostatic Lying] Pulse Rate [Orthostatic Sitting] Pulse Rate [Orthostatic Standing] Blood Pressure 148/87 H Blood Pressure [Orthostatic Lying] Blood Pressure [Orthostatic Sitting] Blood Pressure [Orthostatic Standing] Pulse Oximetry 96 94 Oxygen Delivery Method 06/18/24 04:00 06/18/24 04:00 06/18/24 04:30 Pulse Rate 66 65 Pulse Rate [Orthostatic Lying] Pulse Rate [Orthostatic Sitting] Pulse Rate [Orthostatic Standing] Blood Pressure 124/81 Blood Pressure [Orthostatic Lying] Blood Pressure [Orthostatic Sitting] Blood Pressure [Orthostatic Standing] Pulse Oximetry 96 96 Oxygen Delivery Method 06/18/24 04:30 06/18/24 05:00 06/18/24 05:00 Pulse Rate 68 Pulse Rate [Orthostatic Lying] Pulse Rate [Orthostatic Sitting] Pulse Rate [Orthostatic Standing] Blood Pressure 126/79 136/81 Blood Pressure [Orthostatic Lying] Blood Pressure [Orthostatic Sitting] Blood Pressure [Orthostatic Standing] Pulse Oximetry 96 Oxygen Delivery Method 06/18/24 05:30 06/18/24 05:30 06/18/24 06:00 Pulse Rate 68 Pulse Rate [Orthostatic Lying] Pulse Rate [Orthostatic Sitting] Pulse Rate [Orthostatic Standing] Blood Pressure 104/61 115/63 Blood Pressure [Orthostatic Lying] Blood Pressure [Orthostatic Sitting] Blood Pressure [Orthostatic Standing] Pulse Oximetry 96 Oxygen Delivery Method 06/18/24 06:00 06/18/24 06:30 06/18/24 06:30 Pulse Rate 65 62 Pulse Rate [Orthostatic Lying] Pulse Rate [Orthostatic Sitting] Pulse Rate [Orthostatic Standing] Blood Pressure 119/68 Blood Pressure [Orthostatic Lying] Blood Pressure [Orthostatic Sitting] Blood Pressure [Orthostatic Standing] Pulse Oximetry 97 96 Oxygen Delivery Method 06/18/24 07:00 06/18/24 07:01 06/18/24 07:01 Pulse Rate 66 65 Pulse Rate [Orthostatic Lying] Pulse Rate [Orthostatic Sitting] Pulse Rate [Orthostatic Standing] Blood Pressure 116/60 Blood Pressure [Orthostatic Lying] Blood Pressure [Orthostatic Sitting] Blood Pressure [Orthostatic Standing] Pulse Oximetry 96 97 Oxygen Delivery Method Room Air 06/18/24 07:30 06/18/24 07:30 06/18/24 08:00 Pulse Rate 61 65 Pulse Rate [Orthostatic Lying] Pulse Rate [Orthostatic Sitting] Pulse Rate [Orthostatic Standing] Blood Pressure 122/72 Blood Pressure [Orthostatic Lying] Blood Pressure [Orthostatic Sitting] Blood Pressure [Orthostatic Standing] Pulse Oximetry 97 99 Oxygen Delivery Method 06/18/24 08:00 06/18/24 08:30 06/18/24 08:30 Pulse Rate 65 Pulse Rate [Orthostatic Lying] Pulse Rate [Orthostatic Sitting] Pulse Rate [Orthostatic Standing] Blood Pressure 117/62 154/89 H Blood Pressure [Orthostatic Lying] Blood Pressure [Orthostatic Sitting] Blood Pressure [Orthostatic Standing] Pulse Oximetry 97 Oxygen Delivery Method 06/18/24 09:45 Pulse Rate Pulse Rate [Orthostatic Lying] 74 Pulse Rate [Orthostatic Sitting] 67 Pulse Rate [Orthostatic Standing] 91 H Blood Pressure Blood Pressure [Orthostatic Lying] 131/76 Blood Pressure [Orthostatic Sitting] 128/81 Blood Pressure [Orthostatic Standing] 158/84 H Pulse Oximetry Oxygen Delivery Method <Marley Osorio, - Last Filed: 06/18/24 18:20> Orders Ordered: Acetaminophen (Acetaminophen 325 Mg Tablet) 650 mg PO Q6H PRN PRN Reason: Fever/Mild Pain (1-3) Acetaminophen/Butalbital/Caffeine (Butalb/Apap/Caffeine 50/325/40 Tablet) 1 each PO Q4HR PRN PRN Reason: Headache Al Hydrox/Mg Hydrox/Simethicone (Mag Hydrox/Alum/Simeth 30 Ml Udc) 30 ml PO Q4HR PRN PRN Reason: Dyspepsia Last Admin: 06/19/24 06:12 Dose: 30 ml Documented By: Admin: 06/19/24 01:33 Dose: 30 ml Documented By: PATRICE Calcium Carbonate (Calcium Carbonate 500 Mg Tab) 1,000 mg PO Q4HR PRN PRN Reason: Dyspepsia Duloxetine HCl (Duloxetine 20 Mg Capsule) 60 mg PO DAILY [facility] Last Admin: 06/20/24 10:04 Dose: 60 mg Documented By: Admin: 06/19/24 11:42 Dose: 60 mg Documented By: SUSIE Heparin Sodium (Porcine) (Heparin 5,000 Unit/Ml Vial) 5,000 unit SUBCUT BID [facility] Last Admin: 06/20/24 10:05 Dose: 5,000 unit Documented By: Admin: 06/19/24 21:53 Dose: 5,000 unit Documented By: Admin: 06/19/24 10:43 Dose: 5,000 unit Documented By: Admin: 06/18/24 20:18 Dose: 5,000 unit Documented By: Admin: 06/18/24 12:00 Dose: 5,000 unit Documented By: VICTORIANO Hydrochlorothiazide (Hydrochlorothiazide 25 Mg Tablet) 25 mg PO DAILY [facility] Last Admin: 06/20/24 10:04 Dose: 25 mg Documented By: Admin: 06/19/24 11:42 Dose: 25 mg Documented By: SUSIE Hydromorphone HCl (Hydromorphone 0.5 Mg Inj) 0.5 mg IV Q3H PRN PRN Reason: Pain, Severe (7-10) Last Admin: 06/20/24 10:05 Dose: 0.5 mg Documented By: Admin: 06/20/24 05:08 Dose: 0.5 mg Documented By: Admin: 06/19/24 19:48 Dose: 0.5 mg Documented By: Admin: 06/19/24 15:25 Dose: 0.5 mg Documented By: Admin: 06/19/24 11:40 Dose: 0.5 mg Documented By: Admin: 06/19/24 07:45 Dose: 0.5 mg Documented By: Admin: 06/19/24 01:34 Dose: 0.5 mg Documented By: Admin: 06/18/24 20:37 Dose: 0.5 mg Documented By: Admin: 06/18/24 16:33 Dose: 0.5 mg Documented By: VICTORIANO Levothyroxine Sodium (Levothyroxine 50 Mcg Tablet) 50 mcg PO 0600 [facility] Lorazepam (Lorazepam 2 Mg/Ml Inj) 0.5 mg IV Q4HR PRN PRN Reason: Anxiety Last Admin: 06/20/24 05:08 Dose: 0.5 mg Documented By: Admin: 06/19/24 19:48 Dose: 0.5 mg Documented By: Meclizine HCl (Meclizine Hcl 12.5 Mg Tablet) 25 mg PO TID [facility] Last Admin: 06/20/24 10:03 Dose: 25 mg Documented By: Admin: 06/19/24 21:53 Dose: 25 mg Documented By: Admin: 06/19/24 15:25 Dose: 25 mg Documented By: Admin: 06/19/24 10:43 Dose: 25 mg Documented By: Admin: 06/18/24 20:19 Dose: 25 mg Documented By: Admin: 06/18/24 14:59 Dose: 25 mg Documented By: Admin: 06/18/24 11:54 Dose: Not Given Documented By: VICTORIANO Metoprolol Succinate (Metoprolol Er 50 Mg Tablet) 50 mg PO DAILY [facility] Last Admin: 06/20/24 10:03 Dose: 50 mg Documented By: Admin: 06/19/24 11:42 Dose: 50 mg Documented By: SUSIE Naloxone HCl (Naloxone 0.4 Mg/Ml Vial) 0.2 mg IV Q2MIN PRN PRN Reason: Opiate Reversal Ondansetron HCl (Ondansetron 4 Mg/2 Ml Inj) 4 mg IV Q8HR PRN PRN Reason: Nausea And Vomiting Last Admin: 06/20/24 05:08 Dose: 4 mg Documented By: Admin: 06/19/24 01:46 Dose: 4 mg Documented By: PATRICE Oxycodone HCl (Oxycodone Ir 5 Mg Tablet) 5 mg PO Q4HR PRN PRN Reason: Pain, Moderate (4-6) Last Admin: 06/19/24 21:53 Dose: 5 mg Documented By: Admin: 06/19/24 10:43 Dose: 5 mg Documented By: Admin: 06/19/24 06:16 Dose: 5 mg Documented By: Admin: 06/18/24 15:19 Dose: 5 mg Documented By: VICTORIANO Pantoprazole Sodium (Pantoprazole Dr 40 Mg Tablet) 40 mg PO 0700,2100 [facility] Last Admin: 06/19/24 21:53 Dose: 40 mg Documented By: Admin: 06/19/24 11:50 Dose: 40 mg Documented By: SUSIE Polyethylene Glycol (Polyethylene Glycol 3350 17 Gm Powd.Pack) 17 gm PO DAILY [facility] Last Admin: 06/20/24 10:07 Dose: 17 gm Documented By: Admin: 06/19/24 11:57 Dose: 17 gm Documented By: Admin: 06/19/24 10:44 Dose: Not Given Documented By: KATELYN Promethazine HCl (Promethazine 25 Mg Tablet) 12.5 mg PO Q6HR PRN PRN Reason: Nausea Last Admin: 06/19/24 03:01 Dose: 12.5 mg Documented By: Admin: 06/18/24 16:31 Dose: 12.5 mg Documented By: VICTORIANO Spironolactone (Spironolactone 25 Mg Tablet) 50 mg PO DAILY [facility] Last Admin: 06/20/24 10:03 Dose: 50 mg Documented By: MO Discontinued Medications Acetaminophen (Acetaminophen 325 Mg Tablet) 975 mg PO NOW ONE Stop: 06/18/24 10:06 Last Admin: 06/18/24 10:23 Dose: 975 mg Documented By: LISSET Calcium Carbonate (Calcium Carbonate 500 Mg Tab) 500 mg PO Q8H PRN PRN Reason: Dyspepsia Last Admin: 06/19/24 06:12 Dose: 500 mg Documented By: Admin: 06/18/24 20:16 Dose: 500 mg Documented By: PATRICE Hydromorphone HCl (Hydromorphone 0.5 Mg Inj) 0.5 mg IV NOW ONE Stop: 06/17/24 16:59 Last Admin: 06/17/24 17:14 Dose: 0.5 mg Documented By: Hydromorphone HCl (Hydromorphone 0.5 Mg Inj) 0.5 mg IV NOW ONE Stop: 06/17/24 22:32 Last Admin: 06/17/24 22:38 Dose: 0.5 mg Documented By: MASSIEL Magnesium Sulfate (Magnesium Sulfate) 2 gm in 50 mls @ 150 mls/hr IV NOW ONE Stop: 06/17/24 16:01 Last Infusion: 06/17/24 18:54 Dose: Infused Documented By: Co-signed By: LISSET Admin: 06/17/24 15:58 Dose: 25 mls/hr Documented By: GEN Co-signed By: MERCY Sodium Chloride (Normal Saline 0.9%) 1,000 mls @ 1,000 mls/hr IV BOLUS ONE Stop: 06/18/24 01:06 Last Infusion: 06/18/24 03:15 Dose: Infused Documented By: Admin: 06/18/24 00:43 Dose: 1,000 mls/hr Documented By: Acetaminophen (Ofirmev) 1,000 mg in 100 mls @ 400 mls/hr IV NOW ONE Stop: 06/18/24 00:21 Last Admin: 06/18/24 00:46 Dose: Not Given Documented By: Sodium Chloride (Normal Saline 0.9%) 1,000 mls @ 1,000 mls/hr IV BOLUS ONE Stop: 06/18/24 11:04 Last Admin: 06/18/24 10:36 Dose: 1,000 mls/hr Documented By: LISSET Sodium Chloride (Normal Saline 0.45%) 1,000 mls @ 100 mls/hr IV CONT IOANA Last Infusion: 06/19/24 16:00 Dose: 0 mls/hr Documented By: Admin: 06/19/24 07:44 Dose: 100 mls/hr Documented By: Infusion: 06/19/24 07:44 Dose: Infused Documented By: Admin: 06/18/24 21:58 Dose: 100 mls/hr Documented By: Infusion: 06/18/24 21:58 Dose: Infused Documented By: Admin: 06/18/24 12:01 Dose: 100 mls/hr Documented By: VICTORIANO Ketorolac Tromethamine (Ketorolac 30 Mg/Ml Vial) 15 mg IV NOW ONE Stop: 06/18/24 04:54 Last Admin: 06/18/24 05:03 Dose: 15 mg Documented By: JOSE Lorazepam (Lorazepam 2 Mg/Ml Inj) 1 mg IV NOW ONE Stop: 06/17/24 15:23 Last Admin: 06/17/24 17:37 Dose: 1 mg Documented By: Lorazepam (Lorazepam 2 Mg/Ml Inj) 0.5 mg IV NOW ONE Stop: 06/18/24 10:06 Last Admin: 06/18/24 10:23 Dose: 0.5 mg Documented By: LISSET Magnesium Chloride (Magnesium Chloride 64 Mg Tablet) 128 mg PO NOW ONE Stop: 06/19/24 11:01 Last Admin: 06/19/24 11:44 Dose: 128 mg Documented By: SUSIE Meclizine HCl (Meclizine Hcl 12.5 Mg Tablet) 50 mg PO NOW ONE Stop: 06/18/24 07:48 Last Admin: 06/18/24 08:02 Dose: 50 mg Documented By: MERCY Ondansetron HCl (Ondansetron 4 Mg/2 Ml Inj) 4 mg IV NOW PRN PRN Reason: Nausea And Vomiting Last Admin: 06/17/24 22:40 Dose: 4 mg Documented By: Admin: 06/17/24 15:46 Dose: 4 mg Documented By: GEN Ondansetron HCl (Ondansetron 4 Mg Odt) 4 mg SL NOW PRN PRN Reason: Nausea And Vomiting Ondansetron HCl (Ondansetron 4 Mg/2 Ml Inj) 4 mg IV NOW ONE Stop: 06/17/24 16:59 Last Admin: 06/17/24 18:52 Dose: Not Given Documented By: Pantoprazole Sodium (Pantoprazole Dr 20 Mg Tablet) 20 mg PO NOW ONE Stop: 06/18/24 08:20 Last Admin: 06/18/24 09:25 Dose: 20 mg Documented By: LISSET Pantoprazole Sodium (Pantoprazole Dr 20 Mg Tablet) 20 mg PO 0700 IO[facility] Last Admin: 06/19/24 06:12 Dose: 20 mg Documented By: Admin: 06/19/24 01:33 Dose: 20 mg Documented By: PATRICE Vital Signs Vital signs: Vital Signs - 8 hr 06/18/24 02:30 06/18/24 02:30 06/18/24 03:00 Pulse Rate 72 Pulse Rate [Orthostatic Lying] Pulse Rate [Orthostatic Sitting] Pulse Rate [Orthostatic Standing] Blood Pressure 139/89 134/87 Blood Pressure [Orthostatic Lying] Blood Pressure [Orthostatic Sitting] Blood Pressure [Orthostatic Standing] Pulse Oximetry 97 Oxygen Delivery Method Room Air 06/18/24 03:00 06/18/24 03:30 06/18/24 03:30 Pulse Rate 68 69 Pulse Rate [Orthostatic Lying] Pulse Rate [Orthostatic Sitting] Pulse Rate [Orthostatic Standing] Blood Pressure 148/87 H Blood Pressure [Orthostatic Lying] Blood Pressure [Orthostatic Sitting] Blood Pressure [Orthostatic Standing] Pulse Oximetry 96 94 Oxygen Delivery Method 06/18/24 04:00 06/18/24 04:00 06/18/24 04:30 Pulse Rate 66 65 Pulse Rate [Orthostatic Lying] Pulse Rate [Orthostatic Sitting] Pulse Rate [Orthostatic Standing] Blood Pressure 124/81 Blood Pressure [Orthostatic Lying] Blood Pressure [Orthostatic Sitting] Blood Pressure [Orthostatic Standing] Pulse Oximetry 96 96 Oxygen Delivery Method 06/18/24 04:30 06/18/24 05:00 06/18/24 05:00 Pulse Rate 68 Pulse Rate [Orthostatic Lying] Pulse Rate [Orthostatic Sitting] Pulse Rate [Orthostatic Standing] Blood Pressure 126/79 136/81 Blood Pressure [Orthostatic Lying] Blood Pressure [Orthostatic Sitting] Blood Pressure [Orthostatic Standing] Pulse Oximetry 96 Oxygen Delivery Method 06/18/24 05:30 06/18/24 05:30 06/18/24 06:00 Pulse Rate 68 Pulse Rate [Orthostatic Lying] Pulse Rate [Orthostatic Sitting] Pulse Rate [Orthostatic Standing] Blood Pressure 104/61 115/63 Blood Pressure [Orthostatic Lying] Blood Pressure [Orthostatic Sitting] Blood Pressure [Orthostatic Standing] Pulse Oximetry 96 Oxygen Delivery Method 06/18/24 06:00 06/18/24 06:30 06/18/24 06:30 Pulse Rate 65 62 Pulse Rate [Orthostatic Lying] Pulse Rate [Orthostatic Sitting] Pulse Rate [Orthostatic Standing] Blood Pressure 119/68 Blood Pressure [Orthostatic Lying] Blood Pressure [Orthostatic Sitting] Blood Pressure [Orthostatic Standing] Pulse Oximetry 97 96 Oxygen Delivery Method 06/18/24 07:00 06/18/24 07:01 06/18/24 07:01 Pulse Rate 66 65 Pulse Rate [Orthostatic Lying] Pulse Rate [Orthostatic Sitting] Pulse Rate [Orthostatic Standing] Blood Pressure 116/60 Blood Pressure [Orthostatic Lying] Blood Pressure [Orthostatic Sitting] Blood Pressure [Orthostatic Standing] Pulse Oximetry 96 97 Oxygen Delivery Method Room Air 06/18/24 07:30 06/18/24 07:30 06/18/24 08:00 Pulse Rate 61 65 Pulse Rate [Orthostatic Lying] Pulse Rate [Orthostatic Sitting] Pulse Rate [Orthostatic Standing] Blood Pressure 122/72 Blood Pressure [Orthostatic Lying] Blood Pressure [Orthostatic Sitting] Blood Pressure [Orthostatic Standing] Pulse Oximetry 97 99 Oxygen Delivery Method 06/18/24 08:00 06/18/24 08:30 06/18/24 08:30 Pulse Rate 65 Pulse Rate [Orthostatic Lying] Pulse Rate [Orthostatic Sitting] Pulse Rate [Orthostatic Standing] Blood Pressure 117/62 154/89 H Blood Pressure [Orthostatic Lying] Blood Pressure [Orthostatic Sitting] Blood Pressure [Orthostatic Standing] Pulse Oximetry 97 Oxygen Delivery Method 06/18/24 09:45 Pulse Rate Pulse Rate [Orthostatic Lying] 74 Pulse Rate [Orthostatic Sitting] 67 Pulse Rate [Orthostatic Standing] 91 H Blood Pressure Blood Pressure [Orthostatic Lying] 131/76 Blood Pressure [Orthostatic Sitting] 128/81 Blood Pressure [Orthostatic Standing] 158/84 H Pulse Oximetry Oxygen Delivery Method MDM - Neuro Symptoms/Deficit <Dru Knapp MD - Last Filed: 06/19/24 05:49> Lab Data Attestation: I reviewed the patient's lab results. Lab results narrative: POC glucose 130. White blood cell count 15035, hemoglobin 12.7, platelets adequate. BUN 28 with creatinine 1.6, glucose 136. Sodium 134, potassium 3.8, chloride 98, serum CO2 27. Urinalysis negative. Troponin negative/unmeasurable. UDS negative. 06/19/24 06:45 06/19/24 06:45 Labs: Lab Results 06/17/24 06/17/24 06/17/24 Range/Units 12:53 14:45 14:45 WBC 10.5 (4.5-11.0) X10^3/uL RBC 4.26 (4.0-5.2) X10^6/uL Hgb 12.7 (12.0-16.0) g/dL Hct 38.0 (36-46) % MCV 89.4 (80-100) fL MCH 29.8 (26-34) PG MCHC 33.3 (30-36) % RDW 13.4 (11.6-14.8) % Plt Count 326 (150-400) X10^3/uL Neut % (Auto) 75.2 H (50-75) % Lymph % (Auto) 12.6 L (25-40) % Dade % (Auto) 9.7 (3-14) % Eos % (Auto) 1.4 L (2-4) % Baso % (Auto) 1.1 (0-2) % Neut # (Auto) 7900 H (2458-1079) /uL Lymph # (Auto) 1300 (3899-9121) /uL Dade # (Auto) 1000 H (0-900) /uL Eos # (Auto) 200 (0-450) /uL Baso # (Auto) 100 (0-100) /uL PT 11.6 (9.4-12.5) SECONDS INR 1.0 (0.9-1.3) APTT 35 (25.1-36.5) SECONDS Sodium 134 L (137-145) mmol/L Potassium 3.8 (3.4-5.1) mmol/L Chloride 98 (98-107) mmol/L Carbon Dioxide 27 (22-32) mmol/L BUN 28 H (7-17) mg/dL Creatinine 1.61 H (0.52-1.04) mg/dL Estimated GFR 35 L (>60) mL/min BUN/Creatinine Ratio 17.4 (6-22) Glucose 136 H (80-110) mg/dL Calcium 9.3 (8.4-10.2) mg/dL Magnesium 1.2 L (1.6-2.3) mg/dL Total Bilirubin 0.5 (0.2-1.3) mg/dL AST 50 H (14-36) IU/L ALT 27 (<35) IU/L Alkaline Phosphatase 99 (38-126) U/L Total Creatine Kinase 51 (30-135) U/L Troponin I < 0.012 (0.01-0.034) ng/mL Total Protein 8.1 (6.3-8.2) g/dL Albumin 4.7 (3.5-5.0) g/dL Globulin 3.4 (1.7-4.1) g/dL Albumin/Globulin Ratio 1.4 (1.0-2.8) Urine Color Yellow Urine Appearance Clear Urine pH 5.0 Normal (4.5-8.0) Ur Specific Winder <=1.005 (1.000-1.035) Urine Protein Negative (Negative) Urine Glucose (UA) Negative (Negative) g/dL Urine Ketones Negative (NEGATIVE) Urine Occult Blood Trace-intact (Negative) Urine Nitrate Negative (Negative) Urine Bilirubin Negative (NEGATIVE) Urine Urobilinogen 0.2 (0.2) E.U./dL Ur Leukocyte Esterase Negative (NEGATIVE) Urine RBC None seen (0-5/HPF) Urine WBC 0-1/hpf (0-5/HPF) Ur Squamous Epith Cells 10-30 /hpf H (0-5/HPF) Urine Bacteria Few (2-10) H (None) Ur Culture Indicated? Cult not indicated Vol Urine Centrifuged 10ml (spun) U Opiates 300ng/mL cut Negative (Negative) Ur Oxycodone Screen Negative (Negative) Urine Methadone Screen Negative (Negative) Ur Barbiturates Screen Negative (Negative) U Tricyclic Antidepress Negative (Negative) Ur Phencyclidine Scrn Negative (Negative) Ur Amphetamines Screen Negative (Negative) U Methamphetamines Scrn Negative (Negative) Ur MDMA Scrn (Ecstasy) Negative (Negative) U Benzodiazepines Scrn Negative (Negative) Urine Cocaine Screen Negative (Negative) U Marijuana (THC) Screen Negative (Negative) Urine Specific Winder Normal (Normal) Ur Creatinine Normal (Normal) Point of Care Testing Glucose POC 130 Imaging Data Chest x-ray: Radiologist's Impression: [address] [address] XRay Report Signed Patient: Xi Dejesus MR#: [id number] : 1960 Acct:[id number] Age/Sex: 63 / F Date of Service: 06/17/24 Loc: ED Accession Number: [id number] Procedure: XR chest 1V Ordering Provider: Dru Knapp MD PROCEDURE: XR CHEST 1V INDICATIONS: Possible stroke TECHNIQUE: One view of the chest was acquired. COMPARISON: Located Within [facility], , XR CHEST 1V, 06/02/2024, 15:26. Located Within [facility], , XR CHEST 1V, 05/22/2024, 13:44. FINDINGS: Surgical changes and devices: None. Lungs and pleura: Lungs are clear. No pleural effusions or pneumothorax. Mediastinum: Mediastinal contours appear normal. Heart size is normal. Bones and chest wall: No suspicious bony lesions. Overlying soft tissues appear unremarkable. IMPRESSION: No acute cardiopulmonary abnormality is seen. Dictated by: Jeison Quispe M.D. on 06/17/2024 at 13:13 Approved by: Jeison Quispe M.D. on 06/17/2024 at 13:16 MRI brain without and with contrast.: Radiologist's Impression: [address] [address] Magnetic Resonance Report Signed Patient: Xi Dejesus MR#: [id number] : 1960 Acct:[id number] Age/Sex: 63 / F Date of Service: 06/17/24 Loc: ED Accession Number: [id number] Procedure: MR head/brain wo/w con Ordering Provider: Dru Knapp MD PROCEDURE: MR HEAD/BRAIN WO/W CON INDICATIONS: new L sided weakness.. TECHNIQUE: Noncontrast axial T1 spin echo, axial T2 fast spin echo, sagittal and axial FLAIR, coronal T2 fast spin echo, axial gradient echo, axial diffusion and ADC through the brain. After the administration of contrast, axial and coronal and sagittal T1 spin echo with fat saturation through the brain. COMPARISON: Located Within [facility], CT, CT STROKE, 06/17/2024, 12:55. FINDINGS: Image quality: Diagnostic. Image degraded by moderate patient motion artifact. CSF spaces: Basal cisterns are patent. No extra-axial fluid collections. Ventricles are normal in size and shape. Brain: No midline shift. No intracranial bleeds or masses. No abnormal intracranial enhancement. There is cerebral volume loss for age. There is periventricular white matter chronic small vessel ischemic change. The brainstem appears normal. Diffusion-weighted images demonstrate no acute infarct. No chronic ischemic insults. Normal intravascular flow voids are present. Incidental note of tiny focus of hyperintensity involving the right deep white matter within the posterior right parietal lobe on the diffusion sequence with correlating high signal intensity on the ADC map and T2 weighted series compatible with T2 shine through. Skull and face: Calvarial marrow is normal in signal. Orbits appear normal. Sinuses: Sinuses and mastoids appear clear. IMPRESSION: MRI brain without acute intracranial abnormalities. No evidence for acute cerebral infarction, mass, or mass effect. Age related senescent changes and sequela of chronic small vessel ischemic disease. Dictated by: Nitin Wyatt M.D. on 06/17/2024 at 18:38 Approved by: Nitin Wyatt M.D. on 06/17/2024 at 18:42 CT head noncontrast: Radiologist's Impression: [address] [address] [address] Scan Report Signed Patient: Xi Dejesus MR#: [id number] : 1960 Acct:[id number] Age/Sex: 63 / F Date of Service: 06/17/24 Loc: ED Accession Number: [id number] Procedure: CT Stroke Ordering Provider: Dru Knapp MD PROCEDURE: CT STROKE INDICATIONS: Positive BE-FAST, Stroke symptoms TECHNIQUE: Noncontrast 4.5 mm thick angled axial sections acquired from the foramen magnum to the vertex, with coronal reformats. For radiation dose reduction, the following was used: automated exposure control, adjustment of mA and/or kV according to patient size. COMPARISON: Located Within [facility], CT, CT STROKE, 06/02/2024, 14:39. FINDINGS: Image quality: Diagnostic. CSF spaces: Basal cisterns are patent. No extra-axial fluid collections. The ventricles are symmetric in size and shape. Brain: No acute intracranial hemorrhage or mass effect. There is cerebral volume loss for age, with resultant ventricular and sulcal prominence. There are periventricular and deep white matter chronic small vessel ischemic changes. There is intracranial internal carotid artery atherosclerosis. Skull and face: Calvarium and visualized facial bones appear intact, without suspicious lesions. Sinuses: Visualized sinuses and mastoids are clear. IMPRESSION: No acute intracranial pathology. Findings were discussed with the referring provider, Dr. Knapp, by telephone on 06/17/2024 at 1:05 PM. This study fulfills neurological imaging criteria for inclusion or exclusion of acute stroke therapies based on available published neurological guidelines. Dictated by: Paul Burch M.D. on 06/17/2024 at 13:03 Approved by: Paul Burch M.D. on 06/17/2024 at 13:06 ECG Data Attestation: I personally reviewed and interpreted this ECG as follows: Interpretation: Normal sinus rhythm with rate of 74, no obvious ST segment elevation or depression changes. NC 170, QRS 70, QTC 444. 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 had subjective weakness to her left arm in her left leg. No injury or trauma. No change in medications. No fevers or chills. No photophobia. Location in the quality of a right-sided headache still seems the same. CT head and CT angiogram study ordered from triage. 1530, case discussed with stroke Neurology [facility] Dr Garcia. Not a lytics candidate, consider transfer for neurology consult. Advises MRI without and with contrast, she will call back with update, possible transfer for expedited neuro/neurosurgery consultation. Patient informed neuro recommendation, she would like something for her headache pain, IV Dilaudid dose. We will reconsult Neurology when MRI imaging available. 2014, Brain MRI without and with contrast shows no acute changes, anticipate re- consultation with neurology per previous recommendation. Signed out to Dr Velasquez. 2029- -patient signed out to me by Dr. Knapp I have seen evaluated patient myself. She has been sleeping. Reports that she has had dizziness off and on it does go away she has been admitted for this previously. Today was new with some subjective left-sided weakness I have not appreciated on exam. She had MRI today which shows deep white matter lesion within the posterior right parietal lobe which was present on her previous MRI May 24 2024. Patient has been sleeping feels like she can try and eat. I have done my exam she has no weakness on the left side able to hold up both upper extremities for 10 seconds in both lower extremities for 5 seconds. She has not had nausea or vomiting feels like she wants to try and eat. We will reconsult stroke Neurology for further instructions 2114 DR. Sanchez neurology updated on MRI results patient's symptoms. Overall she was underwhelmed about the MRI and exam. Does not think this is related. Unclear what is causing her dizziness. Patient does not need to be transferred for any sort of urgent neurologic evaluation. Would consider an ENT evaluation. May consider observation and hospitalization if dizziness is ongoing. Patient failed ambulation. Still having headache tolerating p.o. fluids. 2199DR. Abreu, updated patient's symptoms test results at this time neurology does not any further recommendations thinks patient may have an atypical migraine requests pain control possibly even sumatriptan IV fluids and IV Tylenol were ordered however patient initially refused the IV Tylenol. Reporting that Dilaudid is the only thing that helps and she is worried about her liver Ultimately agreed to IV Toradol. He was awake able to sit up. 06/18/2024 Dr. Osorio: Patient signed out to myself by Dr. Velasquez, patient had workup yesterday for vertigo type symptoms which she was had on and off I seen her myself in the past for these had MRI negative for acute change did have a tiny focus hyperintensity involving rate deep white matter thin posterior right parietal lobe on the diffuse in sequence correlate with a high signal intensity on ADC map and T2 weighted series compatible with T2 shine through. This was reviewed with Neurology who recommended potential follow up with ENT. Case was discussed with the overnight hospitalist who suspected possibly atypical migraine patient was given dose of tylenol. Patient seen and evaluated by myself. Patient states headache somewhat improved, her vertigo somewhat improved she has not tried to ambulate recently she did note that she thinks she threw up her meclizine earlier when she had it in her stay. We would like to try an additional dose now. She was had meclizine at home and Zofran which has been helpful at times. Patient and I reviewed all of her findings. We will give a dose of p.o. meclizine here, re-evaluate in about an hour with ambulation trial. Did review recommendations from Neurology including follow up with ENT. 1004: Ambulation trial patient was not able to stand was very lightheaded/unsteady. Orthostatics did show 20 point drop in pressure, heart rate did not increase by orthostatics. Patient states headache is present currently last dose of pain medication was not at 5:00 a.m. we will give acetaminophen, dose of Ativan and fluids. Contacted hospitalist, Dr. Terry for observation for vertigo. He accepts for observation. <Keya Velasquez, DO - Last Filed: 06/20/24 10:12> Lab Data Labs: Lab Results 06/17/24 06/17/24 06/17/24 Range/Units 12:53 14:45 14:45 WBC 10.5 (4.5-11.0) X10^3/uL RBC 4.26 (4.0-5.2) X10^6/uL Hgb 12.7 (12.0-16.0) g/dL Hct 38.0 (36-46) % MCV 89.4 (80-100) fL MCH 29.8 (26-34) PG MCHC 33.3 (30-36) % RDW 13.4 (11.6-14.8) % Plt Count 326 (150-400) X10^3/uL Neut % (Auto) 75.2 H (50-75) % Lymph % (Auto) 12.6 L (25-40) % Dade % (Auto) 9.7 (3-14) % Eos % (Auto) 1.4 L (2-4) % Baso % (Auto) 1.1 (0-2) % Neut # (Auto) 7900 H (1998-4355) /uL Lymph # (Auto) 1300 (3713-9605) /uL Dade # (Auto) 1000 H (0-900) /uL Eos # (Auto) 200 (0-450) /uL Baso # (Auto) 100 (0-100) /uL PT 11.6 (9.4-12.5) SECONDS INR 1.0 (0.9-1.3) APTT 35 (25.1-36.5) SECONDS Sodium 134 L (137-145) mmol/L Potassium 3.8 (3.4-5.1) mmol/L Chloride 98 (98-107) mmol/L Carbon Dioxide 27 (22-32) mmol/L BUN 28 H (7-17) mg/dL Creatinine 1.61 H (0.52-1.04) mg/dL Estimated GFR 35 L (>60) mL/min BUN/Creatinine Ratio 17.4 (6-22) Glucose 136 H (80-110) mg/dL Calcium 9.3 (8.4-10.2) mg/dL Magnesium 1.2 L (1.6-2.3) mg/dL Total Bilirubin 0.5 (0.2-1.3) mg/dL AST 50 H (14-36) IU/L ALT 27 (<35) IU/L Alkaline Phosphatase 99 (38-126) U/L Total Creatine Kinase 51 (30-135) U/L Troponin I < 0.012 (0.01-0.034) ng/mL Total Protein 8.1 (6.3-8.2) g/dL Albumin 4.7 (3.5-5.0) g/dL Globulin 3.4 (1.7-4.1) g/dL Albumin/Globulin Ratio 1.4 (1.0-2.8) Urine Color Yellow Urine Appearance Clear Urine pH 5.0 Normal (4.5-8.0) Ur Specific Winder <=1.005 (1.000-1.035) Urine Protein Negative (Negative) Urine Glucose (UA) Negative (Negative) g/dL Urine Ketones Negative (NEGATIVE) Urine Occult Blood Trace-intact (Negative) Urine Nitrate Negative (Negative) Urine Bilirubin Negative (NEGATIVE) Urine Urobilinogen 0.2 (0.2) E.U./dL Ur Leukocyte Esterase Negative (NEGATIVE) Urine RBC None seen (0-5/HPF) Urine WBC 0-1/hpf (0-5/HPF) Ur Squamous Epith Cells 10-30 /hpf H (0-5/HPF) Urine Bacteria Few (2-10) H (None) Ur Culture Indicated? Cult not indicated Vol Urine Centrifuged 10ml (spun) U Opiates 300ng/mL cut Negative (Negative) Ur Oxycodone Screen Negative (Negative) Urine Methadone Screen Negative (Negative) Ur Barbiturates Screen Negative (Negative) U Tricyclic Antidepress Negative (Negative) Ur Phencyclidine Scrn Negative (Negative) Ur Amphetamines Screen Negative (Negative) U Methamphetamines Scrn Negative (Negative) Ur MDMA Scrn (Ecstasy) Negative (Negative) U Benzodiazepines Scrn Negative (Negative) Urine Cocaine Screen Negative (Negative) U Marijuana (THC) Screen Negative (Negative) Urine Specific Winder Normal (Normal) Ur Creatinine Normal (Normal) Point of Care Testing Glucose POC 130 MDM Narrative Medical decision making narrative: 63-year-old female with ongoing right-sided headache and dizziness symptoms, known right-sided brain mass on May 2024 MRI study, awaiting follow up neurology appointment, still having right-sided headache and dizziness, that seemed to worsen earlier today, and then a proximally 1:00 p.m. having some subjective weakness to her left arm in her left leg. No injury or trauma. No change in medications. No fevers or chills. No photophobia. Location in the quality of a right-sided headache still seems the same. CT head and CT angiogram study ordered from triage. 1530, case discussed with stroke Neurology [facility] Dr Garcia. Not a lytics candidate, consider transfer for neurology consult. Advises MRI without and with contrast, she will call back with update, possible transfer for expedited neuro/neurosurgery consultation. Patient informed neuro recommendation, she would like something for her headache pain, IV Dilaudid dose. We will reconsult Neurology when MRI imaging available. 2014, Brain MRI without and with contrast shows no acute changes, anticipate re- consultation with neurology per their request 2029- -patient signed out to me by Dr. Knapp I have seen evaluated patient myself. She has been sleeping. Reports that she has had dizziness off and on it does go away she has been admitted for this previously. Today was new with some subjective left-sided weakness I have not appreciated on exam. She had MRI today which shows deep white matter lesion within the posterior right parietal lobe which was present on her previous MRI May 24 2024. Patient has been sleeping feels like she can try and eat. I have done my exam she has no weakness on the left side able to hold up both upper extremities for 10 seconds in both lower extremities for 5 seconds. She has not had nausea or vomiting feels like she wants to try and eat. We will reconsult stroke Neurology for further instructions 2114 DR. Sanchez neurology updated on MRI results patient's symptoms. Overall she was underwhelmed about the MRI and exam. Does not think this is related. Unclear what is causing her dizziness. Patient does not need to be transferred for any sort of urgent neurologic evaluation. Would consider an ENT evaluation. May consider observation and hospitalization if dizziness is ongoing. Patient failed ambulation. Still having headache tolerating p.o. fluids. [id number] Abreu, updated patient's symptoms test results at this time neurology does not any further recommendations thinks patient may have an atypical migraine requests pain control possibly even sumatriptan IV fluids and IV Tylenol were ordered however patient initially refused the IV Tylenol. Reporting that Dilaudid is the only thing that helps and she is worried about her liver Ultimately agreed to IV Toradol. He was awake able to sit up. <Marley Osorio DO - Last Filed: 06/18/24 18:20> Lab Data Labs: Lab Results 06/17/24 06/17/24 06/17/24 Range/Units 12:53 14:45 14:45 WBC 10.5 (4.5-11.0) X10^3/uL RBC 4.26 (4.0-5.2) X10^6/uL Hgb 12.7 (12.0-16.0) g/dL Hct 38.0 (36-46) % MCV 89.4 (80-100) fL MCH 29.8 (26-34) PG MCHC 33.3 (30-36) % RDW 13.4 (11.6-14.8) % Plt Count 326 (150-400) X10^3/uL Neut % (Auto) 75.2 H (50-75) % Lymph % (Auto) 12.6 L (25-40) % Dade % (Auto) 9.7 (3-14) % Eos % (Auto) 1.4 L (2-4) % Baso % (Auto) 1.1 (0-2) % Neut # (Auto) 7900 H (5093-9104) /uL Lymph # (Auto) 1300 (7013-3546) /uL Dade # (Auto) 1000 H (0-900) /uL Eos # (Auto) 200 (0-450) /uL Baso # (Auto) 100 (0-100) /uL PT 11.6 (9.4-12.5) SECONDS INR 1.0 (0.9-1.3) APTT 35 (25.1-36.5) SECONDS Sodium 134 L (137-145) mmol/L Potassium 3.8 (3.4-5.1) mmol/L Chloride 98 (98-107) mmol/L Carbon Dioxide 27 (22-32) mmol/L BUN 28 H (7-17) mg/dL Creatinine 1.61 H (0.52-1.04) mg/dL Estimated GFR 35 L (>60) mL/min BUN/Creatinine Ratio 17.4 (6-22) Glucose 136 H (80-110) mg/dL Calcium 9.3 (8.4-10.2) mg/dL Magnesium 1.2 L (1.6-2.3) mg/dL Total Bilirubin 0.5 (0.2-1.3) mg/dL AST 50 H (14-36) IU/L ALT 27 (<35) IU/L Alkaline Phosphatase 99 (38-126) U/L Total Creatine Kinase 51 (30-135) U/L Troponin I < 0.012 (0.01-0.034) ng/mL Total Protein 8.1 (6.3-8.2) g/dL Albumin 4.7 (3.5-5.0) g/dL Globulin 3.4 (1.7-4.1) g/dL Albumin/Globulin Ratio 1.4 (1.0-2.8) Urine Color Yellow Urine Appearance Clear Urine pH 5.0 Normal (4.5-8.0) Ur Specific Winder <=1.005 (1.000-1.035) Urine Protein Negative (Negative) Urine Glucose (UA) Negative (Negative) g/dL Urine Ketones Negative (NEGATIVE) Urine Occult Blood Trace-intact (Negative) Urine Nitrate Negative (Negative) Urine Bilirubin Negative (NEGATIVE) Urine Urobilinogen 0.2 (0.2) E.U./dL Ur Leukocyte Esterase Negative (NEGATIVE) Urine RBC None seen (0-5/HPF) Urine WBC 0-1/hpf (0-5/HPF) Ur Squamous Epith Cells 10-30 /hpf H (0-5/HPF) Urine Bacteria Few (2-10) H (None) Ur Culture Indicated? Cult not indicated Vol Urine Centrifuged 10ml (spun) U Opiates 300ng/mL cut Negative (Negative) Ur Oxycodone Screen Negative (Negative) Urine Methadone Screen Negative (Negative) Ur Barbiturates Screen Negative (Negative) U Tricyclic Antidepress Negative (Negative) Ur Phencyclidine Scrn Negative (Negative) Ur Amphetamines Screen Negative (Negative) U Methamphetamines Scrn Negative (Negative) Ur MDMA Scrn (Ecstasy) Negative (Negative) U Benzodiazepines Scrn Negative (Negative) Urine Cocaine Screen Negative (Negative) U Marijuana (THC) Screen Negative (Negative) Urine Specific Winder Normal (Normal) Ur Creatinine Normal (Normal) Point of Care Testing Glucose POC 130 MDM Narrative Medical decision making narrative: 63-year-old female with ongoing right-sided headache and dizziness symptoms, known right-sided brain mass on May 2024 MRI study, awaiting follow up neurology appointment, still having right-sided headache and dizziness, that seemed to worsen earlier today, and then a proximally 1:00 p.m. having some subjective weakness to her left arm in her left leg. No injury or trauma. No change in medications. No fevers or chills. No photophobia. Location in the quality of a right-sided headache still seems the same. CT head and CT angiogram study ordered from triage. 1530, case discussed with stroke Neurology [facility] Dr Garcia. Not a lytics candidate, consider transfer for neurology consult. Advises MRI without and with contrast, she will call back with update, possible transfer for expedited neuro/neurosurgery consultation. Patient informed neuro recommendation, she would like something for her headache pain, IV Dilaudid dose. We will reconsult Neurology when MRI imaging available. 2014, Brain MRI without and with contrast shows no acute changes, anticipate re- consultation with neurology per their request 2029- -patient signed out to me by Dr. Knapp I have seen evaluated patient myself. She has been sleeping. Reports that she has had dizziness off and on it does go away she has been admitted for this previously. Today was new with some subjective left-sided weakness I have not appreciated on exam. She had MRI today which shows deep white matter lesion within the posterior right parietal lobe which was present on her previous MRI May 24 2024. Patient has been sleeping feels like she can try and eat. I have done my exam she has no weakness on the left side able to hold up both upper extremities for 10 seconds in both lower extremities for 5 seconds. She has not had nausea or vomiting feels like she wants to try and eat. We will reconsult stroke Neurology for further instructions 2114 DR. Sanchez neurology updated on MRI results patient's symptoms. Overall she was underwhelmed about the MRI and exam. Does not think this is related. Unclear what is causing her dizziness. Patient does not need to be transferred for any sort of urgent neurologic evaluation. Would consider an ENT evaluation. May consider observation and hospitalization if dizziness is ongoing. Patient failed ambulation. Still having headache tolerating p.o. fluids. 2199DR. Abreu, updated patient's symptoms test results at this time neurology does not any further recommendations thinks patient may have an atypical migraine requests pain control possibly even sumatriptan IV fluids and IV Tylenol were ordered however patient initially refused the IV Tylenol. Reporting that Dilaudid is the only thing that helps and she is worried about her liver Ultimately agreed to IV Toradol. He was awake able to sit up. 06/18/2024 Dr. Osorio: Patient signed out to myself by Dr. Velasquez, patient had workup yesterday for vertigo type symptoms which she was had on and off I seen her myself in the past for these had MRI negative for acute change did have a tiny focus hyperintensity involving rate deep white matter thin posterior right parietal lobe on the diffuse in sequence correlate with a high signal intensity on ADC map and T2 weighted series compatible with T2 shine through. This was reviewed with Neurology who recommended potential follow up with ENT. Case was discussed with the overnight hospitalist who suspected possibly atypical migraine patient was given dose of tylenol. Patient seen and evaluated by myself. Patient states headache somewhat improved, her vertigo somewhat improved she has not tried to ambulate recently she did note that she thinks she threw up her meclizine earlier when she had it in her stay. We would like to try an additional dose now. She was had meclizine at home and Zofran which has been helpful at times. Patient and I reviewed all of her findings. We will give a dose of p.o. meclizine here, re-evaluate in about an hour with ambulation trial. Did review recommendations from Neurology including follow up with ENT. 1004: Ambulation trial patient was not able to stand was very lightheaded/unsteady. Orthostatics did show 20 point drop in pressure, heart rate did not increase by orthostatics. Patient states headache is present currently last dose of pain medication was not at 5:00 a.m. we will give acetaminophen, dose of Ativan and fluids. Contacted hospitalist, Dr. Terry for observation for vertigo. He accepts for observation. Discharge Plan Departure Patient Disposition: Admitted as Observation Clinical Impression: Vertigo Admit Date/Time: 06/18/24 10:14 Admit Provider: Juan Terry
[2024-06-17 15:15] LABS: Bacteria Urine Few (2-10); RBC Urine None Seen (0-5/HPF); Squamous Epithelial Cell Urine 10-30 /HPF (0-5/HPF); UR Morphine/Opiate cutoff 300 Negative (Negative); Ur Creatinine Normal (Normal); Ur Specific Gravity Normal (Normal); Urine Amphetamines Negative (Negative); Urine Barbiturates Negative (Negative); Urine Benzodiazepines Negative (Negative); Urine Cocaine Negative (Negative); Urine MDMA Negative (Negative); Urine Methadone Negative (Negative); Urine Methamphetamines Negative (Negative); Urine Oxycodone Negative (Negative); Urine Phencyclidine Negative (Negative); Urine Tetrahydrocannabinol Negative (Negative); Urine Tricyclic Antidepressant Negative (Negative); Urine Volume 10mL (spun); Urine pH Normal (Normal); WBC Urine 0-1/HPF (0-5/HPF)
[2024-06-17 15:16] LABS: Culture Indicated Urine Cult Not Indicated
--- NOTE | 2024-06-17 15:41 | DI.MRI.S_ITS ---
PROCEDURE: MR HEAD/BRAIN WO/W CON INDICATIONS: new L sided weakness.. TECHNIQUE: Noncontrast axial T1 spin echo, axial T2 fast spin echo, sagittal and axial FLAIR, coronal T2 fast spin echo, axial gradient echo, axial diffusion and ADC through the brain. After the administration of contrast, axial and coronal and sagittal T1 spin echo with fat saturation through the brain. COMPARISON: [facility], CT, CT STROKE, 06/17/2024, 12:55. FINDINGS: Image quality: Diagnostic. Image degraded by moderate patient motion artifact. CSF spaces: Basal cisterns are patent. No extra-axial fluid collections. Ventricles are normal in size and shape. Brain: No midline shift. No intracranial bleeds or masses. No abnormal intracranial enhancement. There is cerebral volume loss for age. There is periventricular white matter chronic small vessel ischemic change. The brainstem appears normal. Diffusion-weighted images demonstrate no acute infarct. No chronic ischemic insults. Normal intravascular flow voids are present. Incidental note of tiny focus of hyperintensity involving the right deep white matter within the posterior right parietal lobe on the diffusion sequence with correlating high signal intensity on the ADC map and T2 weighted series compatible with T2 shine through. Skull and face: Calvarial marrow is normal in signal. Orbits appear normal. Sinuses: Sinuses and mastoids appear clear. IMPRESSION: MRI brain without acute intracranial abnormalities. No evidence for acute cerebral infarction, mass, or mass effect. Age related senescent changes and sequela of chronic small vessel ischemic disease. Dictated by: Nitin Wyatt M.D. on 06/17/2024 at 18:38 Approved by: Nitin Wyatt M.D. on 06/17/2024 at 18:42
[2024-06-17] MEDS: ONDANSETRON 4 MG/2 ML INJ IV ×2 (15:46→22:40)
--- NOTE | 2024-06-17 15:46 | EKG_ITS ---
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
[2024-06-17] MEDS: MAGNESIUM SULFATE 2 GM/50 ML PIGGYBACK IV (15:58)
[2024-06-17] MEDS: HYDROMORPHONE 0.5 MG INJ IV ×2 (17:14→22:38)
[2024-06-17] MEDS: LORazepam 2 MG/ML INJ 1 MG IV (17:37)
--- NOTE | 2024-06-17 18:41 | PC.NURSE ---
Pt returned from MRI. Pt lying back in [facility]. Appears in NAD. VSS.
--- NOTE | 2024-06-17 22:00 | PC.NURSE ---
pt too dizzy to ambulate;
--- NOTE | 2024-06-17 22:24 | PC.NURSE ---
Pt states that she still feels facial numbness. Headache is still present returned upon waking up. She states that she got dizzy when attempting to walk but not while sitting in bed.
[2024-06-18] VITALS (30 sets, daily range): BP systolic 104–158; BP diastolic 60–89; PULSE 61–91; RESP 16–18; TEMP 36.4; O2SAT 94–99; BMI 24.7
--- NOTE | 2024-06-18 00:18 | PC.NURSE ---
Pt given 1/2 turkey sandwhich and apple juice 120 ml
[2024-06-18] MEDS: SODIUM CHLORIDE 0.9% 1,000 ML 1000 ML IV ×2 (00:43→10:36)
--- NOTE | 2024-06-18 02:26 | PC.NURSE ---
Pt has had no changes in her status since this nurses last assessment. Pt c/o of positional vertigo, facial numbness/tingling.
[2024-06-18] MEDS: KETOROLAC 30 MG/ML VIAL 15 MG IV (05:03)
--- NOTE | 2024-06-18 07:10 | PC.NURSE ---
No changes in patient status, pt continues to have intermittent headaches, facial numbness/tingling, dizziness with position changes.
[2024-06-18] MEDS: MECLIZINE HCL 12.5 MG TABLET 50 MG PO (08:02)
--- NOTE | 2024-06-18 08:20 | PC.NURSE ---
Consulted with pharmacy about pt request for 20mg omeprazole; pharm stated we do not have this and stated equivalent is 20mg PO pantoprazole. notified.
[2024-06-18] MEDS: PANTOPRAZOLE DR 20 MG TABLET PO (09:25)
--- NOTE | 2024-06-18 09:46 | PC.NURSE ---
Ambulation Assessment - Patient was able to sit on the side of her bed under her own power with minimal complaints. When patient was assisted in standing, she was immediately lightheaded and unsteady and had to sit back down several times to not fall
--- NOTE | 2024-06-18 10:04 | PC.NURSE ---
Pt states that she has MAY & feels very weak. Pt unable to ambulate due to extreme vertigo upon movement. Meclizine given and pt has not experienced any relief. Failed ambulation trial. Pt has unsteady gait and states that she feels like the room is spinning. Pt a&Ox4.
[2024-06-18] MEDS: ACETAMINOPHEN 325 MG TABLET 975 MG PO (10:23)
[2024-06-18] MEDS: LORazepam 2 MG/ML INJ 0.5 MG IV (10:23)
--- NOTE | 2024-06-18 10:46 | P.HP_ITS ---
History of Present Illness History of Present Illness Date Patient Seen: 06/18/24 Time Patient Seen: 14:00 Chief complaint: Dizzy , light headed, headache Narrative: This is a 63-year-old female who presents with a 5 day history of persistent vertigo and diplopia. She has a history of recurrent vertigo and a known abnormality on imaging that has been seen in her brain in the past. She presented this time with vertigo and diplopia as well as a headache. She was not been seen by outpatient neurology but her imaging has been reviewed with and discuss with Neurology. She was given symptomatic treatment in the emergency department overnight but failed to improve and we will be admitted as an observation patient with ongoing efforts to treat central vertigo and headache. She was had recent [employer] imaging. She denies any viral symptoms, fevers, chills, dyspnea. Also she did have nausea but has not been having diarrhea. [facility] Medical History COPD (chronic obstructive pulmonary disease) (~2018) Allergies Scoliosis Chronic back pain Cervical spine disease Carpal tunnel syndrome Mumps Chicken pox Ruptured tympanic membrane Glaucoma Liver disease (~2018) Hepatitis C (~2018) Hemorrhoid GERD (gastroesophageal reflux disease) Cirrhosis MVP (mitral valve prolapse) Surgical History Anesthesia S/P insertion of spinal cord stimulator (~2016) History of hernia repair (~2012) History of appendectomy History of elbow surgery History of carpal tunnel release History of cholecystectomy History of ear surgery History of total hysterectomy History of partial hysterectomy Social History household members: none Smoking Status: Former smoker alcohol intake: former Meds Home Medications and Allergies Home Medications Medication Instructions Recorded Confirmed Type Disabled Parking #1 ea 03/06/23 06/18/24 Rx esomeprazole magnesium 20 mg 20 mg PO DAILY #90 caps 03/06/23 06/18/24 Rx capsule,delayed release (Nexium) estradiol cypionate 5 mg/mL 2 mg (0.4 mL) IM Q4W #10 mL 03/07/23 06/18/24 Rx intramuscular oil (Depo-Estradiol) loperamide 2 mg capsule 2 mg PO Q6H PRN STOOL 09/10/23 06/18/24 History spironolactone 50 mg tablet 50 mg PO DAILY 09/10/23 06/18/24 History fluticasone propionate 110 2 puff inhalation BID #12 grams 12/12/23 06/18/24 Rx mcg/actuation HFA aerosol inhaler ipratropium 0.5 mg-albuterol 3 mg 3 ml inhalation Q6H PRN shortness 12/12/23 06/18/24 Rx (2.5 mg base)/3 mL nebulization of breath or wheezing #90 mL soln duloxetine 20 mg capsule,delayed 60 mg PO DAILY 04/18/24 06/18/24 History release hydrochlorothiazide 25 mg tablet 25 mg PO DAILY 04/18/24 06/18/24 History levothyroxine 50 mcg tablet 50 mcg PO DAILY 04/18/24 06/18/24 History metoprolol succinate 50 mg 50 mg PO DAILY 04/18/24 06/18/24 History tablet,extended release 24 hr meclizine 25 mg tablet 25 mg PO TID PRN dizziness #20 tabs 05/21/24 06/18/24 Rx ondansetron 4 mg disintegrating 4 mg PO Q8H PRN nausea and 05/21/24 06/18/24 Rx tablet vomiting #14 tabs meclizine 12.5 mg tablet 25 mg (2 x 12.5 mg) PO TID PRN 05/25/24 06/18/24 Rx dizziness #30 tabs hydrocodone 5 mg-acetaminophen 325 1 tab PO Q6H PRN pain #14 tabs 06/02/24 06/18/24 Rx mg tablet Allergies Allergy/AdvReac Type Severity Reaction Status Date / Time codeine Allergy Severe Anaphylaxis Verified 05/26/24 08:54 penicillin G Allergy Severe Anaphylaxis Verified 05/26/24 08:54 levofloxacin [From Levaquin] AdvReac Severe tinnitus Verified 05/26/24 08:54 vaccine adjuvant system, AdvReac Severe blisters Verified 05/26/24 08:54 AS01B liposomal [From Shingrix (PF)] varicella-zoster virus AdvReac Severe blisters Verified 05/26/24 08:54 glycoprotein E, recombinant [From Shingrix (PF)] latex AdvReac Intermediate Redness of Verified 05/26/24 08:54 Skin Review of Systems Review of Systems Narrative: All else reviewed and otherwise unremarkable except as noted in the history and physical. Exam Vital Signs (past 8 hours): - 06/18/24 03:00 06/18/24 03:00 06/18/24 03:30 Pulse Rate 68 Pulse Rate [Orthostatic Lying] Pulse Rate [Orthostatic Sitting] Pulse Rate [Orthostatic Standing] Blood Pressure 134/87 148/87 H Blood Pressure [Orthostatic Lying] Blood Pressure [Orthostatic Sitting] Blood Pressure [Orthostatic Standing] Pulse Oximetry 96 Oxygen Delivery Method 06/18/24 03:30 06/18/24 04:00 06/18/24 04:00 Pulse Rate 69 66 Pulse Rate [Orthostatic Lying] Pulse Rate [Orthostatic Sitting] Pulse Rate [Orthostatic Standing] Blood Pressure 124/81 Blood Pressure [Orthostatic Lying] Blood Pressure [Orthostatic Sitting] Blood Pressure [Orthostatic Standing] Pulse Oximetry 94 96 Oxygen Delivery Method 06/18/24 04:30 06/18/24 04:30 06/18/24 05:00 Pulse Rate 65 68 Pulse Rate [Orthostatic Lying] Pulse Rate [Orthostatic Sitting] Pulse Rate [Orthostatic Standing] Blood Pressure 126/79 Blood Pressure [Orthostatic Lying] Blood Pressure [Orthostatic Sitting] Blood Pressure [Orthostatic Standing] Pulse Oximetry 96 96 Oxygen Delivery Method 06/18/24 05:00 06/18/24 05:30 06/18/24 05:30 Pulse Rate 68 Pulse Rate [Orthostatic Lying] Pulse Rate [Orthostatic Sitting] Pulse Rate [Orthostatic Standing] Blood Pressure 136/81 104/61 Blood Pressure [Orthostatic Lying] Blood Pressure [Orthostatic Sitting] Blood Pressure [Orthostatic Standing] Pulse Oximetry 96 Oxygen Delivery Method 06/18/24 06:00 06/18/24 06:00 06/18/24 06:30 Pulse Rate 65 Pulse Rate [Orthostatic Lying] Pulse Rate [Orthostatic Sitting] Pulse Rate [Orthostatic Standing] Blood Pressure 115/63 119/68 Blood Pressure [Orthostatic Lying] Blood Pressure [Orthostatic Sitting] Blood Pressure [Orthostatic Standing] Pulse Oximetry 97 Oxygen Delivery Method 06/18/24 06:30 06/18/24 07:00 06/18/24 07:01 Pulse Rate 62 66 Pulse Rate [Orthostatic Lying] Pulse Rate [Orthostatic Sitting] Pulse Rate [Orthostatic Standing] Blood Pressure 116/60 Blood Pressure [Orthostatic Lying] Blood Pressure [Orthostatic Sitting] Blood Pressure [Orthostatic Standing] Pulse Oximetry 96 96 Oxygen Delivery Method 06/18/24 07:01 06/18/24 07:30 06/18/24 07:30 Pulse Rate 65 61 Pulse Rate [Orthostatic Lying] Pulse Rate [Orthostatic Sitting] Pulse Rate [Orthostatic Standing] Blood Pressure 122/72 Blood Pressure [Orthostatic Lying] Blood Pressure [Orthostatic Sitting] Blood Pressure [Orthostatic Standing] Pulse Oximetry 97 97 Oxygen Delivery Method Room Air 06/18/24 08:00 06/18/24 08:00 06/18/24 08:30 Pulse Rate 65 65 Pulse Rate [Orthostatic Lying] Pulse Rate [Orthostatic Sitting] Pulse Rate [Orthostatic Standing] Blood Pressure 117/62 Blood Pressure [Orthostatic Lying] Blood Pressure [Orthostatic Sitting] Blood Pressure [Orthostatic Standing] Pulse Oximetry 99 97 Oxygen Delivery Method 06/18/24 08:30 06/18/24 09:45 Pulse Rate Pulse Rate [Orthostatic Lying] 74 Pulse Rate [Orthostatic Sitting] 67 Pulse Rate [Orthostatic Standing] 91 H Blood Pressure 154/89 H Blood Pressure [Orthostatic Lying] 131/76 Blood Pressure [Orthostatic Sitting] 128/81 Blood Pressure [Orthostatic Standing] 158/84 H Pulse Oximetry Oxygen Delivery Method Oxygen Delivery Method Room Air Narrative Exam Narrative: NAD, alert and oriented, fluent speech, calm. Normocephalic skull, EOMI, anicteric sclera, symmetric pupils. Oropharynx unremarkable, no droop. Neck supple, midline trachea, no adenopathy. Lungs clear, normal rate and effort. Heart regular, no murmur gallop or rub. Abdomen is soft, non distended and non tender. Extremities are free of edema. Skin is free of rash or lesions. Joints are not swollen or deformed. Judgment appears to be normal. Neuro: Cranial nerves are intact, she states she has diplopia with gaze but her vision is conjugate. No nystagmus. Normal arm and leg strength. Normal speech, and judgment. Objective ECG Impression: Normal sinus rhythm Low voltage QRS Imaging Multiple studies:: Radiologist's impression: Brain MRI: IMPRESSION: MRI brain without acute intracranial abnormalities. No evidence for acute cerebral infarction, mass, or mass effect. Age related senescent changes and sequela of chronic small vessel ischemic disease. Chest x-ray: No acute cardiopulmonary abnormality is seen. Brain CT: No acute intracranial pathology. Findings were discussed with the referring provider, Dr. Knapp, by telephone on 06/17/2024 at 1:05 PM. Head and neck CTA: No significant intracranial arterial abnormality is seen. No significant abnormality is seen within the arteries of the neck. Redemonstration of spiculated density in the right upper lobe measuring 7 mm, decreased in spiculated compared to prior. Follow-up CT chest in 3 months is recommended to ensure resolution and exclude underlying neoplasm. Labs 06/17/24 12:53 06/17/24 12:53 Labs: Laboratory Results - last 24 hr 06/17/24 06/17/24 06/17/24 12:53 14:45 14:45 WBC 10.5 RBC 4.26 Hgb 12.7 Hct 38.0 MCV 89.4 MCH 29.8 MCHC 33.3 RDW 13.4 Plt Count 326 Neut % (Auto) 75.2 H Lymph % (Auto) 12.6 L [place] % (Auto) 9.7 Eos % (Auto) 1.4 L Baso % (Auto) 1.1 Neut # (Auto) 7900 H Lymph # (Auto) 1300 [place] # (Auto) 1000 H Eos # (Auto) 200 Baso # (Auto) 100 PT 11.6 INR 1.0 APTT 35 Sodium 134 L Potassium 3.8 Chloride 98 Carbon Dioxide 27 BUN 28 H Creatinine 1.61 H Estimated GFR 35 L BUN/Creatinine Ratio 17.4 Glucose 136 H Calcium 9.3 Magnesium 1.2 L Total Bilirubin 0.5 AST 50 H ALT 27 Alkaline Phosphatase 99 Total Creatine Kinase 51 Troponin I < 0.012 Total Protein 8.1 Albumin 4.7 Globulin 3.4 Albumin/Globulin Ratio 1.4 Urine Color Yellow Urine Appearance Clear Urine pH 5.0 Normal Ur Specific [place] <=1.005 Urine Protein Negative Urine Glucose (UA) Negative Urine Ketones Negative Urine Occult Blood Trace-intact Urine Nitrate Negative Urine Bilirubin Negative Urine Urobilinogen 0.2 Ur Leukocyte Esterase Negative Urine RBC None seen Urine WBC 0-1/hpf Ur Squamous Epith Cells 10-30 /hpf H Urine Bacteria Few (2-10) H Ur Culture Indicated? Cult not indicated Vol Urine Centrifuged 10ml (spun) U Opiates 300ng/mL cut Negative Ur Oxycodone Screen Negative Urine Methadone Screen Negative Ur Barbiturates Screen Negative U Tricyclic Antidepress Negative Ur Phencyclidine Scrn Negative Ur Amphetamines Screen Negative U Methamphetamines Scrn Negative Ur MDMA Scrn (Ecstasy) Negative U Benzodiazepines Scrn Negative Urine Cocaine Screen Negative U Marijuana (THC) Screen Negative Urine Specific [place] Normal Ur Creatinine Normal Assessment & Plan Assessment & Plan narrative: 1. Vertigo and diplopia, present on admission and active. 2. History of Right Frontal Brain MRI abnormality, present on admission and not seen today. -follow-up with PCP and potentially neurology -In the right frontal deep white matter adjacent to the right frontal horn, there is a asymmetric focus of FLAIR signal measuring 2.1 cm. This could represent sequelae of nonspecific parenchymal injury versus an underlying lesion 3. CKD stage III. Stable. 4. Hypertension. Stable. 5. GERD. Stable. 6. COPD. Stable. 7. Hypothyroidism. Stable. 8. Chronic diarrhea. Loperamide as needed. PLAN: -symptomatic treatment with Dilaudid IV, Ativan IV, Phenergan orally, and Zofran IV. -evaluation by physical therapy for vertigo tomorrow morning. -resume usual medications. Anticipate 1 midnight stay, observation status. Full code. Time-Based Coding :: 35 min spent with patient and on the chart (including review of chart, obtaining history, exam, reviewing outside data, placing orders, documenting exam and treatment plan, and counseling patient) on 06/18. Quality MIPS - Admit I confirm the patient?s Advance Care Plan is present, Code status is documented, Surrogate decision maker is in patient?s record [If Yes, STOP here]: Yes MIPS - Meds 'Current medications' to include all prescriptions, [id number] products, herbals, cannabis/cannabidiol products, and vitamin/mineral/dietary (nutritional) supplements. I have utilized all available resources to obtain, update, or review the patient?s current medications. [If Yes, STOP here]: Yes
[2024-06-18] MEDS: HEPARIN 5,000 UNIT/ML VIAL 5000 UNIT SUBCUT ×2 (12:00→20:18)
[2024-06-18] MEDS: SODIUM CHLORIDE 0.45% 1,000 ML 100 ML IV ×2 (12:01→21:58)
[2024-06-18] MEDS: MECLIZINE HCL 12.5 MG TABLET 25 MG PO ×2 (14:59→20:19)
[2024-06-18] MEDS: OXYCODONE IR 5 MG TABLET PO (15:19)
[2024-06-18] MEDS: PROMETHAZINE 25 MG TABLET 12.5 MG PO (16:31)
[2024-06-18] MEDS: HYDROMORPHONE 0.5 MG INJ IV ×2 (16:33→20:37)
--- NOTE | 2024-06-18 18:55 | PC.NURSE ---
Rec'd pt from the ED at 1139; pt awake and alert on arrival but c/o vertigo, mild nausea, and headache; she was medicated in the ED prior to transport to room; pt has good leg strength but her balance is severely impaired; she can stand and pivot w/ gait belt and 1 person asst; after she spoke w/ Dr Terry, she was medicated w/ po phenergan and dilaudid 0.5mg iv around 1630; at 1800, pt was sideways in the bed and arousable via sternal rub; once awake, she is oriented to person, place, and situation but does remember what happened; o2 sat checked and it was 92%; Dr Terry notified and he came to see pt; she remains drowsy but arousable; she does still report a MAY but falls asleep when left alone; pulse ox on and curtain opened for visualization
[2024-06-18] MEDS: CALCIUM CARBONATE 500 MG TAB PO (20:16)
[2024-06-19] MEDS: MAG HYDROX/ALUM/SIMETH 30 ML UDC PO ×2 (01:33→06:12)
[2024-06-19] MEDS: PANTOPRAZOLE DR 20 MG TABLET PO ×2 (01:33→06:12)
[2024-06-19] MEDS: HYDROMORPHONE 0.5 MG INJ IV ×5 (01:34→19:48)
[2024-06-19] MEDS: ONDANSETRON 4 MG/2 ML INJ IV (01:46)
[2024-06-19] MEDS: PROMETHAZINE 25 MG TABLET 12.5 MG PO (03:01)
[2024-06-19] MEDS: CALCIUM CARBONATE 500 MG TAB PO (06:12)
[2024-06-19] MEDS: OXYCODONE IR 5 MG TABLET PO ×3 (06:16→21:53)
[2024-06-19 06:53] LABS: Add Manual Diff / Slide Review NO; Basophils Absolute Auto 100 /uL (0-100); Eosinophils Absolute Auto 200 /uL (0-450); Eosinophils Percent Auto 2.8 % (2-4); Hematocrit 34.7 % (36-46); Hemoglobin 11.5 g/dL (12.0-16.0); Lymphocytes Absolute Auto 1300 /uL (1100-4500); Lymphocytes Percent Auto 16.7 % (25-40); Mean Corpuscular HGB Conc 33.3 % (30-36); Mean Corpuscular Hemoglobin 29.6 PG (26-34); Mean Corpuscular Volume 89.1 fL (80-100); Monocytes Absolute Auto 800 /uL (0-900); Monocytes Percent Auto 10.6 % (3-14); Neutrophils Absolute Auto 5200 /uL (1500-7000); Neutrophils Percent Auto 68.9 % (50-75); Platelet Count 233 X10^3/uL (150-400); Red Blood Cell Count 3.89 X10^6/uL (4.0-5.2); Red Cell Distribution Width 13.5 % (11.6-14.8); White Blood Cell Count 7.5 X10^3/uL (4.5-11.0)
[2024-06-19 07:05] LABS: Alanine Aminotransferase 25 IU/L (<35); Albumin 3.9 g/dL (3.5-5.0); Albumin Globulin Ratio 1.3 (1.0-2.8); Alkaline Phosphatase 88 U/L (38-126); Aspartate Aminotransferase 46 IU/L (14-36); BUN Creatinine Ratio 19.6 (6-22); Bilirubin Total 0.3 mg/dL (0.2-1.3); Blood Urea Nitrogen 22 mg/dL (7-17); Calcium 8.6 mg/dL (8.4-10.2); Carbon Dioxide 26 mmol/L (22-32); Chloride 102 mmol/L (98-107); Estimated Glomerular Filt Rate 55 mL/min (>60); Globulin 2.9 g/dL (1.7-4.1); Glucose 88 mg/dL (80-110); HEMOLYSIS < 15 (0-50); Magnesium 1.5 mg/dL (1.6-2.3); Potassium 4.1 mmol/L (3.4-5.1); Sodium 133 mmol/L (137-145); Total Protein 6.8 g/dL (6.3-8.2)
[2024-06-19] MEDS: SODIUM CHLORIDE 0.45% 1,000 ML 100 ML IV (07:44)
[2024-06-19 08:00] VITALS: BP 123/75; PULSE 81; RESP 16; TEMP 36.9; O2SAT 91
[2024-06-19] MEDS: HEPARIN 5,000 UNIT/ML VIAL 5000 UNIT SUBCUT ×2 (10:43→21:53)
[2024-06-19] MEDS: MECLIZINE HCL 12.5 MG TABLET 25 MG PO ×3 (10:43→21:53)
--- NOTE | 2024-06-19 11:29 | PM.PN.1 ---
Subjective Subjective Interval history: Summary: 63-year-old female with a history of episodic headache and vertigo presents with the same. She has a possible history of atypical migraine headaches. She was treated for symptomatic control of her headache and vertigo yesterday with pain medications, Phenergan and Zofran. She has improved. Imaging was unremarkable. There is indication that she was had an abnormality and MRI in the past, yesterday's MRI was read as normal. She does complain of diplopia which is chronic recurrent with her episodes. This is persistent today, she rates her headache as 10/10 but appears to be very calm in his sitting in a chair facing the son in a window. She she notes see typical photophobia including today, but does not appear to be uncomfortable in the sunlight. Subjective: Positive headache 10/10. Diplopia, chronic and recurrent. She has some nausea, denies any abdominal pain. She did eat breakfast. Exam Vital Signs (past 8 hours): - 06/19/24 07:00 06/19/24 08:00 Temperature 98.4 F Pulse Rate 81 Respiratory Rate 16 Blood Pressure 123/75 Pulse Oximetry 91 Oxygen Delivery Method Room Air Oxygen Flow Rate 0 Oxygen Delivery Method Room Air Oxygen Flow Rate 0 Narrative Exam Narrative: NAD, alert and oriented. Fluent speech. Lungs are clear, normal rate and effort. Heart is regular, no murmur gallop or rub. Abdomen is soft, non distended. Extremities are free of edema. Neuro: Cranial nerves are normal, conjugate gaze. No nystagmus. Normal arm and leg strength in the chair. Objective Labs 06/19/24 06:45 06/19/24 06:45 Labs: Laboratory Results - last 24 hr 06/19/24 06:45 WBC 7.5 RBC 3.89 L Hgb 11.5 L Hct 34.7 L MCV 89.1 MCH 29.6 MCHC 33.3 RDW 13.5 Plt Count 233 Neut % (Auto) 68.9 Lymph % (Auto) 16.7 L [place] % (Auto) 10.6 Eos % (Auto) 2.8 Baso % (Auto) 1.0 Neut # (Auto) 5200 Lymph # (Auto) 1300 [place] # (Auto) 800 Eos # (Auto) 200 Baso # (Auto) 100 Sodium 133 L Potassium 4.1 Chloride 102 Carbon Dioxide 26 BUN 22 H Creatinine 1.12 H Estimated GFR 55 L BUN/Creatinine Ratio 19.6 Glucose 88 Calcium 8.6 Magnesium 1.5 L Total Bilirubin 0.3 AST 46 H ALT 25 Alkaline Phosphatase 88 Total Protein 6.8 Albumin 3.9 Globulin 2.9 Albumin/Globulin Ratio 1.3 [facility] Medical History COPD (chronic obstructive pulmonary disease) (~2017) Allergies Scoliosis Chronic back pain Cervical spine disease Carpal tunnel syndrome Mumps Chicken pox Ruptured tympanic membrane Glaucoma Liver disease (~2017) Hepatitis C (~2018) Hemorrhoid GERD (gastroesophageal reflux disease) Cirrhosis MVP (mitral valve prolapse) Surgical History Anesthesia S/P insertion of spinal cord stimulator (~2016) History of hernia repair (~2012) History of appendectomy History of elbow surgery History of carpal tunnel release History of cholecystectomy History of ear surgery History of total hysterectomy History of partial hysterectomy Social History household members: none Smoking Status: Former smoker alcohol intake: former Assessment & Plan Assessment & Plan narrative: 1. Vertigo and diplopia, present on admission and active. 2. History of Right Frontal Brain MRI abnormality, present on admission and not seen on admission. -follow-up with PCP and potentially neurology -In the right frontal deep white matter adjacent to the right frontal horn, there is a asymmetric focus of FLAIR signal measuring 2.1 cm. This could represent sequelae of nonspecific parenchymal injury versus an underlying lesion 3. CKD stage III. Stable. 4. Hypertension. Stable. 5. GERD. Stable. 6. COPD. Stable. 7. Hypothyroidism. Stable. 8. Chronic diarrhea. Loperamide as needed. PLAN: -continue symptomatic treatment for possible atypical migraine headache. -PT consult for vestibular assessment. -add Fioricet for some degree of caffeine to see if this improves her symptoms. RYAN is June 20, anticipate she will likely be ready for discharge home based on previous episodes. She needs an outpatient neurology assessment at some point, she was struggle to get in at this point. Time-Based Coding :: [TOTAL MINUTES] spent with patient and on the chart (including review of chart, obtaining history, exam, reviewing outside data, placing orders, documenting exam and treatment plan, and counseling patient) on [DATE]. Quality VTE Deep Vein Thrombosis/Pulmonary Embolism Present on Admission: No
[2024-06-19] MEDS: DULOXETINE 20 MG CAPSULE 60 MG PO (11:42)
[2024-06-19] MEDS: hydroCHLOROthiazide 25 MG TABLET PO (11:42)
[2024-06-19] MEDS: METOPROLOL ER 50 MG TABLET PO (11:42)
[2024-06-19] MEDS: MAGNESIUM CHLORIDE 64 MG TABLET 128 MG PO (11:44)
[2024-06-19] MEDS: PANTOPRAZOLE DR 40 MG TABLET PO ×2 (11:50→21:53)
[2024-06-19] MEDS: polyethylene glycoL 3350 17 GM POWD.PACK PO (11:57)
--- NOTE | 2024-06-19 12:00 | PT.IIE ---
Surgical History (Last Reviewed 06/18/24 @ 17:18 by Juan Terry MD) Anesthesia History of appendectomy History of carpal tunnel release History of cholecystectomy History of ear surgery History of elbow surgery History of hernia repair (~2012) History of partial hysterectomy History of total hysterectomy S/P insertion of spinal cord stimulator (~2016) Medical History (Last Reviewed 06/18/24 @ 17:18 by Juan Terry MD) Allergies Carpal tunnel syndrome Cervical spine disease Chicken pox Chronic back pain Cirrhosis COPD (chronic obstructive pulmonary disease) (~2018) GERD (gastroesophageal reflux disease) Glaucoma Hemorrhoid Hepatitis C (~2018) Liver disease (~2018) Mumps MVP (mitral valve prolapse) Ruptured tympanic membrane Scoliosis Physical Therapy Inpatient Evaluation/Re-Eval M1 PT/OT-IP Prior Functional Status Start: 06/19/24 10:08 Freq: NEEDED Status: Active Protocol: Document 06/19/24 10:36 MB (Rec: 06/19/24 11:59 MB [id number]) Medical Review Prior Functional Status Medical History Reviewed Yes Diet/Fluid Consistency Regular Communication WNLs Mobility and Gait I, has a cane Activities of Daily Living and IADL's I, drives Social History Household Members none Living Arrangements Apartment/Condo Number of Floors (Floors) One Floor Number of Stairs To Enter/Railing? No steps and grassy hill and gravel to enter or 13 steps to enter basement apartment in home Home Environment High Toilet,Walk in Shower Home Equipment Straight Cane,Hand Held Shower ,Grab Bars In Shower Employment Status Retired M2 PT-IP Current Condition Start: 06/19/24 10:08 Freq: NEEDED Status: Active Protocol: Document 06/19/24 10:36 MB (Rec: 06/19/24 11:59 MB [id number]) Physical Therapy Current Condition Current Condition Evaluation Date 06/19/24 Treatment Diagnosis MAY, dizziness M3 PT-IP Subjective Start: 06/19/24 10:08 Freq: NEEDED Status: Active Protocol: Document 06/19/24 10:36 MB (Rec: 06/19/24 11:59 MB [id number]) Subjective Physical Therapy Visit Type Type Initial Evaluation Visit Start Time 10:36 Visit Stop Time 11:20 Number of HEALTHCARE SOCIAL WORKER Visits 0 Physical Therapy Visit Comments Patient Comments Pt with c/o epigastric GERD pain and gassy bubble feel that is better after belching, MAY and neck pain. Physician and nsg aware and pain medication given, 10+ higher pain rated Therapy Pain Assessment Pain When Pain Assessed At Rest Pain Present Pain Present Pain Reported Location Epigastric GERD Intensity 20 Scale Used Numeric (0 - 10) Neck Intensity 10 Scale Used Numeric (0 - 10) Head Intensity 10 Scale Used Numeric (0 - 10) M4 PT-IP Mobility and Gait Start: 06/19/24 10:08 Freq: NEEDED Status: Active Protocol: Document 06/19/24 10:36 MB (Rec: 06/19/24 11:59 MB [id number]) PT-Transfer Assessment Comments Mobility Comments Mobility deferred given symptoms and MMT, coordination , oculomotor, history taking and BP assessments today. BP in right UE in sitting is 116/ 65. Eye ROM, oculomotor screen normal. Increased tension left cervical vertebrae, upper cervical spine and pain to touch. PT-Balance Assessment Sitting Balance and Reactions Static Sitting Balance Ability Normal Dynamic Sitting Balance Ability Normal M5 PT-IP Objective Assessments Start: 06/19/24 10:08 Freq: NEEDED Status: Active Protocol: Document 06/19/24 10:36 MB (Rec: 06/19/24 11:59 MB [id number]) Orientation Orientation/Cognition Level of Alertness Alert Language Function Ability No Deficits Noted Safety Awareness Understands Safety Issues Memory Description No Deficits Noted Gross Range of Motion Upper Extremity ROM Assessment Within Functional Limits Lower Extremity ROM Assessment Within Functional Limits Strength Upper Extremity Strength Assessment Left Impaired Shoulder Left flexion 3+/5 Elbow Deferred d/t IV Lower Extremity Strength Assessment Left Impaired Hip Pt long sitting and deferred testing today Knee Pt long sitting and deferred testing today Ankle Left ankle DF and great toe extension 3+/5 Coordination Assessment Gross Coordination Gross Coordination Impaired Assessment Finger to Nose Test L side mod to severe impaired Coordination Comments Pt c/o double vision that is not new but con't Sensation Assessment Comments Sensation Comments Denied sensory changes and arms and legs and c/o tingling in face and points to left side of face, c/o full face Other Assessments Other Other Assessments See cervical spine palpation and oculomotor screen above M6 PT-IP Treatment Start: 06/19/24 10:08 Freq: NEEDED Status: Active Protocol: Document 06/19/24 10:36 MB (Rec: 06/19/24 11:59 MB [id number]) Physical Therapy Treatment Other Treatments Other Treatment Performed Education about cervical findings, better hydration and making fluids count, role and goals of acute vs OPPT M7 PT-IP Assessment and Plan Start: 06/19/24 10:08 Freq: NEEDED Status: Active Protocol: Document 06/19/24 10:36 MB (Rec: 06/19/24 11:59 MB [id number]) PT Summary Assessment and Plan Potential Rehabilitation Potential Good Status of Condition at Evaluation Evolving Summary Impairments Pain,ROM,Strength,Balance, Coordination,Sensation,Bed Mobility,Transfers,Gait, Activity Tolerance Progress Towards Goals Slow Progress due to Pain,Slow Progress due to Medical Issues Assessment Summary Pt is a 63 y/o female known to this PT from previous OPPT course for back pain 11/27-12/28 . Pt had lumbar stimulator removed and reports much improved back pain since that time. Pt was discontinued from PT d/t SOB. She has a history of emphysema and COPD. Pt did not complain of neck or MAY pain at the time of OPPT last summer. Pt is vague on dates, but it appears that she has had increased headaches and dizziness since March of 2024. She reports a history of hormonal migraines and HRT since her 30s. She has a bimonthly shot that she is past due for and she has tried to wean off. She also reports starting an injectable medication for excema and COPD that is helping her breathing and she is also a day late in taking this injection. She is unsure but it is possible that her headaches worsened at the time of starting this medication, Dupixent. Pt has a long history of poor hydration and sips on iced caffeinated sweet tea all day. Today, pt c/o epigastric gassy GERD pain 20/10 that is better with belching, 10/10 MAY and neck pain. PT clears with nsg and MD before eval and PT performs neuro, cervical and vestibular screens. Pt presents with normal BP, no SOB at rest, stiffness and pain to touch left cervical spine, severe proximally, left UE and LE weakness and left UE dysmetria with coordination testing. Eye ROM for oculomotor screening is negative but pt reports ongoing double vision that is not new. Pt states that she has been waiting for outpatient neuro appointment for a while. Will progress mobility next treatment date. PT ed pt that safe mobility is PT goal for the acute setting . Recommend increased assistance and vestibular/MAY OPPT consult at d/c. Pt has a least partial cervicogenic component to symptoms. Thank you for this PT referral. Goals Bed Mobility Goal Independent Transfer Goal Independent Gait Goal Independent Gait Distance 100 Other Goals Pt will ascend and descend 3 steps x3 with cane and rail set-up as home with no more than superv assistance. Days to Meet Goals 5 Frequency of Treatment Frequency Of Treatment Once a Day Treatment Plan Physical Therapy Treatment Plan Bed Mobility Training,Transfer Training,Gait Training, Therapeutic Exercise,Balance Retraining,Discharge Planning, Hot or Cold Pack,Neuromuscular Re-ed,Coordination Retraining ,Manual Therapy Recommendations To Nursing Amount of Assist Needed 2 Person Assist Discharge Recommendations PT Discharge Recommendations Home with 27/11 Assist Available,Outpatient PT Other Discharge Recommendations Update disposition recs pending her mobility with therapy next treatment Transportation Needs at Discharge Private Vehicle
--- NOTE | 2024-06-19 13:54 | CM.DANOTE ---
Patient is a 63yo female, resident [facility], admitted OBS Status on 06/18/24 for vertigo. Pt's Primary Care Provider is Dr. Karoline Art and insurance is [facility] Medicare and Medicaid. Reviewed chart and discussed with multidisciplinary team pt's medical status and initial discharge needs. Per PT, due to vertigo pt currently 2PA but anticipating improvement for home with outpt vestibular PT. DCP met w/patient at bedside; introduced self and role and pt alert and oriented, cooperative with assessment. Pt confirmed she lives alone in a basement apt with no steps, has cane to use if needed, and decided against FWW after last admission a month ago in May 2024 for similar as she feels her condo is too small to safely navigate with FWW. Pt has no prior hx of HH or SNF, declines any referrals to be made in community at this time, but pt has been established with [facility] outpt recently. Pt agreeable to working with therapies and following their recommendations. Pt denies formal POA but states it would be her Dtr Radha who lives in [place] and pt confirms she has local supportive friends. Friend currently visiting bedside as well. Pt has some right frontal brain abnormality on recent imaging and is to follow up with her PCP and maybe Neurologist. Pt confirms her preference is to discharge home when medically stable and no identified barriers to discharge. Friend plans to provide transport at d/c if safe for home. Plan: Anticipating discharge home with friend to transport when medically stable. CM team will follow closely for coordination of discharge plans. TIMOTHY Hawkins Discharge Planning/Care Management CM Discharge Assessment Start: 06/19/24 13:42 Freq: Status: Active Protocol: Document 06/19/24 13:42 BF (Rec: 06/19/24 13:54 BF [id number]) Discharge Planning Assessment Assigned Underwater Hunter TIMOTHY Don DPOA/Assigned Designee Name informally Dtyair Jacey Contact Information [phone] Advance Directives? No Advance Directives on File No History Provided By Patient,Medical Record Has Patient been admitted in last 30 Yes days? Comment Here in May 2024 for similar and went home Prior Living Arrangements Apartment/Condo Household Members none Type of transporation used prior to Drives own vehicle admit Independent with ADL's Yes Is patient alert and oriented? Yes Caregiver for Another No Comment Does not use often but owns cane. Feels FWW would only be challenging in her small condo Patient/Family Preference OP PT Therapy Comment likely recommendation of outpt vestibular therapies Barriers to Discharge No Discharge Plan Home Community Services Physical Therapy Transportation Arrangement Likely friend to transport, Dtr lives [place] Additional Comment Pending further PT recommendations and progress Whiteboard Updated in Patient Room with Yes name and ext. # of Underwater Hunter Review Status In Process Please Provide Date Initial DC 06/19/24 Assessment Was Performed Next Review Type Continued Stay Review
[2024-06-19 19:30] VITALS: BP 124/71; PULSE 91; RESP 16; TEMP 36.3; O2SAT 94
[2024-06-19] MEDS: LORazepam 2 MG/ML INJ 0.5 MG IV (19:48)
[2024-06-20] MEDS: ONDANSETRON 4 MG/2 ML INJ IV (05:08)
[2024-06-20] MEDS: LORazepam 2 MG/ML INJ 0.5 MG IV (05:08)
[2024-06-20] MEDS: HYDROMORPHONE 0.5 MG INJ IV ×2 (05:08→10:05)
[2024-06-20 09:00] VITALS: BP 116/57; PULSE 84; RESP 18; TEMP 36.3; O2SAT 93
[2024-06-20 10:03] VITALS: BP 116/57; PULSE 80
[2024-06-20] MEDS: SPIRONOLACTONE 25 MG TABLET 50 MG PO (10:03)
[2024-06-20] MEDS: METOPROLOL ER 50 MG TABLET PO (10:03)
[2024-06-20] MEDS: MECLIZINE HCL 12.5 MG TABLET 25 MG PO ×2 (10:03→15:31)
[2024-06-20] MEDS: DULOXETINE 20 MG CAPSULE 60 MG PO (10:04)
[2024-06-20] MEDS: hydroCHLOROthiazide 25 MG TABLET PO (10:04)
[2024-06-20] MEDS: HEPARIN 5,000 UNIT/ML VIAL 5000 UNIT SUBCUT (10:05)
[2024-06-20] MEDS: polyethylene glycoL 3350 17 GM POWD.PACK PO (10:07)
[2024-06-20] MEDS: PANTOPRAZOLE DR 40 MG TABLET PO (10:12)
[2024-06-20] MEDS: LEVOTHYROXINE 50 MCG TABLET PO (10:12)
[2024-06-20 11:19] VITALS: PULSE 81
--- NOTE | 2024-06-20 11:23 | P.DS_ITS ---
History of Present Illness History of Present Illness Date Patient Seen: 06/20/24 Time Patient Seen: 11:30 Date of Onset of Symptoms: 06/18/24 Chief complaint: Dizzy , light headed, headache Narrative: This is a 63-year-old female who presents with a 5 day history of persistent vertigo and diplopia. She has a history of recurrent vertigo and a known abnormality on imaging that has been seen in her brain in the past. She presented this time with vertigo and diplopia as well as a headache. She was not been seen by outpatient neurology but her imaging has been reviewed with and discuss with Neurology. She was given symptomatic treatment in the emergency department overnight but failed to improve and we will be admitted as an observation patient with ongoing efforts to treat central vertigo and headache. She was had recent CODING AND REIMBURSEMENT SPECIALIST imaging. She denies any viral symptoms, fevers, chills, dyspnea. Also she did have nausea but has not been having diarrhea. Discharge Providers Provider Date of admission: 06/18/24 10:14 Discharge Date: 06/20/24 Primary care physician: Karoline Wood MD Consults: 06/19/24 10:01 Consult to Physical Therapy Evaluate & Treat Comment: Physician Instructions: Evaluate and Treat Discharge provider: Todd Landa MD Summary Hospital Course Discharge Diagnosis: 1. Vertigo and diplopia, present on admission and improved. 2. History of Right Frontal Brain MRI abnormality, present on admission and not seen on admission. 3. CKD stage III. 4. Hypertension. 5. GERD. 6. COPD. 7. Hypothyroidism. 8. Chronic diarrhea. 9. Right upper lobe spiculated lung nodule, [address] follow-up advised. Hospital Course: The patient was admitted and treated symptomatically for vertigo and headache with IV lorazepam, IV hydromorphone, IV promethazine and IV ondansetron, and evaluated by Physical therapy. Symptoms improved significantly. Brain MRI failed to find evidence of the previously reported brain abnormality. She was feeling significantly better and interested in discharge home. Outpatient follow-up was advised. An incidental finding of a spiculated right upper lobe lung nodule was noted and decreased in size from the previous imaging in May, with follow-up CT chest advised in 3 months. Care is reviewed with the patient and her daughter prior to departure, who acknowledged and agree with this plan of care. Status at Discharge Cognitive/behavioral status at discharge: oriented Functional status at discharge: independent ambulation Overall status at discharge: patient is progressing back to baseline Time Spent with Patient Time spent: Less than 30 minutes Exam Vital Signs (past 8 hours): - 06/20/24 09:00 06/20/24 10:03 06/20/24 11:19 Temperature 97.3 F L Pulse Rate 84 80 81 Respiratory Rate 18 Blood Pressure 116/57 L 116/57 L Pulse Oximetry 93 Oxygen Flow Rate 0 Oxygen Delivery Method Room Air Oxygen Flow Rate 0 Narrative Exam Narrative: NAD, alert and oriented. Fluent speech. Lungs are clear, normal rate and effort. Heart is regular, no murmur gallop or rub. Abdomen is soft, non distended. Extremities are free of edema. Neuro: Cranial nerves are normal, conjugate gaze. No nystagmus. Normal arm and leg strength in the chair. Objective Imaging *: Radiologist's impression: 1. Head CT 06/17/2024: No acute intracranial pathology. 2. Head/neck CTA 06/17/2024: No significant intracranial arterial abnormality is seen. No significant abnormality is seen within the arteries of the neck. Redemonstration of spiculated density in the right upper lobe measuring 7 mm, decreased in spiculated compared to prior. Follow-up CT chest in 3 months is recommended to ensure resolution and exclude underlying neoplasm. 3. Chest x-ray 06/17/2024: No acute cardiopulmonary abnormality is seen. 4. Brain MRI 06/17/2024: MRI brain without acute intracranial abnormalities. No evidence for acute cerebral infarction, mass, or mass effect. Age related senescent changes and sequela of chronic small vessel ischemic disease. Labs 06/19/24 06:45 06/19/24 06:45 [facility] Medical History Allergies Carpal tunnel syndrome Cervical spine disease Chicken pox Chronic back pain Cirrhosis COPD (chronic obstructive pulmonary disease) (~2017) GERD (gastroesophageal reflux disease) Glaucoma Hemorrhoid Hepatitis C (~2017) Liver disease (~2017) Mumps MVP (mitral valve prolapse) Ruptured tympanic membrane Scoliosis Surgical History Anesthesia History of appendectomy History of carpal tunnel release History of cholecystectomy History of ear surgery History of elbow surgery History of hernia repair (~2012) History of partial hysterectomy History of total hysterectomy S/P insertion of spinal cord stimulator (~2017) Social History household members: none Smoking Status: Former smoker alcohol intake: former Discharge Plan Discharge Plan Patient Disposition: Home Provider Discharge Comment: Followup with Dr. Wood 1 week Discharge orders & Medications Prescriptions: New acetaminophen 325 mg Tablet 650 mg PO Q6H PRN (Reason: Fever/Mild Pain (1-3)) Qty: 30 0RF Continued spironolactone 50 mg tablet 50 mg PO DAILY loperamide 2 mg capsule 2 mg PO Q6H PRN (Reason: STOOL) (DME) Disabled Parking See Rx Instructions .ROUTE .MEDSUPPLY Qty: 1 0RF Rx Instructions: I find this patient to be medical disabled and qualified for Disabled Parking as indicated, and signed, on the and the Accompanying Disabled Parking Application for Individuals. esomeprazole magnesium [Nexium] 20 mg capsule,delayed release(DR/EC) 20 mg PO DAILY Qty: 90 0RF Depo-Estradiol 5 mg/mL oil 2 mg IM Q4W Qty: 10 3RF meclizine 25 mg tablet 25 mg PO TID PRN (Reason: dizziness) Qty: 20 0RF meclizine 12.5 mg Tablet 25 mg PO TID PRN (Reason: dizziness) Qty: 30 0RF ondansetron 4 mg tablet,disintegrating 4 mg PO Q8H PRN (Reason: nausea and vomiting) Qty: 14 0RF ipratropium-albuterol 0.5 mg-3 mg(2.5 mg base)/3 mL solution for nebulization 3 ml inhalation Q6H PRN (Reason: shortness of breath or wheezing) Qty: 90 11RF fluticasone propionate 110 mcg/actuation HFA aerosol inhaler 2 puff inhalation BID Qty: 12 11RF metoprolol succinate 50 mg tablet extended release 24 hr 50 mg PO DAILY hydrochlorothiazide 25 mg tablet 25 mg PO DAILY levothyroxine 50 mcg tablet 50 mcg PO DAILY duloxetine 20 mg capsule,delayed release(DR/EC) 60 mg PO DAILY Discontinued hydrocodone-acetaminophen 5-325 mg tablet 1 tab PO Q6H PRN (Reason: pain) Qty: 14 0RF Follow up/Referrals: Jose De Jesus Terry MD [Physician] - Karoline Wood MD [Primary Care Provider] - Visit Report/Discharge Packet Instructions: DI for Vertigo Stand Alone Forms: Congestive Heart Failure, Patient Portal/API, Stroke Signs & Symptoms Discharge Data Primary Care Provider: Karoline Wood Attending Provider: Juan Terry Admit Date/Time: 06/18/24 10:14 Quality VTE Deep Vein Thrombosis/Pulmonary Embolism Present on Admission: No MIPS - Admit I confirm the patient?s Advance Care Plan is present, Code status is documented, Surrogate decision maker is in patient?s record [If Yes, STOP here]: Yes MIPS - Meds 'Current medications' to include all prescriptions, [id number] products, herbals, cannabis/cannabidiol products, and vitamin/mineral/dietary (nutritional) supplements. I have utilized all available resources to obtain, update, or review the patient?s current medications. [If Yes, STOP here]: Yes MIPS - DC The patient has a history of heart transplant or Left Ventricular Assist Device (LVAD). If yes, STOP here.: No The patient has current or prior documentation of left ventricular ejection fraction (LVEF) less than or equal to 40%, or moderate or severely depressed left ventricular systolic function.: No A. The patient was prescribed or already taking an Angiotensin-Converting Enzyme (BORIS) Inhibitor, or Angiotensin Receptor [place] (ARB).: No B. The patient was prescribed or already taking a beta-chino. [If Yes to Both A & B, STOP here]: Yes Patient not prescribed/taking BORIS or ARB, no reason given.: No Patient not prescribed/taking beta-chino, no reason given.: No I[facility] PROFEE Charge Codes Discharge inpatient/observation: [id number]
--- NOTE | 2024-06-20 12:58 | PT-IP ANOTE ---
checked on pt and daughter in room. daughter stated that pt had too much medication and is not ready to do PT. will f/u
--- NOTE | 2024-06-20 14:34 | PT-IP ANOTE ---
checked on pt and pt sitting on chair. pt continues to be drowsy but able to answer questions but with very soft speech. pt refused PT and just wants to rest.
--- NOTE | 2024-06-20 16:21 | CM.DPNOTE ---
DCP Continued: Reviewed EMR and team rounds for pt?s medical status. Per provider, pt medically cleared to discharge and would benefit from a follow up with PCP in one week. DCP met with patient in room, pt states she is ready to dc home and notes that her friend/landlord, Ahmet, will transport home. Pt states she has an appt with PCP on 06/26 at 10:45am with PCP Dr. Art. Per RN, pt's daughter is en route for transport home and pt a bit confused due to medications. Transitional Care Management team notified of discharge. Plan: Anticipating discharge home with family. CM Team will continue to follow for coordination of discharge plans. RILEY Jones
--- NOTE | 2024-06-20 18:05 | PC.NURSE ---
Day shift: Left unit at approx 1800 via WC. Daughter is taking Pt home to [place] [facility]. Paperwork signed and all questions answered. Pt has follow-up with her PCP this Sunday. Pt has all personal belongings. scripts sent electronic to Pt's pharmacy.
== END 2024-06-20 18:07 | disposition home or self-care (01) ==
LOC: ED 06-18 10:13 → AC 06-18 10:15 → ICU 06-18 11:06
PROVIDERS: Emergency Medicine; Internal Medicine; Admitting Provider Hospitalist; Emergency Provider Emergency Medicine; Family Provider Student in an Organized Health Care Education/Training Program; PCP Student in an Organized Health Care Education/Training Program; Referring Provider Emergency Medicine; Visit Provider Hospitalist
DX: R42 Dizziness and giddiness (principal); R51.9 Headache, unspecified; H53.2 Diplopia; R90.89 Other abnormal findings on diagnostic imaging of central nervous system; R91.8 Other nonspecific abnormal finding of lung field; R19.7 Diarrhea, unspecified; E03.9 Hypothyroidism, unspecified; J44.9 Chronic obstructive pulmonary disease, unspecified; K21.9 Gastro-esophageal reflux disease without esophagitis; I12.9 Hypertensive chronic kidney disease with stage 1 through stage 4 chronic kidney disease, or unspecified chronic kidney disease; N18.30 Chronic kidney disease, stage 3 unspecified; Z87.891 Personal history of nicotine dependence
CPT/HCPCS: 70450; 70496; 70498; 70553; 71045; 80053; 80305; 81001; 82550; 82962; 83735; 84484; 85025; 85610; 85730; 93005; 93010; 96361; 96365; 96366; 96372; 96375; 96376; 97163; 97535; 99285; G0378; J1171; J1644; J1885; J2060; J2405; J3475; J7050; Q9967

== ENCOUNTER → 2024-06-27 09:05 | Outpatient (CLI) | payer MEDICARE, MEDICAID, SELFPAY ==
[2024-06-18 12:00] VITALS: BMI 24.7
[2024-06-27 10:12] LABS: Add Manual Diff / Slide Review NO; Basophils Absolute Auto 100 /uL (0-100); Basophils Percent Auto 1.2 % (0-2); Eosinophils Absolute Auto 300 /uL (0-450); Hematocrit 35.5 % (36-46); Lymphocytes Absolute Auto 1200 /uL (1100-4500); Mean Corpuscular HGB Conc 33.8 % (30-36); Mean Corpuscular Hemoglobin 30.2 PG (26-34); Mean Corpuscular Volume 89.3 fL (80-100); Monocytes Absolute Auto 700 /uL (0-900); Monocytes Percent Auto 9.9 % (3-14); Neutrophils Absolute Auto 5000 /uL (1500-7000); Neutrophils Percent Auto 68.9 % (50-75); Platelet Count 239 X10^3/uL (150-400); Red Blood Cell Count 3.97 X10^6/uL (4.0-5.2); Red Cell Distribution Width 13.8 % (11.6-14.8); White Blood Cell Count 7.2 X10^3/uL (4.5-11.0)
[2024-06-27 10:54] LABS: Alanine Aminotransferase 20 IU/L (<35); Albumin 4.1 g/dL (3.5-5.0); Albumin Globulin Ratio 1.5 (1.0-2.8); Alkaline Phosphatase 75 U/L (38-126); Aspartate Aminotransferase 36 IU/L (14-36); BUN Creatinine Ratio 14.6 (6-22); Bilirubin Total 0.6 mg/dL (0.2-1.3); Blood Urea Nitrogen 14 mg/dL (7-17); Calcium 8.9 mg/dL (8.4-10.2); Carbon Dioxide 24 mmol/L (22-32); Chloride 105 mmol/L (98-107); Cholesterol 174 mg/dL (140-199); Estimated Glomerular Filt Rate > 60 mL/min (>60); Globulin 2.7 g/dL (1.7-4.1); Glucose 92 mg/dL (80-110); HDL Cholesterol 73 mg/dL (40-60); HEMOLYSIS < 15 (0-50); LDL Cholesterol Calculated 87 mg/dL (<100); Magnesium 1.3 mg/dL (1.6-2.3); Potassium 4.1 mmol/L (3.4-5.1); Sodium 138 mmol/L (137-145); Total Protein 6.8 g/dL (6.3-8.2); Triglycerides 69 mg/dL (35-150)
[2024-06-27 11:02] LABS: Vitamin D 25 Hydroxy (D3) 30.8 ng/mL (30.0-100.0)
[2024-06-27 11:17] LABS: Thyroid Stimulating Hormone 7.51 uIU/mL (0.47-4.68)
== END ==
LOC: LAB 09:06
PROVIDERS: Family Provider Student in an Organized Health Care Education/Training Program; PCP Student in an Organized Health Care Education/Training Program; Referring Provider Student in an Organized Health Care Education/Training Program; Visit Provider Student in an Organized Health Care Education/Training Program
DX: E03.9 Hypothyroidism, unspecified (principal); E55.9 Vitamin D deficiency, unspecified; N17.9 Acute kidney failure, unspecified
CPT/HCPCS: 80053; 80061; 82306; 83735; 84443; 85025

== ENCOUNTER → 2024-07-05 09:18 | Outpatient (CLI) | payer MEDICARE, MEDICAID, SELFPAY ==
[2024-06-18 12:00] VITALS: BMI 24.7
[2024-07-05 12:09] LABS: Magnesium 1.6 mg/dL (1.6-2.3)
[2024-07-05 12:14] LABS: Hemoglobin A1C% w Est Avg Glu 5.1 % (4.0-6.0)
== END ==
PROVIDERS: Family Provider Student in an Organized Health Care Education/Training Program; PCP Student in an Organized Health Care Education/Training Program; Referring Provider Student in an Organized Health Care Education/Training Program; Visit Provider Student in an Organized Health Care Education/Training Program
DX: R73.03 Prediabetes (principal); R79.0 Abnormal level of blood mineral
CPT/HCPCS: 36415; 83036; 83735

== ENCOUNTER 2024-07-07 12:30 | Outpatient (RCR) | payer MEDICARE, MEDICAID, SELFPAY ==
[2024-06-18 12:00] VITALS: BMI 24.7
== END 2024-07-07 14:30 ==
LOC: PUL 12:30
PROVIDERS: Family Provider Student in an Organized Health Care Education/Training Program; PCP Student in an Organized Health Care Education/Training Program; Referring Provider Internal Medicine Critical Care Medicine; Visit Provider Internal Medicine Critical Care Medicine
DX: J44.9 Chronic obstructive pulmonary disease, unspecified (principal)
CPT/HCPCS: 93010; 94625

== ENCOUNTER → 2024-07-11 10:55 | Outpatient (CLI) | payer MEDICARE, MEDICAID, SELFPAY ==
[2024-06-18 12:00] VITALS: BMI 24.7
--- NOTE | 2024-07-11 10:56 | DI.MG.S_ITS ---
MM screening mammo BI: 07/11/2024. BI-RADS: 2 CLINICAL: 63-year old female for bilateral screening mammogram. Tyrer-Cuzick lifetime risk of 2.5%. No personal or first-degree family history of breast cancer. The patient had a prior left breast biopsy. PRIOR EXAMS 04/19/2023. MAMMOGRAPHY TECHNIQUE: 2D and 3D (tomosynthesis) digital mammographic views obtained, with additional images as needed for full coverage. Current study was also evaluated with a Computer Aided Detection (CAD) system. DENSITY C. The breasts are heterogeneously dense, which may obscure small masses. MAMMOGRAPHY FINDINGS Right: No suspicious finding with benign findings noted. Left: Biopsy marker present on the left. No suspicious finding with benign findings noted. IMPRESSION: * No evidence of malignancy with benign findings. RECOMMENDATIONS Bilateral * Annual screening mammography. OVERALL ASSESSMENT CATEGORY BI-RADS-2: Benign. The [employer] recommends annual screening mammography beginning at age 40 for women with average risk of breast cancer. ELECTRONICALLY SIGNED: Nitin Wyatt M.D. on 07/11/2024 at 01:49:09 PM PT Interpreting Station ID: [id number]
== END ==
LOC: MAMMO 10:56
PROVIDERS: Family Provider Student in an Organized Health Care Education/Training Program; PCP Student in an Organized Health Care Education/Training Program; Referring Provider Student in an Organized Health Care Education/Training Program; Visit Provider Student in an Organized Health Care Education/Training Program
DX: Z12.31 Encounter for screening mammogram for malignant neoplasm of breast (principal); R92.333 Mammographic heterogeneous density, bilateral breasts
CPT/HCPCS: 77063; 77067

== ENCOUNTER → 2024-12-03 11:02 | Outpatient (CLI) | payer MEDICARE, MEDICAID, SELFPAY ==
[2024-06-18 12:00] VITALS: BMI 24.7
[2024-12-03 11:42] LABS: Hematocrit 33.1 % (36-46); Hemoglobin 11.0 g/dL (12.0-16.0); Mean Corpuscular HGB Conc 33.3 % (30-36); Mean Corpuscular Hemoglobin 28.0 PG (26-34); Mean Corpuscular Volume 84.0 fL (80-100); Platelet Count 219 X10^3/uL (150-400)
[2024-12-03 11:59] LABS: Blood Urea Nitrogen 21 mg/dL (7-17); Calcium 9.2 mg/dL (8.4-10.2); Carbon Dioxide 23 mmol/L (22-32); Chloride 104 mmol/L (98-107); Estimated Glomerular Filt Rate 40 mL/min (>60); Glucose 98 mg/dL (70-99); HEMOLYSIS < 15 (0-50); Potassium 5.0 mmol/L (3.4-5.1); Sodium 136 mmol/L (137-145)
[2024-12-03 12:08] LABS: NT-proBNP (BNP-Adult 18+) 243 pg/mL (<125)
== END ==
PROVIDERS: Family Provider Student in an Organized Health Care Education/Training Program; PCP Student in an Organized Health Care Education/Training Program; Referring Provider Internal Medicine Cardiovascular Disease; Visit Provider Internal Medicine Cardiovascular Disease
DX: R06.09 Other forms of dyspnea (principal)
CPT/HCPCS: 36415; 80048; 83880; 85027

== ENCOUNTER → 2024-12-17 08:46 | Outpatient (CLI) | payer MEDICARE, MEDICAID, SELFPAY ==
[2024-06-18 12:00] VITALS: BMI 24.7
[2024-12-17 10:17] LABS: Lithium 0.4 mmol/L (0.6-1.2)
[2024-12-17 10:18] LABS: Magnesium 1.7 mg/dL (1.6-2.3)
== END ==
PROVIDERS: PCP Student in an Organized Health Care Education/Training Program; Referring Provider Student in an Organized Health Care Education/Training Program; Visit Provider Student in an Organized Health Care Education/Training Program
DX: R79.0 Abnormal level of blood mineral (principal); Z51.81 Encounter for therapeutic drug level monitoring
CPT/HCPCS: 36415; 80178; 83735

== ENCOUNTER 2024-12-18 16:34 | Outpatient (RCR) | payer MEDICARE, MEDICAID, SELFPAY ==
[2024-06-18 12:00] VITALS: BMI 24.7
--- NOTE | 2024-12-18 17:45 | PT.OIE ---
Current Diagnoses Other migraine, not intractable, without status migrainosus (12/18/24) Other headache syndrome (12/18/24) Unsteadiness on feet (12/18/24) Repeated falls (12/18/24) Dizziness and giddiness (12/18/24) Past Medical History (Last Updated 12/03/24 @ 08:43 by Jorge Mack DO) Allergies Carpal tunnel syndrome Cervical spine disease Chicken pox Chronic back pain Cirrhosis COPD (chronic obstructive pulmonary disease) (~2018) COPD exacerbation GERD (gastroesophageal reflux disease) Glaucoma Hemorrhoid Hepatitis C (~2017) Liver disease (~2018) MDD (major depressive disorder), single episode, severe Mild neurocognitive disorder Mumps MVP (mitral valve prolapse) 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 Pt reports that especially when she first stands up or turns around, she feels like she gets thrown backwards . Notes she always seems to go backwards. Had a fall recently, symptoms have been worse since then. Recently had a VNG, which was largely unremarkable. Upon standing in the waiting room to come back for her eval, she had a quite dramatic retropulsion, able to lean against chair to steady herself, and then occurred once more getting to the room when she turned to speak to therapist. Refuses AD use, feels since she goes backwards, it would not help. Has seen a neurologist for her headaches, reports she gets injections into her neck, but denies that it is Botox. Reports she has had a headache pretty much every day of my life. Has a history of diplopia, but feels it has been worse the past few weeks since her fall. Treatment Goals Patient/Caregiver No more dizziness. Goals OP-PT Subjective Patient Comments Patient Comments You know when your car is out of alignment and pulls to one side? That how I feel. Patient Questionnaires Dizziness Handicap Inventory DHI Score 64% Other Questionnaire Name Falls Efficacy Scale - International: 33/64 and Score Zaldivar Balance Assessment Evaluation Sitting to Standing Several Tries w/Hands Ability Unsupported Stance Several Tries, 30 seconds Sitting Unsupported, Safely- 2 minutes Feet on Floor Standing to Sitting Assist, Control w/Hands Ability Transfer Ability Supervision, Verbal Cues Unsupported Stance- Falls Without Assistance Eyes Closed Unsupported Stance- Independent, <30 seconds Eyes Open Reaching Forward Safely, 2 inches Standing Pick- Up Object From Supervision Floor Look Behind Shoulder Supervision w/Turning - Standing Turning 360 Degrees Requires Assistance Unsupported Stance, 4 Steps w/Supervision Alternating Feet on Stair Unsupported Tandem Holds Tandem- 30 seconds Stance Unilateral Leg Lifts Leg/Unable to Hold Stance Total Score Zaldivar Total Score ( 26 out of 56 points) Neuro Re-Education Treatment Vestibular Rehabilitation VOR Retraining Details Eyes, head, target moving together Distance From Target Arm's length Speed as tolerated Position seated Physical Therapy Assessment Rehab Potential Rehabilitation Poor Potential Evaluation Complexity Number of Personal 3 or More Factors/ Comorbidities Number of Body 4 or More Systems Impaired Clinical Unstable Presentation at Evaluation Impairments Impairments Activity Tolerance,Balance,Functional Activities, Functional Mobility,Gait,Vestibular Other Concerns Fall Risk Severely high falls risk Goals Two Impairment Pt scores a 33/64 on the FES. Operations Asst Goal (LTG) Pt to score a 24/64 or lower on the FES in order to demonstrate a reduction in fear of falling LTG Duration 03/18/25 One Impairment Per Zaldivar Score (26/56), pt at a severely high risk of falls Operations Asst Goal (LTG) Pt to demonstrate an improved Zaldivar score of at least ten points to 36/56 in order to demonstrate a decreased risk of falls. LTG Duration 03/18/25 Assessment Summary Assessment Pt presents with a highly complex severe balance dysfunction, however testing does not appear to indicate a known specific cause in this instance. Recent VNG was unremarkable, pt has had a recent brain/ head CT, which was also unremarkable. Zaldivar Balance score indicates a severe falls risk. Potential DDx includes Vestibulospinal Reflex dysfunction, central vertigo, or non-organic causes, among other possibilities. Unclear at this time if pt will benefit from vestibular therapy, however will attempt to provide vestibular exercises and VOR/VSR training in effort to improve falls risk and quality of life. Pt may require additional referral to Movement Disorder Specialist for further testing for central causes of symptoms. Physical Therapy Plan Frequency and Duration Frequency of 2x/Week Treatment Plan of Care Start 12/18/24 Date Plan of Care End 03/18/25 Date Therapeutic Interventions Therapeutic Balance Training,Canalithic Repositioning,Coordination Interventions Training,Gait Training,Home Exercise Program,Manual Therapy,Neuromuscular Re-education,Patient/Caregiver Education,Self-Care/Home Management,Soft Tissue Mobilization,Therapeutic Activities,Therapeutic Exercises,Vestibular Rehabilitation Next Visit Focus/Plan Next Note Type Treatment Note Next Visit Plan VOR, X1/X2, oculomotor exercises, habituation/ adaptation exercises
--- NOTE | 2025-01-08 12:10 | PT.OPDS ---
Current Diagnoses Other migraine, not intractable, without status migrainosus (12/18/24) Other headache syndrome (12/18/24) Unsteadiness on feet (12/18/24) Repeated falls (12/18/24) Dizziness and giddiness (12/18/24) Visit Care Team Role Provider Type Karoline Cabrera MD Primary Care Provider Physician Specialty: Family Practice Obstetrics Address: [address] [place] [id number] Email: [email or web address] Holland Parmar MD Attending Provider Physician Referring Provider Specialty: Ear, Nose, Throat Address: [address] [place] [address], [id number] Email: [email or web address] Visit Number Visit Number 1 Discharge Summary PT OP: Balance, Vestibular, Neuro Start: 12/18/24 16:59 Freq: Status: Active Protocol: Document 01/08/25 12:09 DCW (Rec: 01/08/25 12:10 DCW [id number]) Out-Patient Physical Therapy Visit Information Visit Information Visit Type Discharge Summary Physical Therapy Assessment Assessment Summary Assessment Pt has unfortunately been admitted to [facility], will be discharged from skilled therapy secondary to change in medical status. Pt will require a new referral in order to return to skilled therapy in the future. Physical Therapy Plan Discharge Physical Therapy Discharge Reasons Change in Medical Status
== END 2025-01-12 11:06 | disposition home or self-care (01) ==
LOC: PHYS 16:34
PROVIDERS: PCP Student in an Organized Health Care Education/Training Program; Referring Provider Otolaryngology; Visit Provider Otolaryngology
DX: R26.81 Unsteadiness on feet (principal); R29.6 Repeated falls; G43.809 Other migraine, not intractable, without status migrainosus; R42 Dizziness and giddiness; G44.89 Other headache syndrome
CPT/HCPCS: 97110; 97163

== ENCOUNTER → 2025-02-03 12:05 | Outpatient (CLI) | payer MEDICARE, MEDICAID, SELFPAY ==
[2025-01-15 09:00] VITALS: BMI 24.7
[2025-02-03 14:42] LABS: Microalbumi Creatinin Ratio Ur 5.0 ug/mg CR (<30)
== END ==
PROVIDERS: Family Provider Student in an Organized Health Care Education/Training Program; PCP Student in an Organized Health Care Education/Training Program; Visit Provider Student in an Organized Health Care Education/Training Program
DX: I10 Essential (primary) hypertension (principal); N30.01 Acute cystitis with hematuria
CPT/HCPCS: 82043; 82570; 87086

== ENCOUNTER → 2025-02-03 12:47 | Outpatient (CLI) | payer MEDICARE, MEDICAID, SELFPAY ==
[2025-01-15 09:00] VITALS: BMI 24.7
--- NOTE | 2025-02-03 12:59 | DI.CT.S_ITS ---
PROCEDURE: CT KIDNEY URETER BLADDER (KUB) INDICATIONS: Kidney Pain TECHNIQUE: Axial sections were acquired from the lung bases to the pubic symphysis. Coronal and sagittal reformats were performed. For radiation dose reduction, the following was used: automated exposure control, adjustment of mA and/or kV according to patient size. COMPARISON: [facility], CT, THORAX^ C4_CHEST_CT_WITHOUT_NODULE_LUNG_CA_SCREENING (ADULT), 04/11/2024, 13:58. FINDINGS: Image quality: Diagnostic. Lower Chest: Tiny hiatal hernia. Clear lung bases. Normal size heart. URINARY: Right Kidney: Normal renal morphology. No stone or hydronephrosis. Right Ureter: No hydroureter, ureteral calculus, or periureteric inflammation. Left Kidney: Mild diffuse left renal atrophy. No stones or hydronephrosis. Left Ureter: No hydroureter, ureteral calculus, or periureteric inflammation. Bladder: Decompressed. No stones or wall thickening. ABDOMEN: Liver: Cirrhotic liver morphology including left lobe hypertrophy and extensively nodular liver margin. No perihepatic ascites. Indistinct hypodensity posterolateral right liver dome, segment seven, previously not seen. Gallbladder: Surgically absent. Biliary ducts: Appropriate biliary tree caliber post cholecystectomy. Pancreas: No ductal dilation. Spleen: Size is within normal limits. Adrenal Glands: No adrenal nodules. Stomach and Bowel: Stomach and small bowel loops are normal caliber. Appendix is not seen. Diverticulosis throughout the sigmoid colon. The remainder of the colon is unremarkable without focal wall thickening or surrounding inflammation. Peritoneum: No abnormal intraperitoneal fluid. No free air. Ventral Wall: No hernia. Abdominal Nodes: No retroperitoneal adenopathy or mass. No mesenteric adenopathy or mass. Vessels: The abdominal aorta, IVC, and portal vein are of normal caliber. Moderate abdominal aortic atherosclerotic calcification. PELVIS: Pelvic Organs: Hysterectomy. Diminutive ovarian tissue. No suspicious adnexal mass. Pelvic Nodes: Unremarkable. Miscellaneous: No inguinal hernias are seen. Bones: Unremarkable. Scoliosis and lumbar endplate spurring. IMPRESSION: No evidence of obstructive uropathy or urinary calcification. Chronic changes of left renal atrophy. Prominent spinal scoliosis in the thoracolumbar region could be symptomatic. Cirrhotic liver with findings suspicious for a new mass. Recommend hepatic protocol MRI as an outpatient. Dictated by: Lili Zamarripa M.D. on 02/03/2025 at 13:39 Approved by: Lili Zamarripa M.D. on 02/03/2025 at 13:47
== END ==
PROVIDERS: Family Provider Student in an Organized Health Care Education/Training Program; PCP Student in an Organized Health Care Education/Training Program; Referring Provider Student in an Organized Health Care Education/Training Program; Visit Provider Student in an Organized Health Care Education/Training Program
DX: N30.01 Acute cystitis with hematuria (principal); I10 Essential (primary) hypertension; N23 Unspecified renal colic; N26.1 Atrophy of kidney (terminal); K74.60 Unspecified cirrhosis of liver; K57.30 Diverticulosis of large intestine without perforation or abscess without bleeding; I70.0 Atherosclerosis of aorta; M41.9 Scoliosis, unspecified; Z90.49 Acquired absence of other specified parts of digestive tract; Z90.710 Acquired absence of both cervix and uterus
CPT/HCPCS: 74176; 82043; 82570; 87086

== ENCOUNTER → 2025-02-05 19:18 | Outpatient (CLI) | payer MEDICARE, MEDICAID, SELFPAY ==
[2025-01-15 09:00] VITALS: BMI 24.7
--- NOTE | 2025-02-05 19:20 | DI.MRI.S_ITS ---
PROCEDURE: MR ABDOMEN LIVER PROTOCOL INDICATIONS: Evaluate new liver mass TECHNIQUE: Coronal HASTE, axial 2D FLASH in- and [id number]; axial breath-hold T2 FSE. Dynamic axial VIBE during the administration of contrast; post-contrast coronal VIBE or 2D FLASH with fat saturation from the hepatic dome to the iliac crests. Optional diffusion weighted imaging and ADC may be performed. COMPARISON: [facility], CT, CT KIDNEY URETER BLADDER (KUB), 02/03/2025, 13:01. FINDINGS: Image quality: Diagnostic. Lung bases: No pleural or pericardial effusion. Liver: Cirrhotic liver morphology. An irregular, T1 hypointense, T2 hyperintense mass is present in segment 8 measuring 1.8 cm. It demonstrates mild enhancement on the arterial phase of contrast washout on venous and delayed phases, and restricted diffusion. No other arterially enhancing liver lesions are seen. Gallbladder: Surgically absent. Biliary ducts: Appropriate biliary tree caliber post cholecystectomy. No visible choledocholithiasis. Pancreas: No ductal dilation. Spleen: Size is within normal limits. Adrenal Glands: No adrenal nodules. Kidneys and Ureters: Chronic left upper pole renal atrophy. Normal signal and enhancement. No suspicious mass, hydronephrosis, or proximal hydroureter. Stomach and Bowel: Stomach and visible bowel loops are within normal limits. Peritoneum: No abnormal intraperitoneal fluid. No free air. Ventral Wall: No hernia. Abdominal Nodes: No retroperitoneal or mesenteric adenopathy by size criteria. Vessels: Aorta and inferior vena cava are normal in size. Bones: No aggressive osseous abnormality. Moderate levoscoliosis of the thoracolumbar spine. IMPRESSION: Segment eight liver lesion suspicious for hepatocellular carcinoma, considered LR-4. Treatment and/or three-month follow-up recommended. Dictated by: Lili Zamarripa M.D. on 02/06/2025 at 12:31 Approved by: Lili Zamarripa M.D. on 02/06/2025 at 12:46
== END ==
LOC: MRI 19:19
PROVIDERS: Family Provider Student in an Organized Health Care Education/Training Program; PCP Student in an Organized Health Care Education/Training Program; Referring Provider Student in an Organized Health Care Education/Training Program; Visit Provider Student in an Organized Health Care Education/Training Program
DX: K76.9 Liver disease, unspecified (principal); R16.0 Hepatomegaly, not elsewhere classified; Z90.49 Acquired absence of other specified parts of digestive tract
CPT/HCPCS: 74183; A9579

== ENCOUNTER → 2025-02-17 16:49 | Outpatient (CLI) | payer MEDICARE, MEDICAID, SELFPAY ==
[2025-01-15 09:00] VITALS: BMI 24.7
--- NOTE | 2025-02-17 16:50 | DI.US.S_ITS ---
PROCEDURE: US PERIPH VENOUS UP EXTREM LT INDICATIONS: rule out DVT TECHNIQUE: Real-time imaging, as well as color and pulse Doppler interrogation, was performed of the upper extremity deep veins from the inferior neck to the antecubital fossa. COMPARISON: None. FINDINGS: The internal jugular vein, visualized portions of the subclavian vein, axillary, and brachial veins are free of intraluminal thrombus. Where physically possible, the veins are normally compressible. Color and pulse Doppler demonstrate normal intraluminal flow, with expected phasicity and pulsatility. Additional scanning of the cephalic and basilic veins of the superficial system demonstrates normal compressibility, without thrombus. IMPRESSION: No findings of upper extremity deep venous thrombosis can be seen. Approved by: Paul Burch M.D. on 02/17/2025 at 18:25
== END ==
PROVIDERS: Family Provider Student in an Organized Health Care Education/Training Program; PCP Student in an Organized Health Care Education/Training Program; Referring Provider Student in an Organized Health Care Education/Training Program; Visit Provider Student in an Organized Health Care Education/Training Program
DX: M79.629 Pain in unspecified upper arm (principal); T80.90XA Unspecified complication following infusion and therapeutic injection, initial encounter
CPT/HCPCS: 93971

== ENCOUNTER → 2025-02-26 13:07 | Outpatient (CLI) | payer MEDICARE, MEDICAID, SELFPAY ==
[2025-01-15 09:00] VITALS: BMI 24.7
--- NOTE | 2025-02-26 13:08 | DI.US.S_ITS ---
PROCEDURE: US RENAL COMPLETE INDICATIONS: microscopic hematuria TECHNIQUE: Real-time scanning was performed of the kidneys and bladder, with image documentation. COMPARISON: [facility], , US RENAL COMPLETE, 01/18/2024, 15:49. FINDINGS: Kidneys: Right kidney is normal in size, left kidney is small. Right kidney measures 9.3 cm long; left kidney measures 8.3 cm long. Right renal cortical thickness is 1.4 cm; left renal cortical thickness is 1.3 cm. Renal cortical echotexture is normal. No hydronephrosis or nephrolithiasis. No suspicious solid mass lesions. Bladder: Pre-void bladder volume is 36 mL. Pre-void images demonstrate no intraluminal masses or stones. On pre-void images, bilateral ureteral jets are noted with color Doppler interrogation. (Of note, ureteral jets may not be detectable in up to 25% of cases due to insufficient differences in specific gravity between ureteral and bladder urine). Miscellaneous: No free pelvic fluid. IMPRESSION: Left kidney is mildly small. Otherwise, the kidneys are normal in appearance. Dictated by: Jeison Quispe M.D. on 02/26/2025 at 14:59 Approved by: Jeison Quispe M.D. on 02/26/2025 at 15:01
== END ==
LOC: US 13:08
PROVIDERS: Family Provider Student in an Organized Health Care Education/Training Program; PCP Student in an Organized Health Care Education/Training Program; Referring Provider Internal Medicine Nephrology; Visit Provider Internal Medicine Nephrology
DX: R31.1 Benign essential microscopic hematuria (principal)
CPT/HCPCS: 76770

== ENCOUNTER → 2025-02-27 13:43 | Outpatient (CLI) | payer MEDICARE, MEDICAID, SELFPAY ==
[2025-01-15 09:00] VITALS: BMI 24.7
== END ==
PROVIDERS: Family Provider Student in an Organized Health Care Education/Training Program; PCP Student in an Organized Health Care Education/Training Program; Visit Provider Student in an Organized Health Care Education/Training Program
DX: R30.9 Painful micturition, unspecified (principal)
CPT/HCPCS: 87086

== ENCOUNTER 2025-03-17 11:32 | Outpatient (RCR) | payer MEDICARE, MEDICAID, SELFPAY ==
[2025-01-15 09:00] VITALS: BMI 24.7
--- NOTE | 2025-03-17 15:36 | PT.OIE ---
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 Ruptured tympanic membrane Scoliosis Past Surgical History (Last Updated 01/27/25 @ 12:58 by Karoline Cabrera MD) Anesthesia History of appendectomy History of carpal tunnel release History of cholecystectomy History of ear surgery History of elbow surgery History of hernia repair (~2012) History of partial hysterectomy History of total hysterectomy S/P insertion of spinal cord stimulator (~2016) Visit Care Team Role Provider Type Karoline Cabrera MD Attending Provider Physician Family Provider Primary Care Provider Referring Provider Specialty: Family Practice Obstetrics Address: [address] [place] [address] Email: [email or web address] Physical Therapy Initial Evaluation PT OP: Lower Back/Lower Extremity Start: 03/17/25 11:37 Freq: Status: Active Protocol: Document 03/17/25 11:38 ZEB (Rec: 03/17/25 15:35 ZEB [id number]) Out-Patient Physical Therapy Visit Information Visit Information Visit Type Initial Evaluation Visit Start Time 11:35 Visit Stop Time 12:20 Visit Number 1 Number of PAPER SAMPLE CLERK Visits 0 Progress Note Due 04/16/25 Precautions Precautions COPD, Major depressive disorder, patient reports potential TIA but reports that her L side has been weaker since that happened, newly diagnosed hepatic cancer, 2 previous cardiac catheterizations OP-PT Subjective Patient Comments Patient Comments History of current diagnosis: Patient presents to PT with complaints of L hip pain that started about 3 months ago. She reports that she was dealing with a good deal of depression. She reports she was in a psych castro and got some hip pain when she went to stand up. She reports she also had a fall around this time. She also reports a couple falls at home. She reports one of these falls was on slippery grass and the other one was when she looked up and fell backwards. She owns a SPC but reports that she doesn't use it very often. She also notes low back pain. 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 Currently not walking. She reports she will start a gym membership soon but is not sure what to do. Pain location: L lateral hip Pain description: Patient reports she actually has not had much hip pain in the last three months. Her primary complaint is weakness in her LEs. Function prior to injury: Independent with all ADLs Function current: Independent with all ADLs - Limited with walking, going up and down stairs Patient goals: Improve stair negotiation, improve strength with sit to stands Functional Tests 2 Minute Walk Test Distance 315' Device Used no assistive device Comments Vital post-2mwt: SPO2 97%, HR 76 bpm, BP 106/62 Five Times Sit to Stand Test Score 16 Timed Up and Go (TUG) Score 11 Physical Therapy Assessment Goals Three Impairment General function Short Term Goal (STG Patient will report a GROC of 20% in order to show an ) increase in self-perceived function. STG Duration 4 weeks Company Driver Goal (LTG) Patient will report a GROC of 40% in order to show an increase in self-perceived function. LTG Duration 8 weeks Two Impairment Lack of HEP Short Term Goal (STG Patient will initiate HEP. ) STG Duration 4 weeks [facility] Goal (LTG) Patient will be independent with HEP in order to maintain theraputic gains. LTG Duration 8 weeks One Impairment Gross LE strength Short Term Goal (STG Patient will demonstrate a reduction in 5xSTS time to ) 14 seconds in order to show an increase in LE strength so she can better get up from a chair and also to reduce falls risk. STG Duration 4 weeks [facility] Goal (LTG) Patient will demonstrate a reduction in 5xSTS time to 12 seconds in order to show an increase in LE strength so she can better get up from a chair and also to reduce falls risk. LTG Duration 8 weeks Assessment Summary Assessment Patient presenting to PT with complaints of LE weakness s/p multiple hospitalizations over the last three months. Functional deficits include ambulating, stair negotiation. Objective investigation revealed deficits in gross LE strength (see objective measures: 5xSTS). After 2mWT patient reported to PT that she was experiencing some chest tightness and shortness of breath and that she had been experiencing this symptom every day for the past three weeks. Vital signs were assessed which revealed BP 106/82, SPO2 97%, and HR 76. PT recommended getting this further evaluation at the ED but patient was hesitant to agree to this. PT contacted patient's PCP via phone who recommended patient also reporting to the ED if symptoms did not improve in 15 minutes. Symptoms did not resolve, and patient agreed to go to the ED. PT then took patient upstairs to the ED in a wheelchair where patient was attended to by ED staff. Pending encouraging findings from ED visit, patient will benefit from PT to address LE strength deficits, and reduce falls risk. Physical Therapy Plan Frequency and Duration Frequency of 2x/Week Treatment Duration of 12 treatment (weeks) Plan of Care Start 03/17/25 Date Plan of Care End 06/15/25 Date Therapeutic Interventions Therapeutic Balance Training,Coordination Training,Gait Training, Interventions Home Exercise Program,Neuromuscular Re-education, Patient/Caregiver Education,Taping,Therapeutic Activities,Therapeutic Exercises Modalities Biofeedback,Cold Pack/Ice Massage,Electric Stimulation, Hot Packs,Ultrasound,Vasopneumatic Devices Next Visit Focus/Plan Next Note Type Treatment Note Next Visit Plan Follow up on ED visit. Initiate treatment with focus on LE strengthening.
--- NOTE | 2025-03-17 15:40 | PT.OPPOC ---
Physical, Occupational & Speech Therapy At [facility] Current Diagnoses Pain in unspecified hip (03/17/25) Weakness (03/17/25) Visit Care Team Role Provider Type Karoline Cabrera MD Attending Provider Physician Family Provider Primary Care Provider Referring Provider Specialty: Family Practice Obstetrics Address: [address] [place] [address], [facility] Email: [email or web address] Plan Of Care PT OP: Lower Back/Lower Extremity Start: 03/17/25 11:37 Freq: Status: Active Protocol: Document 03/17/25 11:38 ZEB (Rec: 03/17/25 15:35 ZEB [id number]) Out-Patient Physical Therapy Visit Information Visit Information Visit Type Initial Evaluation Visit Start Time 11:35 Visit Stop Time 12:20 Visit Number 1 Number of FRONT DESK TEAM MEMBER Visits 0 Progress Note Due 04/16/25 Precautions Precautions COPD, Major depressive disorder, patient reports potential TIA but reports that her L side has been weaker since that happened, newly diagnosed hepatic cancer, 2 previous cardiac catheterizations OP-PT Subjective Patient Comments Patient Comments History of current diagnosis: Patient presents to PT with complaints of L hip pain that started about 3 months ago. She reports that she was dealing with a good deal of depression. She reports she was in a psych castro and got some hip pain when she went to stand up. She reports she also had a fall around this time. She also reports a couple falls at home. She reports one of these falls was on slippery grass and the other one was when she looked up and fell backwards. She owns a SPC but reports that she doesn't use it very often. She also notes low back pain. 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 Currently not walking. She reports she will start a gym membership soon but is not sure what to do. Pain location: L lateral hip Pain description: Patient reports she actually has not had much hip pain in the last three months. Her primary complaint is weakness in her LEs. Function prior to injury: Independent with all ADLs Function current: Independent with all ADLs - Limited with walking, going up and down stairs Patient goals: Improve stair negotiation, improve strength with sit to stands Functional Tests 2 Minute Walk Test Distance 315' Device Used no assistive device Comments Vital post-2mwt: SPO2 97%, HR 76 bpm, BP 106/62 Five Times Sit to Stand Test Score 16 Timed Up and Go (TUG) Score 11 Physical Therapy Assessment Goals Three Impairment General function Short Term Goal (STG Patient will report a GROC of 20% in order to show an ) increase in self-perceived function. STG Duration 4 weeks Senior Care Goal (LTG) Patient will report a GROC of 40% in order to show an increase in self-perceived function. LTG Duration 8 weeks Two Impairment Lack of HEP Short Term Goal (STG Patient will initiate HEP. ) STG Duration 4 weeks Bulk Folder Goal (LTG) Patient will be independent with HEP in order to maintain theraputic gains. LTG Duration 8 weeks One Impairment Gross LE strength Short Term Goal (STG Patient will demonstrate a reduction in 5xSTS time to ) 14 seconds in order to show an increase in LE strength so she can better get up from a chair and also to reduce falls risk. STG Duration 4 weeks Senior Care Goal (LTG) Patient will demonstrate a reduction in 5xSTS time to 12 seconds in order to show an increase in LE strength so she can better get up from a chair and also to reduce falls risk. LTG Duration 8 weeks Assessment Summary Assessment Patient presenting to PT with complaints of LE weakness s/p multiple hospitalizations over the last three months. Functional deficits include ambulating, stair negotiation. Objective investigation revealed deficits in gross LE strength (see objective measures: 5xSTS). After 2mWT patient reported to PT that she was experiencing some chest tightness and shortness of breath and that she had been experiencing this symptom every day for the past three weeks. Vital signs were assessed which revealed BP 106/82, SPO2 97%, and HR 76. PT recommended getting this further evaluation at the ED but patient was hesitant to agree to this. PT contacted patient's PCP via phone who recommended patient also reporting to the ED if symptoms did not improve in 15 minutes. Symptoms did not resolve, and patient agreed to go to the ED. PT then took patient upstairs to the ED in a wheelchair where patient was attended to by ED staff. Pending encouraging findings from ED visit, patient will benefit from PT to address LE strength deficits, and reduce falls risk. Physical Therapy Plan Frequency and Duration Frequency of 2x/Week Treatment Duration of 12 treatment (weeks) Plan of Care Start 03/17/25 Date Plan of Care End 06/15/25 Date Therapeutic Interventions Therapeutic Balance Training,Coordination Training,Gait Training, Interventions Home Exercise Program,Neuromuscular Re-education, Patient/Caregiver Education,Taping,Therapeutic Activities,Therapeutic Exercises Modalities Biofeedback,Cold Pack/Ice Massage,Electric Stimulation, Hot Packs,Ultrasound,Vasopneumatic Devices Next Visit Focus/Plan Next Note Type Treatment Note Next Visit Plan Follow up on ED visit. Initiate treatment with focus on LE strengthening. Plan of Care Dates Plan of Care Start Date 03/17/25 Plan of Care End Date 06/15/25 Electronically Signed by: Nayana Donaldson, PT 03/17/25 [id number] If you are in agreement with this Plan of Care, please return a signed and dated copy. I have reviewed this Plan of Care and certify that the skilled therapy services above are required to meet the patient?s needs. Physician Signature Date Printed Name and Credentials Clinical Instructor Signature Printed Name and Credentials
--- NOTE | 2025-04-15 12:12 | PT.OPDS ---
Current Diagnoses Pain in unspecified hip (03/17/25) Weakness (03/17/25) Visit Care Team Role Provider Type Karoline Cabrera MD Attending Provider Physician Family Provider Primary Care Provider Referring Provider Specialty: Family Practice Obstetrics Address: [address] [place] [address], [id number] Email: [email or web address] Visit Number Visit Number 1 Discharge Summary PT OP: Lower Back/Lower Extremity Start: 03/17/25 11:37 Freq: Status: Active Protocol: Document 04/15/25 12:09 ZEB (Rec: 04/15/25 12:12 ZEB [id number]) Out-Patient Physical Therapy Visit Information Visit Information Visit Type Discharge Summary Physical Therapy Assessment Assessment Summary Assessment Patient has cancelled her remaining PT visits and the referring provider has not sent a new referral for PT following her ED visit after her PT evaluation (see note on 03/17/2025). Patient will be discharged at this time and if she wishes to resume PT, she should have a new referral sent from her provider. Please reach out to [facility] PT department with any questions.
== END 2025-04-16 13:15 | disposition home or self-care (01) ==
LOC: PHYS 11:32
PROVIDERS: Family Provider Student in an Organized Health Care Education/Training Program; PCP Student in an Organized Health Care Education/Training Program; Referring Provider Student in an Organized Health Care Education/Training Program; Visit Provider Student in an Organized Health Care Education/Training Program
DX: M25.559 Pain in unspecified hip (principal); R53.1 Weakness
CPT/HCPCS: 97161

== ENCOUNTER 2025-03-17 12:45 | Emergency (ER) | payer MEDICARE, MEDICAID, SELFPAY ==
[2025-01-15 09:00] VITALS: BMI 24.7
[2025-03-17] VITALS (10 sets, daily range): BP systolic 107–149; BP diastolic 63–77; PULSE 61–101; RESP 17–18; TEMP 36.6; O2SAT 93–100; BMI 23.6
--- NOTE | 2025-03-17 13:05 | EKG_ITS ---
[address] [address] Test Date: 2025-03-17 Pat Name: Xi Dejesus Department: Room: Gender: Female Gamer: TEJ : 1960 Requested By: Order Number: [id number] Reading MD: Frank Khan MD Measurements Intervals [place] Rate: 79 P: 82 IA: 172 QRS: -1 QRSD: 66 T: 60 QT: 400 QTc: 458 Interpretive Statements Normal sinus rhythm Nonspecific T wave abnormality Electronically Signed On 03-17-2025 13:53:29 PST by Frank Khan MD
--- NOTE | 2025-03-17 13:05 | DI.RAD.S_ITS ---
PROCEDURE: XR CHEST 1V INDICATIONS: Chest Pain TECHNIQUE: One view of the chest was acquired. COMPARISON: [facility], CR, XR CHEST 1V, 06/17/2024, 12:55. FINDINGS: Surgical changes and devices: None. Lungs and pleura: Lungs are clear. No pleural effusions or pneumothorax. Mediastinum: Mediastinal contours appear normal. Heart size is normal. Bones and chest wall: No suspicious bony lesions. Overlying soft tissues appear unremarkable. IMPRESSION: No acute cardiopulmonary abnormality is seen. Dictated by: Zachary Beltran M.D. on 03/17/2025 at 13:30 Approved by: Zachary Beltran M.D. on 03/17/2025 at 13:30
[2025-03-17] MEDS: ASPIRIN 81 MG CHEW TAB 324 MG PO (13:08)
[2025-03-17 13:13] LABS: Add Manual Diff / Slide Review NO; Hematocrit 41.7 % (36-46); Hemoglobin 13.8 g/dL (12.0-16.0); Lymphocytes Absolute Auto 1400 /uL (1100-4500); Mean Corpuscular HGB Conc 33.1 % (30-36); Mean Corpuscular Hemoglobin 29.3 PG (26-34); Mean Corpuscular Volume 88.6 fL (80-100); Platelet Count 233 X10^3/uL (150-400)
[2025-03-17 13:17] LABS: INR 1.0 (0.9-1.3); Prothrombin Time 11.6 SECONDS (9.4-12.5)
[2025-03-17 13:19] LABS: PTT Partial Thromboplastin Tim 30 SECONDS (25.1-36.5)
[2025-03-17 13:21] LABS: Alanine Aminotransferase 27 IU/L (<35); Albumin 5.1 g/dL (3.5-5.0); Albumin Globulin Ratio 1.5 (1.0-2.8); Alkaline Phosphatase 102 U/L (38-126); Blood Urea Nitrogen 26 mg/dL (7-17); Calcium 9.5 mg/dL (8.4-10.2); Carbon Dioxide 25 mmol/L (22-32); Chloride 100 mmol/L (98-107); Creatine Kinase 43 U/L (30-135); Estimated Glomerular Filt Rate 51 mL/min (>60); Globulin 3.4 g/dL (1.7-4.1); Glucose 119 mg/dL (70-99); HEMOLYSIS < 15 (0-50); Lipase 76 U/L (23-300); Magnesium 1.5 mg/dL (1.6-2.3); Potassium 4.3 mmol/L (3.4-5.1); Sodium 137 mmol/L (137-145); Total Protein 8.5 g/dL (6.3-8.2)
[2025-03-17 13:32] LABS: NT-proBNP (BNP-Adult 18+) 165 pg/mL (<125); Troponin I < 0.012 ng/mL (0.01-0.034)
--- NOTE | 2025-03-17 13:33 | DI.CT.S_ITS ---
PROCEDURE: CT ANGIO CHEST PE PROTOCOL INDICATIONS: PE suspected, high risk TECHNIQUE: After the administration of intravenous contrast, 2 mm thick sections acquired from the pulmonary apices to the posterior costophrenic angles. 3-dimensional maximum intensity projection (MIP) coronal and sagittal reformats were then acquired through the thorax. For radiation dose reduction, the following was used: automated exposure control, adjustment of mA and/or kV according to patient size. COMPARISON: [facility], CT, CT ANGIO CHEST PE PROTOCOL, 12/04/2023, 15:39. FINDINGS: Image quality: Diagnostic. Pulmonary arteries: Pulmonary arteries are normal in size, and demonstrate no intraluminal filling defects to suggest central pulmonary embolism. Lower Neck: No enlarged lymph nodes. Thyroid: No thyroid nodules which require sonographic follow up, per consensus guidelines. Axillae: No enlarged lymph nodes. Chest Wall: Unremarkable. Bones: No aggressive appearing bony lesions. Lungs and Pleura: No pneumothorax or pleural effusions. [id number] centrilobular emphysema. No consolidation or suspicious nodules. Heart: Heart size is normal. No pericardial effusion. Thoracic Vessels: No aortic aneurysm. Mediastinum and Nai: No enlarged lymph nodes. Esophagus: No wall thickening. Small hiatal hernia. Upper Abdomen: Lobulated liver contour is noted unchanged from prior study. IMPRESSION: 1. No pulmonary embolus. No thoracic aortic aneurysm or gross dissection. 2. [id number] centrilobular emphysema. No focal infiltrate, pleural effusion or pneumothorax. 3. No mediastinal or hilar lymphadenopathy. Dictated by: Avel Callahan M.D. on 03/17/2025 at 14:02 Approved by: Avel Callahan M.D. on 03/17/2025 at 14:06
--- NOTE | 2025-03-17 13:35 | ED.CHESTPAIN ---
HPI - Chest Pain General Chief Complaint: Chest Pain Stated Complaint: SOB, pressure in chest, dizzy, from PT appt Time Seen by Provider: 03/17/25 13:18 Source: patient and other Mode of arrival: Ambulatory Limitations: no limitations History of Present Illness HPI narrative: This is a 64-year-old female with a history of treated hepatitis-C, newly diagnosed hepatic cancer, and COPD presenting with chest pain and shortness of breath. Onset was approximately an hour ago while doing physical therapy. Says that she does get increased pain with exertion and the pain is midline pressure and she has had similar symptoms in the past. Patient also tells me that in the last couple of years she has had 2 cardiac catheterizations, she is unsure of the specific results but was never told that she had coronary artery disease and significantly, cardiology consult from December of 2024, previous heart catheterization in July of 2023 no angiographic evidence of coronary disease. Has previously had a normal echocardiogram. Family history is unknown, she is not a smoker has a history of elevated cholesterol by her report although she is not on a statin also has a history of hypertension. She has not had fevers or cough. Related Data Home Medications ?Medication ?Instructions ?Recorded ?Confirmed metoprolol succinate 50 mg 50 mg PO DAILY 04/18/24 03/12/25 tablet,extended release 24 hr aspirin 81 mg chewable tablet 81 mg PO .COMPLEX 01/20/25 03/12/25 hydroxyzine HCl 10 mg tablet 10 mg PO Q6H PRN Anxiety or 01/20/25 03/12/25 Held on 02/18/25. insomnia Instructions: hallucinations omeprazole 20 mg capsule,delayed 20 mg PO DAILY Acid reflux 01/20/25 03/12/25 release spironolactone 25 mg tablet 25 mg PO DAILY 01/26/25 03/12/25 fluticasone propionate 110 2 puff inhalation BID PRN SOB 01/30/25 03/12/25 mcg/actuation HFA aerosol inhaler valacyclovir 500 mg tablet 500 mg PO DAILY 02/18/25 03/12/25 meloxicam 7.5 mg tablet 7.5 mg PO DAILY 02/27/25 03/12/25 Previous Rx's ?Medication ?Instructions ?Recorded Disabled Parking #1 ea 03/06/23 estradiol cypionate 5 mg/mL 2 mg (0.4 mL) IM Q2W #10 mL 10/16/24 intramuscular oil (Depo-Estradiol) cholecalciferol (vitamin D3) 50 50 mcg PO DAILY #30 caps 01/20/25 mcg (2,000 unit) capsule loperamide 2 mg capsule (Imodium 2 mg PO BID PRN loose stool #60 01/20/25 A-D) caps cyclobenzaprine 5 mg tablet 5 mg PO TID PRN muscle spasm #30 02/03/25 tabs hydrocodone 5 mg-acetaminophen 325 1 tab PO DAILY PRN pain #30 tabs 02/26/25 mg tablet Allergies Allergy/AdvReac Type Severity Reaction Status Date / Time codeine Allergy Severe Anaphylaxis Verified 03/12/25 12:23 penicillin G Allergy Severe Anaphylaxis Verified 03/12/25 12:23 lithium Allergy Intermediate kidney Verified 03/12/25 12:23 injury duloxetine AdvReac Severe hallucinati Verified 03/12/25 12:23 ons levofloxacin (From Levaquin) AdvReac Severe tinnitus Verified 03/12/25 12:23 quetiapine AdvReac Severe Hallucinati Verified 03/12/25 12:23 ng vaccine adjuvant system, AdvReac Severe blisters Verified 03/12/25 12:23 [id number] liposomal (From Shingrix (PF)) varicella-zoster virus AdvReac Severe blisters Verified 03/12/25 12:23 glycoprotein E, recombinant (From Shingrix (PF)) latex AdvReac Intermediate Redness of Verified 03/12/25 12:23 Skin Patient History Medical History (Updated 03/17/25 @ 16:45 by Owen Brooks MD) History of left heart catheterization Mild neurocognitive disorder 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 MDD (major depressive disorder), single episode, severe COPD exacerbation COPD (chronic obstructive pulmonary disease) (~2017) Allergies Scoliosis Chronic back pain Cervical spine disease Carpal tunnel syndrome Mumps Chicken pox Ruptured tympanic membrane Glaucoma Liver disease (~2017) Hepatitis C (~2018) Hemorrhoid GERD (gastroesophageal reflux disease) Cirrhosis MVP (mitral valve prolapse) Surgical History (Updated 01/27/25 @ 12:58 by Karoline Cabrera MD) Anesthesia S/P insertion of spinal cord stimulator (~2016) History of hernia repair (~2012) History of appendectomy History of elbow surgery History of carpal tunnel release History of cholecystectomy History of ear surgery History of total hysterectomy History of partial hysterectomy Social History (Updated 01/26/25 @ 13:28 by Rachael Koehler LPN) household members: none Tobacco: How many years used: 42 alcohol intake: former alcohol intake frequency: holidays/special occasions only Exam Narrative Exam Narrative: Alert and fully oriented. Appears uncomfortable. Vital signs reviewed and reassuring. Normocephalic and atraumatic neck is supple Lungs are clear Cardiac regular rhythm rate no murmur rub or gallop Abdomen bowel sounds normal soft epigastric left and right upper quadrant tenderness without guarding or rebound Moving all 4 extremities spontaneously and equally Skin is warm and dry Initial Vital Signs Initial Vital Signs: Vital Signs Temperature 97.8 F 03/17/25 12:59 Pulse Rate 77 03/17/25 12:59 Respiratory Rate 18 03/17/25 12:59 Blood Pressure 145/66 H 03/17/25 12:59 Pulse Oximetry 98 03/17/25 12:59 Oxygen Delivery Method Room Air 03/17/25 12:59 Course Orders Ordered: ED Orders 03/17/25 13:00 Complete Blood Count AUTO DIFF Stat Comprehensive Metabolic Panel Stat Lipase Stat Magnesium Stat NT-proBNP (BNP-Adult 18+) Stat PTT Partial Thromboplastin [place] Stat Prothrombin Time INR Stat Troponin & CK Cardiac Panel Stat 03/17/25 13:05 XR chest 1V Stat EKG-12 Lead Stat 03/17/25 13:33 CT angio chest PE protocol Stat 03/17/25 13:50 EKG-12 Lead Stat Nitroglycerin (Nitroglycerin 0.4 Mg Sl Tab) 0.4 mg SL [id number] PRN PRN Reason: Chest Pain Last Admin: 03/17/25 14:23 Dose: 0.4 mg Documented By: Admin: 03/17/25 13:53 Dose: 0.4 mg Documented By: MASSIEL Discontinued Medications Aspirin (Aspirin 81 Mg Chew Tab) 324 mg PO NOW ONE Stop: 03/17/25 13:06 Last Admin: 03/17/25 13:08 Dose: 324 mg Documented By: MASSIEL Morphine Sulfate (Morphine 2 Mg/Ml Inj) 2 mg IV NOW ONE Stop: 03/17/25 13:34 Last Admin: 03/17/25 13:54 Dose: 2 mg Documented By: MASSIEL Ondansetron HCl (Ondansetron 4 Mg/2 Ml Inj) 4 mg IV NOW ONE Stop: 03/17/25 13:34 Last Admin: 03/17/25 13:54 Dose: 4 mg Documented By: MASSIEL Reevaluation(s) Reevaluation #1: At 4:35 a.m., patient is feeling better. Reviewed her diffusely negative workup. Discussed her episode of increased chest pain and sensation of getting a ?shock? with CT contrast. This was not associated with itching or wheezing no rash I do not think it was an allergic reaction. Patient would like to go home. We discussed her magnesium of 1.5, she does not wish to start a magnesium supplement at present. Vital Signs Vital signs: Vital Signs - 8 hr 03/17/25 12:59 03/17/25 13:10 03/17/25 13:30 Temperature 97.8 F Pulse Rate 77 101 H 72 Respiratory Rate 18 18 Blood Pressure 145/66 H Pulse Oximetry 98 99 Oxygen Delivery Method Room Air 03/17/25 13:30 03/17/25 13:50 03/17/25 13:50 Temperature Pulse Rate 75 Respiratory Rate 17 Blood Pressure 149/63 H 148/71 H Pulse Oximetry 100 Oxygen Delivery Method 03/17/25 13:53 03/17/25 14:23 03/17/25 15:00 Temperature Pulse Rate 78 77 63 Respiratory Rate 18 Blood Pressure 148/71 H 137/77 114/68 Pulse Oximetry 96 Oxygen Delivery Method Room Air 03/17/25 15:30 Temperature Pulse Rate 61 Respiratory Rate 18 Blood Pressure 112/64 Pulse Oximetry 93 Oxygen Delivery Method Room Air MDM - Chest Pain Lab Data Lab results narrative: Troponins are normal x2. Mild elevation in creatinine. 03/17/25 13:00 03/17/25 13:00 Labs: Lab Results 03/17/25 Range/Units 13:00 WBC 7.6 (4.5-11.0) X10^3/uL RBC 4.70 (4.0-5.2) X10^6/uL Hgb 13.8 (12.0-16.0) g/dL Hct 41.7 (36-46) % MCV 88.6 (80-100) fL MCH 29.3 (26-34) PG MCHC 33.1 (30-36) % RDW 18.2 H (11.6-14.8) % Plt Count 233 (150-400) X10^3/uL Neut % (Auto) 72.4 (50-75) % Lymph % (Auto) 17.8 L (25-40) % [place] % (Auto) 8.5 (3-14) % Eos % (Auto) 0.5 L (2-4) % Baso % (Auto) 0.8 (0-2) % Neut # (Auto) 5500 (1350-6421) /uL Lymph # (Auto) 1400 (2810-7289) /uL [place] # (Auto) 600 (0-900) /uL Eos # (Auto) 0 (0-450) /uL Baso # (Auto) 100 (0-100) /uL PT 11.6 (9.4-12.5) SECONDS INR 1.0 (0.9-1.3) APTT 30 (25.1-36.5) SECONDS Sodium 137 (137-145) mmol/L Potassium 4.3 (3.4-5.1) mmol/L Chloride 100 (98-107) mmol/L Carbon Dioxide 25 (22-32) mmol/L BUN 26 H (7-17) mg/dL Creatinine 1.18 H (0.52-1.04) mg/dL Estimated GFR 51 L (>60) mL/min BUN/Creatinine Ratio 22.0 (6-22) Glucose 119 H (70-99) mg/dL Calcium 9.5 (8.4-10.2) mg/dL Magnesium 1.5 L (1.6-2.3) mg/dL Total Bilirubin 0.5 (0.2-1.3) mg/dL AST 47 H (14-36) IU/L ALT 27 (<35) IU/L Alkaline Phosphatase 102 (38-126) U/L Total Creatine Kinase 43 (30-135) U/L Troponin I < 0.012 (0.01-0.034) ng/mL NT-Pro-B Natriuret Pep 165 H (<125) pg/mL Total Protein 8.5 H (6.3-8.2) g/dL Albumin 5.1 H (3.5-5.0) g/dL Globulin 3.4 (1.7-4.1) g/dL Albumin/Globulin Ratio 1.5 (1.0-2.8) Lipase 76 (23-300) U/L Imaging Data CT scan - chest: My Impression: Independently reviewed CT angio chest, no acute infiltrate no pulmonary embolism Radiologist's Impression: Radiology report reviewed, no acute findings ECG Data Attestation: I personally reviewed and interpreted this ECG as follows: (Normal sinus rhythm, nonspecific ST segment changes appear similar to 11 in June 2024 no diagnostic criteria for ST-elevation MS) MDM Narrative Medical decision making narrative: Heart score, +1 for moderately suspicious history, +[address] segment changes on EKG, +2 for age +1 for hypertension on risk factors. Heart score is 4, however I note a cardiac catheterization less than 2 years ago that did not show acute coronary disease. 64-year-old female presenting with the acute chest pain that began while she was attending physical therapy. Description is worrisome for ischemia however she did not have ischemic changes on her EKG and troponins are normal x2. Has newly diagnosed liver cancer, pulmonary embolism was considered CT angio was negative. Less common etiologies such as aortic syndrome or considered and not felt to be present does not have an infiltrate on her chest x-ray. Patient's symptoms improved while in the emergency department. She was interested in discharge home and I think this is appropriate, based on her previous negative cardiac workup and today is reassuring evaluation I did not recommend admission Discharge Plan Departure Patient Disposition: Home Clinical Impression: Chest pain Qualifiers: Chest pain type: unspecified Qualified Code(s): R07.9 - Chest pain, unspecified Activity Restrictions/Additional Instructions: Emergency department workup today is reassuring. No serious cause for your episode of chest pain is identified I think it is safe to go home and continue your previous home medications. May use acetaminophen as needed for pain, follow up seen with the primary care provider. If you are having increasing pain or other acute symptoms recheck in the emergency department. Prescriptions: No Action cyclobenzaprine 5 mg tablet 5 mg PO TID PRN (Reason: muscle spasm) Qty: 30 3RF omeprazole 20 mg capsule,delayed release(DR/EC) 20 mg PO DAILY aspirin 81 mg tablet,chewable 81 mg PO .COMPLEX Patient Comments: Take 1 tablet twice a week. Started taking on 09/29/24. Approved by [facility]. Rx Instructions: 81 mg orally Mondays and Fridays; hydroxyzine HCl 10 mg tablet 10 mg PO Q6H PRN (Reason: Anxiety or insomnia) Patient Comments: Took two on Jan 14 at 817a Release notes say: take 1 tablet by mouth four times daily as needed (use first line for anxiety or insomnia) loperamide [Imodium A-D] 2 mg capsule 2 mg PO BID PRN (Reason: loose stool) Qty: 60 3RF hydrocodone-acetaminophen 5-325 mg tablet 1 tab PO DAILY PRN (Reason: pain) Qty: 30 0RF (DME) Disabled Parking See Rx Instructions .ROUTE .MEDSUPPLY Qty: 1 0RF Rx Instructions: I find this patient to be medical disabled and qualified for Disabled Parking as indicated, and signed, on the and the Accompanying Disabled Parking Application for Individuals. Depo-Estradiol 5 mg/mL oil 2 mg IM Q2W Qty: 10 3RF cholecalciferol (vitamin D3) 50 mcg (2,000 unit) capsule 50 mcg PO DAILY Qty: 30 3RF spironolactone 25 mg tablet 25 mg PO DAILY fluticasone propionate 110 mcg/actuation HFA aerosol inhaler 2 puff inhalation BID PRN (Reason: SOB) valacyclovir 500 mg tablet 500 mg PO DAILY meloxicam 7.5 mg tablet 7.5 mg PO DAILY metoprolol succinate 50 mg tablet extended release 24 hr 50 mg PO DAILY Referrals: Karoline Cabrera MD [Primary Care Provider, Family Practice] Stand Alone Forms: Patient Portal/API
--- NOTE | 2025-03-17 13:50 | EKG_ITS ---
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
[2025-03-17] MEDS: NITROGLYCERIN 0.4 MG SL TAB SL ×2 (13:53→14:23)
[2025-03-17] MEDS: ONDANSETRON 4 MG/2 ML INJ IV (13:54)
[2025-03-17] MEDS: MORPHINE 2 MG/ML INJ IV (13:54)
== END 2025-03-17 16:50 | disposition home or self-care (01) ==
PROVIDERS: Emergency Provider Emergency Medicine; Family Provider Student in an Organized Health Care Education/Training Program; PCP Student in an Organized Health Care Education/Training Program
DX: R07.9 Chest pain, unspecified (principal); C22.0 Liver cell carcinoma
CPT/HCPCS: 36415; 71045; 71275; 80053; 82550; 83690; 83735; 83880; 84484; 85025; 85610; 85730; 93005; 96374; 96375; 99284; J2270; J2405

== ENCOUNTER 2025-03-25 12:04 | Emergency (ER) | payer MEDICARE, MEDICAID, SELFPAY ==
[2025-01-15 09:00] VITALS: BMI 24.7
[2025-03-25] VITALS (23 sets, daily range): BP systolic 103–160; BP diastolic 53–80; PULSE 60–78; RESP 11–25; TEMP 36.5; O2SAT 91–100; BMI 24.9
--- NOTE | 2025-03-25 12:16 | DI.RAD.S_ITS ---
PROCEDURE: XR CHEST 2V INDICATIONS: SOB TECHNIQUE: 2 views of the chest were acquired. COMPARISON: [facility], CR, XR CHEST 1V, 03/17/2025, 12:58. FINDINGS: Surgical changes and devices: None. Lungs and pleura: Lungs are clear. No pleural effusions or pneumothorax. Mediastinum: Mediastinal contours are normal. Heart size is normal. Bones and chest wall: No suspicious bony abnormalities. Soft tissues appear unremarkable. IMPRESSION: No acute cardiopulmonary pathology. Dictated by: Avel Callahan M.D. on 03/25/2025 at 13:16 Approved by: Avel Callahan M.D. on 03/25/2025 at 13:16
--- NOTE | 2025-03-25 12:18 | EKG_ITS ---
[address] [address] Test Date: 2025-03-25 Pat Name: Xi Dejesus Department: Room: Gender: Female Stave Machine Tender: BEN : 1960 Requested By: Order Number: [id number] Reading MD: Frank Khan MD Measurements Intervals [place] Rate: 65 P: 76 IA: 160 QRS: 0 QRSD: 70 T: 33 QT: 408 QTc: 424 Interpretive Statements Normal sinus rhythm Low voltage QRS Septal infarct , age undetermined Electronically Signed On 03-26-2025 7:36:38 PST by Frank Khan MD
--- NOTE | 2025-03-25 12:31 | ED.CHESTPAIN ---
HPI - Chest Pain General Chief Complaint: Chest Pain Stated Complaint: SOB, 20 minutes Time Seen by Provider: 03/25/25 12:16 Source: patient Mode of arrival: Wheelchair Limitations: no limitations History of Present Illness HPI narrative: This is a 64-year-old female presents to the emergency department due to chest pain as well shortness breath and weakness for the last 20 minutes. States she has similar episode of this a couple of weeks ago. Denies any abdominal pain, slurred speech, facial drooping, weakness, amnesia. Denies any fevers or URI symptoms. History of this approximately 2 weeks ago. Please see record review below. Related Data Home Medications ?Medication ?Instructions ?Recorded ?Confirmed metoprolol succinate 50 mg 50 mg PO DAILY 04/18/24 03/12/25 tablet,extended release 24 hr aspirin 81 mg chewable tablet 81 mg PO .COMPLEX 01/20/25 03/12/25 hydroxyzine HCl 10 mg tablet 10 mg PO Q6H PRN Anxiety or 01/20/25 03/12/25 Held on 02/18/25. insomnia Instructions: hallucinations omeprazole 20 mg capsule,delayed 20 mg PO DAILY Acid reflux 01/20/25 03/12/25 release spironolactone 25 mg tablet 25 mg PO DAILY 01/26/25 03/12/25 fluticasone propionate 110 2 puff inhalation BID PRN SOB 01/30/25 03/12/25 mcg/actuation HFA aerosol inhaler valacyclovir 500 mg tablet 500 mg PO DAILY 02/18/25 03/12/25 meloxicam 7.5 mg tablet 7.5 mg PO DAILY 02/27/25 03/12/25 Previous Rx's ?Medication ?Instructions ?Recorded Disabled Parking #1 ea 03/06/23 estradiol cypionate 5 mg/mL 2 mg (0.4 mL) IM Q2W #10 mL 10/16/24 intramuscular oil (Depo-Estradiol) cholecalciferol (vitamin D3) 50 50 mcg PO DAILY #30 caps 01/20/25 mcg (2,000 unit) capsule loperamide 2 mg capsule (Imodium 2 mg PO BID PRN loose stool #60 01/20/25 A-D) caps cyclobenzaprine 5 mg tablet 5 mg PO TID PRN muscle spasm #30 02/03/25 tabs hydrocodone 5 mg-acetaminophen 325 1 tab PO DAILY PRN pain #30 tabs 02/26/25 mg tablet Allergies Allergy/AdvReac Type Severity Reaction Status Date / Time codeine Allergy Severe Anaphylaxis Verified 03/12/25 12:23 penicillin G Allergy Severe Anaphylaxis Verified 03/12/25 12:23 lithium Allergy Intermediate kidney Verified 03/12/25 12:23 injury duloxetine AdvReac Severe hallucinati Verified 03/12/25 12:23 ons levofloxacin (From Levaquin) AdvReac Severe tinnitus Verified 03/12/25 12:23 quetiapine AdvReac Severe Hallucinati Verified 03/12/25 12:23 ng vaccine adjuvant system, AdvReac Severe blisters Verified 03/12/25 12:23 AS01B liposomal (From Shingrix (PF)) varicella-zoster virus AdvReac Severe blisters Verified 03/12/25 12:23 glycoprotein E, recombinant (From Shingrix (PF)) latex AdvReac Intermediate Redness of Verified 03/12/25 12:23 Skin Review of Systems Review of Systems Narrative: GENERAL: Denies chills, fatigue, malaise, fever, sweats. HEENT: Denies sinus pain, ear pain, sore throat, difficulty swallowing, dizziness. RESPIRATORY: Reports dyspnea, denies cough, wheezing, hemoptysis, sputum. CARDIOVASCULAR: Reports chest pain, denies palpitations, orthopnea, edema, GASTROINTESTINAL: Denies nausea, vomiting, abdominal pain, diarrhea, constipation, melena. : Denies dysuria, frequency, incontinence, hematuria, urinary retention. MUSCULOSKELETAL: denies weakness, joint pain, or bony pain SKIN: Denies rash, skin lesions, or other NEUROLOGIC: Denies weakness, headache, numbness, change in speech, confusion, seizures, incoordination. PSYCHIATRIC: No concerning psychosocial issues. 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 MDD (major depressive disorder), single episode, severe COPD exacerbation COPD (chronic obstructive pulmonary disease) (~2018) Allergies Scoliosis Chronic back pain Cervical spine disease Carpal tunnel syndrome Mumps Chicken pox Ruptured tympanic membrane Glaucoma Liver disease (~2018) Hepatitis C (~2018) Hemorrhoid GERD (gastroesophageal reflux disease) Cirrhosis MVP (mitral valve prolapse) Surgical History (Updated 01/27/25 @ 12:58 by Karoline Cabrera MD) Anesthesia S/P insertion of spinal cord stimulator (~2016) History of hernia repair (~2012) History of appendectomy History of elbow surgery History of carpal tunnel release History of cholecystectomy History of ear surgery History of total hysterectomy History of partial hysterectomy Social History (Updated 01/26/25 @ 13:28 by Rachael Koehler LPN) household members: none Tobacco: How many years used: 42 alcohol intake: former alcohol intake frequency: holidays/special occasions only Exam Narrative Exam Narrative: GENERAL: Well-developed patient, in mild distress. HEAD: Atraumatic. Normocephalic. EYES: Pupils equal round and reactive. Extraocular motions intact. No scleral icterus. No injection or drainage. ENT: Nose without bleeding, purulent drainage. Throat without erythema, tonsillar hypertrophy or exudate. Airway patent. NECK: Trachea midline. Non tender EXTREMITIES: No edema or joint tenderness. NEURO: AOx3. SKIN: No rash or erythema of visible areas CARDIOVASCULAR: Regular rate and rhythm without murmurs, gallops, or rubs. RESPIRATORY: Clear to auscultation. Breath sounds equal bilaterally. No wheezes, rales, or rhonchi. GASTROINTESTINAL: Abdomen soft, non-tender, nondistended. BACK: Nontender without deformity or crepitance. No flank tenderness. Initial Vital Signs Initial Vital Signs: Vital Signs Temperature 97.7 F 03/25/25 12:16 Pulse Rate 72 03/25/25 12:16 Respiratory Rate 20 03/25/25 12:16 Blood Pressure 160/77 H 03/25/25 12:16 Pulse Oximetry 99 03/25/25 12:16 Oxygen Delivery Method Room Air 03/25/25 12:16 Course Orders Ordered: Discontinued Medications Albuterol (Albuterol 2.5 Mg/3 Ml Neb (Adult)) 2.5 mg INH [id number] PRN PRN Reason: Shortness Of Breath Last Admin: 03/25/25 13:02 Dose: 2.5 mg Documented By: BEN Lorazepam (Lorazepam 2 Mg/Ml Inj) 0.5 mg IV NOW ONE Stop: 03/25/25 13:39 Last Admin: 03/25/25 13:45 Dose: 0.5 mg Documented By: CHACHO Morphine Sulfate (Morphine 2 Mg/Ml Inj) 2 mg IV NOW ONE Stop: 03/25/25 13:29 Last Admin: 03/25/25 13:35 Dose: 2 mg Documented By: CHACHO Nitroglycerin (Nitroglycerin 0.4 Mg Sl Tab) 0.4 mg SL [id number] PRN PRN Reason: Chest Pain Last Admin: 03/25/25 13:20 Dose: 0.4 mg Documented By: Admin: 03/25/25 13:15 Dose: 0.4 mg Documented By: CHACHO Ondansetron HCl (Ondansetron 4 Mg/2 Ml Inj) 4 mg IV NOW ONE Stop: 03/25/25 13:39 Last Admin: 03/25/25 13:44 Dose: 4 mg Documented By: CHACHO Vital Signs Vital signs: Vital Signs - 8 hr 03/25/25 12:16 03/25/25 13:05 03/25/25 13:15 Temperature 97.7 F Pulse Rate 72 72 68 Respiratory Rate 20 16 Blood Pressure 160/77 H 121/80 Pulse Oximetry 99 100 Oxygen Delivery Method Room Air Room Air Fraction of Inspired Oxygen 21 03/25/25 13:20 03/25/25 13:32 03/25/25 13:35 Temperature Pulse Rate 64 70 72 Respiratory Rate 25 H 21 Blood Pressure 108/58 L Pulse Oximetry 98 98 Oxygen Delivery Method Fraction of Inspired Oxygen 03/25/25 13:35 03/25/25 13:40 03/25/25 13:40 Temperature Pulse Rate 74 Respiratory Rate 19 Blood Pressure 106/61 131/58 L Pulse Oximetry 100 Oxygen Delivery Method Fraction of Inspired Oxygen 03/25/25 13:45 03/25/25 13:45 03/25/25 14:00 Temperature Pulse Rate 63 66 Respiratory Rate 21 20 Blood Pressure 122/58 L Pulse Oximetry 99 91 Oxygen Delivery Method Room Air Fraction of Inspired Oxygen 03/25/25 14:00 03/25/25 14:15 03/25/25 14:15 Temperature Pulse Rate 62 Respiratory Rate 21 Blood Pressure 112/61 107/58 L Pulse Oximetry 99 Oxygen Delivery Method Fraction of Inspired Oxygen 03/25/25 14:30 03/25/25 14:30 03/25/25 14:45 Temperature Pulse Rate 68 76 Respiratory Rate 21 21 Blood Pressure 114/65 Pulse Oximetry 98 Oxygen Delivery Method Fraction of Inspired Oxygen 03/25/25 14:45 03/25/25 15:00 03/25/25 15:01 Temperature Pulse Rate 70 66 Respiratory Rate 21 20 Blood Pressure 124/71 Pulse Oximetry 94 100 Oxygen Delivery Method Fraction of Inspired Oxygen 03/25/25 15:01 03/25/25 15:15 03/25/25 15:15 Temperature Pulse Rate 69 Respiratory Rate 17 Blood Pressure 123/56 L 121/61 Pulse Oximetry 100 Oxygen Delivery Method Fraction of Inspired Oxygen 03/25/25 15:30 03/25/25 15:46 03/25/25 15:46 Temperature Pulse Rate 60 78 Respiratory Rate 11 L 15 Blood Pressure 121/66 Pulse Oximetry 98 100 Oxygen Delivery Method Room Air Fraction of Inspired Oxygen 03/25/25 16:00 03/25/25 16:00 03/25/25 16:16 Temperature Pulse Rate 60 64 Respiratory Rate 20 22 Blood Pressure 126/78 Pulse Oximetry 95 Oxygen Delivery Method Fraction of Inspired Oxygen 03/25/25 16:16 03/25/25 16:30 03/25/25 16:30 Temperature Pulse Rate 64 Respiratory Rate 24 Blood Pressure 116/57 L 121/58 L Pulse Oximetry 96 Oxygen Delivery Method Fraction of Inspired Oxygen 03/25/25 16:46 03/25/25 16:46 03/25/25 17:00 Temperature Pulse Rate 72 Respiratory Rate 24 Blood Pressure 107/56 L 117/55 L Pulse Oximetry 96 Oxygen Delivery Method Fraction of Inspired Oxygen 03/25/25 17:00 03/25/25 17:15 03/25/25 17:15 Temperature Pulse Rate 62 68 Respiratory Rate 19 23 Blood Pressure 103/53 L Pulse Oximetry 97 97 Oxygen Delivery Method Room Air Fraction of Inspired Oxygen MDM - Chest Pain Lab Data 03/25/25 12:43 03/25/25 13:45 Labs: Lab Results 03/25/25 03/25/25 03/25/25 Range/Units 12:43 13:13 13:45 WBC 8.1 (4.5-11.0) X10^3/uL RBC 4.52 (4.0-5.2) X10^6/uL Hgb 13.4 (12.0-16.0) g/dL Hct 40.2 (36-46) % MCV 88.8 (80-100) fL MCH 29.6 (26-34) PG MCHC 33.3 (30-36) % RDW 18.1 H (11.6-14.8) % Plt Count 214 (150-400) X10^3/uL Neut % (Auto) Not Reportable Lymph % (Auto) Not Reportable [place] % (Auto) Not Reportable Eos % (Auto) Not Reportable Baso % (Auto) Not Reportable Lymph # (Auto) Not Reportable [place] # (Auto) Not Reportable Baso # (Auto) Not Reportable Total Counted 100 Seg Neutrophils % 78.0 H (38-70) % Lymphocytes % (Manual) 14.0 L (25-45) % Monocytes % (Manual) 7.0 (2-11) % Basophils % (Manual) 1.0 (0-1) % Neutrophils # (Manual) 6318 H (0040-1206) /uL RBC Morphology Normal morphology PT 11.5 (9.4-12.5) SECONDS INR 1.0 (0.9-1.3) APTT 30 (25.1-36.5) SECONDS D-Dimer 944 H (<500) ng/ml Sodium 136 L 138 (137-145) mmol/L Potassium 5.6 H D 4.0 D (3.4-5.1) mmol/L Chloride 102 103 (98-107) mmol/L Carbon Dioxide 25 23 (22-32) mmol/L BUN 14 13 (7-17) mg/dL Creatinine 0.89 0.89 (0.52-1.04) mg/dL Estimated GFR > 60 > 60 (>60) mL/min BUN/Creatinine Ratio 15.7 14.6 (6-22) Glucose 85 98 (70-99) mg/dL POC Whole Bld Glucose 84 (70-99) mg/dL Calcium 9.4 9.5 (8.4-10.2) mg/dL Magnesium 1.6 (1.6-2.3) mg/dL Total Bilirubin 1.1 0.5 (0.2-1.3) mg/dL AST 81 H 57 H (14-36) IU/L ALT 36 H 36 H (<35) IU/L Alkaline Phosphatase 77 102 (38-126) U/L Troponin I 0.024 (0.01-0.034) ng/mL NT-Pro-B Natriuret Pep 763 H (<125) pg/mL Total Protein 8.3 H 7.6 (6.3-8.2) g/dL Albumin 4.9 4.6 (3.5-5.0) g/dL Globulin 3.4 3.0 (1.7-4.1) g/dL Albumin/Globulin Ratio 1.4 1.5 (1.0-2.8) Lipase 70 (23-300) U/L // Range/Units 16:40 WBC (4.5-11.0) X10^3/uL RBC (4.0-5.2) X10^6/uL Hgb (12.0-16.0) g/dL Hct (36-46) % MCV (80-100) fL MCH (26-34) PG MCHC (30-36) % RDW (11.6-14.8) % Plt Count (150-400) X10^3/uL Neut % (Auto) Lymph % (Auto) [place] % (Auto) Eos % (Auto) Baso % (Auto) Lymph # (Auto) [place] # (Auto) Baso # (Auto) Total Counted Seg Neutrophils % (38-70) % Lymphocytes % (Manual) (25-45) % Monocytes % (Manual) (2-11) % Basophils % (Manual) (0-1) % Neutrophils # (Manual) (9085-1816) /uL RBC Morphology PT (9.4-12.5) SECONDS INR (0.9-1.3) APTT (25.1-36.5) SECONDS D-Dimer (<500) ng/ml Sodium (137-145) mmol/L Potassium (3.4-5.1) mmol/L Chloride (98-107) mmol/L Carbon Dioxide (22-32) mmol/L BUN (7-17) mg/dL Creatinine (0.52-1.04) mg/dL Estimated GFR (>60) mL/min BUN/Creatinine Ratio (6-22) Glucose (70-99) mg/dL POC Whole Bld Glucose (70-99) mg/dL Calcium (8.4-10.2) mg/dL Magnesium (1.6-2.3) mg/dL Total Bilirubin (0.2-1.3) mg/dL AST (14-36) IU/L ALT (<35) IU/L Alkaline Phosphatase (38-126) U/L Troponin I < 0.012 (0.01-0.034) ng/mL NT-Pro-B Natriuret Pep (<125) pg/mL Total Protein (6.3-8.2) g/dL Albumin (3.5-5.0) g/dL Globulin (1.7-4.1) g/dL Albumin/Globulin Ratio (1.0-2.8) Lipase (23-300) U/L Imaging Data Chest x-ray: Radiologist's Impression: [address] [address] XRay Report Signed Patient: Xi Dejesus MR#: [id number] : 1960 Acct:[id number] Age/Sex: 64 / F Date of Service: 03/25/25 Loc: ED Accession Number: [id number] Procedure: XR chest 2V Ordering Provider: Efren Quinones PA-C PROCEDURE: XR CHEST 2V INDICATIONS: SOB TECHNIQUE: 2 views of the chest were acquired. COMPARISON: [facility], , XR CHEST 1V, 03/17/2025, 12:58. FINDINGS: Surgical changes and devices: None. Lungs and pleura: Lungs are clear. No pleural effusions or pneumothorax. Mediastinum: Mediastinal contours are normal. Heart size is normal. Bones and chest wall: No suspicious bony abnormalities. Soft tissues appear unremarkable. IMPRESSION: No acute cardiopulmonary pathology. Dictated by: Avel Callahan M.D. on 03/25/2025 at 13:16 Approved by: Avel Callahan M.D. on 03/25/2025 at 13:16 CT scan - chest: Radiologist's Impression: [address] [address] [address] Scan Report Signed Patient: Xi Dejesus MR#: [id number] : 1960 Acct:[id number] Age/Sex: 64 / F Date of Service: 03/25/25 Loc: ED Accession Number: [id number] Procedure: CT angio chest PE protocol Ordering Provider: Efren Quinones PA-C PROCEDURE: CT ANGIO CHEST PE PROTOCOL INDICATIONS: CP/SOB, elevated Dimer TECHNIQUE: After the administration of intravenous contrast, 2 mm thick sections acquired from the pulmonary apices to the posterior costophrenic angles. 3-dimensional maximum intensity projection (MIP) coronal and sagittal reformats were then acquired through the thorax. For radiation dose reduction, the following was used: automated exposure control, adjustment of mA and/or kV according to patient size. COMPARISON: [facility], CT, CT ANGIO CHEST PE PROTOCOL, 03/17/2025, 13:38. FINDINGS: Image quality: Diagnostic. Pulmonary arteries: Pulmonary arteries are normal in size, and demonstrate no intraluminal filling defects to suggest central pulmonary embolism. Lower Neck: No enlarged lymph nodes. Thyroid: No thyroid nodules which require sonographic follow up, per consensus guidelines. Axillae: No enlarged lymph nodes. Chest Wall: Unremarkable. Bones: Unremarkable. Lungs and Pleura: No pneumothorax or pleural effusions. Biapical scarring. Dependent atelectasis in posterior aspect of bilateral lung [place] are seen. Mild centrilobular emphysema. No consolidation or suspicious nodules. Heart: Heart size is normal. No pericardial effusion. Thoracic Vessels: No aortic aneurysm. Mediastinum and Nai: No enlarged lymph nodes. Esophagus: No wall thickening. Small hiatal hernia. Upper Abdomen: Lobulated liver contour is seen unchanged from prior study. IMPRESSION: 1. No pulmonary embolus. No thoracic aortic aneurysm. 2. Mild centrilobular emphysema. Dependent atelectasis and scarring scattered in bilateral lung [place]. No focal infiltrate, pleural effusion or pneumothorax. 3. No mediastinal or hilar lymphadenopathy. Small hiatal hernia. Dictated by: Avel Callahan M.D. on 03/25/2025 at 16:00 Approved by: Avel Callahan M.D. on 03/25/2025 at 16:03 ECG Data Interpretation: 1218 EKG is normal sinus rhythm rate 65 beats per minute and free of any signs of ischemia or ectopy. No ST segmental elevation or depression. No T wave inversions. No T-wave abnormalities. Low-voltage QRS. 1600: EKG shows sinus bradycardia with a rate of 58 beats per minute. Low-voltage QRS. No T-wave abnormalities, no ST elevation. MDM Narrative Medical decision making narrative: ED course: This is a 64 year old female presents to the emergency department due to chest pain and shortness of breath as well as weakness. Patient is a very similar episode roughly a week ago with a negative workup. Workup today was reassuring. EKG x2 showed no evidence of ischemia. Troponin x2 within normal limits. D-dimer was and CT PE ordered which showed no acute findings. BNP elevated Although no signs of acute heart failure. No significant pulmonary edema on chest x-ray or lower extremity edema. Nitro given x2 as well as 2 mg of morphine with no significant improvement in the chest pain. Third nitro was not given due to patient developing mild hypotension. 4 mg IV Zofran given for nausea as well as 0.5 mg Ativan. Patient's symptoms significantly improved after the Zofran and Ativan. Patient has not established raftsman that she will arrange follow up with. Entirety of case discussed with my attending physician. CC: Chest pain Complicating co-morbidities: As below Data collected from: Previous notes Medical records reviewed: Per record review patient is here 8 days ago. History of treated hepatitis-C, newly diagnosed hepatic cancer, COPD presenting for chest pain shortness breath. Patient has a history of 2 cardiac catheterizations. Has had a previously normal echocardiogram. Patient has a history of COPD, major depression, hepatitis-C, cirrhosis. Patient was given nitro, aspirin 324 mg, morphine, and Zofran. Was found to be have a magnesium of 1.5 although declined amoxicillin easy and supplement. Got a CT PE which was negative. Troponin was normal x2. Heart score of 4 but there was a cardiac catheter less than 2 years ago that did not show acute coronary artery disease. Patient's symptoms improved while in the emergency department. No recommendation for admission. Differential considered, but not limited to: PE, ACS, pneumonia, esophageal spasm Exam documented above, pertinent findings include: As above Lab Test results independently reviewed as above. Pertinent findings: As above Imaging studies independently reviewed: As above Scores Used: Heart score of 4. MIPS Elements: None Consultations: None Treatments: As above Re-evaluations: Patient's pain improved after treatment Discussion: Discussed plan with the patient was comfortable with the plan Diagnosis: Chest pain Disposition: see below, along with detailed discharge instructions that have been reviewed with patient as well as indications for ED re-evaluation and additional outpatient follow up Discharge Plan Departure Patient Disposition: Home Clinical Impression: Chest pain Activity Restrictions/Additional Instructions: Thank you for coming to the [facility] Emergency Department today. Your exam today was reassuring overall. We checked for a ?heart attack? and your EKGs and lab work were reassuring. The CT showed no evidence of a blood clot in your lung. It did show the chronic emphysema which you are aware of. There was no evidence of pneumonia. Your other lab work was reassuring as well. Please follow up with the established raftsman for further evaluation management. Please return to the emergency department if you develop any significant new or worsening chest pain, shortness breath, or any other concerning signs or symptoms. I hope you feel better soon. Please follow up with your primary care provider within a week if your symptoms continue. If you do not have a primary care provider please contact the [facility] Resource line at [phone]. They will ask some questions about your medical history and help you get set up with a provider in the community. Prescriptions: No Action cyclobenzaprine 5 mg tablet 5 mg PO TID PRN (Reason: muscle spasm) Qty: 30 3RF omeprazole 20 mg capsule,delayed release(DR/EC) 20 mg PO DAILY aspirin 81 mg tablet,chewable 81 mg PO .COMPLEX Patient Comments: Take 1 tablet twice a week. Started taking on 09/29/24. Approved by Fred Cerna at [facility]. Rx Instructions: 81 mg orally Mondays and Fridays; hydroxyzine HCl 10 mg tablet 10 mg PO Q6H PRN (Reason: Anxiety or insomnia) Patient Comments: Took two on Jan 14 at 817a Release notes say: take 1 tablet by mouth four times daily as needed (use first line for anxiety or insomnia) loperamide [Imodium A-D] 2 mg capsule 2 mg PO BID PRN (Reason: loose stool) Qty: 60 3RF hydrocodone-acetaminophen 5-325 mg tablet 1 tab PO DAILY PRN (Reason: pain) Qty: 30 0RF (DME) Disabled Parking See Rx Instructions .ROUTE .MEDSUPPLY Qty: 1 0RF Rx Instructions: I find this patient to be medical disabled and qualified for Disabled Parking as indicated, and signed, on the and the Accompanying Disabled Parking Application for Individuals. Depo-Estradiol 5 mg/mL oil 2 mg IM Q2W Qty: 10 3RF cholecalciferol (vitamin D3) 50 mcg (2,000 unit) capsule 50 mcg PO DAILY Qty: 30 3RF spironolactone 25 mg tablet 25 mg PO DAILY fluticasone propionate 110 mcg/actuation HFA aerosol inhaler 2 puff inhalation BID PRN (Reason: SOB) valacyclovir 500 mg tablet 500 mg PO DAILY meloxicam 7.5 mg tablet 7.5 mg PO DAILY metoprolol succinate 50 mg tablet extended release 24 hr 50 mg PO DAILY Referrals: Karoline Cabrera MD [Primary Care Provider, Family Practice] Stand Alone Forms: Patient Portal/API
[2025-03-25 12:53] LABS: Hemoglobin 13.4 g/dL (12.0-16.0); Mean Corpuscular HGB Conc 33.3 % (30-36); Mean Corpuscular Hemoglobin 29.6 PG (26-34)
[2025-03-25 12:55] LABS: Hematocrit 40.2 % (36-46); Mean Corpuscular Volume 88.8 fL (80-100); Platelet Count 214 X10^3/uL (150-400)
[2025-03-25 12:58] LABS: Add Manual Diff / Slide Review YES
[2025-03-25] MEDS: ALBUTEROL 2.5 MG/3 ML NEB (ADULT) INH (13:02)
[2025-03-25 13:06] LABS: Alanine Aminotransferase 36 IU/L (<35); Albumin 4.9 g/dL (3.5-5.0); Albumin Globulin Ratio 1.4 (1.0-2.8); Alkaline Phosphatase 77 U/L (38-126); Blood Urea Nitrogen 14 mg/dL (7-17); Calcium 9.4 mg/dL (8.4-10.2); Carbon Dioxide 25 mmol/L (22-32); Chloride 102 mmol/L (98-107); Estimated Glomerular Filt Rate > 60 mL/min (>60); Globulin 3.4 g/dL (1.7-4.1); Glucose 85 mg/dL (70-99); Lipase 70 U/L (23-300); Sodium 136 mmol/L (137-145); Total Protein 8.3 g/dL (6.3-8.2)
[2025-03-25 13:07] LABS: HEMOLYSIS 190 (0-50); Potassium 5.6 mmol/L (3.4-5.1)
[2025-03-25] MEDS: NITROGLYCERIN 0.4 MG SL TAB SL ×2 (13:15→13:20)
[2025-03-25 13:18] LABS: Basophils Percent Manual 1.0 % (0-1); Lymphocytes Percent Manual 14.0 % (25-45); Monocytes Percent Manual 7.0 % (2-11); NT-proBNP (BNP-Adult 18+) 763 pg/mL (<125); Neutrophils Absolute Manual 6318 /uL (3000-5900); RBC Morphology Normal Morphology; Segmented Neutrophils Percent 78.0 % (38-70); Total Cells Counted 100; Troponin I 0.024 ng/mL (0.01-0.034)
[2025-03-25 13:21] LABS: Magnesium 1.6 mg/dL (1.6-2.3)
[2025-03-25] MEDS: MORPHINE 2 MG/ML INJ IV (13:35)
[2025-03-25] MEDS: ONDANSETRON 4 MG/2 ML INJ IV (13:44)
[2025-03-25 14:04] LABS: Alanine Aminotransferase 36 IU/L (<35); Albumin 4.6 g/dL (3.5-5.0); Albumin Globulin Ratio 1.5 (1.0-2.8); Alkaline Phosphatase 102 U/L (38-126); Blood Urea Nitrogen 13 mg/dL (7-17); Calcium 9.5 mg/dL (8.4-10.2); Carbon Dioxide 23 mmol/L (22-32); Chloride 103 mmol/L (98-107); Estimated Glomerular Filt Rate > 60 mL/min (>60); Globulin 3.0 g/dL (1.7-4.1); Glucose 98 mg/dL (70-99); HEMOLYSIS < 15 (0-50); Potassium 4.0 mmol/L (3.4-5.1); Sodium 138 mmol/L (137-145); Total Protein 7.6 g/dL (6.3-8.2)
[2025-03-25 14:05] LABS: INR 1.0 (0.9-1.3); PTT Partial Thromboplastin Tim 30 SECONDS (25.1-36.5); Prothrombin Time 11.5 SECONDS (9.4-12.5)
--- NOTE | 2025-03-25 14:22 | DI.CT.S_ITS ---
PROCEDURE: CT ANGIO CHEST PE PROTOCOL INDICATIONS: CP/SOB, elevated Dimer TECHNIQUE: After the administration of intravenous contrast, 2 mm thick sections acquired from the pulmonary apices to the posterior costophrenic angles. 3-dimensional maximum intensity projection (MIP) coronal and sagittal reformats were then acquired through the thorax. For radiation dose reduction, the following was used: automated exposure control, adjustment of mA and/or kV according to patient size. COMPARISON: [facility], CT, CT ANGIO CHEST PE PROTOCOL, 03/17/2025, 13:38. FINDINGS: Image quality: Diagnostic. Pulmonary arteries: Pulmonary arteries are normal in size, and demonstrate no intraluminal filling defects to suggest central pulmonary embolism. Lower Neck: No enlarged lymph nodes. Thyroid: No thyroid nodules which require sonographic follow up, per consensus guidelines. Axillae: No enlarged lymph nodes. Chest Wall: Unremarkable. Bones: Unremarkable. Lungs and Pleura: No pneumothorax or pleural effusions. Biapical scarring. Dependent atelectasis in posterior aspect of bilateral lung [place] are seen. Mild centrilobular emphysema. No consolidation or suspicious nodules. Heart: Heart size is normal. No pericardial effusion. Thoracic Vessels: No aortic aneurysm. Mediastinum and Nai: No enlarged lymph nodes. Esophagus: No wall thickening. Small hiatal hernia. Upper Abdomen: Lobulated liver contour is seen unchanged from prior study. IMPRESSION: 1. No pulmonary embolus. No thoracic aortic aneurysm. 2. Mild centrilobular emphysema. Dependent atelectasis and scarring scattered in bilateral lung [place]. No focal infiltrate, pleural effusion or pneumothorax. 3. No mediastinal or hilar lymphadenopathy. Small hiatal hernia. Dictated by: Avel Callahan M.D. on 03/25/2025 at 16:00 Approved by: Avel Callahan M.D. on 03/25/2025 at 16:03
--- NOTE | 2025-03-25 16:00 | EKG_ITS ---
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
[2025-03-25 17:12] LABS: Troponin I < 0.012 ng/mL (0.01-0.034)
== END 2025-03-25 17:48 | disposition home or self-care (01) ==
PROVIDERS: Emergency Provider Physician Assistant Medical; Family Provider Student in an Organized Health Care Education/Training Program; PCP Student in an Organized Health Care Education/Training Program
DX: R07.9 Chest pain, unspecified (principal); R06.02 Shortness of breath; R00.1 Bradycardia, unspecified; I95.9 Hypotension, unspecified
CPT/HCPCS: 36415; 71046; 71275; 80053; 82962; 83690; 83735; 83880; 84484; 85007; 85025; 85379; 85610; 85730; 93005; 93010; 94640; 96374; 96375; 99284; J2060; J2270; J2405; J7613; Q9967

== ENCOUNTER → 2025-03-26 14:54 | Outpatient (CLI) | payer MEDICARE, MEDICAID, SELFPAY ==
[2025-01-15 09:00] VITALS: BMI 24.7
[2025-03-26 16:02] LABS: Add Manual Diff / Slide Review NO; Hematocrit 38.7 % (36-46); Hemoglobin 12.8 g/dL (12.0-16.0); Lymphocytes Absolute Auto 1300 /uL (1100-4500); Mean Corpuscular HGB Conc 33.1 % (30-36); Mean Corpuscular Hemoglobin 29.7 PG (26-34); Mean Corpuscular Volume 89.9 fL (80-100); Platelet Count 215 X10^3/uL (150-400)
[2025-03-26 16:30] LABS: Appearance Urine UA CLEAR; Bilirubin Urine UA 1+ (NEGATIVE); Color Urine UA YELLOW; Glucose Urine UA NEGATIVE (Negative); Ketones Urine UA TRACE (NEGATIVE); Leukocyte Esterase Urine UA NEGATIVE (NEGATIVE); Nitrite Urine UA NEGATIVE (Negative); Occult Blood Urine UA NEGATIVE (Negative); Protein Urine UA NEGATIVE (Negative); Specific Gravity Urine UA 1.020 (1.000-1.035); Urobilinogen Urine UA 1.0 E.U./dL (0.2)
[2025-03-26 16:37] LABS: Blood Urea Nitrogen 18 mg/dL (7-17); Calcium 9.1 mg/dL (8.4-10.2); Carbon Dioxide 24 mmol/L (22-32); Chloride 104 mmol/L (98-107); Estimated Glomerular Filt Rate 55 mL/min (>60); Glucose 102 mg/dL (70-99); HEMOLYSIS < 15 (0-50); Magnesium 1.4 mg/dL (1.6-2.3); Phosphorous 3.7 mg/dL (2.8-4.1); Potassium 4.4 mmol/L (3.4-5.1); Sodium 137 mmol/L (137-145); Uric Acid 5.4 mg/dL (2.5-6.2)
[2025-03-26 16:47] LABS: pH Urine UA 5.0 (4.5-8.0)
[2025-03-26 16:48] LABS: Culture Indicated Urine Cult Not Indicated
[2025-03-26 17:12] LABS: Protein (Total) Urine Random < 5 mg/dL (0-12); Protein Creatinine Ratio Urine 0.01 GRAM/24H
[2025-03-26 17:57] LABS: Vitamin D 25 Hydroxy (D3) 69.2 ng/mL (30.0-100.0)
[2025-03-26 18:33] LABS: Ictotest Urine Negative (Negative)
== END ==
PROVIDERS: Family Provider Student in an Organized Health Care Education/Training Program; PCP Student in an Organized Health Care Education/Training Program; Referring Provider Internal Medicine Nephrology; Visit Provider Internal Medicine Nephrology
DX: R31.1 Benign essential microscopic hematuria (principal)
CPT/HCPCS: 36415; 80048; 81001; 82306; 82570; 83735; 83970; 84100; 84156; 84550; 85025

== ENCOUNTER → 2025-04-01 07:39 | Outpatient (CLI) | payer MEDICARE, MEDICAID, SELFPAY ==
[2025-01-15 09:00] VITALS: BMI 24.7
--- NOTE | 2025-04-01 07:41 | DI.ECHO.S_ITS ---
[facility]+ [facility] : : [address] : [place] : : [id number] : : Phone: [phone] Echocardiogram Report + + :Name: ANTONIO MARTINI) Johnathan Study Date: 04/01/2025 Height: 64 in : :[facility] ReadingLocation: Weight: 140 lb : : Gender: Female BSA: 1.7 m2 : :: 1960 Age: 64 yrs BP: 144/87 mmHg: :Reason For Study: DYSPNEA ON EXERTION : :Ordering Physician: JOHNSON, : :RAMEZ Performed By: Viktor Najera : :Referring: RAMEZ CUEVAS : + + Interpretation Summary 1) Normal left ventricular thickness, size, wall motion, and systolic function (EF 55-60%). 2) Normal right ventricular size and function. 3) No significant valvular abnormalities. 4) No prior Echo available for comparison. Procedure: A two-dimensional transthoracic echocardiogram with color flow and Doppler was performed. The study quality was technically good. Comparison is made with the echocardiogram of 03/15/2023. The patient was in normal sinus rhythm during the exam. Left Ventricle: The left ventricle is normal in size. There is normal left ventricular wall thickness. There is no ventricular septal defect visualized. The ejection fraction is estimated to be 55-60%. There are no focal wall motion abnormalities. Diastolic parameters suggest a relaxation abnormality of the left ventricle, consistent with probable normal filling pressures. Right Ventricle: The right ventricle is normal in size and function. Atria: The left atrial size is normal. Right atrial size is normal. There is no Doppler evidence for an interatrial shunt. Mitral Valve: The mitral valve leaflets appear normal. There is no evidence of stenosis, fluttering, or prolapse. There is trace mitral regurgitation. Aortic Valve: The aortic valve is trileaflet. The aortic valve opens well. There is no aortic valve stenosis. No aortic regurgitation is present. Tricuspid Valve: The tricuspid valve leaflets are thin and pliable. No tricuspid regurgitation. Pulmonic Valve: The pulmonic valve is not well visualized. There is no pulmonic valvular regurgitation. Great Vessels: The aortic root is normal size. The dimensions of the ascending aorta are normal. The pulmonary is not well visualized. The IVC is of normal diameter and collapses greater than 50% with a sniff. This suggests a low right atrial pressure of 3 mm Hg. Pericardium/ Pleura There is no pericardial effusion. There is no pleural effusion. MMode/2D Measurements & Calculations LVIDd: 4.8 cm LVOT diam: 1.9 cm LVIDs: 3.3 cm Ao root diam: 3.1 cm FS: 32.6 % asc Aorta Diam: 3.4 cm EPSS: 0.60 cm Ao Arch Diam (Prox Trans): 1.6 cm IVSd: 0.76 cm LVPWd: 0.76 cm LV barone. diameter/BSA (cm/m^2): 2.9 LV sys. diameter/BSA (cm/m^2): 1.9 LA A2 area: 16.2 cm2 RA long axis: 4.4 cm LA A4 area: 11.9 cm2 RA area: 13.6 cm2 LA length (vol): 4.2 cm RA vol: 36.2 ml LA vol: 39.2 ml RA : 21.6 ml/m2 LA vol index: 23.3 ml/m2 IVC diam: 1.4 cm RVD1 (basal): 2.8 cm RVD2 (mid): 1.7 cm TAPSE: 2.2 cm Doppler Measurements & Calculations Ao V2 max: 111.3 cm/sec LVOT Max Travis: 103.8 cm/sec Ao V2 mean: 72.2 cm/sec LV V1 max P.3 mmHg Ao max P.0 mmHg LV V1 VTI: 23.5 cm Ao mean P.3 mmHg TAI(I,D): 2.7 cm2 Ao V2 VTI: 25.0 cm TAI(V,D): 2.6 cm2 sev ratio: 0.94 TAI indexed to BSA (cm^2/m^2): 1.6 MV E max travis: 64.2 cm/sec PA V2 max: 93.0 cm/sec MV A max travis: 89.8 cm/sec PA V2 mean: 68.5 cm/sec MV E/A: 0.71 PA mean P.0 mmHg Med Peak E' Travis: 6.2 cm/sec PA pr(Accel): 29.3 mmHg E/E' med: 10.3 Lat Peak E' Travis: 5.0 cm/sec E/E' lat: 12.8 E/e' average: 11.6 MV dec time: 0.31 sec SV(LVOT): 66.6 ml Reading Physician:10:12 AM
[2025-04-01 10:25] LABS: Appearance Urine UA CLEAR; Bilirubin Urine UA NEGATIVE (NEGATIVE); Color Urine UA YELLOW; Glucose Urine UA NEGATIVE (Negative); Ketones Urine UA TRACE (NEGATIVE); Leukocyte Esterase Urine UA NEGATIVE (NEGATIVE); Nitrite Urine UA NEGATIVE (Negative); Occult Blood Urine UA NEGATIVE (Negative); Protein Urine UA NEGATIVE (Negative); Specific Gravity Urine UA 1.025 (1.000-1.035); Urobilinogen Urine UA 0.2 E.U./dL (0.2)
[2025-04-01 10:27] LABS: pH Urine UA 5.5 (4.5-8.0)
[2025-04-01 10:30] LABS: Culture Indicated Urine Cult Not Indicated
[2025-04-01 10:31] LABS: HEMOLYSIS 19 (0-50); Iron 97 ug/dL (37-170)
[2025-04-01 10:43] LABS: Percent Iron Saturation 34 % (15-50); Total Iron Binding Capacity 287 ug/dL (265-497); Transferrin 248 mg/dL (206-381)
[2025-04-01 11:02] LABS: Ferritin 105 ng/mL (11-264)
== END ==
LOC: ECHO 07:40
PROVIDERS: Family Provider Student in an Organized Health Care Education/Training Program; PCP Student in an Organized Health Care Education/Training Program; Referring Provider Student in an Organized Health Care Education/Training Program; Visit Provider Internal Medicine Cardiovascular Disease
DX: R06.09 Other forms of dyspnea (principal); D64.9 Anemia, unspecified; R53.83 Other fatigue; N30.01 Acute cystitis with hematuria
CPT/HCPCS: 36415; 81001; 82728; 83540; 83550; 87086; 93306

== ENCOUNTER → 2025-04-07 15:06 | Outpatient (CLI) | payer MEDICARE, MEDICAID, SELFPAY ==
[2025-01-15 09:00] VITALS: BMI 24.7
[2025-04-07 16:24] LABS: Add Manual Diff / Slide Review NO; Hematocrit 38.1 % (36-46); Hemoglobin 12.6 g/dL (12.0-16.0); Lymphocytes Absolute Auto 1400 /uL (1100-4500); Mean Corpuscular HGB Conc 33.2 % (30-36); Mean Corpuscular Hemoglobin 30.4 PG (26-34); Mean Corpuscular Volume 91.7 fL (80-100); Platelet Count 223 X10^3/uL (150-400)
[2025-04-07 17:05] LABS: Alanine Aminotransferase 23 IU/L (<35); Albumin 4.2 g/dL (3.5-5.0); Albumin Globulin Ratio 1.6 (1.0-2.8); Alkaline Phosphatase 89 U/L (38-126); Blood Urea Nitrogen 21 mg/dL (7-17); Calcium 9.3 mg/dL (8.4-10.2); Carbon Dioxide 25 mmol/L (22-32); Chloride 104 mmol/L (98-107); Estimated Glomerular Filt Rate > 60 mL/min (>60); Globulin 2.6 g/dL (1.7-4.1); Glucose 76 mg/dL (70-99); HEMOLYSIS < 15 (0-50); Potassium 4.6 mmol/L (3.4-5.1); Sodium 138 mmol/L (137-145); Total Protein 6.8 g/dL (6.3-8.2)
[2025-04-07 17:32] LABS: INR 1.0 (0.9-1.3); Prothrombin Time 11.1 SECONDS (9.4-12.5)
== END ==
PROVIDERS: Family Provider Student in an Organized Health Care Education/Training Program; PCP Student in an Organized Health Care Education/Training Program; Referring Provider Student in an Organized Health Care Education/Training Program
DX: C22.0 Liver cell carcinoma (principal)
CPT/HCPCS: 36415; 80053; 82105; 85025; 85610

== ENCOUNTER 2025-04-27 15:55 | Emergency (ER) | payer MEDICARE, MEDICAID, SELFPAY ==
[2025-01-15 09:00] VITALS: BMI 24.7
--- NOTE | 2025-04-27 16:15 | ED_ITS ---
HPI - Abdominal Pain General Chief Complaint: Abdominal Pain Stated Complaint: post op severe abd px pcp ref Time Seen by Provider: 04/27/25 16:09 History of Present Illness HPI narrative: 64-year-old female had liver ablation done on presents with increasing pain status post ablation now with chest and abdominal pain radiating to the back with nausea. Patient denies fever, chills, bodyache, urinary complaint, rectal bleeding, cough, sore throat, constipation, diarrhea, vomiting. Other than what is stated 14 point review of system is negative Related Data Home Medications ?Medication ?Instructions ?Recorded ?Confirmed aspirin 81 mg chewable tablet 81 mg PO .COMPLEX 04/14/25 spironolactone 25 mg tablet 25 mg PO DAILY 01/26/25 fluticasone propionate 110 2 puff inhalation BID PRN S OB 01/30/25 04/14/25 mcg/actuation HFA aerosol inhaler Previous Rx's ?Medication ?Instructions ?Recorded Disabled Parking #1 ea 03/06/23 estradiol cypionate 5 mg/mL 2 mg (0.4 mL) IM Q2W #10 m L 10/16/24 intramuscular oil (Depo-Estradiol) cholecalciferol (vitamin D3) 50 50 mcg PO DAILY #30 ca ps 01/20/25 mcg (2,000 unit) capsule loperamide 2 mg capsule (Imodium 2 mg PO BID PRN loose stool #60 01/20/25 A-D) caps hydrocodone 5 mg-acetaminophen 325 1 tab PO DAILY PRN pain #30 tabs 02/26/25 mg tablet albuterol sulfate 90 mcg/actuation 2 puff inhalation Q 6H PRN 03/27/25 aerosol inhaler shortness of breath or wheez ing #6.7 grams omeprazole 20 mg capsule,delayed 20 mg PO DAILY Acid r eflux #90 caps 04/09/25 release umeclidinium 62.5 mcg-vilanterol 1 inh inhalation DEMARIO Y #60 ea 04/14/25 25 mcg/actuation powdr for inhalation (Anoro Ellipta) metoprolol succinate 25 mg 25 mg PO DAILY #90 tabs tablet,extended release 24 hr tramadol 50 mg tablet 50 mg PO Q6H PRN pain #20 ta bs 04/27/25 Allergies Allergy/AdvReac Type Severity Reaction Status Date / Time codeine Allergy Severe Anaphylaxis Verified 04/27/25 16:20 penicillin G Allergy Severe Anaphylaxis Verified 04/27/25 16:20 lithium Allergy Intermediate kidney Verified 04/27/25 16:20 injury duloxetine AdvReac Severe hallucinati Verified 04/27/25 16:20 ons levofloxacin (From Levaquin) AdvReac Severe tinnitus Verified 04/27/25 16:20 quetiapine AdvReac Severe Hallucinati Verified 04/27/25 16:20 ng vaccine adjuvant system, AdvReac Severe blisters Verified 04/27/25 16:20 [id number] liposomal (From Shingrix (PF)) varicella-zoster virus AdvReac Severe blisters Verified 04/27/25 16:20 glycoprotein E, recombinant (From Shingrix (PF)) latex AdvReac Intermediate Redness of Verified 04/27/25 16:20 Skin Review of Systems Review of Systems ROS Unobtainable: All systems reviewed & are unremarkable except as noted in HPI and below Patient History Medical History (Updated 04/27/25 @ 18:33 by Frank Posadas DO) History of left heart catheterization Mild neurocognitive disorder 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 MDD (major depressive disorder), single episode, severe COPD exacerbation COPD (chronic obstructive pulmonary disease) (~2018) Allergies Scoliosis Chronic back pain Cervical spine disease Carpal tunnel syndrome Mumps Chicken pox Ruptured tympanic membrane Glaucoma Liver disease (~2017) Hepatitis C (~2018) Hemorrhoid GERD (gastroesophageal reflux disease) Cirrhosis MVP (mitral valve prolapse) Surgical History (Updated 01/27/25 @ 12:58 by Karoline Cabrera MD) Anesthesia S/P insertion of spinal cord stimulator (~2016) History of hernia repair (~2012) History of appendectomy History of elbow surgery History of carpal tunnel release History of cholecystectomy History of ear surgery History of total hysterectomy History of partial hysterectomy Social History (Updated 01/26/25 @ 13:28 by Rachael Koehler LPN) household members: none Tobacco: How many years used: 42 alcohol intake: former alcohol intake frequency: holidays/special occasions only Exam Narrative Exam Narrative: GENERAL: [64] year old patient appears stated age. Well-developed patient, in mild distress. HEAD: Atraumatic. Normocephalic. EYES: Pupils equal round and reactive. Extraocular motions intact. No scleral icterus. No injection or drainage. ENT: Nose without bleeding, purulent drainage. Throat without erythema, tonsillar hypertrophy or exudate. Airway patent. NECK: Trachea midline. Non tender CARDIOVASCULAR: Regular rate and rhythm without murmurs, gallops, or rubs. RESPIRATORY: Clear to auscultation. Breath sounds equal bilaterally. No wheezes, rales, or rhonchi. GASTROINTESTINAL: Abdomen RUQ TTP no r/r/g nondistended. EXTREMITIES: No edema or joint tenderness. BACK: Nontender without deformity or crepitance. No flank tenderness. NEURO: AOx3. SKIN: No rash or erythema of visible areas Initial Vital Signs Initial Vital Signs: Vital Signs Temperature 97.9 F 04/27/25 16:17 Pulse Rate 83 04/27/25 16:17 Respiratory Rate 20 04/27/25 16:17 Blood Pressure 131/80 04/27/25 16:17 Pulse Oximetry 96 04/27/25 16:17 Oxygen Delivery Method Room Air 04/27/25 16:17 Course Orders Ordered: ED Orders 04/27/25 16:15 CT angio chest abdomen pelvis Stat EKG-12 Lead Stat 04/27/25 16:43 Complete Blood Count AUTO DIFF Stat Comprehensive Metabolic Panel Stat Lipase Stat Ondansetron HCl (Ondansetron 4 Mg/2 Ml Inj) 4 mg IV NOW PRN PRN Reason: Nausea And Vomiting Ondansetron HCl (Ondansetron 4 Mg Odt) 4 mg PO NOW PRN PRN Reason: Nausea And Vomiting Discontinued Medications Diphenhydramine HCl (Diphenhydramine 50 Mg/Ml Vial) 25 mg IV NOW ONE Stop: 04/27/25 17:26 Last Admin: 04/27/25 17:31 Dose: 25 mg Documented By: RLC Hydromorphone HCl (Hydromorphone 1 Mg/Ml Syringe) 1 mg IV NOW ONE Stop: 04/27/25 16:17 Last Admin: 04/27/25 16:54 Dose: 1 mg Documented By: GW Hydromorphone HCl (Hydromorphone 1 Mg/Ml Syringe) 1 mg IV NOW ONE Stop: 04/27/25 18:09 Last Admin: 04/27/25 18:11 Dose: 1 mg Documented By: SB Lactated Ringer's (Lactated Ringers) 1,000 mls @ 1,000 mls/hr IV BOLUS ONE Stop: 04/27/25 17:15 Last Infusion: 04/27/25 18:04 Dose: Infused Documented By: Admin: 04/27/25 16:55 Dose: 1,000 mls/hr Documented By: MASSIEL Vital Signs Vital signs: Vital Signs - 8 hr 04/27/25 16:17 04/27/25 17:05 04/27/25 17:30 Temperature 97.9 F Pulse Rate 83 84 81 Respiratory Rate 20 16 18 Blood Pressure 131/80 133/63 127/75 Pulse Oximetry 96 96 98 Oxygen Delivery Method Room Air Room Air Room Air MDM - Abdominal Pain Lab Data 04/27/25 16:43 04/27/25 16:43 Labs: Lab Results 04/27/25 Range/Units 16:43 WBC 6.9 (4.5-11.0) X10^3/uL RBC 4.13 (4.0-5.2) X10^6/uL Hgb 12.8 (12.0-16.0) g/dL Hct 38.0 (36-46) % MCV 91.9 (80-100) fL MCH 30.9 (26-34) PG MCHC 33.6 (30-36) % RDW 16.0 H (11.6-14.8) % Plt Count 201 (150-400) X10^3/uL Neut % (Auto) 73.1 (50-75) % Lymph % (Auto) 13.3 L (25-40) % [place] % (Auto) 9.4 (3-14) % Eos % (Auto) 0.6 L (2-4) % Baso % (Auto) 3.6 H (0-2) % Neut # (Auto) 5100 (4756-2087) /uL Lymph # (Auto) 900 L (3480-8762) /uL [place] # (Auto) 600 (0-900) /uL Eos # (Auto) 0 (0-450) /uL Baso # (Auto) 200 H (0-100) /uL Sodium 137 (137-145) mmol/L Potassium 3.8 (3.4-5.1) mmol/L Chloride 101 (98-107) mmol/L Carbon Dioxide 28 (22-32) mmol/L BUN 17 (7-17) mg/dL Creatinine 0.98 (0.52-1.04) mg/dL Estimated GFR > 60 (>60) mL/min BUN/Creatinine Ratio 17.3 (6-22) Glucose 108 H (70-99) mg/dL Calcium 8.8 (8.4-10.2) mg/dL Total Bilirubin 0.7 (0.2-1.3) mg/dL AST 156 H (14-36) IU/L ALT 166 H (<35) IU/L Alkaline Phosphatase 121 (38-126) U/L Total Protein 7.4 (6.3-8.2) g/dL Albumin 4.3 (3.5-5.0) g/dL Globulin 3.1 (1.7-4.1) g/dL Albumin/Globulin Ratio 1.4 (1.0-2.8) Lipase 39 (23-300) U/L Point of care testing: Urine Dip Bedside Urine Glucose Negative Bedside Urine Bilirubin - Negative Bedside Urine Ketone - Negative Urine Specific [place] 1.005 Bedside Urine Occult Blood - Negative Bedside Urine pH 6.0 Bedside Urine Protein - Negative Bedside Urine Urobilinogen - Negative Bedside Urine Nitrite - Negative Bedside Urine Leukocytes - Negative Esterase Imaging Data CT scan - abdomen/pelvis: Radiologist's Impression: [address] [address] [address] Scan Report Signed Patient: Xi Dejesus MR#: [id number] : 1960 Acct:[id number] Age/Sex: 64 / F Date of Service: 04/27/25 Loc: ED Accession Number: [id number] Procedure: CT angio chest abdomen pelvis Ordering Provider: Frank Posadas D.O. PROCEDURE: CT ANGIO CHEST ABDOMEN PELVIS INDICATIONS: chest abd back pain/ s/p liver ablation TECHNIQUE: Precontrast 5 mm thick sections acquired from the lung apices to the iliac crests. After the administration of intravenous contrast, 2.5 mm thick sections again acquired from the lung apices to the iliac crests. Maximum intensity projection (MIP) oblique sagittal and coronal reformats were then acquired. For radiation dose reduction, the following was used: automated exposure control. COMPARISON: Located Within [facility], CT, CT ANGIO CHEST PE PROTOCOL, 03/25/2025, 15:02. Located Within [facility], CT, CT ANGIO CHEST PE PROTOCOL, 03/17/2025, 13:38. Located Within [facility], MR, MR ABDOMEN LIVER PROTOCOL, 02/05/2025, 20:36. FINDINGS: Image quality: Diagnostic. AORTA: Ascending aorta measures 3.1 cm. No dissection. No acute aortic syndrome. CHEST: Lower Neck: No enlarged lymph nodes. Thyroid: No thyroid nodules which require sonographic evaluation. Axillae: No enlarged lymph nodes. Chest Wall: Left breast clip. Lungs and Pleura: No pneumothorax or pleural effusions. Moderate emphysematous change. No consolidation or suspicious nodules. Heart: Heart size is normal. No pericardial effusion. Thoracic Vessels: Pulmonary arteries demonstrate normal size. No pulmonary embolism. Mediastinum and Nai: No enlarged lymph nodes. Esophagus: No wall thickening. No hiatal hernia. ABDOMEN: Liver: Cirrhotic liver morphology. Segment 7 area of hypodensity with central increased density measuring approximately 5.2 cm, (5/125), compared to the lesion pre treatment 1.8 cm. Area of hypodensity extends to the liver capsule subdiaphragmatic. Minuscule right perihepatic fluid. Gallbladder: Absent. Biliary ducts: No biliary dilation. Pancreas: No ductal dilation. Spleen: Size is within normal limits. Adrenal Glands: No adrenal nodules. Kidneys and Ureters: No hydronephrosis. No kidney stones. No solid mass. No complex renal cystic lesion which requires follow up. Stomach and Bowel: Normal colonic caliber, without significant wall thickening. Diverticulosis. Peritoneum: No abnormal intraperitoneal fluid. No free air. Ventral Wall: No hernia. Abdominal Nodes: No retroperitoneal or mesenteric adenopathy by size criteria. Vessels: Inferior vena cava is normal in size. Portal vein is not well opacified on this exam. No obvious filling defect. Somewhat prominent hepatic artery branch adjacent to the lesion. No abdominal aortic aneurysm. PELVIS: Pelvic Organs: Trace free fluid in the pelvis. Uterus is absent. Bladder: No stone. Pelvic Nodes: No enlarged lymph nodes. Miscellaneous: No inguinal hernias are seen. Bones: No suspicious osseous lesion. Scoliosis. IMPRESSION: 1. Cirrhosis. Treated right liver lesion measuring 5.2 cm. Treated region extends to the liver capsule. Minuscule right perihepatic fluid. 2. No acute aortic syndrome. No dissection. 3. No diverticulitis. No hydronephrosis. 4. No acute airspace opacity. Dictated by: Keegan John M.D. on 04/27/2025 at 17:20 Approved by: Keegan John M.D. on 04/27/2025 at 17:37 ECG Data Interpretation: NSR HR 82 ME 170 [address]RS [address]-t wave change Change from 03/25/25 MDM Narrative Medical decision making narrative: All lab work, vital signs, nurse triage note, medication list, previous ER visits, and all imaging studies reviewed. CTA chest and abdomen showed cirrhosis. treated right liver lesion measuring 5.2 cm. treated region extends to the liver capsule miniscule right perihepatic fluid. no acute aortic syndrome. no dissection. no diverticulitis. no hydronephrosis. no acute airspace opacity. WBC 6.9 hemoglobin 12.8 platelets 201 sodium 137 potassium 3.8 chloride 101 CO2 28 BUN 17 creatinine 0.98 glucose 108 AST 156 ALT 166 lipase 39. urine shows no UTI Patient given Dilaudid 1 mg x 2. differential diagnosis kidney stone, kidney infection, diverticulitis, liver laceration, pancreatitis. D/c home on tramadol rx. Pt will f/u with pcp tommorow. Discharge Plan Departure Patient Disposition: Home Clinical Impression: Abdominal pain, acute, right upper quadrant Instructions: DI for Abdominal Pain-Adult Activity Restrictions/Additional Instructions: Return with new or worsening symptoms. Follow up with pcp appointment tommorow. Take medicine as directed. Prescriptions: New tramadol 50 mg tablet 50 mg PO Q6H PRN (Reason: pain) Qty: 20 0RF No Action aspirin 81 mg tablet,chewable 81 mg PO .COMPLEX Patient Comments: Take 1 tablet twice a week. Started taking on 09/29/24. Approved by Fred Cerna at [facility]. Rx Instructions: 81 mg orally Mondays and Fridays; loperamide [Imodium A-D] 2 mg capsule 2 mg PO BID PRN (Reason: loose stool) Qty: 60 3RF hydrocodone-acetaminophen 5-325 mg tablet 1 tab PO DAILY PRN (Reason: pain) Qty: 30 0RF (DME) Disabled Parking See Rx Instructions .ROUTE .MEDSUPPLY Qty: 1 0RF Rx Instructions: I find this patient to be medical disabled and qualified for Disabled Parking as indicated, and signed, on the and the Accompanying Disabled Parking Application for Individuals. Depo-Estradiol 5 mg/mL oil 2 mg IM Q2W Qty: 10 3RF metoprolol succinate 25 mg tablet extended release 24 hr 25 mg PO DAILY Qty: 90 3RF cholecalciferol (vitamin D3) 50 mcg (2,000 unit) capsule 50 mcg PO DAILY Qty: 30 3RF spironolactone 25 mg tablet 25 mg PO DAILY fluticasone propionate 110 mcg/actuation HFA aerosol inhaler 2 puff inhalation BID PRN (Reason: SOB) omeprazole 20 mg capsule,delayed release(DR/EC) 20 mg PO DAILY Qty: 90 3RF umeclidinium-vilanterol [Anoro Ellipta] 62.5-25 mcg/actuation blister with device 1 inh inhalation DAILY Qty: 60 11RF albuterol sulfate 90 mcg/actuation HFA aerosol inhaler 2 puff inhalation Q6H PRN (Reason: shortness of breath or wheezing) Qty: 6.7 11RF Referrals: Karoline Cabrera MD [Primary Care Provider, Family Practice] Stand Alone Forms: Patient Portal/API
--- NOTE | 2025-04-27 16:15 | EKG_ITS ---
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
[2025-04-27 16:17] VITALS: BP 131/80; PULSE 83; RESP 20; TEMP 36.6; O2SAT 96; BMI 24.7
[2025-04-27 16:52] LABS: Add Manual Diff / Slide Review NO; Hematocrit 38.0 % (36-46); Hemoglobin 12.8 g/dL (12.0-16.0); Lymphocytes Absolute Auto 900 /uL (1100-4500); Mean Corpuscular HGB Conc 33.6 % (30-36); Mean Corpuscular Hemoglobin 30.9 PG (26-34); Mean Corpuscular Volume 91.9 fL (80-100); Platelet Count 201 X10^3/uL (150-400)
[2025-04-27] MEDS: LACTATED RINGERS 1,000 ML 1000 ML IV (16:55)
[2025-04-27 17:04] LABS: Alanine Aminotransferase 166 IU/L (<35); Albumin 4.3 g/dL (3.5-5.0); Albumin Globulin Ratio 1.4 (1.0-2.8); Alkaline Phosphatase 121 U/L (38-126); Blood Urea Nitrogen 17 mg/dL (7-17); Calcium 8.8 mg/dL (8.4-10.2); Carbon Dioxide 28 mmol/L (22-32); Chloride 101 mmol/L (98-107); Estimated Glomerular Filt Rate > 60 mL/min (>60); Globulin 3.1 g/dL (1.7-4.1); Glucose 108 mg/dL (70-99); HEMOLYSIS < 15 (0-50); Lipase 39 U/L (23-300); Potassium 3.8 mmol/L (3.4-5.1); Sodium 137 mmol/L (137-145); Total Protein 7.4 g/dL (6.3-8.2)
[2025-04-27 17:05] VITALS: BP 133/63; PULSE 84; RESP 16; O2SAT 96
[2025-04-27 17:30] VITALS: BP 127/75; PULSE 81; RESP 18; O2SAT 98
[2025-04-27] MEDS: diphenhydrAMINE 50 MG/ML VIAL 25 MG IV (17:31)
== END 2025-04-27 18:40 | disposition home or self-care (01) ==
PROVIDERS: Emergency Provider Family Medicine; Family Provider Student in an Organized Health Care Education/Training Program; PCP Student in an Organized Health Care Education/Training Program
DX: R10.11 Right upper quadrant pain (principal); R07.89 Other chest pain
CPT/HCPCS: 36415; 71275; 74174; 80053; 81003; 83690; 85025; 93005; 93010; 96361; 96374; 96375; 96376; 99284; J1171; J1200; J7120; Q9967